=== PATIENT | male | born 1935 | race Caucasian/White ===

== ENCOUNTER 2020-08-26 11:39 | Emergency (ER) | payer OTHER ==
[2020-08-26 11:48] VITALS: RESP 18
--- NOTE | 2020-08-26 12:19 | ED ---
SOB HPI - General Chief Complaint: Shortness of Breath Stated Complaint: Covid+, SOB, weakness Time Seen by Provider: 08/26/20 11:50 Source: patient, family, RN notes reviewed Mode of arrival: ambulatory Limitations: no limitations - History of Present Illness Initial Comments: Is an 85-year-old male who is sent in by family because of hypoxemia and marcela rtness breath he states he was diagnosed with Covid 19 several days ago. He denies any fevers chills nausea vomiting sweats minimal cough. MD Complaint: shortness of breath - Related Data Home Medications Medication Instructions Recorded Confirmed Acetaminophen Tab [Tylenol Tab] 1,000 mg PO DAILY 08/26/20 08/26/20 Acetaminophen/Diphenhydramine 2 tab PO HS 08/26/20 08/26/20 [Tylenol PM 500-25mg] Allopurinol [Zyloprim] 200 mg PO DAILY 08/26/20 08/26/20 Aspirin EC [Ecotrin Low Dose] 40.5 mg PO DAILY 08/26/20 08/26/20 Atorvastatin [Lipitor] 40 mg PO HS 08/26/20 08/26/20 Docusate [Colace] 100 - 200 mg PO DAILY PRN 08/26/20 08/26/20 Furosemide [Lasix] 40 mg PO DAILY 08/26/20 08/26/20 Lani's Leg Cramps 1 - 2 tab SL Q4H PRN 08/26/20 08/26/20 Levothyroxine Sodium [Synthroid] 100 mcg PO DAILY 08/26/20 08/26/20 Quinapril HCl [Accupril] 20 mg PO DAILY 08/26/20 08/26/20 Ubidecarenone [Co Q-10] 200 mg PO DAILY 08/26/20 08/26/20 Allergies Allergy/AdvReac Type Severity Reaction Status Date / Time tamsulosin [From Flomax] Allergy Unknown Verified 08/26/20 12:22 zolpidem [From Ambien] Allergy Unknown Verified 08/26/20 12:22 Review of Systems ROS Statement: Those systems with pertinent positive or pertinent negative responses have been documented in the HPI. ROS Other: All systems not noted in ROS Statement are negative. 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 History of Any Multi-Drug Resistant Organisms: None Reported Past Surgical History: Heart Catheterization With Stent, Hernia Repair Past Psychological History: No Psychological Hx Reported Smoking Status: Never smoker Past Alcohol Use History: None Reported Past Drug Use History: None Reported General Exam - General Exam Comments Initial Comments: This is a well-developed asthenic appearing male who is awake alert oriented 3 Limitations: no limitations General appearance: alert, in no apparent distress Head exam: Present: atraumatic, normocephalic, normal inspection Eye exam: Present: normal appearance, PERRL, EOMI. Absent: scleral icterus, conjunctival injection, periorbital swelling ENT exam: Present: normal exam, mucous membranes moist Neck exam: Present: normal inspection, full ROM, other (No stridor JVD or bruits). Absent: tenderness, meningismus, lymphadenopathy Respiratory exam: Present: decreased breath sounds. Absent: respiratory distress, wheezes, rales, rhonchi, stridor Cardiovascular Exam: Present: regular rate, normal rhythm, normal heart sounds. Absent: systolic murmur, diastolic murmur, rubs, gallop, clicks GI/Abdominal exam: Present: soft, normal bowel sounds. Absent: distended, tenderness, guarding, rebound, rigid Extremities exam: Present: normal inspection, full ROM, normal capillary refill. Absent: tenderness, pedal edema, joint swelling, calf tenderness Back exam: Present: normal inspection Neurological exam: Present: alert, oriented X3, CN II-XII intact Psychiatric exam: Present: normal affect, normal mood Skin exam: Present: warm, dry, intact, normal color. Absent: rash Course Vital Signs 08/26/20 11:41 Temperature 97.4 F L Pulse Rate 76 Respiratory 18 Rate Blood Pressure 114/61 O2 Sat by Pulse 96 Oximetry - Reevaluation(s) Reevaluation #1: 08/26/20 14:17 Reevaluation patient reveals no change is known from his who discuss the patient's care with the patient's nurse that he has abnormally cognitive d ysfunction which she is demonstrating today he is baseline per family. Reevaluation #2: 08/26/20 14:20 The patient has have an elevated d-dimer this is consistent however with his age and renal insufficiency. Low probability of embolus. Medical Decision Making - Medical Decision Making The patient is awake and alert demonstrating his normal cognitive function. Vital signs are stable. Patient is a candidate for the Covid antibody. Patient will be discharged and sent to the infusion clinic for antibody. He will then be discharged home. - Lab Data Result diagrams: 08/26/20 12:28 08/26/20 12:28 Lab Results 08/26/20 08/26/20 08/26/20 Range/Units 12:28 12:28 12:28 WBC 3.9 (3.8-10.6) k/uL RBC 3.90 L (4.30-5.90) m/uL Hgb 13.0 (13.0-17.5) gm/dL Hct 37.4 L (39.0-53.0) % MCV 95.9 (80.0-100.0) fL MCH 33.3 (25.0-35.0) pg MCHC 34.7 (31.0-37.0) g/dL RDW 13.2 (11.5-15.5) % Plt Count 141 L (150-450) k/uL MPV 9.2 Neutrophils % 74 % Lymphocytes % 18 % Monocytes % 6 % Eosinophils % 0 % Basophils % 1 % Neutrophils # 2.9 (1.3-7.7) k/uL Lymphocytes # 0.7 L (1.0-4.8) k/uL Monocytes # 0.2 (0-1.0) k/uL Eosinophils # 0.0 (0-0.7) k/uL Basophils # 0.0 (0-0.2) k/uL PT 10.1 (9.0-12.0) sec INR 0.9 (<1.2) APTT 26.2 (22.0-30.0) sec D-Dimer 0.80 H (<0.60) mg/L FEU Sodium 138 (137-145) mmol/L Potassium 4.5 (3.5-5.1) mmol/L Chloride 108 H (98-107) mmol/L Carbon Dioxide 23 (22-30) mmol/L Anion Gap 7 mmol/L BUN 45 H (9-20) mg/dL Creatinine 1.91 H (0.66-1.25) mg/dL Est GFR (CKD-EPI)AfAm 36 (>60 ml/min/1.73 sqM) Est GFR (CKD-EPI)NonAf 32 (>60 ml/min/1.73 sqM) Glucose 129 H (74-99) mg/dL Plasma Lactic Acid Bakari (0.7-2.0) mmol/L Calcium 8.3 L (8.4-10.2) mg/dL Magnesium 2.2 (1.6-2.3) mg/dL Total Bilirubin 0.3 (0.2-1.3) mg/dL AST 31 (17-59) U/L ALT 25 (4-49) U/L Alkaline Phosphatase 52 (38-126) U/L Creatine Kinase 105 (55-170) U/L Troponin I (0.000-0.034) ng/mL NT-Pro-B Natriuret Pep pg/mL Total Protein 5.5 L (6.3-8.2) g/dL Albumin 3.3 L (3.5-5.0) g/dL 08/26/20 08/26/20 08/26/20 Range/Units 12:28 12:28 12:28 WBC (3.8-10.6) k/uL RBC (4.30-5.90) m/uL Hgb (13.0-17.5) gm/dL Hct (39.0-53.0) % MCV (80.0-100.0) fL MCH (25.0-35.0) pg MCHC (31.0-37.0) g/dL RDW (11.5-15.5) % Plt Count (150-450) k/uL MPV Neutrophils % % Lymphocytes % % Monocytes % % Eosinophils % % Basophils % % Neutrophils # (1.3-7.7) k/uL Lymphocytes # (1.0-4.8) k/uL Monocytes # (0-1.0) k/uL Eosinophils # (0-0.7) k/uL Basophils # (0-0.2) k/uL PT (9.0-12.0) sec INR (<1.2) APTT (22.0-30.0) sec D-Dimer (<0.60) mg/L FEU Sodium (137-145) mmol/L Potassium (3.5-5.1) mmol/L Chloride (98-107) mmol/L Carbon Dioxide (22-30) mmol/L Anion Gap mmol/L BUN (9-20) mg/dL Creatinine (0.66-1.25) mg/dL Est GFR (CKD-EPI)AfAm (>60 ml/min/1.73 sqM) Est GFR (CKD-EPI)NonAf (>60 ml/min/1.73 sqM) Glucose (74-99) mg/dL Plasma Lactic Acid Bakari 1.2 (0.7-2.0) mmol/L Calcium (8.4-10.2) mg/dL Magnesium (1.6-2.3) mg/dL Total Bilirubin (0.2-1.3) mg/dL AST (17-59) U/L ALT (4-49) U/L Alkaline Phosphatase (38-126) U/L Creatine Kinase (55-170) U/L Troponin I <0.012 (0.000-0.034) ng/mL NT-Pro-B Natriuret Pep 140 pg/mL Total Protein (6.3-8.2) g/dL Albumin (3.5-5.0) g/dL - EKG Data -: EKG Interpreted by Me EKG shows normal: sinus rhythm EKG Comments: Sinus rhythm with PACs rate 76. Interval 160 QRS duration 92 daily since QTC 376/[address]-T wave changes - Radiology Data Radiology results: report reviewed (Imaging is evidence of early infiltrate), image reviewed Disposition Clinical Impression: Pneumonia due to COVID-19 virus, Viral pneumonia, Feared condition not demonstrated Disposition: HOME SELF-CARE Condition: Good Additional Instructions: Covid antibody infusion Is patient prescribed a controlled substance at d/c from ED?: No Referrals: Andrei Vasquez MD [Primary Care Provider] - 1-2 days
[2020-08-26 12:56] LABS: Basophils % (A) 1 %; Eosinophils % (A) 0 %; HCT 37.4 % (39.0-53.0); Lymphocytes # (A) 0.7 k/uL (1.0-4.8); Lymphocytes % (A) 18 %; MCH 33.3 pg (25.0-35.0); MCHC 34.7 g/dL (31.0-37.0); MCV 95.9 fL (80.0-100.0); Mean Platelet Volume 9.2; Monocytes # (A) 0.2 k/uL (0-1.0); Monocytes % (A) 6 %; Neutrophils # (A) 2.9 k/uL (1.3-7.7); Neutrophils % (A) 74 %; Platelet Count 141 k/uL (150-450); RDW 13.2 % (11.5-15.5); WBC 3.9 k/uL (3.8-10.6)
--- NOTE | 2020-08-26 13:08 | XR ---
EXAMINATION TYPE: XR chest 2V DATE OF EXAM: 08/26/2020 COMPARISON: Chest x-ray 06/19/2019 HISTORY: Difficulty breathing TECHNIQUE: Frontal and lateral views of the chest are obtained. FINDINGS: Some minimal patchy density is present bilaterally within the lungs. There is no pleural ef fusion or pneumothorax seen. The cardiac silhouette size is within normal limits. Aorta is dense. Th ere is multilevel thoracic spondylosis. There are overlying leads. The osseous structures are intact . IMPRESSION: Correlate for possible pneumonia, follow-up as indicated.
[2020-08-26 13:12] LABS: Albumin 3.3 g/dL (3.5-5.0); Calcium 8.3 mg/dL (8.4-10.2); Magnesium 2.2 mg/dL (1.6-2.3); Potassium 4.5 mmol/L (3.5-5.1); Total Bilirubin 0.3 mg/dL (0.2-1.3); Total Protein 5.5 g/dL (6.3-8.2)
[2020-08-26 13:16] LABS: INR 0.9 (<1.2); Partial Thromboplastin Time 26.2 sec (22.0-30.0); Prothrombin Time 10.1 sec (9.0-12.0)
[2020-08-26 13:25] LABS: D-Dimer 0.8 mg/L FEU (<0.60)
[2020-08-26] MEDS ORDERED: BAMLANIVIMAB (EUA) 700 MG, ETESEVIMAB (EUA) 1,400 MG in SODIUM CHLORIDE 0.9% 50 ML IVPB ONE (14:45)
[2020-08-26] MEDS ORDERED: SODIUM CHLORIDE 0.9% 50 ML IVPB ONE (14:45)
[2020-08-26 16:43] VITALS: BP 112/82; PULSE 88; TEMP 98.2
== END 2020-08-26 16:43 | disposition home or self-care (01) ==
LOC: EC 11:39
DX: U07.1 COVID-19 (principal); J12.82 Pneumonia due to coronavirus disease 2019; Z71.1 Person with feared health complaint in whom no diagnosis is made; E78.5 Hyperlipidemia, unspecified; Z79.82 Long term (current) use of aspirin; Z79.899 Other long term (current) drug therapy; Z85.51 Personal history of malignant neoplasm of bladder
CPT/HCPCS: 36415; 93005; 85379; 83880; 80053; 82550; 83605; 83735; 84484; 85025; 85610; 85730; 87635; 71046; 99285; 96360; Q0245

== ENCOUNTER 2020-08-27 09:08 | Inpatient (IN) | payer OTHER, MEDICARE ==
[2020-08-27 09:37] LABS: Basophils % (A) 0 %; Eosinophils % (A) 0 %; HCT 38.9 % (39.0-53.0); Lymphocytes # (A) 0.7 k/uL (1.0-4.8); Lymphocytes % (A) 11 %; MCH 32.3 pg (25.0-35.0); MCHC 33.4 g/dL (31.0-37.0); MCV 96.8 fL (80.0-100.0); Mean Platelet Volume 8.8; Monocytes # (A) 0.3 k/uL (0-1.0); Monocytes % (A) 5 %; Neutrophils # (A) 5.4 k/uL (1.3-7.7); Neutrophils % (A) 84 %; Platelet Count 126 k/uL (150-450); RBC 4.02 m/uL (4.30-5.90); RDW 13.1 % (11.5-15.5); WBC 6.5 k/uL (3.8-10.6)
--- NOTE | 2020-08-27 09:44 | XR ---
EXAMINATION TYPE: XR chest 1V portable DATE OF EXAM: 08/27/2020 COMPARISON: Chest x-ray from yesterday HISTORY: SOB and positive covid. TECHNIQUE: Single AP portable frontal upright view of the chest is obtained. FINDINGS: Background low lung volumes redemonstrated. There is increasing multifocal reticular opacit ies in the mid to lower lungs greatest in the periphery. The cardiac silhouette size is stable and w ithin normal limits. The osseous structures are intact. IMPRESSION: Low lung volumes with worsening multifocal bilateral mid to lower lung reticular opaciti es consistent with covid-19 infection progression.
[2020-08-27 09:49] LABS: Albumin 3.7 g/dL (3.5-5.0); C Reactive Protein 7.1 mg/dL (<1.0); Calcium 8.5 mg/dL (8.4-10.2); Magnesium 2.1 mg/dL (1.6-2.3); Potassium 4.2 mmol/L (3.5-5.1); Total Bilirubin 0.5 mg/dL (0.2-1.3)
[2020-08-27 09:53] LABS: INR 0.9 (<1.2)
[2020-08-27 09:54] LABS: Partial Thromboplastin Time 25.2 sec (22.0-30.0); Prothrombin Time 9.9 sec (9.0-12.0)
--- NOTE | 2020-08-27 09:56 | ED ---
SOB HPI - General Chief Complaint: Shortness of Breath Stated Complaint: Covid+/sob/low o2 Time Seen by Provider: 08/27/20 09:10 Source: EMS Mode of arrival: EMS Limitations: no limitations - History of Present Illness Initial Comments: 85-year-old male presents to the emergency department with complaints of shortness of breath. Patient was seen yesterday in the emergency department for similar complaint. It was reported the patient rested positive for Covid several days ago. Patient cannot tell me how many days ago this was however states that he went through a drive-through testing center. Had a poor appetite was poor oral intake. Reports increased generalized weakness and myalgias. Patient also found to be extremely short of breath. EMS arrived to the house and found the patient is saturating 80% on room air. Yesterday in the emergency department the patient received BAM infusion and was discharged home. remainder of the HPI is limited due to the patient's current clinical condition - Related Data Home Medications Medication Instructions Recorded Confirmed Acetaminophen Tab [Tylenol] 1,000 mg PO DAILY 08/26/20 09/02/20 Acetaminophen/Diphenhydramine 2 tab PO HS 08/26/20 09/02/20 [Tylenol PM 500-25mg] Allopurinol [Zyloprim] 200 mg PO DAILY 08/26/20 09/02/20 Aspirin EC [Ecotrin Low Dose] 40.5 mg PO DAILY 08/26/20 09/02/20 Atorvastatin [Lipitor] 40 mg PO HS 08/26/20 09/02/20 Docusate [Colace] 100 - 200 mg PO DAILY PRN 08/26/20 09/02/20 Furosemide [Lasix] 40 mg PO DAILY 08/26/20 09/02/20 Lani's Leg Cramps 1 - 2 tab SUBLINGUAL Q4H PRN 08/26/20 09/02/20 Levothyroxine Sodium [Synthroid] 100 mcg PO DAILY 08/26/20 09/02/20 Ubidecarenone [Co Q-10] 200 mg PO DAILY 08/26/20 09/02/20 Previous Rx's Medication Instructions Recorded Acetaminophen Tab [Tylenol] 650 mg PO Q6HR PRN tab 09/01/20 Albuterol Inhaler [Ventolin Hfa 2 puff INHALATION RT-QID #1 puff 09/01/20 Inhaler] Ascorbic Acid [Vitamin C] 500 mg PO BID tab 09/01/20 Cholecalciferol [Vitamin D3 (25 125 mcg PO DAILY tablet 09/01/20 Mcg = 1000 Iu)] Dexamethasone [Decadron] 4 mg PO AC-BRKFST #7 tablet 09/01/20 Pantoprazole [Protonix] 40 mg PO AC-BRKFST #30 tablet. 09/01/20 guaiFENesin [Mucinex] 600 mg PO Q12HR tablet.er 09/01/20 hydrALAZINE HCL [Apresoline] 25 mg PO BID #60 tab 09/01/20 Allergies Allergy/AdvReac Type Severity Reaction Status Date / Time tamsulosin [From Flomax] Allergy Unknown Verified 09/02/20 08:30 zolpidem [From Ambien] Allergy Unknown Verified 09/02/20 08:30 Review of Systems ROS Statement: Those systems with pertinent positive or pertinent negative responses have been documented in the HPI. ROS Other: All systems not noted in ROS Statement are negative. 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 Absent: scleral icterus, c onjunctival injection, periorbital swelling ENT exam: Present: normal exam, mucous membranes moist Neck exam: Present: normal inspection. Absent: tenderness, meningismus, lymphadenopathy Respiratory exam: Present: normal lung sounds bilaterally. Absent: respiratory distress, wheezes, rales, rhonchi, stridor Cardiovascular Exam: Present: regular rate, normal rhythm, normal heart sounds. Absent: systolic murmur, diastolic murmur, rubs, gallop, clicks GI/Abdominal exam: Present: soft, normal bowel sounds. Absent: distended, tenderness, guarding, rebound, rigid Extremities exam: Present: normal inspection, full ROM, normal capillary refill. Absent: tenderness, pedal edema, joint swelling, calf tenderness Back exam: Present: normal inspection Neurological exam: Present: alert, oriented X3, CN II-XII intact Psychiatric exam: Present: normal affect, normal mood Skin exam: Present: warm, dry, intact, normal color. Absent: rash Course Vital Signs 08/27/20 08/27/20 08/27/20 09:09 10:04 10:32 Temperature 98.2 F Pulse Rate 78 73 68 Respiratory 16 16 18 Rate Blood Pressure 135/81 140/75 146/76 O2 Sat by Pulse 100 95 96 Oximetry 08/27/20 08/27/20 08/27/20 11:26 11:54 13:00 Temperature Pulse Rate 64 66 62 Respiratory 16 16 16 Rate Blood Pressure 138/58 128/67 133/69 O2 Sat by Pulse 94 L 98 97 Oximetry Medical Decision Making - Medical Decision Making Upon arrival patient was placed into room 2. He was saturating 80% for EMS. He is placed on a nonrebreather and oxygen was titrated down. Patient is able to be weaned down to 3 L and is saturating 96%. Laboratory studies are conducted. The patient's creatinine is 2.3. Lactic acid 3.2. Chest x-ray demonstrates low lung volumes with worsening multifocal bilateral mid to lower lung reticular opacities. Because the patient's hypoxia and acute kidney injury did recommend hospital admission for which patient agree to. Spoke with Dr. Myers who agreed to admit the patient. Patient remained in stable condition. He is placed on fluid hydration and steroids. Patient is currently awaiting a bed on the floor - Lab Data Result diagrams: 08/31/20 07:42 08/31/20 07:42 Lab Results 08/27/20 08/27/20 08/27/20 Range/Units 09:27 09:27 09:27 WBC 6.5 (3.8-10.6) k/uL RBC 4.02 L (4.30-5.90) m/uL Hgb 13.0 (13.0-17.5) gm/dL Hct 38.9 L (39.0-53.0) % MCV 96.8 (80.0-100.0) fL MCH 32.3 (25.0-35.0) pg MCHC 33.4 (31.0-37.0) g/dL RDW 13.1 (11.5-15.5) % Plt Count 126 L (150-450) k/uL MPV 8.8 Neutrophils % 84 % Lymphocytes % 11 % Monocytes % 5 % Eosinophils % 0 % Basophils % 0 % Neutrophils # 5.4 (1.3-7.7) k/uL Lymphocytes # 0.7 L (1.0-4.8) k/uL Monocytes # 0.3 (0-1.0) k/uL Eosinophils # 0.0 (0-0.7) k/uL Basophils # 0.0 (0-0.2) k/uL PT 9.9 (9.0-12.0) sec INR 0.9 (<1.2) APTT 25.2 (22.0-30.0) sec D-Dimer 1.06 H (<0.60) mg/L FEU Sodium 141 (137-145) mmol/L Potassium 4.2 (3.5-5.1) mmol/L Chloride 107 (98-107) mmol/L Carbon Dioxide 22 (22-30) mmol/L Anion Gap 12 mmol/L BUN 52 H (9-20) mg/dL Creatinine 2.30 H (0.66-1.25) mg/dL Est GFR (CKD-EPI)AfAm 29 (>60 ml/min/1.73 sqM) Est GFR (CKD-EPI)NonAf 25 (>60 ml/min/1.73 sqM) Glucose 114 H (74-99) mg/dL Lactic Ac Sepsis Rflx Plasma Lactic Acid Bakari (0.7-2.0) mmol/L Calcium 8.5 (8.4-10.2) mg/dL Magnesium 2.1 (1.6-2.3) mg/dL Total Bilirubin 0.5 (0.2-1.3) mg/dL AST 36 (17-59) U/L ALT 28 (4-49) U/L Alkaline Phosphatase 56 (38-126) U/L Lactate Dehydrogenase 572 (313-618) U/L C-Reactive Protein 7.1 H (<1.0) mg/dL Total Protein 6.0 L (6.3-8.2) g/dL Albumin 3.7 (3.5-5.0) g/dL Procalcitonin (0.02-0.09) ng/mL 08/27/20 08/27/20 08/27/20 Range/Units 09:27 09:27 09:56 WBC (3.8-10.6) k/uL RBC (4.30-5.90) m/uL Hgb (13.0-17.5) gm/dL Hct (39.0-53.0) % MCV (80.0-100.0) fL MCH (25.0-35.0) pg MCHC (31.0-37.0) g/dL RDW (11.5-15.5) % Plt Count (150-450) k/uL MPV Neutrophils % % Lymphocytes % % Monocytes % % Eosinophils % % Basophils % % Neutrophils # (1.3-7.7) k/uL Lymphocytes # (1.0-4.8) k/uL Monocytes # (0-1.0) k/uL Eosinophils # (0-0.7) k/uL Basophils # (0-0.2) k/uL PT (9.0-12.0) sec INR (<1.2) APTT (22.0-30.0) sec D-Dimer (<0.60) mg/L FEU Sodium (137-145) mmol/L Potassium (3.5-5.1) mmol/L Chloride (98-107) mmol/L Carbon Dioxide (22-30) mmol/L Anion Gap mmol/L BUN (9-20) mg/dL Creatinine (0.66-1.25) mg/dL Est GFR (CKD-EPI)AfAm (>60 ml/min/1.73 sqM) Est GFR (CKD-EPI)NonAf (>60 ml/min/1.73 sqM) Glucose (74-99) mg/dL Lactic Ac Sepsis Rflx Y Plasma Lactic Acid Bakari 3.2 H* (0.7-2.0) mmol/L Calcium (8.4-10.2) mg/dL Magnesium (1.6-2.3) mg/dL Total Bilirubin (0.2-1.3) mg/dL AST (17-59) U/L ALT (4-49) U/L Alkaline Phosphatase (38-126) U/L Lactate Dehydrogenase (313-618) U/L C-Reactive Protein (<1.0) mg/dL Total Protein (6.3-8.2) g/dL Albumin (3.5-5.0) g/dL Procalcitonin 1.79 H (0.02-0.09) ng/mL - EKG Data EKG Comments: EKG demonstrates a normal sinus rhythm with fusion complexes. Rate of 81. W[place] i nterval 162. QRS 88. QTC of 427. No acute ST segment elevations or depressions Disposition Clinical Impression: Pneumonia due to COVID-19 virus, MARLON (acute kidney injury), Hypoxia Disposition: ADMITTED IP TO THIS HOSP Condition: Stable Is patient prescribed a controlled substance at d/c from ED?: No Decision to Admit Reason: Admit from EC Decision Date: 08/27/20 Decision Time: 11:13
[2020-08-27 10:10] LABS: D-Dimer 1.06 mg/L FEU (<0.60)
[2020-08-27] MEDS ORDERED: SODIUM CHLORIDE 0.9% 1,000 ML IV ONE (10:34)
[2020-08-27] MEDS: SODIUM CHLORIDE 0.9% 1,000 ML IV SCH (10:45)
[2020-08-27] MEDS ORDERED: ACETAMINOPHEN TAB 325 MG TAB PO PRN (11:16)
[2020-08-27] MEDS ORDERED: NALOXONE 0.4 MG/ML 1 ML VIAL IV PRN (11:16)
[2020-08-27] MEDS ORDERED: DEXAMETHASONE SOD PHOSPHATE 10 MG/ML 1 ML VIAL IV SCH (11:30)
--- NOTE | 2020-08-27 14:34 | P.CNPUL ---
History of Present Illness Consult date: 08/27/20 Requesting physician: Deepak Vasquez Reason for consult: dyspnea, cough, hypoxemia, pneumonia, abnormal CXR/CT Chief complaint: Shortness of breath, COVID pneumonia. History of present illness: Pulmonary consult dated 08/27/2020. 85-year-old male, who is quite confused as to exactly why he's here in the emergency department. According to the nurse, the patient was here yesterday and received BAM. He was discharged home. He apparently presented back to the emergency department on August 27, for complaints of increasing shortness of breath. He apparently tested positive for coronavirus a couple days ago. Anyway, his symptoms included shortness breath, cough, weakness, fatigue, and poor appetite with poor oral intake of both fluids and food. The patient was apparently quite short of breath, and he was only saturating 80% on room air. For that reason he came into the hospital. His primary care physician is Dr. Jeffrey Vasquez. He has a history of hyperlipidemia, hypertension, hypothyroidism, bladder cancer, and heart catheterization with stent. He is 85 years of age. Currently, he's on 4 L nasal O2. Lab data includes a white count 6.5, hemoglobin 13, hematocrit 38.9, and platelet count 126,000. PT, INR, PTT, and d-dimer were all reviewed. D-dimer is 1.06. Sodium potassium chloride CO2 all normal. Anion gap 12, BUN was 52, and creatinine was 2.30. Lactic acid 3.2, with repeat being 0.9. C-reactive protein 7.1. LDH 572. Chest x-ray show some low lung volumes, and bilateral infiltrates. The patient did test positive again for coronavirus on August 26. It is not clear to me how long he's been having symptoms. Again, he is not a very good historian. Review of Systems REVIEW OF SYSTEMS: CONSTITUTIONAL: Fatigue and weakness. NEUROLOGIC: [ Negative.] HEENT: [ Negative.] CARDIAC: [Negative.] PULMONARY: Shortness of breath, chest congestion, cough, low saturations. GI: Decreased oral intake with dehydration. : [Negative.] RHEUMATOLOGIC: [ Negative.] IMMUNOLOGIC: [ Negative.] ENDOCRINE: [Negative. 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 History of Any Multi-Drug Resistant Organisms: None Reported Past Surgical History: Heart Catheterization With Stent, Hernia Repair Past Psychological History: No Psychological Hx Reported Smoking Status: Never smoker Past Alcohol Use History: None Reported Past Drug Use History: None Reported Medications and Allergies Home Medications Medication Instructions Recorded Confirmed Type Acetaminophen Tab [Tylenol Tab] 1,000 mg PO DAILY 08/26/20 08/27/20 History Acetaminophen/Diphenhydramine 2 tab PO HS 08/26/20 08/27/20 History [Tylenol PM 500-25mg] Allopurinol [Zyloprim] 200 mg PO DAILY 08/26/20 08/27/20 History Aspirin EC [Ecotrin Low Dose] 40.5 mg PO DAILY 08/26/20 08/27/20 History Atorvastatin [Lipitor] 40 mg PO HS 08/26/20 08/27/20 History Docusate [Colace] 100 - 200 mg PO DAILY PRN 08/26/20 08/27/20 History Furosemide [Lasix] 40 mg PO DAILY 08/26/20 08/27/20 History Lani's Leg Cramps 1 - 2 tab SUBLINGUAL Q4H PRN 08/26/20 08/27/20 History Levothyroxine Sodium [Synthroid] 100 mcg PO DAILY 08/26/20 08/27/20 History Quinapril HCl [Accupril] 20 mg PO DAILY 08/26/20 08/27/20 History Ubidecarenone [Co Q-10] 200 mg PO DAILY 08/26/20 08/27/20 History Allergies Allergy/AdvReac Type Severity Reaction Status Date / Time tamsulosin [From Flomax] Allergy Unknown Verified 08/27/20 10:04 zolpidem [From Ambien] Allergy Unknown Verified 08/27/20 10:04 Physical Exam Osteopathic Statement: *. No significant issues noted on an osteopathic structural exam other than those noted in the History and Physical/Consult. Vitals: Vital Signs Temp Pulse Resp BP Pulse Ox 08/27/20 13:00 62 16 133/69 97 08/27/20 11:54 66 16 128/67 98 08/27/20 11:26 64 16 138/58 94 L 08/27/20 10:32 68 18 146/76 96 08/27/20 10:04 73 16 140/75 95 08/27/20 09:09 98.2 F 78 16 135/81 100 Intake and Output 08/26/20 08/27/20 08/27/20 22:59 06:59 14:59 Other: Weight 90.718 kg No acute distress, poor historian, a bit confused, on 4 L nasal O2. Saturations 95%. HEENT examination is grossly unremarkable. Mucous membranes are dry. Neck supple. Full range of motion. No adenopathy thyromegaly or neck vein distention. Cardiovascular examination reveals regular rhythm rate. S1-S2 normal. No S3 or S4. No discernible murmur noted. Heart rate 62 bpm. Lungs reveal bilateral scattered rhonchi. No wheezes or crackles. Breath sounds equal. Abdomen soft bowel sounds are heard. No masses or tenderness. Extremities are intact. No cyanosis clubbing or edema. Skin is without rash or lesion. Neurologic examination is brief but nonfocal. Results - Laboratory Findings CBC and BMP: 08/27/20 09:27 08/27/20 09:27 PT/INR, D-dimer PT 9.9 sec (9.0-12.0) 08/27/20 09:27 INR 0.9 (<1.2) 08/27/20 09:27 D-Dimer 1.06 mg/L FEU (<0.60) H 08/27/20 09:27 Abnormal lab findings: Abnormal Labs 08/27/20 08/27/20 08/27/20 09:27 09:27 09:27 RBC 4.02 L Hct 38.9 L Plt Count 126 L Lymphocytes # 0.7 L D-Dimer 1.06 H BUN 52 H Creatinine 2.30 H Glucose 114 H Plasma Lactic Acid Bakari C-Reactive Protein 7.1 H Total Protein 6.0 L 08/27/20 09:27 RBC Hct Plt Count Lymphocytes # D-Dimer BUN Creatinine Glucose Plasma Lactic Acid Bakari 3.2 H* C-Reactive Protein Total Protein - Diagnostic Findings Chest x-ray: image reviewed Assessment and Plan Assessment: Acute hypoxemic respiratory failure secondary to COVID 19 pneumonia/pneumonitis. Status post BAM/ETE therapy on August 26. History of gout. History of hyperlipidemia. History of hypothyroidism. History of hypertension. History of bladder cancer. Previous history of heart catheterization with stent placement. Lifelong nonsmoker. Plan: Plan dated 08/27/2020. The patient should receive vitamin C, vitamin D3, and zinc. In addition, the patient should get Lovenox, and Decadron. He may be a candidate for REM, although it is not clear to me how long he's been having symptoms. He is not a particularly good historian. He did received BAM/ETE on August 26. The patient is not sick enough to receive TOCI. We will continue to follow make recommendations were appropriate. The primary service should institute the vitamins, Decadron, and Lovenox if not already ordered. Time with Patient: Greater than 30
[2020-08-27] MEDS ORDERED: ONDANSETRON 4 MG/2 ML VIAL IVP PRN (15:19)
--- NOTE | 2020-08-27 15:44 | P.HPIM ---
History of Present Illness H&P Date: 08/27/20 85 years old male patient of Dr. Vasquez with past medical history of coronary disease status post stenting, hypertension, hyperlipidemia, hypothyroidism, history of bladder cancer status post surgery, so comes in with worsening shortness of breath associated with weakness, fatigue poor appetite and poor intake of fluids and food. Apparently patient was in here yesterday and was diagnosed with COVID. Patient received Bamlanivimab and was discharged home. EMS was called and patient was noted to be shortof breath his oxygen saturation was 80% on room air. Oxygenation improved with nonrebreather and finally was titrated down to 3 L. On evaluation today patient appears very confused and unable to give any history. He does document dry mouth but is unable to tell his symptoms or the reason he is in the ER. He is unable to give any hitory and is drifting back to sleep. On assessment of patient's vitals, patient has a temp of 98.9 pulse 58 respiratory rate 18 blood pressure 125/6687% on 3 L of oxygen. On assessment was that patient has a WBC of 6.5 hemoglobin 13 d-dimer 1.06 sodium 141 potassium 4.2 chloride 107 BUN 52 creatinine 2.3 baseline creatinine not known patient's creatinine yesterday is was 1.9 initially lactic acid 3.2 improved to 0.9 with fluids. CRP 7.1 LDH 572, proBNP 144 with detected on 08/26. Pulmonary consulted. Continue patient on vitamin C, vitamin D dexamethasone 4 mg IV twice a day continue IV fluids at 75 mL per hour. Ultrasound bladder and kidneys ordered. 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 History of Any Multi-Drug Resistant Organisms: None Reported Past Surgical History: Heart Catheterization With Stent, Hernia Repair Smoking Status: Never smoker Medications and Allergies Home Medications Medication Instructions Recorded Confirmed Type Acetaminophen Tab [Tylenol Tab] 1,000 mg PO DAILY 08/26/20 08/27/20 History Acetaminophen/Diphenhydramine 2 tab PO HS 08/26/20 08/27/20 History [Tylenol PM 500-25mg] Allopurinol [Zyloprim] 200 mg PO DAILY 08/26/20 08/27/20 History Aspirin EC [Ecotrin Low Dose] 40.5 mg PO DAILY 08/26/20 08/27/20 History Atorvastatin [Lipitor] 40 mg PO HS 08/26/20 08/27/20 History Docusate [Colace] 100 - 200 mg PO DAILY PRN 08/26/20 08/27/20 History Furosemide [Lasix] 40 mg PO DAILY 08/26/20 08/27/20 History Lani's Leg Cramps 1 - 2 tab SUBLINGUAL Q4H PRN 08/26/20 08/27/20 History Levothyroxine Sodium [Synthroid] 100 mcg PO DAILY 08/26/20 08/27/20 History Quinapril HCl [Accupril] 20 mg PO DAILY 08/26/20 08/27/20 History Ubidecarenone [Co Q-10] 200 mg PO DAILY 08/26/20 08/27/20 History Allergies Allergy/AdvReac Type Severity Reaction Status Date / Time tamsulosin [From Flomax] Allergy Unknown Verified 08/27/20 10:04 zolpidem [From Ambien] Allergy Unknown Verified 08/27/20 10:04 Physical Exam Vitals: Vital Signs Temp Pulse Pulse Resp BP BP Pulse Ox 08/27/20 14:51 98.9 F 58 L 18 125/66 08/27/20 13:00 62 16 133/69 97 08/27/20 11:54 66 16 128/67 98 08/27/20 11:26 64 16 138/58 94 L 08/27/20 10:32 68 18 146/76 96 08/27/20 10:04 73 16 140/75 95 08/27/20 09:09 98.2 F 78 16 135/81 100 Intake and Output 08/27/20 08/27/20 08/27/20 06:59 14:59 22:59 Other: Weight 90.718 kg 90.718 kg - Constitutional General appearance: uncooperative drowsy unable to answer any questions - EENT Eyes: anicteric sclerae, PERRLA, normal appearance ENT: hearing grossly normal - Neck Neck: no lymphadenopathy, normal ROM, - Respiratory Respiratory: bilateral: Decreased air entry with rhonchi - Cardiovascular Rhythm: regular Heart sounds: normal: S1, S2 Abnormal Heart Sounds: no systolic murmur, no diastolic murmur, no rub - Gastrointestinal General gastrointestinal: normal bowel sounds, soft nontender - Integumentary Integumentary: no rash - Neurologic Neurologic: Sensorimotor deficit, gait not assessed - Musculoskeletal Musculoskeletal:, strength equal bilaterally - Psychiatric Psychiatric: Drowsy orientation 1 Results CBC & Chem 7: 08/27/20 09:27 08/27/20 09:27 Labs: Abnormal Lab Results - Last 24 Hours (Table) 08/27/20 08/27/20 08/27/20 Range/Units 09:27 09:27 09:27 RBC 4.02 L (4.30-5.90) m/uL Hct 38.9 L (39.0-53.0) % Plt Count 126 L (150-450) k/uL Lymphocytes # 0.7 L (1.0-4.8) k/uL D-Dimer 1.06 H (<0.60) mg/L FEU BUN 52 H (9-20) mg/dL Creatinine 2.30 H (0.66-1.25) mg/dL Glucose 114 H (74-99) mg/dL Plasma Lactic Acid Bakari (0.7-2.0) mmol/L C-Reactive Protein 7.1 H (<1.0) mg/dL Total Protein 6.0 L (6.3-8.2) g/dL 08/27/20 Range/Units 09:27 RBC (4.30-5.90) m/uL Hct (39.0-53.0) % Plt Count (150-450) k/uL Lymphocytes # (1.0-4.8) k/uL D-Dimer (<0.60) mg/L FEU BUN (9-20) mg/dL Creatinine (0.66-1.25) mg/dL Glucose (74-99) mg/dL Plasma Lactic Acid Bakari 3.2 H* (0.7-2.0) mmol/L C-Reactive Protein (<1.0) mg/dL Total Protein (6.3-8.2) g/dL Thrombosis Risk Factor Assmnt - DVT/VTE Prophylaxis DVT/VTE Prophylaxis: Pharmacologic Prophylaxis ordered Assessment and Plan Plan: #1 acute hypoxic respiratory failure secondary to call with pneumonia. Status post monoclonal antibodies Bamlanivimab as outpatient. Initiated dexamethasone, vitamin C, vitamin D, zinc. Patient may benefit from remdesivir pulmonary to make recommendations. CT could not be performed due to worsening kidney functions VQ scan ordered. #2 lactic acidosis likely secondary to dehydration due to poor oral intake continue IV fluids at 75 mL/h #3 acute kidney injury. No prior baseline creatinine available. Likely ATN. Continue IV fluids at 75 mL per hour. Ultrasound renal and bladder ordered to rule out BPH and retention. #4 history of bladder cancer status post reconstruction, stable renal ultrasound and bladder ultrasound ordered #5 coronary artery disease status post stenting. Continue aspirin #5 hyperlipidemia continue atorvastatin 40 mg daily #6 hypothyroidism continue levothyroxine 100 g daily #7 hypertension hold quinapril and Lasix due to worsening kidney dysfunction #8 gout continue allopurinol 100 mg daily #9 CODE STATUS full code #10 DVT prophylaxis with Lovenox 40 subcu daily #11 GI prophylaxis with Protonix 40 mg daily
[2020-08-27] MEDS: ENOXAPARIN 40 MG/0.4 ML SYRINGE SQ SCH (16:53)
--- NOTE | 2020-08-27 17:38 | NM ---
EXAMINATION TYPE: NM pul perfusion DATE OF EXAM: 08/27/2020 COMPARISON: Same day chest radiograph HISTORY: Concern for PE. Following administration of 5.1 mCi Tc 99m MAA. Images obtained post injection. FINDINGS: Same-day chest radiograph demonstrated multifocal mid to lower reticular opacities characteristic of Covid 19. Perfusion images of the bilateral lungs demonstrate homogenous activity with no segmental perfusion d efect. IMPRESSION: Very low probability for PE.
[2020-08-27] MEDS: guaiFENesin 600 MG TABLET.ER PO SCH (19:47)
[2020-08-27] MEDS: ASCORBIC ACID 500 MG TAB PO SCH (19:47)
[2020-08-27] MEDS: DEXAMETHASONE SOD PHOSPHATE 10 MG/ML 1 ML VIAL IV SCH (19:47)
[2020-08-27] MEDS: ATORVASTATIN 40 MG TAB PO SCH (19:48)
--- NOTE | 2020-08-27 21:20 | US ---
EXAMINATION TYPE: US renals and bladder DATE OF EXAM: 08/27/2020 COMPARISON: NONE CLINICAL HISTORY: rex, h/o bladder cancer and reconstruction . rex, pt is poor historian and does not remember bladder ca EXAM MEASUREMENTS: Right Kidney: 16.4 x 8.6 cm Left Kidney: 9.2 x 4.7 x 5.5 cm Right Kidney: extensive hydronephrosis obscures most of normal renal tissue. Left Kidney: small in size with decreased corticomedullary differentiation Bladder: not seen No nephrolithiasis is seen. No masses are identified. The urinary bladder is anechoic. Bilateral ureteral jets are seen. IMPRESSION: Severe hydronephrosis right kidney. Diminution in size left kidney with medical renal disease.
[2020-08-28] MEDS: SODIUM CHLORIDE 0.9% 1,000 ML IV SCH ×2 (00:58→11:04)
[2020-08-28] MEDS: LEVOTHYROXINE 100 MCG TAB PO SCH (05:59)
[2020-08-28] MEDS: ACETAMINOPHEN TAB 500 MG TAB PO SCH (08:46)
[2020-08-28] MEDS: allopurinoL 100 MG TAB PO SCH (08:46)
[2020-08-28] MEDS: ENOXAPARIN 40 MG/0.4 ML SYRINGE SQ SCH (08:46)
[2020-08-28] MEDS: ASPIRIN 81 MG PO SCH (08:46)
[2020-08-28] MEDS: CHOLECALCIFEROL 25 MCG (1000 IU) TABLET PO SCH (08:46)
[2020-08-28] MEDS: ASCORBIC ACID 500 MG TAB PO SCH ×2 (08:46→22:11)
[2020-08-28] MEDS: PANTOPRAZOLE 40 MG TABLET PO SCH (08:46)
[2020-08-28] MEDS: DEXAMETHASONE SOD PHOSPHATE 10 MG/ML 1 ML VIAL IV SCH ×2 (08:46→22:11)
[2020-08-28] MEDS: guaiFENesin 600 MG TABLET.ER PO SCH ×2 (08:46→22:11)
[2020-08-28 09:34] LABS: Basophils % (A) 0 %; Eosinophils % (A) 0 %; HCT 35.5 % (39.0-53.0); HGB 12.2 gm/dL (13.0-17.5); Lymphocytes # (A) 0.4 k/uL (1.0-4.8); Lymphocytes % (A) 9 %; MCH 33.5 pg (25.0-35.0); MCHC 34.3 g/dL (31.0-37.0); MCV 97.9 fL (80.0-100.0); Mean Platelet Volume 9.1; Monocytes # (A) 0.2 k/uL (0-1.0); Monocytes % (A) 4 %; Neutrophils # (A) 4.1 k/uL (1.3-7.7); Neutrophils % (A) 86 %; Platelet Count 120 k/uL (150-450); RBC 3.63 m/uL (4.30-5.90); RDW 13.2 % (11.5-15.5); WBC 4.7 k/uL (3.8-10.6)
[2020-08-28 09:51] LABS: Albumin 3.1 g/dL (3.5-5.0); C Reactive Protein 6.8 mg/dL (<1.0); Calcium 8.1 mg/dL (8.4-10.2); Potassium 5.4 mmol/L (3.5-5.1); Total Bilirubin 0.5 mg/dL (0.2-1.3); Total Protein 5.4 g/dL (6.3-8.2)
--- NOTE | 2020-08-28 11:39 | P.PN ---
Subjective Progress Note Date: 08/28/20 Principal diagnosis: Shortness of breath. 85-year-old male, who is quite confused as to exactly why he's here in the emergency department. According to the nurse, the patient was here yesterday and received BAM. He was discharged home. He apparently presented back to the emergency department on August 27, for complaints of increasing shortness of breath. He apparently tested positive for coronavirus a couple days ago. Anyway, his symptoms included shortness breath, cough, weakness, fatigue, and poor appetite with poor oral intake of both fluids and food. The patient was apparently quite short of breath, and he was only saturating 80% on room air. For that reason he came into the hospital. His primary care physician is Dr. Jeffrey Vasquez. He has a history of hyperlipidemia, hypertension, hypothyroidism, bladder cancer, and heart catheterization with stent. He is 85 years of age. Currently, he's on 4 L nasal O2. Lab data includes a white count 6.5, hemoglobi n 13, hematocrit 38.9, and platelet count 126,000. PT, INR, PTT, and d-dimer were all reviewed. D-dimer is 1.06. Sodium potassium chloride CO2 all normal. Anion gap 12, BUN was 52, and creatinine was 2.30. Lactic acid 3.2, with repeat being 0.9. C-reactive protein 7.1. LDH 572. Chest x-ray show some low lung volumes, and bilateral infiltrates. The patient did test positive again for coronavirus on August 26. It is not clear to me how long he's been having symptoms. Again, he is not a very good historian. Progress note dated 08/28/2020 85-year-old male, that I saw yesterday in the emergency department. Currently, he's on 4 L nasal cannula and saline at 75 mL an hour. The patient was in the emergency room a couple days ago and received BAM. He was discharged home but came back in because of increasing weakness, shortness of breath, cough, and fatigue. Currently, he feels a bit better. White count 4.7, hemoglobin 12.2, hematocrit 35.5, and platelet count 120,000. Sodium 135, potassium 5.4, chlorides 108, CO2 21, anion gap 6, BUN 52, and creatinine 1.72. His BUN and cr eatinine from yesterday were 52 and 2.30. Lactic acid repeat was 0.9. Objective - Vital Signs Vital signs: Vital Signs Temp 97.9 F 08/28/20 08:00 Pulse 57 L 08/28/20 08:00 Resp 16 08/28/20 08:00 BP 153/72 08/28/20 08:00 Pulse Ox 96 08/28/20 08:00 Intake & Output 08/27/20 08/28/20 08/28/20 18:59 06:59 18:59 Intake Total 150 150 Balance 150 150 Weight 90.718 kg Intake: Intake, IV Titration 150 Amount Sodium Chloride 0.9% 1, 150 000 ml @ 75 mls/hr IV . [id number] [facility] Rx#:[id number] Oral 150 Other: Voiding Method Diaper Diaper Incontinent Incontinent # Voids 1 1 - Exam No acute distress, poor historian, a bit confused, on 4 L nasal O2. Saturations 96%. HEENT examination is grossly unremarkable. Mucous membranes are dry. Neck supple. Full range of motion. No adenopathy thyromegaly or neck vein distention. Cardiovascular examination reveals regular rhythm rate. S1-S2 normal. No S3 or S4. No discernible murmur noted. Heart rate 57 bpm. Lungs reveal bilateral scattered rhonchi. No wheezes or crackles. Breath sounds equal. Abdomen soft bowel sounds are heard. No masses or tenderness. Extremities are intact. No cyanosis clubbing or edema. Skin is without rash or lesion. Neurologic examination is brief but nonfocal. - Labs CBC & Chem 7: 08/28/20 09:05 08/28/20 09:05 Labs: Abnormal Lab Results - Last 24 Hours (Table) 08/27/20 08/28/20 08/28/20 Range/Units 09:27 09:05 09:05 RBC 3.63 L (4.30-5.90) m/uL Hgb 12.2 L (13.0-17.5) gm/dL Hct 35.5 L (39.0-53.0) % Plt Count 120 L (150-450) k/uL Lymphocytes # 0.4 L (1.0-4.8) k/uL Sodium 135 L (137-145) mmol/L Potassium 5.4 H (3.5-5.1) mmol/L Chloride 108 H (98-107) mmol/L Carbon Dioxide 21 L (22-30) mmol/L BUN 52 H (9-20) mg/dL Creatinine 1.72 H (0.66-1.25) mg/dL Glucose 198 H (74-99) mg/dL Calcium 8.1 L (8.4-10.2) mg/dL C-Reactive Protein 6.8 H (<1.0) mg/dL Total Protein 5.4 L (6.3-8.2) g/dL Albumin 3.1 L (3.5-5.0) g/dL Procalcitonin 1.79 H (0.02-0.09) ng/mL Assessment and Plan Assessment: Acute hypoxemic respiratory failure secondary to COVID 19 pneumonia/pneumonitis. Status post BAM/ETE therapy on August 26. History of gout. History of hyperlipidemia. History of hypothyroidism. History of hypertension. History of bladder cancer. Previous history of heart catheterization with stent placement. Lifelong nonsmoker. Plan: Plan dated 08/27/2020. The patient should receive vitamin C, vitamin D3, and zinc. In addition, the patient should get Lovenox, and Decadron. He may be a candidate for sindi HAMPTON it is not clear to me how long he's been having symptoms. He is not a particularly good historian. He did received BAM/ETE on August 26. The patient is not sick enough to receive TOCI. We will continue to follow make recommendations were appropriate. The primary service should institute the vitamins, Decadron, and Lovenox if not already ordered. Plan dated 08/28/2020. Currently, the patient appears to be feeling a bit better. He is a bit more awake and alert. Still a very poor historian. Remains on 4 L nasal cannula, and saline at 75 mL an hour. He recommended Lovenox, Decadron, vitamin C, vitamin D3, and zinc. The patient was not sick enough to receive TOCI. He did receive BAM/ETE on August 26. We will continue to follow and make recommendations. Time with Patient: Less than 30
[2020-08-28] MEDS ORDERED: SODIUM POLYSTYRENE SULFONATE 15 GM/60 ML BOTTLE PO STA (14:54)
--- NOTE | 2020-08-28 15:02 | P.PN ---
Subjective Progress Note Date: 08/28/20 85 years old male patient of Dr. Vasquez with past medical history of coronary disease status post stenting, hypertension, hyperlipidemia, hypothyroidism, history of bladder cancer status post surgery, so comes in with worsening shortness of breath associated with weakness, fatigue poor appetite and poor intake of fluids and food. Apparently patient was in here yesterday and was diagnosed with COVID. Patient received Bamlanivimab and was discharged home. EMS was called and patient was noted to be shortof breath his oxygen saturation was 80% on room air. Oxygenation improved with nonrebreather and finally was titrated down to 3 L. On evaluation today patient appears very confused and unable to give any history. He does document dry mouth but is unable to tell his symptoms or the reason he is in the ER. He is unable to give any hitory and is drifting back to sleep. On assessment of patient's vitals, patient has a temp of 98.9 pulse 58 respiratory rate 18 blood pressure 125/6687% on 3 L of oxygen. On assessment was that patient has a WBC of 6.5 hemoglobin 13 d-dimer 1.06 sodium 141 potassium 4.2 chloride 107 BUN 52 creatinine 2.3 baseline creatinine not known patient's creatinine yesterday is was 1.9 initially lactic acid 3.2 improved to 0.9 with fluids. CRP 7.1 LDH 572, proBNP 144 with detected on 08/26. Pulmonary consulted. Continue patient on vitamin C, vitamin D dexamethasone 4 mg IV twice a day continue IV fluids at 75 mL per hour. Ultrasound bladder and kidneys ordered. 08/28 patient examined at bedside is alert answering questions appropriately. Patient is comfortable denies shortness of breath. Patient is on 4 L of oxygen saturating at 92%. He is afebrile pulse 59 blood pressure 138/72. That's it is referral for a hemoglobin of 12.2 WBC 4.7 platelet 120 sodium 135 chloride 108 potassium 5.4 and 9 6 carbon dioxide 21 BUN 52 creatinine 1.7 CRP has improved slightly to 6.8 TSH 0.48. Renal Ultrasound suggests severe hydronephrosis on the right with diminished left kidney with medical renal disease. VQ scan is negative for pulmonary embolism. Patient requests chopped diet as have difficulty eating regular fold. Laws catheter will be placed. Input and output monitoring. Urology consulted review of systems Constitutional: Denies chills, Denies fever, Denies lethargy, Denies malaise, Denies poor appetite, Denies weakness, Denies weight loss Eyes: denies decreased vision, denies diplopia, denies discharge, denies pain Ears: deny: decreased hearing Ears, nose, mouth and throat: Denies dental pain, Denies headache, Denies nasal discharge, Denies nose pain Cardiovascular: Denies chest pain, Denies decreased exercise tolerance, Denies edema, Denies high blood pressure, Denies irregular heart beat, Denies palpitations, Denies paroxysmal nocturnal dyspnea, Denies rapid heart beat, Denies shortness of breath Respiratory: Denies congestion, Denies cough, Denies cough with sputum, Denies dyspnea, Denies home oxygen, Denies wheezing Gastrointestinal: Denies abdominal pain, Denies change in bowel habits, Denies coffee ground emesis, Denies early satiety, Denies excessive gas, Denies heartburn, Denies hematemesis, Denies hematochezia, Denies loss of appetite, Denies nausea, Denies vomiting Genitourinary: Denies dysuria, Denies flank pain, Denies kidney stones, Denies menorrhagia, Denies urgency, Denies urinary frequency Musculoskeletal: Denies gait dysfunction, Denies limitation of motion, Denies morning stiffness, Denies muscle cramps Integumentary: Denies rash, Denies wounds, Denies brittle nails, Denies change in hair/nails, Denies darkening of skin Neurological: Denies balance difficulties, Denies change in speech, Denies double vision, Denies gait dysfunction, Denies loss of vision, Denies motor disturbance, Denies numbness, Denies paralysis, Denies paresthesias, Denies seizures Psychiatric: Denies anxiety, Denies depression Endocrine: Denies excessive sweating, Denies excessive thirst, Denies high blood sugars, Denies palpitations Hematologic/Lymphatic: Denies easy bruising, Denies lymphadenopathy Objective - Vital Signs Vital signs: Vital Signs Temp 97.9 F 08/28/20 12:31 Pulse 59 L 08/28/20 12:31 Resp 16 08/28/20 12:31 BP 138/72 08/28/20 12:31 Pulse Ox 92 L 08/28/20 12:31 Intake & Output 08/27/20 08/28/20 08/28/20 18:59 06:59 18:59 Intake Total 150 150 Balance 150 150 Weight 90.718 kg Intake: Intake, IV Titration 150 Amount Sodium Chloride 0.9% 1, 150 000 ml @ 75 mls/hr IV . [id number] [facility] Rx#:[id number] Oral 150 Other: Voiding Method Diaper Diaper Incontinent Incontinent # Voids 1 1 - Exam - Constitutional General appearance: cooperative, no acute distress, - EENT Eyes: anicteric sclerae, PERRLA, normal appearance ENT: hearing grossly normal - Neck Neck: no lymphadenopathy, normal ROM, - Respiratory Respiratory: bilateral decreased air entry - Cardiovascular Rhythm: regular Heart sounds: normal: S1, S2 Abnormal Heart Sounds: no systolic murmur, no diastolic murmur - Gastrointestinal General gastrointestinal: normal bowel sounds, soft no flank pain - Integumentary Integumentary: no rash - Neurologic Neurologic: no sensory and motor deficit patient does tend to digress from conversation - Musculoskeletal Musculoskeletal: gait normal, strength equal bilaterally - Psychiatric Psychiatric: A&O x's 2, appropriate affect - Labs CBC & Chem 7: 08/28/20 09:05 08/28/20 09:05 Labs: Abnormal Lab Results - Last 24 Hours (Table) 08/27/20 08/28/20 08/28/20 Range/Units 09:27 09:05 09:05 RBC 3.63 L (4.30-5.90) m/uL Hgb 12.2 L (13.0-17.5) gm/dL Hct 35.5 L (39.0-53.0) % Plt Count 120 L (150-450) k/uL Lymphocytes # 0.4 L (1.0-4.8) k/uL Sodium 135 L (137-145) mmol/L Potassium 5.4 H (3.5-5.1) mmol/L Chloride 108 H (98-107) mmol/L Carbon Dioxide 21 L (22-30) mmol/L BUN 52 H (9-20) mg/dL Creatinine 1.72 H (0.66-1.25) mg/dL Glucose 198 H (74-99) mg/dL Calcium 8.1 L (8.4-10.2) mg/dL C-Reactive Protein 6.8 H (<1.0) mg/dL Total Protein 5.4 L (6.3-8.2) g/dL Albumin 3.1 L (3.5-5.0) g/dL Procalcitonin 1.79 H (0.02-0.09) ng/mL Assessment and Plan Plan: #1 acute hypoxic respiratory failure secondary to call with pneumonia. Status post monoclonal antibodies Bamlanivimab as outpatient. Initiated dexamethasone, vitamin C, vitamin D, zinc. Patient may benefit from remdesivir pulmonary to make recommendations. CT could not be performed due to worsening kidney functions VQ scan negative for PE #2 lactic acidosis likely secondary to dehydration due to poor oral intake continue IV fluids at 75 mL/h #3 acute kidney injury. No prior baseline creatinine available. Likely ATN. Continue IV fluids at 75 mL per hour. Ultrasound renal and bladder suggestive of severe hydronephrosis on the right with the decrease kidney size on the left. No bladder was seen. Urology consulted to rule out obstruction #4 history of bladder cancer status post reconstruction, renal ultrasound and bladder ultrasound to severe hydronephrosis on the right with medical renal disease on the left. Normal bladder noted #5 coronary artery disease status post stenting. Continue aspirin #5 hyperlipidemia continue atorvastatin 40 mg daily #6 hypothyroidism continue levothyroxine 100 g daily #7 hypertension hold quinapril and Lasix due to worsening kidney dysfunction #8 gout continue allopurinol 100 mg daily #9 CODE STATUS full code #10 DVT prophylaxis with Lovenox 40 subcu daily #11 GI prophylaxis with Protonix 40 mg daily #12 hyperkalemia one dose of Kayexalate given. Repeat CMP to
[2020-08-28] MEDS: ATORVASTATIN 40 MG TAB PO SCH (22:11)
[2020-08-29 01:35] LABS: Ferritin 787.2 ng/mL (22.0-322.0)
[2020-08-29] MEDS: LEVOTHYROXINE 100 MCG TAB PO SCH (05:19)
--- NOTE | 2020-08-29 08:17 | P.GSCN ---
History of Present Illness Consult date: 08/29/20 History of present illness: The patient is an 85-year-old gentleman in the hospital being treated for pulmonary complications from coronavirus pneumonia. The patient had an abdominal ultrasound which identified right sided hydronephrosis and for this reason we were asked to see the patient. The patient's history is limited at best. He is not very oriented. Whether this is acute or chronic I cannot determine. The patient has a known history of muscle invasive bladder cancer and underwent a radical cystectomy with neobladder formation many years ago at [facility]. The last time I saw him was in 2013. He had some moderate right-sided hydronephrosis at that point in time. He has not followed with anyone for his bladder cancer best that he can tell however I cannot rely on this history. He denies any abdominal pain. He denies any difficulty with his bladder. He has an indwelling catheter with clear urine. Reviewed the ultrasound and there is significant chronic right-sided hydronephrosis that appears to be worse than it was back in 2013 based on comparison of the x-rays. His creatinine is 1.7 and BUNs was 52 yesterday. Review of Systems ROS unobtainable: due to mental status 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, hypothyroidism,gout History of Any Multi-Drug Resistant Organisms: None Reported Past Surgical History: Bladder Surgery, Heart Catheterization With Stent, Hernia Repair Additional Past Surgical History / Comment(s): bladder reconstruction surgery Past Anesthesia/Blood Transfusion Reactions: No Reported Reaction Date of Last Stent Placement:: patient unable to state Past Psychological History: No Psychological Hx Reported Smoking Status: Never smoker Past Alcohol Use History: None Reported Past Drug Use History: None Reported - Past Family History Father Family Medical History: Unable to Obtain Medications and Allergies Home Medications Medication Instructions Recorded Confirmed Type Acetaminophen Tab [Tylenol Tab] 1,000 mg PO DAILY 08/26/20 08/27/20 History Acetaminophen/Diphenhydramine 2 tab PO HS 08/26/20 08/27/20 History [Tylenol PM 500-25mg] Allopurinol [Zyloprim] 200 mg PO DAILY 08/26/20 08/27/20 History Aspirin EC [Ecotrin Low Dose] 40.5 mg PO DAILY 08/26/20 08/27/20 History Atorvastatin [Lipitor] 40 mg PO HS 08/26/20 08/27/20 History Docusate [Colace] 100 - 200 mg PO DAILY PRN 08/26/20 08/27/20 History Furosemide [Lasix] 40 mg PO DAILY 08/26/20 08/27/20 History Lani's Leg Cramps 1 - 2 tab SUBLINGUAL Q4H PRN 08/26/20 08/27/20 History Levothyroxine Sodium [Synthroid] 100 mcg PO DAILY 08/26/20 08/27/20 History Quinapril HCl [Accupril] 20 mg PO DAILY 08/26/20 08/27/20 History Ubidecarenone [Co Q-10] 200 mg PO DAILY 08/26/20 08/27/20 History Allergies Allergy/AdvReac Type Severity Reaction Status Date / Time tamsulosin [From Flomax] Allergy Unknown Verified 08/27/20 10:04 zolpidem [From Ambien] Allergy Unknown Verified 08/27/20 10:04 Surgical - Exam Vital Signs Temp Pulse Resp BP Pulse Ox 98.2 F 78 16 135/81 100 08/27/20 09:09 08/27/20 09:09 08/27/20 09:09 08/27/20 09:09 08/27/20 09:09 - General well developed, well nourished, no distress - Eyes PERRL - ENT no hearing loss - Neck trachea midline - Respiratory normal expansion, normal respiratory effort - Cardiovascular Rhythm: regular - Abdomen Abdomen: soft, non tender - Genitourinary Indwelling catheter with clear urine - Integumentary no rash, no growths - Neurologic normal coordination, normal sensation, confused - Musculoskeletal normal posture Results - Labs 08/28/20 09:05 08/28/20 09:05 Abnormal Lab Results - Last 24 Hours (Table) 08/28/20 08/28/20 08/28/20 Range/Units 09:05 09:05 09:05 RBC 3.63 L (4.30-5.90) m/uL Hgb 12.2 L (13.0-17.5) gm/dL Hct 35.5 L (39.0-53.0) % Plt Count 120 L (150-450) k/uL Lymphocytes # 0.4 L (1.0-4.8) k/uL Sodium 135 L (137-145) mmol/L Potassium 5.4 H (3.5-5.1) mmol/L Chloride 108 H (98-107) mmol/L Carbon Dioxide 21 L (22-30) mmol/L BUN 52 H (9-20) mg/dL Creatinine 1.72 H (0.66-1.25) mg/dL Glucose 198 H (74-99) mg/dL Calcium 8.1 L (8.4-10.2) mg/dL Ferritin 787.2 H (22.0-322.0) ng/mL C-Reactive Protein 6.8 H (<1.0) mg/dL Total Protein 5.4 L (6.3-8.2) g/dL Albumin 3.1 L (3.5-5.0) g/dL Procalcitonin 1.20 H (0.02-0.09) ng/mL Diabetes panel 08/28/20 Range/Units 09:05 Sodium 135 L (137-145) mmol/L Potassium 5.4 H (3.5-5.1) mmol/L Chloride 108 H (98-107) mmol/L Carbon Dioxide 21 L (22-30) mmol/L BUN 52 H (9-20) mg/dL Creatinine 1.72 H (0.66-1.25) mg/dL Glucose 198 H (74-99) mg/dL Calcium 8.1 L (8.4-10.2) mg/dL AST 42 (17-59) U/L ALT 29 (4-49) U/L Alkaline Phosphatase 51 (38-126) U/L Total Protein 5.4 L (6.3-8.2) g/dL Albumin 3.1 L (3.5-5.0) g/dL Thyroid panel 08/28/20 Range/Units 09:05 TSH 0.480 (0.465-4.680) mIU/L Calcium panel 08/28/20 Range/Units 09:05 Calcium 8.1 L (8.4-10.2) mg/dL Albumin 3.1 L (3.5-5.0) g/dL Pituitary panel 08/28/20 Range/Units 09:05 Sodium 135 L (137-145) mmol/L Potassium 5.4 H (3.5-5.1) mmol/L Chloride 108 H (98-107) mmol/L Carbon Dioxide 21 L (22-30) mmol/L BUN 52 H (9-20) mg/dL Creatinine 1.72 H (0.66-1.25) mg/dL Glucose 198 H (74-99) mg/dL Calcium 8.1 L (8.4-10.2) mg/dL TSH 0.480 (0.465-4.680) mIU/L Adrenal panel 08/28/20 Range/Units 09:05 Sodium 135 L (137-145) mmol/L Potassium 5.4 H (3.5-5.1) mmol/L Chloride 108 H (98-107) mmol/L Carbon Dioxide 21 L (22-30) mmol/L BUN 52 H (9-20) mg/dL Creatinine 1.72 H (0.66-1.25) mg/dL Glucose 198 H (74-99) mg/dL Calcium 8.1 L (8.4-10.2) mg/dL Total Bilirubin 0.5 (0.2-1.3) mg/dL AST 42 (17-59) U/L ALT 29 (4-49) U/L Alkaline Phosphatase 51 (38-126) U/L Total Protein 5.4 L (6.3-8.2) g/dL Albumin 3.1 L (3.5-5.0) g/dL - Imaging US - kidney/bladder: report reviewed, image reviewed Assessment and Plan Assessment: "Impression:: Coronavirus pneumonia, history of bladder cancer status post radical nephrectomy with neobladder creation. Secondary right sided hydronephrosis postsurgical. Recommendations: This hydronephrosis is chronic and at this point in time the kidney is quite atrophic. A nephrostomy tube or reconstruction will not correct the chronicity of this problem . The left kidney is not hydronephrotic. At this point in time there is nothing further urologic that I would recommend
[2020-08-29] MEDS: ACETAMINOPHEN TAB 500 MG TAB PO SCH (08:29)
[2020-08-29] MEDS: DEXAMETHASONE SOD PHOSPHATE 10 MG/ML 1 ML VIAL IV SCH (08:30)
[2020-08-29] MEDS: guaiFENesin 600 MG TABLET.ER PO SCH ×2 (08:30→19:29)
[2020-08-29] MEDS: CHOLECALCIFEROL 25 MCG (1000 IU) TABLET PO SCH (08:30)
[2020-08-29] MEDS: ASPIRIN 81 MG PO SCH (08:31)
[2020-08-29] MEDS: allopurinoL 100 MG TAB PO SCH (08:31)
[2020-08-29] MEDS: ENOXAPARIN 30 MG/0.3 ML SYRINGE SQ SCH (08:31)
[2020-08-29] MEDS: ASCORBIC ACID 500 MG TAB PO SCH ×2 (08:31→19:29)
[2020-08-29] MEDS: PANTOPRAZOLE 40 MG TABLET PO SCH (08:31)
--- NOTE | 2020-08-29 10:15 | P.PN ---
Subjective Progress Note Date: 08/29/20 85 years old male patient of Dr. Vasquez with past medical history of coronary disease status post stenting, hypertension, hyperlipidemia, hypothyroidism, history of bladder cancer status post surgery, so comes in with worsening shortness of breath associated with weakness, fatigue poor appetite and poor intake of fluids and food. Apparently patient was in here yesterday and was diagnosed with COVID. Patient received Bamlanivimab and was discharged home. EMS was called and patient was noted to be shortof breath his oxygen saturation was 80% on room air. Oxygenation improved with nonrebreather and finally was titrated down to 3 L. On evaluation today patient appears very confused and unable to give any history. He does document dry mouth but is unable to tell his symptoms or the reason he is in the ER. He is unable to give any hitory and is drifting back to sleep. On assessment of patient's vitals, patient has a temp of 98.9 pulse 58 respiratory rate 18 blood pressure 125/6687% on 3 L of oxygen. On assessment was that patient has a WBC of 6.5 hemoglobin 13 d-dimer 1.06 sodium 141 potassium 4.2 chloride 107 BUN 52 creatinine 2.3 baseline creatinine not known patient's creatinine yesterday is was 1.9 initially lactic acid 3.2 improved to 0.9 with fluids. CRP 7.1 LDH 572, proBNP 144 with detected on 08/26. Pulmonary consulted. Continue patient on vitamin C, vitamin D dexamethasone 4 mg IV twice a day continue IV fluids at 75 mL per hour. Ultrasound bladder and kidneys ordered. 08/28 patient examined at bedside is alert answering questions appropriately. Patient is comfortable denies shortness of breath. Patient is on 4 L of oxygen saturating at 92%. He is afebrile pulse 59 blood pressure 138/72. That's it is referral for a hemoglobin of 12.2 WBC 4.7 platelet 120 sodium 135 chloride 108 potassium 5.4 and 9 6 carbon dioxide 21 BUN 52 creatinine 1.7 CRP has improved slightly to 6.8 TSH 0.48. Renal Ultrasound suggests severe hydronephrosis on the right with diminished left kidney with medical renal disease. VQ scan is negative for pulmonary embolism. Patient requests chopped diet as have difficulty eating regular fold. Laws catheter will be placed. Input and output monitoring. Urology consulted 424: Patient examined at bedside he is alert answering questions appropriately. He is noted to have some confusion and a repeat questioning. Patient does know where he has however he feels his only been here for approximately 30 minutes. Patient is pulse ox 90% on 4 L of nasal cannula. Patient was evaluated by Dr. Soares for right-sided hydronephrosis which is chronic related to his previous bladder cancer and surgical intervention. Indwelling catheter in place with clear urine. Patient remained afebrile, heart rate 57, blood pressure 140/67. WC 4.7, hemoglobin 12.2, platelets 120, potassium 5.4, BUN 52, creatinine 1.72. Review of systems: Constitutional: Denies chills, Denies fever, Denies lethargy, Denies malaise, Denies poor appetite, Denies weakness, Denies weight loss Eyes: denies decreased vision, denies diplopia, denies discharge, denies pain Ears: deny: decreased hearing Ears, nose, mouth and throat: Denies dental pain, Denies headache, Denies nasal discharge, Denies nose pain Cardiovascular: Denies chest pain, Denies decreased exercise tolerance, Denies edema, Denies high blood pressure, Denies irregular heart beat, Denies palpitations, Denies paroxysmal nocturnal dyspnea, Denies rapid heart beat, Denies shortness of breath Respiratory: Denies congestion, Denies cough, Denies cough with sputum, Denies dyspnea, Denies home oxygen, Denies wheezing Gastrointestinal: Denies abdominal pain, Denies change in bowel habits, Denies coffee ground emesis, Denies early satiety, Denies excessive gas, Denies heartb urn, Denies hematemesis, Denies hematochezia, Denies loss of appetite, Denies nausea, Denies vomiting Genitourinary: Denies dysuria, Denies flank pain, Denies kidney stones, Denies menorrhagia, Denies urgency, Denies urinary frequency Musculoskeletal: Denies gait dysfunction, Denies limitation of motion, Denies morning stiffness, Denies muscle cramps Integumentary: Denies rash, Denies wounds, Denies brittle nails, Denies change in hair/nails, Denies darkening of skin Neurological: Denies balance difficulties, Denies change in speech, Denies double vision, Denies gait dysfunction, Denies loss of vision, Denies motor disturbance, Denies numbness, Denies paralysis, Denies paresthesias, Denies s eizures Psychiatric: Denies anxiety, Denies depression Endocrine: Denies excessive sweating, Denies excessive thirst, Denies high blood sugars, Denies palpitations Hematologic/Lymphatic: Denies easy bruising, Denies lymphadenopathy General Appearance: Alert, cooperative, no distress, this is an 85-year-old patient appears stated age. Neck HEENT: Supple, no lymphadenopathy, no thyroid enlargement, no carotid bruits. Lungs: Clear to auscultation without crackles or wheezes no rhonchi, no deformit y. Chest Wall: Chest wall normal expansion with deep inspiration no tenderness and no deformity was found on exam, no costochondral pain or discomfort. Heart: Regular rate and rhythm, S1, S2 normal, no murmur, rub or gallop. Back: Symmetric, no curvature, ROM normal, no CVA tenderness. Abdomen: Soft, non-tender, no rebound or rigidity, no hepatosplenomegaly. Extremities: Extremities normal, atraumatic, no cyanosis or edema. Pulses: 2+ and symmetric. Skin: Skin color, texture, tugor normal, no rashes or lesions. Neurologic: Alert oriented x2, positive confusion noted not combative cranial nerves II through XII intact, no motor deficit, no abnormal balance or gait Assessment/plan: 1. acute hypoxic respiratory failure secondary to call with pneumonia. Status post monoclonal antibodies Bamlanivimab as outpatient. Initiated dexamethasone, vitamin C, vitamin D, zinc. Patient may benefit from remdesivir pulmonary to make recommendations. Pulmonary consult appreciated. CT could not be performed due to worsening kidney functions VQ scan negative for PE. Patient still has confusion requiring oxygen support. 2. lactic acidosis likely secondary to dehydration due to poor oral intake co ntinue IV fluids at 75 mL/h 3. acute kidney injury. No prior baseline creatinine available. Likely ATN. Continue IV fluids at 75 mL per hour. Ultrasound renal and bladder suggestive of severe hydronephrosis on the right with the decrease kidney size on the left. No bladder was seen. Urology consulted appreciated. Hydronephrosis is chronic no intervention required 4. history of bladder cancer status post reconstruction, renal ultrasound and bladder ultrasound to severe hydronephrosis on the right with medical renal disease on the left. Normal bladder noted 5. coronary artery disease status post stenting. Continue aspirin 6. hyperlipidemia continue atorvastatin 40 mg daily 7. hypothyroidism continue levothyroxine 100 g daily 8. hypertension hold quinapril and Lasix due to worsening kidney dysfunction 9. gout continue allopurinol 100 mg daily 10. Hyperkalemia. 1 dose of Kayexalate given. Repeat CMP in the morning. 11. CODE STATUS full code 12. DVT prophylaxis with Lovenox 40 subcu daily 11. GI prophylaxis with Protonix 40 mg daily Discharge plan: Patient will be admitted for minimum of 2 nights day, more than likely home Impression and plan of care have been directed as dictated by the signing physician. Lorelei Francisco nurse practitioner acting as scribe for signing physician. Objective - Vital Signs Vital signs: Vital Signs Temp 98.0 F 08/29/20 07:49 Pulse 57 L 08/29/20 07:49 Resp 18 08/29/20 07:49 BP 140/67 08/29/20 07:49 Pulse Ox 90 L 08/29/20 09:00 Intake & Output 08/28/20 08/29/20 08/29/20 18:59 06:59 18:59 Intake Total 240 Output Total 1400 Balance 240 -1400 Intake: Oral 240 Output: Urine 1400 Other: Voiding Method Diaper Incontinent # Bowel Movements 1 - Labs CBC & Chem 7: 08/28/20 09:05 08/28/20 09:05 Labs: Abnormal Lab Results - Last 24 Hours (Table) 08/28/20 08/28/20 Range/Units 09:05 09:05 Ferritin 787.2 H (22.0-322.0) ng/mL Procalcitonin 1.20 H (0.02-0.09) ng/mL
[2020-08-29 10:19] LABS: Albumin 3.2 g/dL (3.5-5.0); Calcium 8.2 mg/dL (8.4-10.2); Potassium 4.2 mmol/L (3.5-5.1); Total Bilirubin 0.5 mg/dL (0.2-1.3); Total Protein 5.7 g/dL (6.3-8.2)
--- NOTE | 2020-08-29 16:30 | P.PN ---
Subjective Progress Note Date: 08/29/20 Principal diagnosis: Shortness of breath 85-year-old male, who is quite confused as to exactly why he's here in the emergency department. According to the nurse, the patient was here yesterday and received BAM. He was discharged home. He apparently presented back to the emergency department on August 27, for complaints of increasing shortness of breath. He apparently tested positive for coronavirus a couple days ago. Anyway, his symptoms included shortness breath, cough, weakness, fatigue, and poor appetite with poor oral intake of both fluids and food. The patient was apparently quite short of breath, and he was only saturating 80% on room air. For that reason he came into the hospital. His primary care physician is Dr. Jeffrey Vasquez. He has a history of hyperlipidemia, hypertension, hypothyroidism, bladder cancer, and heart catheterization with stent. He is 85 years of age. Currently, he's on 4 L nasal O2. Lab data includes a white count 6.5, hemoglobin 13, hematocrit 38.9, and platelet count 126,000. PT, INR, PTT, and d-dimer were all reviewed. D-dimer is 1.06. Sodium potassium chloride CO2 all normal. Anion gap 12, BUN was 52, and creatinine was 2.30. Lactic acid 3.2, with repeat being 0.9. C-reactive protein 7.1. LDH 572. Chest x-ray show some low lung volumes, and bilateral infiltrates. The patient did test positive again for coronavirus on August 26. It is not clear to me how long he's been having symptoms. Again, he is not a very good historian. Progress note dated 08/28/2020 85-year-old male, that I saw yesterday in the emergency department. Currently, he's on 4 L nasal cannula and saline at 75 mL an hour. The patient was in the emergency room a couple days ago and received BAM. He was discharged home but came back in because of increasing weakness, shortness of breath, cough, and fatigue. Currently, he feels a bit better. White count 4.7, hemoglobin 12.2, hematocrit 35.5, and platelet count 120,000. Sodium 135, potassium 5.4, chlorides 108, CO2 21, anion gap 6, BUN 52, and creatinine 1.72. His BUN and creatinine from yesterday were 52 and 2.30. Lactic acid repeat was 0.9. On 08/29/2020 patient seen in follow-up on medical surgical floor. Patient is awake and alert, but he is confused and agitated at this time, but breathing comfortable, he is currently on 4 L of oxygen his pulse ox is 94%, he's af ebrile. Today's labs have been reviewed, showing sodium of 138, potassium is 4.2, chloride is 108, CO2 is 19, B1 and 50, creatinine is 1.52, improving, patient was seen by urology in regards to right kidney extensive hydronephrosis, and this was felt to be chronic in nature and no surgical intervention was recommended. No cough, no chest discomfort, patient remains on twice daily Decadron 6 mg, and Lovenox 30 mg daily. Follow-up d-dimer will be obtained for tomorrow Objective - Vital Signs Vital signs: Vital Signs Temp 98.4 F 08/29/20 13:31 Pulse 75 08/29/20 13:31 Resp 22 08/29/20 13:31 BP 163/82 08/29/20 13:31 Pulse Ox 94 L 08/29/20 13:31 Intake & Output 08/28/20 08/29/20 08/29/20 18:59 06:59 18:59 Intake Total 240 Output Total 1400 Balance 240 -1400 Intake: Oral 240 Output: Urine 1400 Other: Voiding Method Diaper Incontinent # Bowel Movements 1 - Exam GENERAL EXAM: Alert, appears distended agitated, 85-year-old white male, on 4 L of oxygen, with a pulse ox of 94% comfortable in no apparent distress. HEAD: Normocephalic/atraumatic. EYES: Normal reaction of pupils, equal size. Conjunctiva pink, sclera white. NOSE: Clear with pink turbinates. THROAT: No erythema or exudates. NECK: No masses, no JVD, no thyroid enlargement, no adenopathy. CHEST: No chest wall deformity. Symmetrical expansion. LUNGS: Equal air entry with no crackles, wheeze, rhonchi or dullness. CVS: Regular rate and rhythm, normal S1 and S2, no gallops, no murmurs, no rubs ABDOMEN: Soft, nontender. No hepatosplenomegaly, normal bowel sounds, no guarding or rigidity. EXTREMITIES: No clubbing, no edema, no cyanosis, 2+ pulses and upper and lower extremities. MUSCULOSKELETAL: Muscle strength and tone normal. SPINE: No scoliosis or deformity SKIN: No rashes CENTRAL NERVOUS SYSTEM: Alert and oriented -3. No focal deficits, tone is normal in all 4 extremities. PSYCHIATRIC: Alert and oriented -3. Appropriate affect. Intact judgment and insight. - Labs CBC & Chem 7: 08/28/20 09:05 08/29/20 09:28 Labs: Abnormal Lab Results - Last 24 Hours (Table) 08/28/20 08/28/20 08/29/20 Range/Units 09:05 09:05 09:28 Chloride 108 H (98-107) mmol/L Carbon Dioxide 19 L (22-30) mmol/L BUN 50 H (9-20) mg/dL Creatinine 1.52 H (0.66-1.25) mg/dL Glucose 159 H (74-99) mg/dL Calcium 8.2 L (8.4-10.2) mg/dL Ferritin 787.2 H (22.0-322.0) ng/mL AST 74 H (17-59) U/L ALT 79 H (4-49) U/L Total Protein 5.7 L (6.3-8.2) g/dL Albumin 3.2 L (3.5-5.0) g/dL Procalcitonin 1.20 H (0.02-0.09) ng/mL Assessment and Plan Plan: Assessment: #1. Acute hypoxic respiratory failure is acute to COVID-19 pneumonia status post BAM-ETE on August 26 #2. Right-sided hydronephrosis, chronic, with no surgical intervention recommendation #3. Elevated d-dimer, likely related to acute COVID19 pneumonia and VQ scan showed very low probability for PE #4. Hyperlipidemia #5. Hypothyroidism #6. History of bladder cancer #7. Lifetime nonsmoker Plan: Remains stable from pulmonary perspective Experiencing some agitation, and we will decrease the dose of Decadron to once daily Continue with prophylactic dose of Lovenox We will obtain follow-up d-dimer and inflammatory markers for tomorrow, follow up chest x-ray Wean FiO2 to maintain O2 saturation at or above 90% I performed a history & physical examination of the patient and discussed their management with my nurse practitioner, Yovana Nazario. I reviewed the nurse practitioner's note and agree with the documented findings and plan of care. Lung sounds are positive for diffuse crackles throughout the lung hernandez. The findings and the impression was discussed with the patient. I attest to the documentation by the nurse practitioner. Time with Patient: Less than 30
[2020-08-29] MEDS: ALPRAZolam 0.25 MG TAB PO PRN (17:28)
[2020-08-29] MEDS: ATORVASTATIN 40 MG TAB PO SCH (19:29)
[2020-08-30] MEDS: ALPRAZolam 0.25 MG TAB PO PRN (05:38)
[2020-08-30] MEDS: LEVOTHYROXINE 100 MCG TAB PO SCH (05:38)
--- NOTE | 2020-08-30 07:39 | XR ---
EXAMINATION TYPE: XR chest 1V portable DATE OF EXAM: 08/30/2020 COMPARISON: Chest x-ray 08/27/2020 HISTORY: Shortness of breath, Covid TECHNIQUE: Single frontal view of the chest is obtained. FINDINGS: Patchy airspace disease is present bilaterally. No evident pneumothorax or pleural effusio n. Cardiac mediastinal silhouette is stable. Gas distended loop of: Suspected at the right hemidiaphr agm, right hemidiaphragm is elevated. IMPRESSION: Findings consistent with patient's history of pneumonia. Correlate for possible ileus, c onsider abdominal exam as indicated
[2020-08-30] MEDS: guaiFENesin 600 MG TABLET.ER PO SCH ×2 (09:19→20:35)
[2020-08-30] MEDS: PANTOPRAZOLE 40 MG TABLET PO SCH (09:19)
[2020-08-30] MEDS: CHOLECALCIFEROL 25 MCG (1000 IU) TABLET PO SCH (09:19)
[2020-08-30] MEDS: ASCORBIC ACID 500 MG TAB PO SCH ×2 (09:19→20:35)
[2020-08-30] MEDS: ASPIRIN 81 MG PO SCH (09:19)
[2020-08-30] MEDS: ACETAMINOPHEN TAB 500 MG TAB PO SCH (09:19)
[2020-08-30] MEDS: allopurinoL 100 MG TAB PO SCH (09:19)
[2020-08-30] MEDS: DEXAMETHASONE SOD PHOSPHATE 10 MG/ML 1 ML VIAL IV SCH (09:20)
[2020-08-30] MEDS: ENOXAPARIN 30 MG/0.3 ML SYRINGE SQ SCH (09:20)
--- NOTE | 2020-08-30 10:33 | P.PN ---
Subjective Progress Note Date: 08/30/20 85 years old male patient of Dr. Vasquez with past medical history of coronary disease status post stenting, hypertension, hyperlipidemia, hypothyroidism, history of bladder cancer status post surgery, so comes in with worsening shortness of breath associated with weakness, fatigue poor appetite and poor intake of fluids and food. Apparently patient was in here yesterday and was diagnosed with COVID. Patient received Bamlanivimab and was discharged home. EMS was called and patient was noted to be shortof breath his oxygen saturation was 80% on room air. Oxygenation improved with nonrebreather and finally was titrated down to 3 L. On evaluation today patient appears very confused and unable to give any history. He does document dry mouth but is unable to tell his symptoms or the reason he is in the ER. He is unable to give any hitory and is drifting back to sleep. On assessment of patient's vitals, patient has a temp of 98.9 pulse 58 respiratory rate 18 blood pressure 125/6687% on 3 L of oxygen. On assessment was that patient has a WBC of 6.5 hemoglobin 13 d-dimer 1.06 sodium 141 potassium 4.2 chloride 107 BUN 52 creatinine 2.3 baseline creatinine not known patient's creatinine yesterday is was 1.9 initially lactic acid 3.2 improved to 0.9 with fluids. CRP 7.1 LDH 572, proBNP 144 with detected on 08/26. Pulmonary consulted. Continue patient on vitamin C, vitamin D dexamethasone 4 mg IV twice a day continue IV fluids at 75 mL per hour. Ultrasound bladder and kidneys ordered. 08/28 patient examined at bedside is alert answering questions appropriately. Patient is comfortable denies shortness of breath. Patient is on 4 L of oxygen saturating at 92%. He is afebrile pulse 59 blood pressure 138/72. That's it is referral for a hemoglobin of 12.2 WBC 4.7 platelet 120 sodium 135 chloride 108 potassium 5.4 and 9 6 carbon dioxide 21 BUN 52 creatinine 1.7 CRP has improved slightly to 6.8 TSH 0.48. Renal Ultrasound suggests severe hydronephrosis on the right with diminished left kidney with medical renal disease. VQ scan is negative for pulmonary embolism. Patient requests chopped diet as have difficulty eating regular fold. Laws catheter will be placed. Input and output monitoring. Urology consulted 424: Patient examined at bedside he is alert answering questions appropriately. He is noted to have some confusion and a repeat questioning. Patient does know where he has however he feels his only been here for approximately 30 minutes. Patient is pulse ox 90% on 4 L of nasal cannula. Patient was evaluated by Dr. Soares for right-sided hydronephrosis which is chronic related to his previous bladder cancer and surgical intervention. Indwelling catheter in place with clear urine. Patient remained afebrile, heart rate 57, blood pressure 140/67. WC 4.7, hemoglobin 12.2, platelets 120, potassium 5.4, BUN 52, creatinine 1.72. 08/30: Patient was transferred to [address] [place] [address] where he exhibited increased confusion. Removed the top portion of the bed and was standing on the bed. Patient upset that he was not able to go home. Patient was given Xanax. At this time patient is found sitting up in a chair sleeping. He is easily arousable. Patient did have 1 episode of diarrhea that seemed to take all his energy. Patient is able to answer some questions continues to have some confusion noted. O2 PT consult and social work for possible subacute rehab. Patient does not want to eat any breakfast. We will add Ensure to his regime. She remains afebrile, pulse rate 86, respirations 20, blood pressure 150/92 d-dimer 1.39 Review of systems: Constitutional: Denies chills, Denies fever, Denies lethargy, Denies malaise, Denies poor appetite, Denies weakness, Denies weight loss Eyes: denies decreased vision, denies diplopia, denies discharge, denies pain Ears: deny: decreased hearing Ears, nose, mouth and throat: Denies dental pain, Denies headache, Denies nasal discharge, Denies nose pain Cardiovascular: Denies chest pain, Denies decreased exercise tolerance, Denies edema, Denies high blood pressure, Denies irregular heart beat, Denies palpitations, Denies paroxysmal nocturnal dyspnea, Denies rapid heart beat, Denies shortness of breath Respiratory: Denies congestion, Denies cough, Denies cough with sputum, Denies dyspnea, Denies home oxygen, Denies wheezing Gastrointestinal: Denies abdominal pain, Denies change in bowel habits, Denies coffee ground emesis, Denies early satiety, Denies excessive gas, Denies heartburn, Denies hematemesis, Denies hematochezia, Denies loss of appetite, Denies nausea, Denies vomiting Genitourinary: Denies dysuria, Denies flank pain, Denies kidney stones, Denies menorrhagia, Denies urgency, Denies urinary frequency Musculoskeletal: Denies gait dysfunction, Denies limitation of motion, Denies morning stiffness, Denies muscle cramps Integumentary: Denies rash, Denies wounds, Denies brittle nails, Denies change in hair/nails, Denies darkening of skin Neurological: Denies balance difficulties, Denies change in speech, Denies double vision, Denies gait dysfunction, Denies loss of vision, Denies motor disturbance, Denies numbness, Denies paralysis, Denies paresthesias, Denies seizures Psychiatric: Denies anxiety, Denies depression Endocrine: Denies excessive sweating, Denies excessive thirst, Denies high blood sugars, Denies palpitations Hematologic/Lymphatic: Denies easy bruising, Denies lymphadenopathy Physical exam General Appearance: Alert, cooperative, no distress, this is an 85-year-old patient appears stated age. Neck HEENT: Supple, no lymphadenopathy, no thyroid enlargement, no carotid bruits. Lungs: Clear to auscultation without crackles or wheezes no rhonchi, no deformity. Chest Wall: Chest wall normal expansion with deep inspiration no tenderness and no deformity was found on exam, no costochondral pain or discomfort. Heart: Regular rate and rhythm, S1, S2 normal, no murmur, rub or gallop. Back: Symmetric, no curvature, ROM normal, no CVA tenderness. Abdomen: Soft, non-tender, no rebound or rigidity, no hepatosplenomegaly. Extremities: Extremities normal, atraumatic, no cyanosis or edema. Pulses: 2+ and symmetric. Skin: Skin color, texture, tugor normal, no rashes or lesions. Neurologic: Alert oriented x2, positive confusion noted not combative cranial nerves II through XII intact, no motor deficit, no abnormal balance or gait Assessment/plan: 1. acute hypoxic respiratory failure secondary to call with pneumonia. Status post monoclonal antibodies Bamlanivimab as outpatient. Initiated dexamethasone, vitamin C, vitamin D, zinc. Patient may benefit from remdesivir pulmonary to make recommendations. Pulmonary consult appreciated. CT could not be performed due to worsening kidney functions VQ scan negative for PE. Patient still has confusion requiring oxygen support. D-dimer 1.39 today, 2. lactic acidosis likely secondary to dehydration due to poor oral intake continue IV fluids at 75 mL/h. 3. acute kidney injury. No prior baseline creatinine available. Likely ATN. Continue IV fluids at 75 mL per hour. Ultrasound renal and bladder suggestive of severe hydronephrosis on the right with the decrease kidney size on the left. No bladder was seen. Urology consulted appreciated. Hydronephrosis is chronic no intervention required 4. history of bladder cancer status post reconstruction, renal ultrasound and bladder ultrasound to severe hydronephrosis on the right with medical renal disease on the left. Normal bladder noted 5. coronary artery disease status post stenting. Continue aspirin 6. hyperlipidemia continue atorvastatin 40 mg daily 7. hypothyroidism continue levothyroxine 100 g daily 8. hypertension hold quinapril and Lasix due to worsening kidney dysfunction 9. gout continue allopurinol 100 mg daily 10. Hyperkalemia. 1 dose of Kayexalate given. Repeat potassium 4.2. 11. Debility. OT/ PT consults social work consult for subacute rehab placement. Ensure 3 times a day 12. DVT prophylaxis with Lovenox 40 subcu daily 13. GI prophylaxis with Protonix 40 mg daily CODE STATUS full code Discharge plan: Patient will be admitted for minimum of 2 nights day, more than likely subacute rehab. OT and PT consult Impression and plan of care have been directed as dictated by the signing physician. Lorelei Francisco nurse practitioner acting as scribe for signing physician. Objective - Vital Signs Vital signs: Vital Signs Temp 97.8 F 08/30/20 10:07 Pulse 86 08/30/20 10:07 Resp 20 08/30/20 10:07 BP 150/92 08/30/20 10:07 Pulse Ox 94 L 08/30/20 10:07 Intake & Output 08/29/20 08/30/20 08/30/20 18:59 06:59 18:59 Output Total 700 800 Balance -700 -800 Output: Urine 700 800 Other: Voiding Method Diaper Indwelling Catheter Incontinent # Bowel Movements 1 - Labs CBC & Chem 7: 08/28/20 09:05 08/29/20 09:28 Labs: Abnormal Lab Results - Last 24 Hours (Table) 08/30/20 Range/Units 06:58 D-Dimer 1.39 H (<0.60) mg/L FEU
[2020-08-30 11:26] LABS: African American GFR (CKD) 45.2 (60.0-200.0); Albumin 4.2 g/dL (3.80-4.90); Albumin/Globulin Ratio 2.33 (1.60-3.17); Anion Gap 11.1 mmol/L (4.00-12.00); BUN/Creat Ratio 36.88 Ratio (12.00-20.00); C Reactive Protein 1.9 mg/dL (0.0-0.8); Calcium 8.8 mg/dL (8.7-10.3); Carbon Dioxide 19.9 mmol/L (21.6-31.8); Globulin 1.8 g/dL (1.6-3.3); Potassium 3.8 mmol/L (3.5-5.5); Total Bilirubin 0.7 mg/dL (0.3-1.2)
--- NOTE | 2020-08-30 15:46 | P.PN ---
Subjective Progress Note Date: 08/30/20 Principal diagnosis: COVID-19 pneumonia 85-year-old male, who is quite confused as to exactly why he's here in the emergency department. According to the nurse, the patient was here yesterday and received BAM. He was discharged home. He apparently presented back to the emergency department on August 27, for complaints of increasing shortness of breath. He apparently tested positive for coronavirus a couple days ago. Anyway, his symptoms included shortness breath, cough, weakness, fatigue, and poor appetite with poor oral intake of both fluids and food. The patient was apparently quite short of breath, and he was only saturating 80% on room air. For that reason he came into the hospital. His primary care physician is Dr. Jeffrey Vasquez. He has a history of hyperlipidemia, hypertension, hypothyroidism, bladder cancer, and heart catheterization with stent. He is 85 years of age. Currently, he's on 4 L nasal O2. Lab data includes a white count 6.5, hemoglobin 13, hematocrit 38.9, and platelet count 126,000. PT, INR, PTT, and d-dimer were all reviewed. D-dimer is 1.06. Sodium potassium chloride CO2 all normal. Anion gap 12, BUN was 52, and creatinine was 2.30. Lactic acid 3.2, with repeat being 0.9. C-reactive protein 7.1. LDH 572. Chest x-ray show some low lung volumes, and bilateral infiltrates. The patient did test positive again for coronavirus on August 26. It is not clear to me how long he's been having symptoms. Again, he is not a very good historian. Progress note dated 08/28/2020 85-year-old male, that I saw yesterday in the emergency department. Currently, he's on 4 L nasal cannula and saline at 75 mL an hour. The patient was in the emergency room a couple days ago and received BAM. He was discharged home but came back in because of increasing weakness, shortness of breath, cough, and fatigue. Currently, he feels a bit better. White count 4.7, hemoglobin 12.2, hematocrit 35.5, and platelet count 120,000. Sodium 135, potassium 5.4, chlorides 108, CO2 21, anion gap 6, BUN 52, and creatinine 1.72. His BUN and creatinine from yesterday were 52 and 2.30. Lactic acid repeat was 0.9. On 08/29/2020 patient seen in follow-up on medical surgical floor. Patient is awake and alert, but he is confused and agitated at this time, but breathing comfortable, he is currently on 4 L of oxygen his pulse ox is 94%, he's af ebrile. Today's labs have been reviewed, showing sodium of 138, potassium is 4.2, chloride is 108, CO2 is 19, B1 and 50, creatinine is 1.52, improving, patient was seen by urology in regards to right kidney extensive hydronephrosis, and this was felt to be chronic in nature and no surgical intervention was recommended. No cough, no chest discomfort, patient remains on twice daily Decadron 6 mg, and Lovenox 30 mg daily. Follow-up d-dimer will be obtained for tomorrow The patient is seen today 08/30/2020 follow-up on the regular medical floor. He is currently sitting up in a chair at the bedside. A bit more relaxed today compared to yesterday. Less agitation. He is currently on 4 L nasal cannula to maintain O2 saturations in the 90s. He is afebrile. Chest x-ray continues to revealed patchy airspace disease. There is a gas distended loop of colon suspected below the right hemidiaphragm with elevated right hemidiaphragm. Possible ileus. D-dimer 1.39. Sodium 141. Potassium 3.8. Creatinine 1.6. Glucose 177. LDH 339. C-reactive protein 1.9. Objective - Vital Signs Vital signs: Vital Signs Temp 97.9 F 08/30/20 14:00 Pulse 85 08/30/20 14:00 Resp 20 08/30/20 14:00 BP 174/86 08/30/20 14:00 Pulse Ox 94 L 08/30/20 14:00 Intake & Output 08/29/20 08/30/20 08/30/20 18:59 06:59 18:59 Output Total 700 800 Balance -700 -800 Output: Urine 700 800 Other: Voiding Method Diaper Indwelling Catheter Incontinent # Bowel Movements 1 - Exam GENERAL EXAM: Alert, 85-year-old male, on 4 L of oxygen, with a pulse ox of 94% comfortable in no apparent distress. HEAD: Normocephalic/atraumatic. EYES: Normal reaction of pupils, equal size. Conjunctiva pink, sclera white. NOSE: Clear with pink turbinates. THROAT: No erythema or exudates. NECK: No masses, no JVD, no thyroid enlargement, no adenopathy. CHEST: No chest wall deformity. Symmetrical expansion. LUNGS: Equal air entry with crackles in the bilateral posterior bases CVS: Regular rate and rhythm, normal S1 and S2, no gallops, no murmurs, no rubs ABDOMEN: Soft, nontender. No hepatosplenomegaly, normal bowel sounds, no guarding or rigidity. EXTREMITIES: No clubbing, no edema, no cyanosis, 2+ pulses and upper and lower extremities. MUSCULOSKELETAL: Muscle strength and tone normal. SPINE: No scoliosis or deformity SKIN: No rashes CENTRAL NERVOUS SYSTEM: No focal deficits, tone is normal in all 4 extremities. PSYCHIATRIC: Alert and oriented -3. Appropriate affect. Intact judgment and insight. - Labs CBC & Chem 7: 08/28/20 09:05 08/30/20 06:58 Labs: Abnormal Lab Results - Last 24 Hours (Table) 08/30/20 08/30/20 Range/Units 06:58 06:58 D-Dimer 1.39 H (<0.60) mg/L FEU Chloride 110 H (96-109) mmol/L Carbon Dioxide 19.9 L (21.6-31.8) mmol/L BUN 59.0 H (9.0-27.0) mg/dL Creatinine 1.6 H (0.6-1.5) mg/dL Est GFR (CKD-EPI)AfAm 45.2 L (60.0-200.0) Est GFR (CKD-EPI)NonAf 39.0 L (60.0-200.0) BUN/Creatinine Ratio 36.88 H (12.00-20.00) Ratio Glucose 177 H (70-110) mg/dL AST 68 H (14-35) U/L ALT 144 H (10-49) U/L Lactate Dehydrogenase 339 H (120-246) U/L C-Reactive Protein 1.9 H (0.0-0.8) mg/dL Total Protein 6.0 L (6.2-8.2) g/dL Assessment and Plan Assessment: 1 Acute hypoxic respiratory failure is acute to COVID-19 pneumonia status post BAM-ETE on August 26 2 Right-sided hydronephrosis, chronic, with no surgical intervention recommen dation 3 Elevated d-dimer, likely related to acute COVID19 pneumonia and VQ scan showed very low probability for PE 4 Hyperlipidemia 5 Hypothyroidism 6 History of bladder cancer 7 Lifetime nonsmoker Plan: The patient was seen and evaluated by Dr. Chavira Chest x-ray and labs reviewed Titrate down the FiO2 as tolerated Decreased steroids due to agitation Continue current treatment plan We will continue to follow I, the cosigning physician, performed a history & physical examination of the patient. Lungs sounds crackles in the bilateral posterior bases. Maintaining good O2 saturations in the 90s on 4 L/m nasal cannula. I discussed the assessment and plan of care with my nurse practitioner, Alondra Haley. I attest to the above note as dictated by her.
[2020-08-30] MEDS: hydrALAZINE HCL 25 MG TAB PO SCH (17:38)
[2020-08-30] MEDS: ATORVASTATIN 40 MG TAB PO SCH (20:35)
[2020-08-31] MEDS: LEVOTHYROXINE 100 MCG TAB PO SCH (05:52)
[2020-08-31] MEDS: ASPIRIN 81 MG PO SCH (08:01)
[2020-08-31] MEDS: CHOLECALCIFEROL 25 MCG (1000 IU) TABLET PO SCH (08:01)
[2020-08-31] MEDS: ENOXAPARIN 30 MG/0.3 ML SYRINGE SQ SCH (08:01)
[2020-08-31] MEDS: PANTOPRAZOLE 40 MG TABLET PO SCH (08:02)
[2020-08-31] MEDS: ACETAMINOPHEN TAB 500 MG TAB PO SCH (08:02)
[2020-08-31] MEDS: DEXAMETHASONE SOD PHOSPHATE 10 MG/ML 1 ML VIAL IV SCH (08:02)
[2020-08-31] MEDS: guaiFENesin 600 MG TABLET.ER PO SCH ×2 (08:02→21:37)
[2020-08-31] MEDS: ASCORBIC ACID 500 MG TAB PO SCH ×2 (08:02→21:37)
[2020-08-31] MEDS: hydrALAZINE HCL 25 MG TAB PO SCH ×2 (08:02→21:37)
[2020-08-31] MEDS: allopurinoL 100 MG TAB PO SCH (08:02)
[2020-08-31 11:45] LABS: African American GFR (CKD) 48.8 (60.0-200.0); Anion Gap 9.5 mmol/L (4.00-12.00); Calcium 8.8 mg/dL (8.7-10.3); Carbon Dioxide 18.5 mmol/L (21.6-31.8); Non-African American GFR(CKD) 42.1 (60.0-200.0); Potassium 4.1 mmol/L (3.5-5.5)
[2020-08-31 12:00] LABS: Basophils # (A) 0.02 X 10*3/uL (0.00-0.10); Basophils % (A) 0.2 %; Eosinophils # (A) 0 X 10*3/uL (0.04-0.35); Eosinophils % (A) 0 %; HCT 43.4 % (39.6-50.0); HGB 13.4 g/dL (13.0-17.0); Lymphocytes # (A) 0.69 X 10*3/uL (0.90-5.00); Lymphocytes % (A) 6.2 %; MCH 32.1 pg (27.0-32.0); MCHC 30.9 g/dL (32.0-37.0); MCV 103.8 fL (80.0-97.0); Mean Platelet Volume 11.5 fL (9.5-12.2); Monocytes # (A) 0.82 X 10*3/uL (0.20-1.00); Monocytes % (A) 7.4 %; Neutrophils # (A) 9.48 X 10*3/uL (1.80-7.70); Neutrophils % (A) 85.7 %; Platelet Count 155 X 10*3/uL (140-440); RBC 4.18 X 10*6/uL (4.40-5.60); RDW 13.2 % (11.5-14.5); WBC 11.07 X 10*3/uL (4.50-10.00)
--- NOTE | 2020-08-31 13:00 | P.PN ---
Subjective Progress Note Date: 08/31/20 Subjective Progress Note Date: 08/30/20 85 years old male patient of Dr. Vasquez with past medical history of coronary disease status post stenting, hypertension, hyperlipidemia, hypothyroidism, history of bladder cancer status post surgery, so comes in with worsening shortness of breath associated with weakness, fatigue poor appetite and poor intake of fluids and food. Apparently patient was in here yesterday and was diagnosed with COVID. Patient received Bamlanivimab and was discharged home. EMS was called and patient was noted to be shortof breath his oxygen saturation was 80% on room air. Oxygenation improved with nonrebreather and finally was titrated down to 3 L. On evaluation today patient appears very confused and unable to give any history. He does document dry mouth but is unable to tell his symptoms or the reason he is in the ER. He is unable to give any hitory and is drifting back to sleep. On assessment of patient's vit als, patient has a temp of 98.9 pulse 58 respiratory rate 18 blood pressure 125/6687% on 3 L of oxygen. On assessment was that patient has a WBC of 6.5 hemoglobin 13 d-dimer 1.06 sodium 141 potassium 4.2 chloride 107 BUN 52 creatinine 2.3 baseline creatinine not known patient's creatinine yesterday is was 1.9 initially lactic acid 3.2 improved to 0.9 with fluids. CRP 7.1 LDH 572, proBNP 144 with detected on 08/26. Pulmonary consulted. Continue patient on vitamin C, vitamin D dexamethasone 4 mg IV twice a day continue IV fluids at 75 mL per hour. Ultrasound bladder and kidneys ordered. 08/28 patient examined at bedside is alert answering questions appropriately. Patient is comfortable denies shortness of breath. Patient is on 4 L of oxygen saturating at 92%. He is afebrile pulse 59 blood pressure 138/72. That's it is referral for a hemoglobin of 12.2 WBC 4.7 platelet 120 sodium 135 chloride 108 potassium 5.4 and 9 6 carbon dioxide 21 BUN 52 creatinine 1.7 CRP has improved slightly to 6.8 TSH 0.48. Renal Ultrasound suggests severe hydronephrosis on the right with diminished left kidney with medical renal disease. VQ scan is negative for pulmonary embolism. Patient requests chopped diet as have difficulty eating regular fold. Laws catheter will be placed. Input and out put monitoring. Urology consulted 424: Patient examined at bedside he is alert answering questions appropriately. He is noted to have some confusion and a repeat questioning. Patient does know where he has however he feels his only been here for approximately 30 minutes. Patient is pulse ox 90% on 4 L of nasal cannula. Patient was evaluated by Dr. Soares for right-sided hydronephrosis which is chronic related to his previous bladder cancer and surgical intervention. Indwelling catheter in place with clear urine. Patient remained afebrile, heart rate 57, blood pressure 140/67. WC 4.7, hemoglobin 12.2, platelets 120, potassium 5.4, BUN 52, creatinine 1.72. 08/30: Patient was transferred to [address] [place] [address] where he exhibited increased confusion. Removed the top portion of the bed and was standing on the bed. Patient upset that he was not able to go home. Patient was given Xanax. At this time patient is found sitting up in a chair sleeping. He is easily arousable. Patient did have 1 episode of diarrhea that seemed to take all his energy. Patient is able to answer some questions continues to have some confusion noted. O2 PT consult and social work for possible subacute rehab. Patient does not want to eat any breakfast. We will add Ensure to his regime. She remains afebrile, pulse rate 86, respirations 20, blood pressure 150/92 d-dimer 1.39 Review of systems: Constitutional: Denies chills, Denies fever, Denies lethargy, Denies malaise, Denies poor appetite, Denies weakness, Denies weight loss Eyes: denies decreased vision, denies diplopia, denies discharge, denies pain Ears: deny: decreased hearing Ears, nose, mouth and throat: Denies dental pain, Denies headache, Denies nasal discharge, Denies nose pain Cardiovascular: Denies chest pain, Denies decreased exercise tolerance, Denies edema, Denies high blood pressure, Denies irregular heart beat, Denies palpitations, Denies paroxysmal nocturnal dyspnea, Denies rapid heart beat, Denies shortness of breath Respiratory: Denies congestion, Denies cough, Denies cough with sputum, Denies dyspnea, Denies home oxygen, Denies wheezing Gastrointestinal: Denies abdominal pain, Denies change in bowel habits, Denies coffee ground emesis, Denies early satiety, Denies excessive gas, Denies heart burn, Denies hematemesis, Denies hematochezia, Denies loss of appetite, Denies nausea, Denies vomiting Genitourinary: Denies dysuria, Denies flank pain, Denies kidney stones, Denies menorrhagia, Denies urgency, Denies urinary frequency Musculoskeletal: Denies gait dysfunction, Denies limitation of motion, Denies morning stiffness, Denies muscle cramps Integumentary: Denies rash, Denies wounds, Denies brittle nails, Denies change in hair/nails, Denies darkening of skin Neurological: Denies balance difficulties, Denies change in speech, Denies double vision, Denies gait dysfunction, Denies loss of vision, Denies motor disturbance, Denies numbness, Denies paralysis, Denies paresthesias, Denies seizures Psychiatric: Denies anxiety, Denies depression Endocrine: Denies excessive sweating, Denies excessive thirst, Denies high blood sugars, Denies palpitations Hematologic/Lymphatic: Denies easy bruising, Denies lymphadenopathy Physical exam General Appearance: Alert, cooperative, no distress, this is an 85-year-old patient appears stated age. Neck HEENT: Supple, no lymphadenopathy, no thyroid enlargement, no carotid bruits. Lungs: Clear to auscultation without crackles or wheezes no rhonchi, no deformity. Chest Wall: Chest wall normal expansion with deep inspiration no tenderness and no deformity was found on exam, no costochondral pain or discomfort. Heart: Regular rate and rhythm, S1, S2 normal, no murmur, rub or gallop. Back: Symmetric, no curvature, ROM normal, no CVA tenderness. Abdomen: Soft, non-tender, no rebound or rigidity, no hepatosplenomegaly. Extremities: Extremities normal, atraumatic, no cyanosis or edema. Pulses: 2+ and symmetric. Skin: Skin color, texture, tugor normal, no rashes or lesions. Neurologic: Alert oriented x2, positive confusion noted not combative cranial nerves II through XII intact, no motor deficit, no abnormal balance or gait Assessment/plan: 1. acute hypoxic respiratory failure secondary COVID-19 pneumonitis. Status post monoclonal antibodies Bamlanivimab as outpatient. Initiated dexamethasone, vitamin C, vitamin D, zinc. Patient may benefit from remdesivir pulmonary to make recommendations. Still seen. Pulmonary patient still having constitutional symptom with fatigue tiredness forget of numbness dizziness urinary retention and other. Continue to treat underlying problem we'll consult PTOT and still consult with social service technician to see once a possibility patient be discharged home or whether he need to go to subacute rehab. 2. Hypoxia: Continue O2 between 2-3 L nasal cannula try to wean patient off oxygen possible. 3. acute kidney injury. No prior baseline creatinine available. Likely ATN. Continue IV fluids at 75 mL per hour. Ultrasound renal and bladder suggestive of severe hydronephrosis on the right with the decrease kidney size on the left. No bladder was seen. Urology consulted appreciated. Hydronephrosis is chronic no intervention required 4. history of bladder cancer status post reconstruction, renal ultrasound and bladder ultrasound to severe hydronephrosis on the right with medical renal disease on the left. Normal bladder noted 5. coronary artery disease status post stenting. Continue aspirin 6. hyperlipidemia continue atorvastatin 40 mg daily 7. hypothyroidism continue levothyroxine 100 g daily 8. hypertension hold quinapril and Lasix due to worsening kidney dysfunction 9. gout continue allopurinol 100 mg daily 10. Hyperkalemia. 1 dose of Kayexalate given. Repeat potassium 4.2. 11. Debility. OT/ PT consults social work consult for subacute rehab placement. Ensure 3 times a day 12. DVT prophylaxis with Lovenox 40 subcu daily 13. GI prophylaxis with Protonix 40 mg daily CODE STATUS full code Discharge planning: Consult social service technician and to have meeting with the family see with posterior patient is going home with help although he need to go to subacute rehab. Objective - Vital Signs Vital signs: Vital Signs Temp 97.8 F 08/31/20 05:30 Pulse 67 08/31/20 05:30 Resp 17 08/31/20 05:30 BP 160/78 08/31/20 05:30 Pulse Ox 97 08/31/20 05:30 Intake & Output 08/30/20 08/30/20 08/31/20 06:59 18:59 06:59 Output Total 800 550 700 Balance -800 -550 -700 Output: Urine 800 550 700 Other: Voiding Method Diaper Indwelling Catheter Indwelling Catheter Incontinent - Labs CBC & Chem 7: 08/31/20 07:42 08/31/20 07:42 Labs: Abnormal Lab Results - Last 24 Hours (Table) 08/30/20 08/30/20 Range/Units 06:58 06:58 D-Dimer 1.39 H (<0.60) mg/L FEU Chloride 110 H (96-109) mmol/L Carbon Dioxide 19.9 L (21.6-31.8) mmol/L BUN 59.0 H (9.0-27.0) mg/dL Creatinine 1.6 H (0.6-1.5) mg/dL Est GFR (CKD-EPI)AfAm 45.2 L (60.0-200.0) Est GFR (CKD-EPI)NonAf 39.0 L (60.0-200.0) BUN/Creatinine Ratio 36.88 H (12.00-20.00) Ratio Glucose 177 H (70-110) mg/dL AST 68 H (14-35) U/L ALT 144 H (10-49) U/L Lactate Dehydrogenase 339 H (120-246) U/L C-Reactive Protein 1.9 H (0.0-0.8) mg/dL Total Protein 6.0 L (6.2-8.2) g/dL
--- NOTE | 2020-08-31 16:38 | P.PN ---
Subjective Progress Note Date: 08/31/20 Principal diagnosis: Shortness of breath 85-year-old male, who is quite confused as to exactly why he's here in the emergency department. According to the nurse, the patient was here yesterday and received BAM. He was discharged home. He apparently presented back to the emergency department on August 27, for complaints of increasing shortness of breath. He apparently tested positive for coronavirus a couple days ago. Anyway, his symptoms included shortness breath, cough, weakness, fatigue, and poor appetite with poor oral intake of both fluids and food. The patient was apparently quite short of breath, and he was only saturating 80% on room air. For that reason he came into the hospital. His primary care physician is Dr. Jeffrey Vasquez. He has a history of hyperlipidemia, hypertension, hypothyroidism, bladder cancer, and heart catheterization with stent. He is 85 years of age. Currently, he's on 4 L nasal O2. Lab data includes a white count 6.5, hemoglobin 13, hematocrit 38.9, and platelet count 126,000. PT, INR, PTT, and d-dimer were all reviewed. D-dimer is 1.06. Sodium potassium chloride CO2 all normal. Anion gap 12, BUN was 52, and creatinine was 2.30. Lactic acid 3.2, with repeat being 0.9. C-reactive protein 7.1. LDH 572. Chest x-ray show some low lung volumes, and bilateral infiltrates. The patient did test positive again for coronavirus on August 26. It is not clear to me how long he's been having symptoms. Again, he is not a very good historian. Progress note dated 08/28/2020 85-year-old male, that I saw yesterday in the emergency department. Currently, he's on 4 L nasal cannula and saline at 75 mL an hour. The patient was in the emergency room a couple days ago and received BAM. He was discharged home but came back in because of increasing weakness, shortness of breath, cough, and fatigue. Currently, he feels a bit better. White count 4.7, hemoglobin 12.2, hematocrit 35.5, and platelet count 120,000. Sodium 135, potassium 5.4, chlorides 108, CO2 21, anion gap 6, BUN 52, and creatinine 1.72. His BUN and creatinine from yesterday were 52 and 2.30. Lactic acid repeat was 0.9. On 08/29/2020 patient seen in follow-up on medical surgical floor. Patient is awake and alert, but he is confused and agitated at this time, but breathing comfortable, he is currently on 4 L of oxygen his pulse ox is 94%, he's af ebrile. Today's labs have been reviewed, showing sodium of 138, potassium is 4.2, chloride is 108, CO2 is 19, B1 and 50, creatinine is 1.52, improving, patient was seen by urology in regards to right kidney extensive hydronephrosis, and this was felt to be chronic in nature and no surgical intervention was recommended. No cough, no chest discomfort, patient remains on twice daily Decadron 6 mg, and Lovenox 30 mg daily. Follow-up d-dimer will be obtained for tomorrow On 08/31/2020 patient seen in follow-up on medical surgical floor, he looks quite comfortable, he is on 3 L of oxygen, he is up in the chair today, pulse ox is 93-95%, he is afebrile, hemodynamically he stable, he is on and off confused, no agitation currently. No complaints of chest discomfort. No cough, no increased work of breathing, vital signs have been stable. His last chest x-ray from yesterday and distended bowel loops with possibility of ileus, today's labs have been reviewed showing white blood cell count of 11.7, hemoglobin at 13.4, his last d-dimer yesterday was 1.39, sodium was 143, potassium is 4.1, BUN was 57, and creatinine was slightly improved at 1.5. Objective - Vital Signs Vital signs: Vital Signs Temp 98.2 F 08/31/20 13:49 Pulse 72 08/31/20 13:49 Resp 22 08/31/20 13:49 BP 158/86 08/31/20 13:49 Pulse Ox 93 L 08/31/20 13:49 Intake & Output 08/30/20 08/31/20 08/31/20 18:59 06:59 18:59 Output Total 550 700 750 Balance -550 -700 -750 Output: Urine 550 700 750 Uretheral (Laws) 750 Other: Voiding Method Indwelling Catheter Indwelling Catheter Indwelling Catheter - Exam GENERAL EXAM: Alert, intermittently confused but currently not agitated, 85-year-old white male, on 3 L of oxygen, with a pulse ox of 94% comfortable in no apparent distress. HEAD: Normocephalic/atraumatic. EYES: Normal reaction of pupils, equal size. Conjunctiva pink, sclera white. NOSE: Clear with pink turbinates. THROAT: No erythema or exudates. NECK: No masses, no JVD, no thyroid enlargement, no adenopathy. CHEST: No chest wall deformity. Symmetrical expansion. LUNGS: Equal air entry with no crackles, wheeze, rhonchi or dullness. CVS: Regular rate and rhythm, normal S1 and S2, no gallops, no murmurs, no rubs ABDOMEN: Soft, nontender. No hepatosplenomegaly, normal bowel sounds, no guarding or rigidity. EXTREMITIES: No clubbing, no edema, no cyanosis, 2+ pulses and upper and lower extremities. MUSCULOSKELETAL: Muscle strength and tone normal. SPINE: No scoliosis or deformity SKIN: No rashes CENTRAL NERVOUS SYSTEM: Alert and oriented -3. No focal deficits, tone is normal in all 4 extremities. PSYCHIATRIC: Alert and oriented -3. Appropriate affect. Intact judgment and insight. - Labs CBC & Chem 7: 08/31/20 07:42 08/31/20 07:42 Labs: Abnormal Lab Results - Last 24 Hours (Table) 08/31/20 08/31/20 Range/Units 07:42 07:42 WBC 11.07 H (4.50-10.00) X 10*3/uL RBC 4.18 L (4.40-5.60) X 10*6/uL MCV 103.8 H (80.0-97.0) fL MCH 32.1 H (27.0-32.0) pg MCHC 30.9 L (32.0-37.0) g/dL Immature Gran # 0.06 H (0.00-0.04) X 10*3/uL Neutrophils # 9.48 H (1.80-7.70) X 10*3/uL Lymphocytes # 0.69 L (0.90-5.00) X 10*3/uL Eosinophils # 0 L (0.04-0.35) X 10*3/uL Chloride 115 H (96-109) mmol/L Carbon Dioxide 18.5 L (21.6-31.8) mmol/L BUN 57.0 H (9.0-27.0) mg/dL Est GFR (CKD-EPI)AfAm 48.8 L (60.0-200.0) Est GFR (CKD-EPI)NonAf 42.1 L (60.0-200.0) BUN/Creatinine Ratio 38.00 H (12.00-20.00) Ratio Glucose 137 H (70-110) mg/dL Assessment and Plan Plan: Assessment: #1. Acute hypoxic respiratory failure is acute to COVID-19 pneumonia status post BAM-ETE on August 26 #2. Right-sided hydronephrosis, chronic, with no surgical intervention recommendation #3. Elevated d-dimer, likely related to acute COVID19 pneumonia and VQ scan showed very low probability for PE #4. Hyperlipidemia #5. Hypothyroidism #6. History of bladder cancer #7. Lifetime nonsmoker Plan: Continue weaning FiO2 to maintain O2 saturations at or above 90% Breathing quite comfortably, no signs of any respiratory distress Continues to be on and off confused and agitated Continue current dose Decadron, and Lovenox, There is a possibility of ileus on his chest x-ray, patchy airspace disease on the chest x-ray stable Worsening dyspnea or hypoxia We'll continue with current medical treatment, maintain safety precautions I performed a history & physical examination of the patient and discussed their management with my nurse practitioner, Yovana Nazario. I reviewed the nurse practitioner's note and agree with the documented findings and plan of care. Lung sounds are positive for diffuse crackles throughout the lung hernandez. The findings and the impression was discussed with the patient. I attest to the documentation by the nurse practitioner. Time with Patient: Less than 30
[2020-08-31] MEDS: ATORVASTATIN 40 MG TAB PO SCH (21:37)
[2020-09-01] MEDS: LEVOTHYROXINE 100 MCG TAB PO SCH (05:59)
[2020-09-01] MEDS ORDERED: ENOXAPARIN 40 MG/0.4 ML SYRINGE SQ SCH (09:00)
[2020-09-01] MEDS: CHOLECALCIFEROL 25 MCG (1000 IU) TABLET PO SCH (09:41)
[2020-09-01] MEDS: ACETAMINOPHEN TAB 500 MG TAB PO SCH (09:41)
[2020-09-01] MEDS: ASPIRIN 81 MG PO SCH (09:41)
[2020-09-01] MEDS: allopurinoL 100 MG TAB PO SCH (09:41)
[2020-09-01] MEDS: guaiFENesin 600 MG TABLET.ER PO SCH (09:41)
[2020-09-01] MEDS: ASCORBIC ACID 500 MG TAB PO SCH (09:41)
[2020-09-01] MEDS: hydrALAZINE HCL 25 MG TAB PO SCH (09:41)
[2020-09-01] MEDS: DEXAMETHASONE SOD PHOSPHATE 10 MG/ML 1 ML VIAL IV SCH (09:42)
[2020-09-01] MEDS: PANTOPRAZOLE 40 MG TABLET PO SCH (09:42)
[2020-09-01 10:21] VITALS: BP 167/89; PULSE 74; RESP 20; TEMP 97.9
--- NOTE | 2020-09-01 13:12 | P.DS ---
Providers Date of admission: 08/27/20 11:16 Attending physician: Roselyn Myers MD Consults: 08/27/20 11:16 Consult Physician Urgent Consulting Provider: Heather Chavira Consult Reason/Comments: acute hypoxic resp failure, acute covid infection Do you want consulting provider notified?: Yes 08/28/20 14:50 Consult Physician Routine Consulting Provider: Andrei Velasquez Consult Reason/Comments: severe hydronephrosisi right Do you want consulting provider notified?: Yes Primary care physician: [facility] Course: Subjective 85 years old male patient of Dr. Vasquez with past medical history of coronary disease status post stenting, hypertension, hyperlipidemia, hypothyroidism, history of bladder cancer status post surgery, so comes in with worsening shortness of breath associated with weakness, fatigue poor appetite and poor intake of fluids and food. Apparently patient was in here yesterday and was diagnosed with COVID. Patient received Bamlanivimab and was discharged home. EMS was called and patient was noted to be shortof breath his oxygen saturation was 80% on room air. Oxygenation improved with nonrebreather and finally was titrated down to 3 L. On evaluation today patient appears very confused and unable to give any history. He does document dry mouth but is unable to tell his symptoms or the reason he is in the ER. He is unable to give any hitory and is drifting back to sleep. On assessment of patient's vitals, patient has a temp of 98.9 pulse 58 respiratory rate 18 blood pressure 125/6687% on 3 L of oxygen. On assessment was that patient has a WBC of 6.5 hemoglobin 13 d-dimer 1.06 sodium 141 potassium 4.2 chloride 107 BUN 52 creatinine 2.3 baseline creatinine not known patient's creatinine yesterday is was 1.9 initially lactic acid 3.2 improved to 0.9 with fluids. CRP 7.1 LDH 572, proBNP 144 with detected on 08/26. Pulmonary consulted. Continue patient on vitamin C, vitamin D dexamethasone 4 mg IV twice a day continue IV fluids at 75 mL per hour. Ultrasound bladder and kidneys ordered. 08/28 patient examined at bedside is alert answering questions appropriately. Patient is comfortable denies shortness of breath. Patient is on 4 L of oxygen saturating at 92%. He is afebrile pulse 59 blood pressure 138/72. That's it is referral for a hemoglobin of 12.2 WBC 4.7 platelet 120 sodium 135 chloride 108 potassium 5.4 and 9 6 carbon dioxide 21 BUN 52 creatinine 1.7 CRP has improved slightly to 6.8 TSH 0.48. Renal Ultrasound suggests severe hydronephrosis on the right with diminished left kidney with medical renal disease. VQ scan is negative for pulmonary embolism. Patient requests chopped diet as have difficulty eating regular fold. Laws catheter will be placed. Input and output monitoring. Urology consulted 424: Patient examined at bedside he is alert answering questions appropriately. He is noted to have some confusion and a repeat questioning. Patient does know where he has however he feels his only been here for approximately 30 minutes. Patient is pulse ox 90% on 4 L of nasal cannula. Patient was evaluated by Dr. Soares for right-sided hydronephrosis which is chronic related to his previous bladder cancer and surgical intervention. Indwelling catheter in place with clear urine. Patient remained afebrile, heart rate 57, blood pressure 140/67. WC 4.7, hemoglobin 12.2, platelets 120, potassium 5.4, BUN 52, creatinine 1.72. 08/30: Patient was transferred to [address] [place] [address] where he exhibited increased confusion. Removed the top portion of the bed and was standing on the bed. Patient upset that he was not able to go home. Patient was given Xanax. At this time patient is found sitting up in a chair sleeping. He is easily arousable. Patient did have 1 episode of diarrhea that seemed to take all his energy. Patient is able to answer some questions continues to have some confusion noted. O2 PT consult and social work for possible subacute rehab. Patient does not want to eat any breakfast. We will add Ensure to his regime. She remains afebrile, pulse rate 86, respirations 20, blood pressure 150/92 d-dimer 1.39 08/31: Patient is doing very well stable his oxygen sat still slightly bit low require 3 L of oxygen to go home on, patient is not symptomatically otherwise doing very well with the COVID-19, family are willing to have him come home with home care and home physical therapy. Review of systems: Constitutional: Denies chills, Denies fever, Denies lethargy, Denies malaise, Denies poor appetite, Denies weakness, Denies weight loss Eyes: denies decreased vision, denies diplopia, denies discharge, denies pain Ears: deny: decreased hearing Ears, nose, mouth and throat: Denies dental pain, Denies headache, Denies nasal discharge, Denies nose pain Cardiovascular: Denies chest pain, Denies decreased exercise tolerance, Denies edema, Denies high blood pressure, Denies irregular heart beat, Denies palpitations, Denies paroxysmal nocturnal dyspnea, Denies rapid heart beat, Denies shortness of breath Respiratory: Denies congestion, Denies cough, Denies cough with sputum, Denies dyspnea, Denies home oxygen, Denies wheezing Gastrointestinal: Denies abdominal pain, Denies change in bowel habits, Denies coffee ground emesis, Denies early satiety, Denies excessive gas, Denies heartburn, Denies hematemesis, Denies hematochezia, Denies loss of appetite, Denies nausea, Denies vomiting Genitourinary: Denies dysuria, Denies flank pain, Denies kidney stones, Denies menorrhagia, Denies urgency, Denies urinary frequency Musculoskeletal: Denies gait dysfunction, Denies limitation of motion, Denies morning stiffness, Denies muscle cramps Integumentary: Denies rash, Denies wounds, Denies brittle nails, Denies change in hair/nails, Denies darkening of skin Neurological: Denies balance difficulties, Denies change in speech, Denies double vision, Denies gait dysfunction, Denies loss of vision, Denies motor disturbance, Denies numbness, Denies paralysis, Denies paresthesias, Denies seizures Psychiatric: Denies anxiety, Denies depression Endocrine: Denies excessive sweating, Denies excessive thirst, Denies high blood sugars, Denies palpitations Hematologic/Lymphatic: Denies easy bruising, Denies lymphadenopathy Physical exam General Appearance: Alert, cooperative, no distress, this is an 85-year-old patient appears stated age. Neck HEENT: Supple, no lymphadenopathy, no thyroid enlargement, no carotid bruits. Lungs: Clear to auscultation without crackles or wheezes no rhonchi, no defor mity. Chest Wall: Chest wall normal expansion with deep inspiration no tenderness and no deformity was found on exam, no costochondral pain or discomfort. Heart: Regular rate and rhythm, S1, S2 normal, no murmur, rub or gallop. Back: Symmetric, no curvature, ROM normal, no CVA tenderness. Abdomen: Soft, non-tender, no rebound or rigidity, no hepatosplenomegaly. Extremities: Extremities normal, atraumatic, no cyanosis or edema. Pulses: 2+ and symmetric. Skin: Skin color, texture, tugor normal, no rashes or lesions. Neurologic: Alert oriented x2, positive confusion noted not combative cranial ne rves II through XII intact, no motor deficit, no abnormal balance or gait Assessment/plan: 1. acute hypoxic respiratory failure secondary COVID-19 pneumonitis. Status post monoclonal antibodies Bamlanivimab as outpatient. Initiated dexamethasone, vitamin C, vitamin D, zinc. Patient may benefit from remdesivir pulmonary to make recommendations. Still seen. Pulmonary patient still having constitutional symptom with fatigue tiredness forget of numbness dizziness urinary retention and other. Continue to treat underlying problem we'll consult PTOT and still consult with social service manager to see once a possibility patient be discharged home with home care and O2 along with home PT. 2. Hypoxia: Continue O2 between 3 L nasal cannula at home. 3. acute kidney injury. No prior baseline creatinine available. Likely ATN. Continue IV fluids at 75 mL per hour. Ultrasound renal and bladder suggestive of severe hydronephrosis on the right with the decrease kidney size on the left. No bladder was seen. Urology consulted appreciated. Hydronephrosis is chronic no intervention required 4. history of bladder cancer status post reconstruction, renal ultrasound and bladder ultrasound to severe hydronephrosis on the right with medical renal disease on the left. Normal bladder noted 5. coronary artery disease status post stenting. Continue aspirin 6. hyperlipidemia continue atorvastatin 40 mg daily 7. hypothyroidism continue levothyroxine 100 g daily 8. hypertension hold quinapril and Lasix due to worsening kidney dysfunction 9. gout continue allopurinol 100 mg daily 10. Hyperkalemia. 1 dose of Kayexalate given. Repeat potassium 4.2. 11. Debility. OT/ PT consults social work consult for subacute rehab placement. Ensure 3 times a day 12. DVT prophylaxis with Lovenox 40 subcu daily 13. GI prophylaxis with Protonix 40 mg daily Discharge planning: Patient will be going home with home care and family support at this point no need for subacute rehab. Patient Condition at Discharge: Stable Plan - Discharge Summary Discharge Rx Participant: No New Discharge Prescriptions: New hydrALAZINE HCL [Aproline] 25 mg PO BID #60 tab Acetaminophen Tab [Tylenol] 650 mg PO Q6HR PRN tab PRN Reason: Mild Pain Or Fever > 100.5 Ascorbic Acid [Vitamin C] 500 mg PO BID tab Cholecalciferol [Vitamin D3 (25 Mcg = 1000 Iu)] 125 mcg PO DAILY tablet Dexamethasone [Decadron] 4 mg PO AC-BRKFST #7 tablet guaiFENesin [Mucinex] 600 mg PO Q12HR tablet.er Pantoprazole [Protonix] 40 mg PO AC-BRKFST #30 tablet. Albuterol Inhaler [Ventolin Hfa Inhaler] 2 puff INHALATION RT-QID #1 puff Continue Acetaminophen/Diphenhydramine [Tylenol PM 500-25mg] 2 tab PO HS Allopurinol [Zyloprim] 200 mg PO DAILY Acetaminophen Tab [Tylenol] 1,000 mg PO DAILY Furosemide [Lasix] 40 mg PO DAILY Lani's Leg Cramps 1 - 2 tab SUBLINGUAL Q4H PRN PRN Reason: CRAMPS Docusate [Colace] 100 - 200 mg PO DAILY PRN PRN Reason: Constipation Levothyroxine Sodium [Synthroid] 100 mcg PO DAILY Atorvastatin [Lipitor] 40 mg PO HS Aspirin EC [Ecotrin Low Dose] 40.5 mg PO DAILY Ubidecarenone [Co Q-10] 200 mg PO DAILY Discontinued Quinapril HCl [Accupril] 20 mg PO DAILY Discharge Medication List Acetaminophen Tab [Tylenol] 1,000 mg PO DAILY 08/26/20 [History] Acetaminophen/Diphenhydramine [Tylenol PM 500-25mg] 2 tab PO HS 08/26/20 [Histo ry] Allopurinol [Zyloprim] 200 mg PO DAILY 08/26/20 [History] Aspirin EC [Ecotrin Low Dose] 40.5 mg PO DAILY 08/26/20 [History] Atorvastatin [Lipitor] 40 mg PO HS 08/26/20 [History] Docusate [Colace] 100 - 200 mg PO DAILY PRN 08/26/20 [History] Furosemide [Lasix] 40 mg PO DAILY 08/26/20 [History] Lani's Leg Cramps 1 - 2 tab SUBLINGUAL Q4H PRN 08/26/20 [History] Levothyroxine Sodium [Synthroid] 100 mcg PO DAILY 08/26/20 [History] Ubidecarenone [Co Q-10] 200 mg PO DAILY 08/26/20 [History] Acetaminophen Tab [Tylenol] 650 mg PO Q6HR PRN tab 09/01/20 [Rx] Albuterol Inhaler [Ventolin Hfa Inhaler] 2 puff INHALATION RT-QID #1 puff 09/01/20 [Rx] Ascorbic Acid [Vitamin C] 500 mg PO BID tab 09/01/20 [Rx] Cholecalciferol [Vitamin D3 (25 Mcg = 1000 Iu)] 125 mcg PO DAILY tablet 09/01/20 [Rx] Dexamethasone [Decadron] 4 mg PO AC-BRKFST #7 tablet 09/01/20 [Rx] Pantoprazole [Protonix] 40 mg PO AC-BRKFST #30 tablet.dr 09/01/20 [Rx] guaiFENesin [Mucinex] 600 mg PO Q12HR tablet.er 09/01/20 [Rx] hydrALAZINE HCL [Apresoline] 25 mg PO BID #60 tab 09/01/20 [Rx] Follow up Appointment(s)/Referral(s): [facility], [NON-STAFF] - Andrei Vasquez MD [Primary Care Provider] - 09/04/20 11:00 am (This will be a televisit. Do not go to office. Office will call you at this date and time for your appointment. Thank you.) Discharge Disposition: HOME WITH HOME HEALTH SERVICES
--- NOTE | 2020-09-01 13:12 | P.PN ---
Subjective Progress Note Date: 09/01/20 Principal diagnosis: Shortness of breath 85-year-old male, who is quite confused as to exactly why he's here in the emergency department. According to the nurse, the patient was here yesterday and received BAM. He was discharged home. He apparently presented back to the emergency department on August 27, for complaints of increasing shortness of breath. He apparently tested positive for coronavirus a couple days ago. Anyway, his symptoms included shortness breath, cough, weakness, fatigue, and poor appetite with poor oral intake of both fluids and food. The patient was apparently quite short of breath, and he was only saturating 80% on room air. For that reason he came into the hospital. His primary care physician is Dr. Jeffrey Vasquez. He has a history of hyperlipidemia, hypertension, hypothyroidism, bladder cancer, and heart catheterization with stent. He is 85 years of age. Currently, he's on 4 L nasal O2. Lab data includes a white count 6.5, hemoglobin 13, hematocrit 38.9, and platelet count 126,000. PT, INR, PTT, and d-dimer were all reviewed. D-dimer is 1.06. Sodium potassium chloride CO2 all normal. Anion gap 12, BUN was 52, and creatinine was 2.30. Lactic acid 3.2, with repeat being 0.9. C-reactive protein 7.1. LDH 572. Chest x-ray show some low lung volumes, and bilateral infiltrates. The patient did test positive again for coronavirus on August 26. It is not clear to me how long he's been having symptoms. Again, he is not a very good historian. Progress note dated 08/28/2020 85-year-old male, that I saw yesterday in the emergency department. Currently, he's on 4 L nasal cannula and saline at 75 mL an hour. The patient was in the emergency room a couple days ago and received BAM. He was discharged home but came back in because of increasing weakness, shortness of breath, cough, and fatigue. Currently, he feels a bit better. White count 4.7, hemoglobin 12.2, hematocrit 35.5, and platelet count 120,000. Sodium 135, potassium 5.4, chlorides 108, CO2 21, anion gap 6, BUN 52, and creatinine 1.72. His BUN and creatinine from yesterday were 52 and 2.30. Lactic acid repeat was 0.9. On 08/29/2020 patient seen in follow-up on medical surgical floor. Patient is awake and alert, but he is confused and agitated at this time, but breathing comfortable, he is currently on 4 L of oxygen his pulse ox is 94%, he's af ebrile. Today's labs have been reviewed, showing sodium of 138, potassium is 4.2, chloride is 108, CO2 is 19, B1 and 50, creatinine is 1.52, improving, patient was seen by urology in regards to right kidney extensive hydronephrosis, and this was felt to be chronic in nature and no surgical intervention was recommended. No cough, no chest discomfort, patient remains on twice daily Decadron 6 mg, and Lovenox 30 mg daily. Follow-up d-dimer will be obtained for tomorrow On 08/31/2020 patient seen in follow-up on medical surgical floor, he looks quite comfortable, he is on 3 L of oxygen, he is up in the chair today, pulse ox is 93-95%, he is afebrile, hemodynamically he stable, he is on and off confused, no agitation currently. No complaints of chest discomfort. No cough, no increased work of breathing, vital signs have been stable. His last chest x-ray from yesterday and distended bowel loops with possibility of ileus, today's labs have been reviewed showing white blood cell count of 11.7, hemoglobin at 13.4, his last d-dimer yesterday was 1.39, sodium was 143, potassium is 4.1, BUN was 57, and creatinine was slightly improved at 1.5. On 09/01/2020 patient seen in follow-up in medical surgical floor, he is currently on 3 L of oxygen, breathing comfortably, no cough, no chest discomfort. Pulse ox is 93% on 3 L, vital signs have been quite stable, he's had no acute events overnight. His last chest x-ray showed patchy airspace disease consistent with COVID-19 pneumonia clinically has remained stable. The possibility of ileus suggested on the chest x-ray, patient is passing bowel movements, abdomen is soft, nontender. He remains on Decadron 6 mg daily, and prophylactic dose of Lovenox. She had no acute events overnight, and discharge home is pending for today Objective - Vital Signs Vital signs: Vital Signs Temp 97.9 F 09/01/20 10:00 Pulse 74 09/01/20 10:00 Resp 20 09/01/20 10:00 BP 167/89 09/01/20 10:00 Pulse Ox 93 L 09/01/20 10:00 Intake & Output 08/31/20 09/01/20 09/01/20 18:59 06:59 18:59 Output Total 750 Balance -750 Output: Urine 750 Uretheral (Laws) 750 Other: Voiding Method Indwelling Catheter Diaper Incontinent # Voids 1 2 # Bowel Movements 1 2 - Exam GENERAL EXAM: Alert, intermittently confused but currently not agitated, 85-year-old white male, on 3 L of oxygen, with a pulse ox of 93% comfortable in no apparent distress. HEAD: Normocephalic/atraumatic. EYES: Normal reaction of pupils, equal size. Conjunctiva pink, sclera white. NOSE: Clear with pink turbinates. THROAT: No erythema or exudates. NECK: No masses, no JVD, no thyroid enlargement, no adenopathy. CHEST: No chest wall deformity. Symmetrical expansion. LUNGS: Equal air entry with no crackles, wheeze, rhonchi or dullness. CVS: Regular rate and rhythm, normal S1 and S2, no gallops, no murmurs, no rubs ABDOMEN: Soft, nontender. No hepatosplenomegaly, normal bowel sounds, no guarding or rigidity. EXTREMITIES: No clubbing, no edema, no cyanosis, 2+ pulses and upper and lower extremities. MUSCULOSKELETAL: Muscle strength and tone normal. SPINE: No scoliosis or deformity SKIN: No rashes CENTRAL NERVOUS SYSTEM: Alert and oriented -3. No focal deficits, tone is normal in all 4 extremities. PSYCHIATRIC: Alert and oriented -3. Appropriate affect. Intact judgment and insight. - Labs CBC & Chem 7: 08/31/20 07:42 08/31/20 07:42 Assessment and Plan Plan: Assessment: #1. Acute hypoxic respiratory failure is acute to COVID-19 pneumonia status post BAM-ETE on August 26 #2. Right-sided hydronephrosis, chronic, with no surgical intervention recommendation #3. Elevated d-dimer, likely related to acute COVID19 pneumonia and VQ scan showed very low probability for PE #4. Hyperlipidemia #5. Hypothyroidism #6. History of bladder cancer #7. Lifetime nonsmoker Plan: Patient remains quite stable from pulmonary perspective Currently on 3 L of oxygen and maintaining O2 saturations at or above 90% Breathing quite comfortably, no signs of any respiratory distress No worsening dyspnea or hypoxemia Obtain home oxygen assessment From pulmonary perspective patient is stable for discharge home he can finish outpatient course of Decadron for a total of 10 days I performed a history & physical examination of the patient and discussed their management with my nurse practitioner, Yovana Nazario. I reviewed the nurse practitioner's note and agree with the documented findings and plan of care. Lung sounds are positive for diffuse crackles throughout the lung hernandez. The findings and the impression was discussed with the patient. I attest to the documentation by the nurse practitioner. Time with Patient: Less than 30
== END 2020-09-01 14:46 | disposition home health service (06) | DRG 177 ==
LOC: EC 09:08 → 4SSUR 11:16 → 1SOBS 14:15 → 4SSUR 08-29 11:32
PROVIDERS: ADMIT Internal Medicine; ATTEND Internal Medicine
DX: U07.1 COVID-19 (principal); J12.82 Pneumonia due to coronavirus disease 2019; J96.01 Acute respiratory failure with hypoxia; N17.0 Acute kidney failure with tubular necrosis; N13.30 Unspecified hydronephrosis; E87.2 Acidosis; I25.10 Atherosclerotic heart disease of native coronary artery without angina pectoris; M10.9 Gout, unspecified; E03.9 Hypothyroidism, unspecified; E78.5 Hyperlipidemia, unspecified; E86.0 Dehydration; E87.5 Hyperkalemia; I10 Essential (primary) hypertension; R63.3 Feeding difficulties; Z79.890 Hormone replacement therapy; Z79.899 Other long term (current) drug therapy; Z85.51 Personal history of malignant neoplasm of bladder; Z90.5 Acquired absence of kidney; Z95.5 Presence of coronary angioplasty implant and graft; R53.81 Other malaise; Z79.82 Long term (current) use of aspirin; Z79.84 Long term (current) use of oral hypoglycemic drugs; Z88.8 Allergy status to other drugs, medicaments and biological substances
CPT/HCPCS: 36415; 71045; 76770; 78580; 80048; 80053; 82728; 83605; 83615; 83735; 84145; 84443; 85025; 85379; 85610; 85730; 86140; 93005; 94760; 99285

== ENCOUNTER 2020-09-02 07:01 | Inpatient (IN) | payer OTHER, MEDICARE ==
[2020-09-02] MEDS ORDERED: SODIUM CHLORIDE 0.9% 1,000 ML IV ONE (07:19)
--- NOTE | 2020-09-02 07:25 | ED ---
SOB HPI - General Chief Complaint: Shortness of Breath Stated Complaint: weakness Time Seen by Provider: 09/02/20 07:05 Source: patient, EMS Mode of arrival: EMS Limitations: no limitations - History of Present Illness Initial Comments: Patient is an 85-year-old male with past medical history of coronary artery disease, hyperlipidemia, bladder cancer status post cystectomy who presents to the ED with report of generalized weakness. Patient did test positive for Covid on the however had symptoms of generalized weakness, non-productive cough and shortness of breath for several days prior. He was seen in the emergency department and given BAM infusion. Patient then returned the following day and was admitted for hypoxia, weakness and acute renal failure. Patient remained hospitalized for several days and was discharged yesterday. reports that the patient was maintaining his saturations prior to hospital discharge and therefore did not go home on oxygen. She reports that the patient did not have anything to eat or drink since he has been home. The patient began having rapid breathing in the middle the night. She was able to get a pulse ox reading of 88% on him. Due to his increased work of breathing and generalized weakness with inability to care for him she called EMS. They did confirm that the patient was saturating 88% on room air. Patient denies any chest pain. Admits to continued cough. Also admits to generalized weakness with poor oral intake. Patient cannot provide much history and therefore I do call the . She states he was unable to ambulate last night with the walker. He had multiple episodes of diarrhea for which he was too weak to make it to the toilet. No fever. No reported chest pain or vomiting. No other alleviating, precipitating or modifying factors - Related Data Home Medications Medication Instructions Recorded Confirmed Acetaminophen Tab [Tylenol] 1,000 mg PO DAILY 08/26/20 09/02/20 Acetaminophen/Diphenhydramine 2 tab PO HS 08/26/20 09/02/20 [Tylenol PM 500-25mg] Allopurinol [Zyloprim] 200 mg PO DAILY 08/26/20 09/02/20 Aspirin EC [Ecotrin Low Dose] 40.5 mg PO DAILY 08/26/20 09/02/20 Atorvastatin [Lipitor] 40 mg PO HS 08/26/20 09/02/20 Docusate [Colace] 100 - 200 mg PO DAILY PRN 08/26/20 09/02/20 Furosemide [Lasix] 40 mg PO DAILY 08/26/20 09/02/20 Lani's Leg Cramps 1 - 2 tab SUBLINGUAL Q4H PRN 08/26/20 09/02/20 Levothyroxine Sodium [Synthroid] 100 mcg PO DAILY 08/26/20 09/02/20 Ubidecarenone [Co Q-10] 200 mg PO DAILY 08/26/20 09/02/20 Previous Rx's Medication Instructions Recorded Acetaminophen Tab [Tylenol] 650 mg PO Q6HR PRN tab 09/01/20 Albuterol Inhaler [Ventolin Hfa 2 puff INHALATION RT-QID #1 puff 09/01/20 Inhaler] Ascorbic Acid [Vitamin C] 500 mg PO BID tab 09/01/20 Cholecalciferol [Vitamin D3 (25 125 mcg PO DAILY tablet 09/01/20 Mcg = 1000 Iu)] Dexamethasone [Decadron] 4 mg PO AC-BRKFST #7 tablet 09/01/20 Pantoprazole [Protonix] 40 mg PO AC-BRKFST #30 tablet.dr 09/01/20 guaiFENesin [Mucinex] 600 mg PO Q12HR tablet.er 09/01/20 hydrALAZINE HCL [Apresoline] 25 mg PO BID #60 tab 09/01/20 Allergies Allergy/AdvReac Type Severity Reaction Status Date / Time tamsulosin [From Flomax] Allergy Unknown Verified 09/02/20 08:30 zolpidem [From Ambien] Allergy Unknown Verified 09/02/20 08:30 Review of Systems ROS Statement: Those systems with pertinent positive or pertinent negative responses have been documented in the HPI. ROS Other: All systems not noted in ROS Statement are negative. 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, hypothyroidism,gout History of Any Multi-Drug Resistant Organisms: None Reported Past Surgical History: Bladder Surgery, Heart Catheterization With Stent, Hernia Repair Additional Past Surgical History / Comment(s): bladder reconstruction surgery Past Anesthesia/Blood Transfusion Reactions: No Reported Reaction Date of Last Stent Placement:: patient unable to state Past Psychological History: No Psychological Hx Reported Smoking Status: Never smoker Past Alcohol Use History: None Reported Past Drug Use History: None Reported - Past Family History Father Family Medical History: Unable to Obtain General Exam Limitations: altered mental status General appearance: lethargic Eye exam: Present: normal appearance, PERRL, EOMI. Absent: scleral icterus, conjunctival injection, periorbital swelling ENT exam: Present: mucous membranes dry Neck exam: Present: normal inspection. Absent: tenderness, meningismus, lymphadenopathy Respiratory exam: Present: normal lung sounds bilaterally, accessory muscle use, other (tachypnia). Absent: respiratory distress, wheezes, rales, rhonchi, stridor Cardiovascular Exam: Present: regular rate, normal rhythm, normal heart sounds. Absent: systolic murmur, diastolic murmur, rubs, gallop, clicks GI/Abdominal exam: Present: soft, normal bowel sounds. Absent: distended, tenderness, guarding, rebound, rigid Neurological exam: Present: oriented X3 Psychiatric exam: Present: flat affect Skin exam: Present: dry, pallor Course Vital Signs 09/02/20 09/02/20 09/02/20 07:02 07:29 07:31 Temperature 97.6 F Pulse Rate 98 96 Pulse Rate [ Pulse Oximetery ] Respiratory 16 16 18 Rate Blood Pressure 114/65 122/68 Blood Pressure [Right Arm] O2 Sat by Pulse 90 L 97 Oximetry 09/02/20 09/02/20 09/02/20 08:55 11:52 13:17 Temperature Pulse Rate 94 89 79 Pulse Rate [ Pulse Oximetery ] Respiratory 16 18 16 Rate Blood Pressure 124/73 146/78 171/99 Blood Pressure [Right Arm] O2 Sat by Pulse 95 97 95 Oximetry 09/02/20 09/02/20 14:00 14:53 Temperature 100.3 F H Pulse Rate 89 Pulse Rate [ 109 H Pulse Oximetery ] Respiratory 20 16 Rate Blood Pressure 136/79 Blood Pressure 149/74 [Right Arm] O2 Sat by Pulse 95 97 Oximetry Medical Decision Making - Medical Decision Making Upon arrival the patient is placed into room 5. A thorough history and physical exam was performed. Patient is saturating 88% on room air. He is placed on 2 L of oxygen. Laboratory studies were conducted which demonstrated a white count of 20.5. Patient is on steroids. Potassium 2.9. Creatinine is up to 2.5 from 1.5 on last lab draw. Patient given a liter bolus of normal saline. Potassium is replaced. Recommended admission for possible rehab. Spoke with Dr. Regalado who agreed to admit the patient. Patient awaiting a bed on the floor. - Lab Data Result diagrams: 09/05/20 03:47 09/05/20 03:47 Lab Results 09/02/20 09/02/20 09/02/20 Range/Units 07:28 07:28 07:28 WBC 20.5 H (3.8-10.6) k/uL RBC 3.64 L (4.30-5.90) m/uL Hgb 12.1 L (13.0-17.5) gm/dL Hct 34.2 L (39.0-53.0) % MCV 94.0 (80.0-100.0) fL MCH 33.1 (25.0-35.0) pg MCHC 35.3 (31.0-37.0) g/dL RDW 13.0 (11.5-15.5) % Plt Count 148 L (150-450) k/uL MPV 8.6 Neutrophils % 93 % Lymphocytes % 1 % Monocytes % 5 % Eosinophils % 1 % Basophils % 0 % Neutrophils # 19.1 H (1.3-7.7) k/uL Lymphocytes # 0.2 L (1.0-4.8) k/uL Monocytes # 0.9 (0-1.0) k/uL Eosinophils # 0.1 (0-0.7) k/uL Basophils # 0.0 (0-0.2) k/uL PT 10.6 (9.0-12.0) sec INR 1.0 (<1.2) APTT 28.3 (22.0-30.0) sec D-Dimer 1.39 H (<0.60) mg/L FEU Sodium 138 (137-145) mmol/L Potassium 2.9 L (3.5-5.1) mmol/L Chloride 113 H (98-107) mmol/L Carbon Dioxide 15 L (22-30) mmol/L Anion Gap 10 mmol/L BUN 59 H (9-20) mg/dL Creatinine 2.52 H (0.66-1.25) mg/dL Est GFR (CKD-EPI)AfAm 26 (>60 ml/min/1.73 sqM) Est GFR (CKD-EPI)NonAf 23 (>60 ml/min/1.73 sqM) Glucose 147 H (74-99) mg/dL Plasma Lactic Acid Bakari (0.7-2.0) mmol/L Calcium 7.8 L (8.4-10.2) mg/dL Magnesium (1.6-2.3) mg/dL Total Bilirubin 0.9 (0.2-1.3) mg/dL AST 30 (17-59) U/L ALT 77 H (4-49) U/L Alkaline Phosphatase 54 (38-126) U/L Lactate Dehydrogenase 639 H (313-618) U/L Creatine Kinase (55-170) U/L Total Protein 4.9 L (6.3-8.2) g/dL Albumin 2.7 L (3.5-5.0) g/dL 09/02/20 09/02/20 Range/Units 07:28 07:28 WBC (3.8-10.6) k/uL RBC (4.30-5.90) m/uL Hgb (13.0-17.5) gm/dL Hct (39.0-53.0) % MCV (80.0-100.0) fL MCH (25.0-35.0) pg MCHC (31.0-37.0) g/dL RDW (11.5-15.5) % Plt Count (150-450) k/uL MPV Neutrophils % % Lymphocytes % % Monocytes % % Eosinophils % % Basophils % % Neutrophils # (1.3-7.7) k/uL Lymphocytes # (1.0-4.8) k/uL Monocytes # (0-1.0) k/uL Eosinophils # (0-0.7) k/uL Basophils # (0-0.2) k/uL PT (9.0-12.0) sec INR (<1.2) APTT (22.0-30.0) sec D-Dimer (<0.60) mg/L FEU Sodium (137-145) mmol/L Potassium (3.5-5.1) mmol/L Chloride (98-107) mmol/L Carbon Dioxide (22-30) mmol/L Anion Gap mmol/L BUN (9-20) mg/dL Creatinine (0.66-1.25) mg/dL Est GFR (CKD-EPI)AfAm (>60 ml/min/1.73 sqM) Est GFR (CKD-EPI)NonAf (>60 ml/min/1.73 sqM) Glucose (74-99) mg/dL Plasma Lactic Acid Bakari 2.0 (0.7-2.0) mmol/L Calcium (8.4-10.2) mg/dL Magnesium 2.1 (1.6-2.3) mg/dL Total Bilirubin (0.2-1.3) mg/dL AST (17-59) U/L ALT (4-49) U/L Alkaline Phosphatase (38-126) U/L Lactate Dehydrogenase (313-618) U/L Creatine Kinase 74 (55-170) U/L Total Protein (6.3-8.2) g/dL Albumin (3.5-5.0) g/dL - EKG Data EKG Comments: EKG demonstrates sinus rhythm with ventricular rate of 96. OH interval 162. QRS 104. QTC of 444. No acute ST segment elevations or depressions Disposition Clinical Impression: MARLON (acute kidney injury), Hypoxia, Pneumonia due to COVID-19 virus, Weakness, Hypokalemia Disposition: ADMITTED IP TO THIS HOSP Condition: Stable Is patient prescribed a controlled substance at d/c from ED?: No Decision to Admit Reason: Admit from EC Decision Date: 09/02/20 Decision Time: 08:11
[2020-09-02 07:42] LABS: Basophils % (A) 0 %; Eosinophils # (A) 0.1 k/uL (0-0.7); Eosinophils % (A) 1 %; HCT 34.2 % (39.0-53.0); HGB 12.1 gm/dL (13.0-17.5); Lymphocytes # (A) 0.2 k/uL (1.0-4.8); Lymphocytes % (A) 1 %; MCH 33.1 pg (25.0-35.0); MCHC 35.3 g/dL (31.0-37.0); Mean Platelet Volume 8.6; Monocytes # (A) 0.9 k/uL (0-1.0); Monocytes % (A) 5 %; Neutrophils # (A) 19.1 k/uL (1.3-7.7); Neutrophils % (A) 93 %; Platelet Count 148 k/uL (150-450); RBC 3.64 m/uL (4.30-5.90); WBC 20.5 k/uL (3.8-10.6)
[2020-09-02 07:59] LABS: Partial Thromboplastin Time 28.3 sec (22.0-30.0); Prothrombin Time 10.6 sec (9.0-12.0)
[2020-09-02 08:03] LABS: Albumin 2.7 g/dL (3.5-5.0); Calcium 7.8 mg/dL (8.4-10.2); Potassium 2.9 mmol/L (3.5-5.1); Total Bilirubin 0.9 mg/dL (0.2-1.3); Total Protein 4.9 g/dL (6.3-8.2)
[2020-09-02] MEDS ORDERED: POTASSIUM CHLORIDE 20 MEQ in WATER FOR INJECTION 1 100ML.BAG IVPB STA (08:06)
[2020-09-02] MEDS ORDERED: POTASSIUM CHLORIDE ER 20 MEQ TAB.ER PO STA (08:06)
--- NOTE | 2020-09-02 08:08 | XR ---
EXAMINATION TYPE: XR chest 1V portable DATE OF EXAM: 09/02/2020 HISTORY: Shortness of breath. COMPARISON: 08/30/2020 TECHNIQUE: Single view of the chest is submitted. FINDINGS: Demonstrated are scattered senescent parenchymal change. Patchy infiltrate right upper lobe and right medial lung base persist essentially unchanged. Elevatio n right hemidiaphragm. The heart is stable. Hilar and mediastinal structures are within normal limits. Degenerative changes are seen of the dorsal spine. IMPRESSION: 1. Patchy infiltrate right upper lobe and right medial lung base persist essentially unchanged.
[2020-09-02 08:34] LABS: D-Dimer 1.39 mg/L FEU (<0.60)
[2020-09-02] MEDS ORDERED: NALOXONE 0.4 MG/ML 1 ML VIAL IV PRN (08:56)
[2020-09-02] MEDS ORDERED: ACETAMINOPHEN TAB 325 MG TAB PO PRN ×2 (08:56→11:02)
[2020-09-02] MEDS ORDERED: SODIUM CHLORIDE 0.9% 1,000 ML IV SCH (09:00)
[2020-09-02 09:16] LABS: Magnesium 2.1 mg/dL (1.6-2.3)
[2020-09-02] MEDS ORDERED: DOCUSATE 100 MG CAP PO PRN (11:02)
[2020-09-02] MEDS: dexAMETHasone 4 MG TAB PO SCH (11:54)
[2020-09-02] MEDS: ALBUTEROL HFA INHALER INHALATION SCH ×3 (14:22→21:12)
--- NOTE | 2020-09-02 14:54 | P.HPIM ---
History of Present Illness H&P Date: 09/02/20 Chief Complaint: BREANNA HISTORY OF PRESENT ILLNESS This is an 85-year-old male patient of Dr. Andrei Vasquez with past medical history of hyperlipidemia, hypothyroidism, bladder cancer, coronary artery disease status post stent, diagnosed with Covid 19 pneumonia status post Bamlanivimab and subsequently admitted from August 27 through September 01 which time he was treated for acute hypoxic respiratory failure secondary to Covid 19 pneumonia, acute kidney injury, discharged home with home care. Apparently patient was at home but became very dyspneic and pulse ox dropped to 88%, patient not had anything to eat or drink since he left the hospital. EMS was contacted and patient was brought into the emergency center for evaluation. She complains of feeling tired. He was found to be afebrile, heart rate 98, blood pressure 114/65, pulse ox 90% on 2 L nasal cannula. WBC 20.5, hemoglobin 12.1, platelet count 148. Sodium 138, potassium 2.9, chloride 113, CO2 15, BUN 59 creatinine 2.52. Blood sugar 147. ALT 77. LDH 639. Albumin 2.7. Lactic acid 2.0. Magnesium 2.1. CK 74. EKG was a sinus rhythm with no acute ST changes. Patient was given 1 L of IV fluid and potassium was replaced. REVIEW OF SYSTEMS Constitutional: No fever, no chills, no night sweats. No weight change. Reports weakness, Reports fatigue Reports lethargy. No daytime sleepiness. EENT: No headache. No blurred vision or double vision, no loss of vision. No loss of Hearing, no ringing in the ears, no dizziness. No nasal drainage or congestion. No epistaxis. No sore throat. Lungs: Reports shortness of breath, Reports cough, no sputum production. No wheezing. Cardiovascular: No chest pain, no lower extremity edema. No palpitations. No paroxysmal nocturnal dyspnea. No orthopnea. No lightheadedness or dizziness. No syncopal episodes. Abdominal: No abdominal pain. No nausea, vomiting. Reports diarrhea. No constipation. No bloody or tarry stools.. No loss of appetite. Genitourinary: No dysuria, increased frequency, urgency. No urinary retention. Musculoskeletal: No myalgias. Reports muscle weakness, Reports gait dys function, no frequent falls. No back pain. No neck pain. Integumentary: No wounds, no lesions. No rash or pruritus. No unusual bruising. No change in hair or nails. Neurologic: No aphasia. No facial droop. No change in mentation. No head injury. No headache. No paralysis. No paresthesia. Psychiatric: No depression. No anxiety. No mood swings. Endocrine: No abnormal blood sugars. No weight change. SOCIAL HISTORY Denies history of smoking, he drinks alcohol occasionally. He is and lives at home with his . FAMILY HISTORY Mother is patient does not know age or underlying medical problems. Father at age 96 from old age. Patient has 2 brothers and one from a myocardial infarction. One brother is living with no major medical problems. Patient is 5 children and one has from leukemia.. PHYSICAL EXAMINATION Gen: This is an 85-year-old male patient, patient is on the ER stretcher and appears to be comfortable at rest. No acute respiratory distress noted. HEENT: Head is atraumatic, normocephalic. Pupils equal, round. Sclerae is anicteric. NECK: Supple. No JVD. No lymphadenopathy. No thyromegaly. LUNGS: Clear to auscultation. No wheezes or rhonchi. No intercostal retractions. HEART: Regular rate and rhythm. No murmur. ABDOMEN: Soft. Bowel sounds are present. No masses. No tenderness. EXTREMITIES: No pedal edema. No calf tenderness. NEUROLOGICAL: Patient is awake, alert and oriented x3. Cranial nerves 2 through 12 are grossly intact. ASSESSMENT AND PLAN 1. Acute hypoxic respiratory failure secondary to Covid 19 pneumonitis. Continue oxygen therapy. Continue vitamin supplements, albuterol inhaler 2 puffs 4 times daily, dexamethasone 4 mg daily, Lovenox 40 mg subcu daily, Questran 4 g twice daily. 2. Acute kidney injury secondary to dehydration and lack of oral intake and diarrhea. Hold Lasix. Continue IV fluids 0.9 normal saline at 75 mL per hour. Recheck electrolytes and renal function in the morning. Patient started on Questran. 3. Generalized debilitation. PT and OT consults, social work consult for subacute rehab. 4. Hyperlipidemia. Continue Lipitor 40 mg at bedtime. 5. Hypertension. Continue hydralazine 25 mg twice daily, Lasix 40 mg daily on hold. 6. Gastroesophageal reflux disease. Continue Protonix 40 mg daily. 7. Hypothyroidism. Continue levothyroxine 100 g daily. 8. Chronic gout. Continue allopurinol 100 mg daily. 9. DVT prophylaxis. Lovenox subcu daily. 10. COVID-19 testing negative. Patient has been hospitalized during a pandemic. Patient will be admitted to the hospital for a minimum of 2 night stay. DISCHARGE PLAN Subacute rehab. Impression and plan of care have been directed as dictated by the signing physician. Joseline Corado nurse practitioner acting as scribe for signing physician. 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, hypothyroidism,gout History of Any Multi-Drug Resistant Organisms: None Reported Past Surgical History: Bladder Surgery, Heart Catheterization With Stent, Hernia Repair Additional Past Surgical History / Comment(s): bladder reconstruction surgery Past Anesthesia/Blood Transfusion Reactions: No Reported Reaction Date of Last Stent Placement:: patient unable to state Past Psychological History: No Psychological Hx Reported Smoking Status: Never smoker Past Alcohol Use History: None Reported Past Drug Use History: None Reported - Past Family History Father Family Medical History: Unable to Obtain Medications and Allergies Home Medications Medication Instructions Recorded Confirmed Type Acetaminophen Tab [Tylenol] 1,000 mg PO DAILY 08/26/20 09/02/20 History Acetaminophen/Diphenhydramine 2 tab PO HS 08/26/20 09/02/20 History [Tylenol PM 500-25mg] Allopurinol [Zyloprim] 200 mg PO DAILY 08/26/20 09/02/20 History Aspirin EC [Ecotrin Low Dose] 40.5 mg PO DAILY 08/26/20 09/02/20 History Atorvastatin [Lipitor] 40 mg PO HS 08/26/20 09/02/20 History Docusate [Colace] 100 - 200 mg PO DAILY PRN 08/26/20 09/02/20 History Furosemide [Lasix] 40 mg PO DAILY 08/26/20 09/02/20 History Lani's Leg Cramps 1 - 2 tab SUBLINGUAL Q4H PRN 08/26/20 09/02/20 History Levothyroxine Sodium [Synthroid] 100 mcg PO DAILY 08/26/20 09/02/20 History Ubidecarenone [Co Q-10] 200 mg PO DAILY 08/26/20 09/02/20 History Acetaminophen Tab [Tylenol] 650 mg PO Q6HR PRN tab 09/01/20 09/02/20 Rx Albuterol Inhaler [Ventolin Hfa 2 puff INHALATION RT-QID #1 puff 09/01/20 09/02/20 Rx Inhaler] Ascorbic Acid [Vitamin C] 500 mg PO BID tab 09/01/20 09/02/20 Rx Cholecalciferol [Vitamin D3 (25 125 mcg PO DAILY tablet 09/01/20 09/02/20 Rx Mcg = 1000 Iu)] Dexamethasone [Decadron] 4 mg PO AC-BRKFST #7 tablet 09/01/20 09/02/20 Rx Pantoprazole [Protonix] 40 mg PO AC-BRKFST #30 tablet.dr 09/01/20 09/02/20 Rx guaiFENesin [Mucinex] 600 mg PO Q12HR tablet.er 09/01/20 09/02/20 Rx hydrALAZINE HCL [Apresoline] 25 mg PO BID #60 tab 09/01/20 09/02/20 Rx Allergies Allergy/AdvReac Type Severity Reaction Status Date / Time tamsulosin [From Flomax] Allergy Unknown Verified 09/02/20 08:30 zolpidem [From Ambien] Allergy Unknown Verified 09/02/20 08:30 Physical Exam Vitals: Vital Signs Temp Pulse Resp BP Pulse Ox 09/02/20 08:55 94 16 124/73 95 09/02/20 07:31 18 09/02/20 07:29 96 16 122/68 97 09/02/20 07:02 97.6 F 98 16 114/65 90 L Intake and Output 09/01/20 09/02/20 09/02/20 22:59 06:59 14:59 Other: Weight 90.718 kg Results CBC & Chem 7: 09/02/20 07:28 09/02/20 07:28 Labs: Abnormal Lab Results - Last 24 Hours (Table) 09/02/20 09/02/20 09/02/20 Range/Units 07:28 07:28 07:28 WBC 20.5 H (3.8-10.6) k/uL RBC 3.64 L (4.30-5.90) m/uL Hgb 12.1 L (13.0-17.5) gm/dL Hct 34.2 L (39.0-53.0) % Plt Count 148 L (150-450) k/uL Neutrophils # 19.1 H (1.3-7.7) k/uL Lymphocytes # 0.2 L (1.0-4.8) k/uL D-Dimer 1.39 H (<0.60) mg/L FEU Potassium 2.9 L (3.5-5.1) mmol/L Chloride 113 H (98-107) mmol/L Carbon Dioxide 15 L (22-30) mmol/L BUN 59 H (9-20) mg/dL Creatinine 2.52 H (0.66-1.25) mg/dL Glucose 147 H (74-99) mg/dL Calcium 7.8 L (8.4-10.2) mg/dL ALT 77 H (4-49) U/L Lactate Dehydrogenase 639 H (313-618) U/L Total Protein 4.9 L (6.3-8.2) g/dL Albumin 2.7 L (3.5-5.0) g/dL
[2020-09-02] MEDS: CHOLESTYRAMINE (WITH SUGAR) 4 GM PACKET PO SCH (18:01)
[2020-09-02] MEDS: SODIUM CHLORIDE 0.9% 1,000 ML IV SCH (22:08)
[2020-09-02] MEDS: guaiFENesin 600 MG TABLET.ER PO SCH (22:08)
[2020-09-02] MEDS: ASCORBIC ACID 500 MG TAB PO SCH (22:08)
[2020-09-02] MEDS: ATORVASTATIN 40 MG TAB PO SCH (22:08)
[2020-09-02] MEDS: hydrALAZINE HCL 25 MG TAB PO SCH (22:08)
[2020-09-03] MEDS: SODIUM CHLORIDE 0.9% 1,000 ML IV SCH ×2 (06:10→21:40)
[2020-09-03] MEDS: LEVOTHYROXINE 100 MCG TAB PO SCH (06:10)
[2020-09-03] MEDS ORDERED: PANTOPRAZOLE 40 MG TABLET PO SCH (07:30)
[2020-09-03] MEDS: ALBUTEROL HFA INHALER INHALATION SCH ×4 (07:37→20:31)
[2020-09-03] MEDS: CHOLESTYRAMINE (WITH SUGAR) 4 GM PACKET PO SCH ×2 (08:32→17:13)
[2020-09-03] MEDS: ASPIRIN 81 MG PO SCH (08:36)
[2020-09-03] MEDS: CHOLECALCIFEROL 25 MCG (1000 IU) TABLET PO SCH (08:36)
[2020-09-03] MEDS: hydrALAZINE HCL 25 MG TAB PO SCH ×2 (08:36→21:40)
[2020-09-03] MEDS: dexAMETHasone 4 MG TAB PO SCH (08:36)
[2020-09-03] MEDS: ACETAMINOPHEN TAB 500 MG TAB PO SCH (08:37)
[2020-09-03] MEDS: guaiFENesin 600 MG TABLET.ER PO SCH ×2 (08:37→21:40)
[2020-09-03] MEDS: ASCORBIC ACID 500 MG TAB PO SCH ×2 (08:37→21:40)
[2020-09-03] MEDS ORDERED: FUROSEMIDE 40 MG TAB PO SCH (09:00)
[2020-09-03] MEDS ORDERED: allopurinoL 100 MG TAB PO SCH (09:00)
[2020-09-03 10:34] LABS: HCT 38.5 % (39.6-50.0); HGB 12.6 g/dL (13.0-17.0); MCH 31.9 pg (27.0-32.0); MCHC 32.7 g/dL (32.0-37.0); MCV 97.5 fL (80.0-97.0); Mean Platelet Volume 12.2 fL (9.5-12.2); Platelet Count 143 X 10*3/uL (140-440); RBC 3.95 X 10*6/uL (4.40-5.60); RDW 13.6 % (11.5-14.5); WBC 30.36 X 10*3/uL (4.50-10.00)
[2020-09-03 12:14] LABS: Basophils # (A) 0.05 X 10*3/uL (0.00-0.10); Basophils % (A) 0.2 %; Eosinophils # (A) 0.15 X 10*3/uL (0.04-0.35); Eosinophils % (A) 0.5 %; Lymphocytes # (A) 0.61 X 10*3/uL (0.90-5.00); Monocytes # (A) 0.75 X 10*3/uL (0.20-1.00); Monocytes % (A) 2.5 %; Neutrophils # (A) 28.15 X 10*3/uL (1.80-7.70); Neutrophils % (A) 92.7 %
[2020-09-03 12:15] LABS: Acanthocytes 2+
--- NOTE | 2020-09-03 14:11 | P.PN ---
Subjective Progress Note Date: 09/03/20 HISTORY OF PRESENT ILLNESS This is an 85-year-old male patient of Dr. Andrei Vasquez with past medical history of hyperlipidemia, hypothyroidism, bladder cancer, coronary artery di sease status post stent, diagnosed with Covid 19 pneumonia status post Bamlanivimab and subsequently admitted from August 27 through September 01 which time he was treated for acute hypoxic respiratory failure secondary to Covid 19 pneumonia, acute kidney injury, discharged home with home care. Apparently patient was at home but became very dyspneic and pulse ox dropped to 88%, patient not had anything to eat or drink since he left the hospital. EMS was contacted and patient was brought into the emergency center for evaluation. She complains of feeling tired. He was found to be afebrile, heart rate 98, blood pressure 114/65, pulse ox 90% on 2 L nasal cannula. WBC 20.5, hemoglobin 12.1, platelet count 148. Sodium 138, potassium 2.9, chloride 113, CO2 15, BUN 59 creatinine 2.52. Blood sugar 147. ALT 77. LDH 639. Albumin 2.7. Lactic acid 2.0. Magnesium 2.1. CK 74. EKG was a sinus rhythm with no acute ST changes. Patient was given 1 L of IV fluid and potassium was replaced. 09/03: Patient has not eating any meals since admission. He is oriented 3 but noted to have significant short-term memory deficit and having difficulty following instructions. Social work is following for discharge planning. Family is planning for patient to come home with [facility] and does not want to consider rehab. PT and OT clearly recommend subacute rehab. Patient has been afebrile, heart rate 94, blood pressure 120/73, pulse ox 94% on high flow nasal cannula at 4 L. Repeat blood work reveals WBC 30.3, hemoglobin 12.6, platelet count 143. Lactic acid 1.8. Chemistry results are not up at the time of this dictation at 2 10 in the afternoon. Repeat blood work will be ordered f or the morning. Anticipate possible discharge tomorrow REVIEW OF SYSTEMS Constitutional: No fever, no chills, no night sweats. No weight change. Reports weakness, Reports fatigue Reports lethargy. No daytime sleepiness. EENT: No headache. No blurred vision or double vision, no loss of vision. No loss of Hearing, no ringing in the ears, no dizziness. No nasal drainage or congestion. No epistaxis. No sore throat. Lungs: Reports shortness of breath, Reports cough, no sputum production. No wheezing. Cardiovascular: No chest pain, no lower extremity edema. No palpitations. No paroxysmal nocturnal dyspnea. No orthopnea. No lightheadedness or dizziness. No syncopal episodes. Abdominal: No abdominal pain. No nausea, vomiting. Reports diarrhea. No constipation. No bloody or tarry stools.. No loss of appetite. Genitourinary: No dysuria, increased frequency, urgency. No urinary retention. Musculoskeletal: No myalgias. Reports muscle weakness, Reports gait dysfunction, no frequent falls. No back pain. No neck pain. Integumentary: No wounds, no lesions. No rash or pruritus. No unusual bruising. No change in hair or nails. Neurologic: No aphasia. No facial droop. No change in mentation. No head injury. No headache. No paralysis. No paresthesia. Psychiatric: No depression. No anxiety. No mood swings. Endocrine: No abnormal blood sugars. No weight change. PHYSICAL EXAMINATION Gen: This is an 85-year-old male patient, patient is resting on recliner and appears to be comfortable at rest. No acute respiratory distress noted. HEENT: Head is atraumatic, normocephalic. Pupils equal, round. Sclerae is anicteric. NECK: Supple. No JVD. No lymphadenopathy. No thyromegaly. LUNGS: Clear to auscultation. No wheezes or rhonchi. No intercostal retractions. HEART: Regular rate and rhythm. No murmur. ABDOMEN: Soft. Bowel sounds are present. No masses. No tenderness. EXTREMITIES: No pedal edema. No calf tenderness. NEUROLOGICAL: Patient is awake, alert and oriented x3. Cranial nerves 2 through 12 are grossly intact. Patient is slow to respond. ASSESSMENT AND PLAN 1. Acute hypoxic respiratory failure secondary to Covid 19 pneumonitis. Continue oxygen therapy. Continue vitamin supplements, albuterol inhaler 2 puffs 4 times daily, dexamethasone 4 mg daily, Lovenox 40 mg subcu daily, Questran 4 g twice daily. 2. Acute kidney injury secondary to dehydration and lack of oral intake and diarrhea. Hold Lasix. Continue IV fluids 0.9 normal saline at 75 mL per hour. Recheck electrolytes and renal function in the morning. Patient started on Questran. 3. Generalized debilitation. PT and OT consults, social work consult for subacute rehab. 4. Hyperlipidemia. Continue Lipitor 40 mg at bedtime. 5. Hypertension. Continue hydralazine 25 mg twice daily, Lasix 40 mg daily on hold. 6. Gastroesophageal reflux disease. Continue Protonix 40 mg daily. 7. Hypothyroidism. Continue levothyroxine 100 g daily. 8. Chronic gout. Continue allopurinol 100 mg daily. 9. DVT prophylaxis. Lovenox subcu daily. 10. COVID-19 testing negative. Patient has been hospitalized during a pandemic. Patient will be admitted to the hospital for a minimum of 2 night stay. DISCHARGE PLAN Home with [facility] on Monday. Impression and plan of care have been directed as dictated by the signing physician. Joseline Corado nurse practitioner acting as scribe for signing physician. Objective - Vital Signs Vital signs: Vital Signs Temp 97.8 F 09/03/20 10:07 Pulse 94 09/03/20 10:07 Resp 21 09/03/20 10:07 BP 120/73 09/03/20 10:07 Pulse Ox 94 L 09/03/20 10:07 Intake & Output 09/02/20 09/03/20 09/03/20 18:59 06:59 18:59 Intake Total 620 Balance 620 Weight 90.718 kg Intake: Intake, IV Titration 400 Amount Sodium Chloride 0.9% 1, 400 000 ml @ 75 mls/hr IV . [id number] MIKE Rx#:[id number] Oral 220 Other: Voiding Method External Catheter Diaper External Catheter # Voids 2 # Bowel Movements 2 - Labs CBC & Chem 7: 09/03/20 07:35 09/02/20 07:28
[2020-09-03 20:38] LABS: BUN/Creat Ratio 26.54 Ratio (12.00-20.00); Carbon Dioxide <10.0 mmol/L (21.6-31.8); Chloride 116 mmol/L (96-109); Glucose 142 mg/dL (70-110); Potassium 3.2 mmol/L (3.5-5.5); Sodium 143 mmol/L (135-145)
[2020-09-03 20:44] LABS: African American GFR (CKD) 25.1 (60.0-200.0); Non-African American GFR(CKD) 21.7 (60.0-200.0)
[2020-09-03] MEDS: ATORVASTATIN 40 MG TAB PO SCH (21:40)
[2020-09-03] MEDS: LEVOFLOXACIN 250MG-D5W PMX 250 MG in DEXTROSE/WATER 1 50ML.BAG IVPB SCH (22:22)
[2020-09-04 00:12] LABS: Glucose,Whole Blood 154 mg/dL (75-99)
[2020-09-04] MEDS: PIPERACILLIN-TAZOBACTAM 3.375 GM in SODIUM CHLORIDE 0.9% 100 ML IVPB SCH ×4 (00:57→22:48)
[2020-09-04] MEDS ORDERED: ALBUTEROL NEBULIZED 2.5 MG/3 ML INHALATION STA (02:29)
[2020-09-04] MEDS ORDERED: LORazepam 2 MG/ML INJ IV STA (02:29)
[2020-09-04] MEDS: ALBUTEROL HFA INHALER INHALATION SCH ×5 (02:38→19:22)
[2020-09-04 02:58] LABS: Glucose,Whole Blood 131 mg/dL (75-99)
[2020-09-04] MEDS ORDERED: ETOMIDATE 2 MG/ML 10 ML VIAL ONE (03:00)
[2020-09-04] MEDS ORDERED: SUCCINYLCHOLINE CHLORIDE VIAL 200 MG/10 ML VIAL IV ONE (03:00)
[2020-09-04] MEDS ORDERED: propofoL 100 ML IV ONE (03:05)
--- NOTE | 2020-09-04 03:59 | XR ---
EXAM: XR Chest, 1 View CLINICAL HISTORY: ITS.REASON XR Reason: Tube placement TECHNIQUE: Frontal view of the chest. COMPARISON: 09/02/20. FINDINGS: Endotracheal tube with the tip approximately 4 cm above the rochelle. Feeding tube extends below the field of view, the side-port at the gastroesophageal junction. Persistent lung opacities with small left pleural effusion. Likely stable cardiomediastinal silhouette. Additional findings similar to prior. IMPRESSION: 1. Endotracheal tube with the tip approximately 4 cm above the rochelle. 2. Feeding tube extends below the field of view, the side-port at the gastroesophageal junction. Consider slight advancement.
--- NOTE | 2020-09-04 04:14 | P.EN ---
A team note A team called on this patient due to increase work of breathing, and hypoxemia. currently on non rebreather patient evaluated, he looks very anxious , tachypnic , cant talk full sentences, diaphoretic. lungs decrease breath sounds with wheezing heart tachycardia no leg edema bilaterally HR 130s, RR 40s, oxygen sat low 80s on non rebreather. patient switched to bipap, and given inhalers , however, he could not tolerate, he became more anxious , trying to pull on the tube , and unable to synch with the machine. patient given 1 mg ativan to help tolerate the bipap with no much improvement patient got worse, with worsening hypoxemia in the low 70s. patient moved to the ICU for intubation , he was intubated successfully and placed on vent check ABG CXR CMP CBC acute hypoxic respiratory failure secondary to COIVD sepsis secondary to GNB bactremia MARLON metablolic acidosis ICU attending notified family will be notified by RN Primary team commission clerk physician not available on Perfect serve. 45 minutes were spent in critical care time in the care of this patient
[2020-09-04 04:22] LABS: ALT 91 U/L (4-49); AST 60 U/L (17-59); Albumin 2.6 g/dL (3.5-5.0); Alkaline Phosphatase 121 U/L (38-126); Total Bilirubin 0.8 mg/dL (0.2-1.3)
[2020-09-04 04:26] LABS: ABG Base Excess -16.8 mmol/L; ABG HCO3 12 mmol/L (21-25); ABG Oxygen Saturation 95.8 % (94-97); ABG PCO2 37 mmHg (35-45); ABG PO2 102 mmHg (83-108); ABG TCO2 14 mmol/L (19-24)
[2020-09-04] MEDS ORDERED: SODIUM CHLORIDE 0.9% 1,000 ML IV ONE ×3 (04:41→08:55)
[2020-09-04 04:48] LABS: Magnesium 2.4 mg/dL (1.6-2.3)
[2020-09-04 04:54] LABS: D-Dimer 7.19 mg/L FEU (<0.60)
[2020-09-04] MEDS: DEXTROSE 5% IN WATER 1,000 ML with SODIUM BICARB (1 MEQ/ML) 100 ML IV SCH ×2 (05:08→20:08)
[2020-09-04 05:09] LABS: HCT 38.1 % (39.0-53.0); HGB 11.9 gm/dL (13.0-17.5); MCH 30.8 pg (25.0-35.0); MCHC 31.2 g/dL (31.0-37.0); MCV 98.8 fL (80.0-100.0); Mean Platelet Volume 10.6; Platelet Count 112 k/uL (150-450); RBC 3.85 m/uL (4.30-5.90); RDW 14.4 % (11.5-15.5); WBC 21.6 k/uL (3.8-10.6)
[2020-09-04] MEDS ORDERED: NOREPINEPHRINE 4 MG in SODIUM CHLORIDE 0.9% 250 ML IV SCH (05:15)
[2020-09-04 05:38] LABS: ABG PH 7.13 (7.35-7.45); Allen Test Performed? no
[2020-09-04 06:18] LABS: C Reactive Protein 36.4 mg/dL (<1.0)
[2020-09-04 06:23] LABS: Appearance,Urine Cloudy (Clear); Bacteria,Urine Many /hpf; Bilirubin,Urine Negative (Negative); Blood,Urine Moderate (Negative); Color,Urine Yellow; Glucose,Urine (UA) Negative (Negative); Ketones,Urine Negative (Negative); Leukocyte Esterase,Urine Large (Negative); Mucus,Urine Rare /hpf; Nitrite,Urine Negative (Negative); Protein,Urine 1+ (Negative); RBC,Urine 34 /hpf (0-5); Specific Gravity,Urine 1.013 (1.001-1.035); Urobilinogen,Urine <2.0 mg/dL (<2.0); WBC,Urine >182 /hpf (0-5)
[2020-09-04] MEDS: dexAMETHasone 4 MG TAB PO SCH (06:28)
[2020-09-04] MEDS: LEVOTHYROXINE 100 MCG TAB PO SCH (06:28)
[2020-09-04] MEDS: SODIUM CHLORIDE 0.9% 1,000 ML IV SCH ×2 (06:30→20:09)
[2020-09-04 08:04] LABS: African American GFR (CKD) 16 (>60 ml/min/1.73 sqM); Anion Gap 12 mmol/L; Blood Urea Nitrogen 78 mg/dL (9-20); Calcium 7.9 mg/dL (8.4-10.2); Carbon Dioxide 11 mmol/L (22-30); Chloride 117 mmol/L (98-107); Glucose 151 mg/dL (74-99); Non-African American GFR(CKD) 14 (>60 ml/min/1.73 sqM); Potassium 3.3 mmol/L (3.5-5.1); Sodium 140 mmol/L (137-145)
[2020-09-04] MEDS ORDERED: ENOXAPARIN 30 MG/0.3 ML SYRINGE SQ SCH (09:00)
[2020-09-04] MEDS: ASPIRIN 81 MG PO SCH (09:07)
[2020-09-04] MEDS: ACETAMINOPHEN TAB 500 MG TAB PO SCH (09:07)
[2020-09-04] MEDS: CHLORHEXIDINE GLUCONATE 15 ML CUP MUCOUS MEM SCH ×2 (09:08→20:18)
[2020-09-04] MEDS: CHOLECALCIFEROL 25 MCG (1000 IU) TABLET PO SCH (09:08)
[2020-09-04] MEDS: PANTOPRAZOLE 40 MG/10 ML VIAL IVP SCH (09:08)
[2020-09-04] MEDS: DEXAMETHASONE SOD PHOSPHATE 10 MG/ML 1 ML VIAL IV SCH (09:08)
[2020-09-04] MEDS ORDERED: CISATRACURIUM 2 MG/ML 5 ML VIAL IV ONE (09:19)
[2020-09-04] MEDS ORDERED: DILTIAZEM DRIP BOLUS FROM BAG 1 MG SOLN IV ONE (09:59)
[2020-09-04] MEDS ORDERED: DILTIAZEM 125 MG in SODIUM CHLORIDE 0.9% 100 ML IV SCH (10:00)
--- NOTE | 2020-09-04 10:24 | P.CNPUL ---
History of Present Illness Consult date: 09/04/20 Requesting physician: Kiara Bustos Reason for consult: dyspnea, other Chief complaint: Mechanical ventilator/critical care management History of present illness: This is an 85-year-old gentleman who follows with Dr. Preston as his primary care provider. He has a history of liver cancer, coronary artery disease with previous stent placement, hypothyroidism, hyperlipidemia. Lifelong nonsmoker. He was recently admitted to the hospital from [address] [place] [address] for symptoms related to COVID-19 pneumonia. He had been given BAM on 08/25/2020 in the ER and discharged home. Subsequently discharged again in 09/01/2020. He re-presented to the emergency room 09/02/2020 with generalized weakness, rapid breathing and poor appetite and oral intake. O2 saturations 88% on room air. He was admitted again to the regular medical floor. At 4:00 this morning the patient had increased work of breathing with hypoxemia and an A team was called. He is subsequently transferred to the intensive care unit requiring intubation and mechanical ventilatory support. He is seen today in consultation in the ICU. Alok romero is currently intubated on mechanical ventilator. Assist-control mode with a rate of 24, tidal volume 400, FiO2 100% and a PEEP of 5. Morning blood gases revealed a PaO2 102, pCO2 37, PT H7.13. Those were drawn on a rate of 20. Blood cultures are positive for E. coli. He is currently on Zosyn and Levaquin. He is sedated on propofol 50 mcg/kg/m. Norepinephrine at 9 mcg/m. 0.9 normal saline at 75 ML's per hour. D5W with 2 A of bicarb at 75 mL per hour. White count 21.6. Hemoglobin 11.9. D-dimer 7.19. Sodium 140. Potassium 3.3. Creatinine 3.76. Glucose 151. LDH 766. C-reactive protein 36.4. AST 60. ALT 91. Urinalysis with large leukocyte esterase and greater than 182 WBCs with many bacteria. Culture pending. He is currently on Lovenox 30 mg subcu daily, dexamethasone, bronchodilators. Sensory continues to show persistent bilateral lung opacities with small left pleural effusion. 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, hypothyroidism,gout History of Any Multi-Drug Resistant Organisms: None Reported Past Surgical History: Bladder Surgery, Heart Catheterization With Stent, Hernia Repair Additional Past Surgical History / Comment(s): bladder reconstruction surgery Past Anesthesia/Blood Transfusion Reactions: No Reported Reaction Date of Last Stent Placement:: patient unable to state Past Psychological History: No Psychological Hx Reported Smoking Status: Never smoker Past Alcohol Use History: None Reported Past Drug Use History: None Reported - Past Family History Father Family Medical History: Unable to Obtain Medications and Allergies Home Medications Medication Instructions Recorded Confirmed Type Acetaminophen Tab [Tylenol] 1,000 mg PO DAILY 08/26/20 09/02/20 History Acetaminophen/Diphenhydramine 2 tab PO HS 08/26/20 09/02/20 History [Tylenol PM 500-25mg] Allopurinol [Zyloprim] 200 mg PO DAILY 08/26/20 09/02/20 History Aspirin EC [Ecotrin Low Dose] 40.5 mg PO DAILY 08/26/20 09/02/20 History Atorvastatin [Lipitor] 40 mg PO HS 08/26/20 09/02/20 History Docusate [Colace] 100 - 200 mg PO DAILY PRN 08/26/20 09/02/20 History Furosemide [Lasix] 40 mg PO DAILY 08/26/20 09/02/20 History Lani's Leg Cramps 1 - 2 tab SUBLINGUAL Q4H PRN 08/26/20 09/02/20 History Levothyroxine Sodium [Synthroid] 100 mcg PO DAILY 08/26/20 09/02/20 History Ubidecarenone [Co Q-10] 200 mg PO DAILY 08/26/20 09/02/20 History Acetaminophen Tab [Tylenol] 650 mg PO Q6HR PRN tab 09/01/20 09/02/20 Rx Albuterol Inhaler [Ventolin Hfa 2 puff INHALATION RT-QID #1 puff 09/01/20 09/02/20 Rx Inhaler] Ascorbic Acid [Vitamin C] 500 mg PO BID tab 09/01/20 09/02/20 Rx Cholecalciferol [Vitamin D3 (25 125 mcg PO DAILY tablet 09/01/20 09/02/20 Rx Mcg = 1000 Iu)] Dexamethasone [Decadron] 4 mg PO AC-BRKFST #7 tablet 09/01/20 09/02/20 Rx Pantoprazole [Protonix] 40 mg PO AC-BRKFST #30 tablet. 09/01/20 09/02/20 Rx guaiFENesin [Mucinex] 600 mg PO Q12HR tablet.er 09/01/20 09/02/20 Rx hydrALAZINE HCL [Apresoline] 25 mg PO BID #60 tab 09/01/20 09/02/20 Rx Allergies Allergy/AdvReac Type Severity Reaction Status Date / Time tamsulosin [From Flomax] Allergy Unknown Verified 09/02/20 08:30 zolpidem [From Ambien] Allergy Unknown Verified 09/02/20 08:30 Physical Exam Vitals: Vital Signs Temp Pulse Pulse Resp BP BP Pulse Ox 09/04/20 10:00 104 H 28 H 99/48 97 09/04/20 09:30 110 H 20 99/48 97 09/04/20 09:00 81 21 100/53 96 09/04/20 08:30 82 18 100/53 97 09/04/20 08:00 84 25 H 85/47 97 09/04/20 07:30 89 24 85/47 97 09/04/20 07:00 85 24 84/46 97 09/04/20 06:30 90 24 84/46 96 09/04/20 06:00 94 25 H 84/51 97 09/04/20 05:30 106 H 28 H 84/51 97 09/04/20 05:00 103 H 28 H 79/46 93 L 09/04/20 04:30 112 H 29 H 92/46 94 L 09/04/20 04:00 98.8 F 116 H 30 H 104/56 94 L 09/04/20 03:30 128 H 28 H 128/82 94 L 09/04/20 03:00 141 H 35 H 146/83 74 L 09/04/20 01:34 105 H 24 133/83 91 L 09/04/20 00:30 98 09/03/20 23:58 113 H 36 H 139/81 99 09/03/20 21:21 97.7 F 57 L 20 155/88 94 L 09/03/20 17:51 98.7 F 91 28 H 145/82 95 09/03/20 14:00 97.6 F 76 23 129/73 94 L 09/03/20 10:07 97.8 F 94 21 120/73 94 L Intake and Output 09/03/20 09/04/20 09/04/20 22:59 06:59 14:59 Intake Total 875 2450.533 222.699 Output Total 565 30 Balance 875 1885.533 192.699 Intake: IV 2375 150 Dextrose 5% in Water 1, 150 75 000 ml @ 75 mls/hr IV . [id number] MIKE with Sodium Bicarb (1 Meq/ml) 100 ml Rx#:[id number] Sodium Chloride 0.9% 1, 225 75 000 ml @ 75 mls/hr IV . [id number] MIKE Rx#:[id number] Sodium Chloride 0.9% 1, 2000 000 ml @ 999 mls/hr IV . Q1H1M ONE Rx#:[id number] Intake, IV Titration 600 75.533 72.699 Amount Norepinephrine 4 mg In 3.456 72.699 Sodium Chloride 0.9% 250 ml @ 0.05 MCG/KG/MIN 17. 282 mls/hr IV .[id number] MIKE Rx#:[id number] Sodium Chloride 0.9% 1, 600 000 ml @ 75 mls/hr IV . [id number] MIKE Rx#:[id number] propofoL 1,000 mg In 72.077 Empty Bag 1 bag @ Titrate IV .Q0M MIKE Rx#: [id number] Oral 275 Output: Urine 565 30 Other: Voiding Method Diaper Indwelling Catheter External Catheter # Voids 3 # Bowel Movements 1 ABP, PAP, CO, CI - Last 8 Hours Arterial Blood Pressure 93/43 Arterial Blood Pressure 80/45 Arterial Blood Pressure 82/39 Arterial Blood Pressure 75/35 Arterial Blood Pressure 97/40 Arterial Blood Pressure 120/48 Arterial Blood Pressure 95/36 Arterial Blood Pressure 75/31 Arterial Blood Pressure 89/32 Arterial Blood Pressure 97/38 Arterial Blood Pressure 73/30 Arterial Blood Pressure 88/32 Arterial Blood Pressure 86/39 GENERAL EXAM: Intubated, sedated 85-year-old gentleman, in no apparent distress. HEAD: Normocephalic. EYES: Sluggish reaction of pupils, equal size. NOSE: Clear with pink turbinates. THROAT: Oral endotracheal, gastric tube secured in place. No erythema or exu dates. NECK: No masses, no JVD. CHEST: No chest wall deformity. LUNGS: Equal air entry with bilateral scattered rhonchi, crackles in the bases. CVS: S1 and S2 normal with no audible murmur, regular rhythm. ABDOMEN: No hepatosplenomegaly, normal bowel sounds, no guarding or rigidity. SPINE: No scoliosis or deformity SKIN: No rashes CENTRAL NERVOUS SYSTEM: Sedated. Tone is normal in all 4 extremities. EXTREMITIES: There is no peripheral edema. No clubbing, no cyanosis. Peripheral pulses are intact. Results - Laboratory Findings CBC and BMP: 09/04/20 03:58 09/04/20 03:58 ABG ABG pH 7.13 (7.35-7.45) L* 09/04/20 04:20 ABG pCO2 37 mmHg (35-45) 09/04/20 04:20 ABG pO2 102 mmHg (83-108) 09/04/20 04:20 ABG O2 Saturation 95.8 % (94-97) 09/04/20 04:20 PT/INR, D-dimer PT 10.6 sec (9.0-12.0) 09/02/20 07:28 INR 1.0 (<1.2) 09/02/20 07:28 D-Dimer 7.19 mg/L FEU (<0.60) H 09/04/20 03:58 Abnormal lab findings: Abnormal Labs 09/02/20 09/02/20 09/02/20 07:28 07:28 07:28 WBC 20.5 H RBC 3.64 L Hgb 12.1 L Hct 34.2 L MCV Plt Count 148 L Immature Gran # Neutrophils # 19.1 H Lymphocytes # 0.2 L Fibrinogen D-Dimer 1.39 H ABG pH ABG HCO3 ABG Total CO2 Potassium 2.9 L Chloride 113 H Carbon Dioxide 15 L BUN 59 H Creatinine 2.52 H Est GFR (CKD-EPI)AfAm Est GFR (CKD-EPI)NonAf BUN/Creatinine Ratio Glucose 147 H POC Glucose (mg/dL) Calcium 7.8 L Magnesium AST ALT 77 H Lactate Dehydrogenase 639 H Creatine Kinase C-Reactive Protein Total Protein 4.9 L Albumin 2.7 L Urine Protein Urine Blood Ur Leukocyte Esterase Urine RBC Urine WBC Urine WBC Clumps Urine Bacteria Urine Mucus 09/03/20 09/03/20 09/03/20 07:35 07:35 23:52 WBC 30.36 H RBC 3.95 L Hgb 12.6 L Hct 38.5 L MCV 97.5 H Plt Count Immature Gran # 0.65 H Neutrophils # 28.15 H Lymphocytes # 0.61 L Fibrinogen D-Dimer ABG pH ABG HCO3 ABG Total CO2 Potassium 3.2 L Chloride 116 H Carbon Dioxide <10.0 L* BUN 69.0 H Creatinine 2.6 H Est GFR (CKD-EPI)AfAm 25.1 L Est GFR (CKD-EPI)NonAf 21.7 L BUN/Creatinine Ratio 26.54 H Glucose 142 H POC Glucose (mg/dL) 154 H Calcium 8.0 L Magnesium AST ALT Lactate Dehydrogenase Creatine Kinase C-Reactive Protein Total Protein Albumin Urine Protein Urine Blood Ur Leukocyte Esterase Urine RBC Urine WBC Urine WBC Clumps Urine Bacteria Urine Mucus 09/04/20 09/04/20 09/04/20 02:56 03:15 03:58 WBC 21.6 H RBC 3.85 L Hgb 11.9 L Hct 38.1 L MCV Plt Count 112 L Immature Gran # Neutrophils # Lymphocytes # Fibrinogen D-Dimer ABG pH ABG HCO3 ABG Total CO2 Potassium Chloride Carbon Dioxide BUN Creatinine Est GFR (CKD-EPI)AfAm Est GFR (CKD-EPI)NonAf BUN/Creatinine Ratio Glucose POC Glucose (mg/dL) 131 H Calcium Magnesium AST ALT Lactate Dehydrogenase Creatine Kinase C-Reactive Protein Total Protein Albumin Urine Protein 1+ H Urine Blood Moderate H Ur Leukocyte Esterase Large H Urine RBC 34 H Urine WBC >182 H Urine WBC Clumps Rare H Urine Bacteria Many H Urine Mucus Rare H 09/04/20 09/04/20 09/04/20 03:58 03:58 03:58 WBC RBC Hgb Hct MCV Plt Count Immature Gran # Neutrophils # Lymphocytes # Fibrinogen 1041 H D-Dimer 7.19 H ABG pH ABG HCO3 ABG Total CO2 Potassium 3.3 L Chloride 117 H Carbon Dioxide 11 L BUN 78 H Creatinine 3.76 H Est GFR (CKD-EPI)AfAm Est GFR (CKD-EPI)NonAf BUN/Creatinine Ratio Glucose 151 H POC Glucose (mg/dL) Calcium 7.9 L Magnesium 2.4 H AST 60 H ALT 91 H Lactate Dehydrogenase 1066 H Creatine Kinase 429 H C-Reactive Protein 36.4 H Total Protein 5.0 L Albumin 2.6 L Urine Protein Urine Blood Ur Leukocyte Esterase Urine RBC Urine WBC Urine WBC Clumps Urine Bacteria Urine Mucus 09/04/20 04:20 WBC RBC Hgb Hct MCV Plt Count Immature Gran # Neutrophils # Lymphocytes # Fibrinogen D-Dimer ABG pH 7.13 L* ABG HCO3 12 L ABG Total CO2 14 L Potassium Chloride Carbon Dioxide BUN Creatinine Est GFR (CKD-EPI)AfAm Est GFR (CKD-EPI)NonAf BUN/Creatinine Ratio Glucose POC Glucose (mg/dL) Calcium Magnesium AST ALT Lactate Dehydrogenase Creatine Kinase C-Reactive Protein Total Protein Albumin Urine Protein Urine Blood Ur Leukocyte Esterase Urine RBC Urine WBC Urine WBC Clumps Urine Bacteria Urine Mucus - Diagnostic Findings Chest x-ray: image reviewed Assessment and Plan Assessment: 1 Acute hypoxemic respiratory failure requiring intubation mechanical ventilation on 09/04/2020 secondary to COVID-19 pneumonia 2 Acute sepsis with shock secondary to E. coli bacteremia, requiring pressor support 3 Urinary tract infection suspect secondary to E. coli 4 Leukocytosis secondary to above 5 Elevated d-dimer secondary to COVID-19 infection 6 Acute renal failure 7 Mild transaminitis secondary to above 8 Elevated inflammatory markers secondary to above 9 Recent admission for COVID-19 pneumonia from 08/26-09/01/20 10 history of coronary artery disease with previous stent placement 11 History of bladder cancer 12 Hypothyroidism 13 Hyperlipidemia 14 Hypertension 15 New-onset atrial fibrillation Plan: The patient was seen and evaluated by Dr. Carver Chest x-ray, ABGs and labs reviewed Continue Zosyn and Levaquin Continue bronchodilators Initiate Cardizem drip, consult cardiology Increase Lovenox to 45 mg subcu every 12 hours Continue bicarb drip Right subclavian triple-lumen catheter inserted Repeat chest x-ray, ABGs and labs in a.m. We will continue to follow and make further recommendations based on his clinical status I, the cosigning physician, performed a history & physical examination of the patient. Lungs sounds scattered rhonchi, crackles in the posterior bases. Maintaining good O2 saturations in the 90s on 100% FiO2 and 5 of PEEP via the mechanical ventilator I discussed the assessment and plan of care with my nurse practitioner, Alondra Haley. I attest to the above consultation as dictated by her. Time with Patient: Greater than 30
[2020-09-04] MEDS ORDERED: Potassium Replacement Protocol 1 EACH MISC MISCELLANE PRN ×2 (10:25→18:25)
--- NOTE | 2020-09-04 10:30 | XR ---
EXAMINATION TYPE: XR chest 1V portable DATE OF EXAM: 09/04/2020 COMPARISON: Chest x-ray 09/04/2020 HISTORY: Central line placement TECHNIQUE: Single frontal view of the chest is obtained. FINDINGS: There is been interval placement of a left subclavian central venous catheter, distal tip is overlying superior vena cava. NG tube is likely been advanced in the interval, distal tip not incl uded on the exam. Endotracheal tube overlying the tracheal air column. There is persistent elevation right hemidiaphragm. Bilateral airspace disease noted. No evident pneumothorax or other significant i nterval change. IMPRESSION: No evident complication status post central venous catheter placement.
[2020-09-04] MEDS: POTASSIUM BICARBONATE/CIT AC 20 MEQ TABLET.EFF NG-TUBE SCH ×4 (10:33→21:19)
[2020-09-04] MEDS: NOREPINEPHRINE 8 MG in SODIUM CHLORIDE 0.9% 250 ML IV SCH ×2 (10:43→18:07)
--- NOTE | 2020-09-04 11:04 | PCN ---
PROCEDURE NOTE PROCEDURES: Left subclavian triple-lumen catheter. PREOPERATIVE DIAGNOSIS: Administration of fluids and pressors. POSTOPERATIVE DIAGNOSIS: Administration of fluids and pressors. OPERATORS: Dr. Carver, Dr. Haley, Dr. Nazario. TRIPLE LUMEN CATHETER PLACEMENT: Indication: Hemodynamic monitoring/Intravenous access. A time-out was completed verifying correct patient, procedure, site, positioning, and implant(s) or special equipment if applicable. The patient was placed in a dependent position appropriate for triple lumen catheter placement based on the vein to be cannulated. The patient's left shoulder was prepped and draped in sterile fashion. 1% Lidocaine was used to anesthetize the surrounding skin area. A triple lumen 9F Cordis catheter was introduced into the left subclavian vein using Seldinger technique. The catheter was threaded smoothly over the guide wire and appropriate blood return was obtained. Each lumen of the catheter was evacuated of air and flushed with sterile saline. The catheter was then sutured in place to the skin and a sterile dressing applied. Perfusion to the extremity distal to the point of catheter insertion was checked and found to be adequate. We used the left subclavian site. There was informed consent and universal timeout. The patient tolerated the procedure well. There was no immediate complication. There was good blood return from all 3 ports. The catheter was sutured in place. A sterile dressing was applied by the nurse. A chest x-ray was ordered. There was no complication. The patient tolerated procedure well. The catheter was sutured in place. A sterile dressing was applied by the nurse. MMODL / IJN: [id number] /
[2020-09-04 12:04] LABS: Glucose,Whole Blood 194 mg/dL (75-99)
--- NOTE | 2020-09-04 13:36 | P.PN ---
Subjective Progress Note Date: 09/04/20 HISTORY OF PRESENT ILLNESS This is an 85-year-old male patient of Dr. Andrei Vasquez with past medical history of hyperlipidemia, hypothyroidism, bladder cancer, coronary artery di sease status post stent, diagnosed with Covid 19 pneumonia status post Bamlanivimab and subsequently admitted from August 27 through September 01 which time he was treated for acute hypoxic respiratory failure secondary to Covid 19 pneumonia, acute kidney injury, discharged home with home care. Apparently patient was at home but became very dyspneic and pulse ox dropped to 88%, patient not had anything to eat or drink since he left the hospital. EMS was contacted and patient was brought into the emergency center for evaluation. She complains of feeling tired. He was found to be afebrile, heart rate 98, blood pressure 114/65, pulse ox 90% on 2 L nasal cannula. WBC 20.5, hemoglobin 12.1, platelet count 148. Sodium 138, potassium 2.9, chloride 113, CO2 15, BUN 59 creatinine 2.52. Blood sugar 147. ALT 77. LDH 639. Albumin 2.7. Lactic acid 2.0. Magnesium 2.1. CK 74. EKG was a sinus rhythm with no acute ST changes. Patient was given 1 L of IV fluid and potassium was replaced. 09/03: Patient has not eating any meals since admission. He is oriented 3 but noted to have significant short-term memory deficit and having difficulty following instructions. Social work is following for discharge planning. Family is planning for patient to come home with [facility] and does not want to consider rehab. PT and OT clearly recommend subacute rehab. Patient has been afebrile, heart rate 94, blood pressure 120/73, pulse ox 94% on high flow nasal cannula at 4 L. Repeat blood work reveals WBC 30.3, hemoglobin 12.6, platelet count 143. Lactic acid 1.8. Chemistry results are not up at the time of this dictation at 2 10 in the afternoon. Repeat blood work will be ordered f or the morning. Anticipate possible discharge tomorrow 09/04: A-Team was called this morning due to difficulty breathing and hypoxia. Patient was tachycardic and diaphoretic. Heart rate was in the 130s. Patient was placed on BiPAP but he could not tolerate and became very anxious. Patient was given Ativan with no improvement. Pulse ox was low 70s and he was transferred to the intensive care unit and intubated and placed on mechanical ventilation. Patient was found to be in A. fib with RVR and cardiology consult was added as well as pulmonary medicine was added during the night. Patient was started on Cardizem bolus and drip. Lovenox increased to 45 mg twice daily, Decadron 6 mg IV daily. Patient has been started on norepinephrine REVIEW OF SYSTEMS Unable to obtain due to intubation. PHYSICAL EXAMINATION Gen: This is an 85-year-old male patient, patient in ICU bed and appears to be comfortable at rest. HEENT: Head is atraumatic, normocephalic. Pupils equal, round. Sclerae is anicteric. NECK: Supple. No JVD. No lymphadenopathy. No thyromegaly. LUNGS: Clear to auscultation. No wheezes or rhonchi. No intercostal retractio ns. HEART: Regular rate and rhythm. No murmur. ABDOMEN: Soft. Bowel sounds are present. No masses. No tenderness. Laws catheter in place. EXTREMITIES: No pedal edema. No calf tenderness. NEUROLOGICAL: Patient is awake, alert and oriented x3. Cranial nerves 2 through 12 are grossly intact. Patient is slow to respond. ASSESSMENT AND PLAN 1. Acute hypoxic respiratory failure secondary to Covid 19 pneumonitis. Continue oxygen therapy. Continue vitamin supplements, albuterol inhaler 2 puffs 4 times daily, dexamethasone 4 mg daily, Lovenox 40 mg subcu daily, Questr an 4 g twice daily. 2. Acute kidney injury secondary to dehydration and lack of oral intake and di arrhea. Hold Lasix. Continue IV fluids 0.9 normal saline at 75 mL per hour. Recheck electrolytes and renal function in the morning. Patient started on Questran. 3. Sepsis, septic shock and gram-negative bacteremia, POA. Continue Zosyn and Levaquin. 4. Urinary tract infection with E. coli bacteremia. 5. Acute kidney injury secondary to hypoperfusion. 6. Transaminitis secondary to COVID-19, hypotension Generalized debilitation. PT and OT consults, social work consult for subacute rehab. 7. New-onset A. fib with RVR. Patient started on Cardizem bolus followed by drip. Cardiology consult. Continue Lovenox 45 mg subcu twice daily. 8. Hyperlipidemia. Continue Lipitor 40 mg at bedtime. 9. Hypertension. Patient is currently hypotensive. 10. Gastroesophageal reflux disease and GI prophylaxis. Continue Protonix 40 mg IVP daily. 11. Hypothyroidism. Continue levothyroxine 100 g daily. 12. Chronic gout. 13. DVT prophylaxis. Lovenox subcu. Prognosis is guarded. DISCHARGE PLAN To be determined. Family has been adamant that they want the patient to return home.. Impression and plan of care have been directed as dictated by the signing physician. Joseline Corado nurse practitioner acting as scribe for signing physician. Objective - Vital Signs Vital signs: Vital Signs Temp 98.8 F 09/04/20 04:00 Pulse 104 H 09/04/20 10:00 Resp 28 H 09/04/20 10:00 BP 99/48 09/04/20 10:00 Pulse Ox 97 09/04/20 10:00 Intake & Output 09/03/20 09/04/20 09/04/20 18:59 06:59 18:59 Intake Total 875 2450.533 1847.699 Output Total 565 120 Balance 875 0631.311 6801.699 Intake: IV 2375 1675 Dextrose 5% in Water 1, 150 300 000 ml @ 75 mls/hr IV . [id number] [facility] with Sodium Bicarb (1 Meq/ml) 100 ml Rx#:[id number] Piperacillin-Tazobactam 3 100 .375 gm In Sodium Chloride 0.9% 100 ml @ 25 mls/hr IVPB Q8HR [facility] Rx# :[id number] Sodium Chloride 0.9% 1, 225 275 000 ml @ 20 mls/hr IV . Q24H [facility] Rx#:[id number] Sodium Chloride 0.9% 1, 2000 1000 000 ml @ 999 mls/hr IV . Q1H1M ONE Rx#:[id number] Intake, IV Titration 600 75.533 172.699 Amount Norepinephrine 4 mg In 3.456 72.699 Sodium Chloride 0.9% 250 ml @ 0.05 MCG/KG/MIN 17. 282 mls/hr IV .[id number] [facility] Rx#:[id number] Sodium Chloride 0.9% 1, 600 000 ml @ 20 mls/hr IV . Q24H [facility] Rx#:[id number] propofoL 1,000 mg In 72.077 100 Empty Bag 1 bag @ Titrate IV .Q0M [facility] Rx#: [id number] Oral 275 Output: Urine 565 120 Other: Voiding Method Diaper Indwelling Catheter External Catheter # Voids 3 # Bowel Movements 2 1 ABP, PAP, CO, CI - Last Documented Arterial Blood Pressure 93/43 - Labs CBC & Chem 7: 09/04/20 03:58 09/04/20 03:58 Labs: Abnormal Lab Results - Last 24 Hours (Table) 09/03/20 09/03/20 09/03/20 Range/Units 07:35 07:35 23:52 WBC (3.8-10.6) k/uL RBC (4.30-5.90) m/uL Hgb (13.0-17.5) gm/dL Hct (39.0-53.0) % Plt Count (150-450) k/uL Immature Gran # 0.65 H (0.00-0.04) X 10*3/uL Neutrophils # 28.15 H (1.80-7.70) X 10*3/uL Lymphocytes # 0.61 L (0.90-5.00) X 10*3/uL Fibrinogen (200-500) mg/dL D-Dimer (<0.60) mg/L FEU ABG pH (7.35-7.45) ABG HCO3 (21-25) mmol/L ABG Total CO2 (19-24) mmol/L Potassium 3.2 L (3.5-5.5) mmol/L Chloride 116 H (96-109) mmol/L Carbon Dioxide <10.0 L* (21.6-31.8) mmol/L BUN 69.0 H (9.0-27.0) mg/dL Creatinine 2.6 H (0.6-1.5) mg/dL Est GFR (CKD-EPI)AfAm 25.1 L (60.0-200.0) Est GFR (CKD-EPI)NonAf 21.7 L (60.0-200.0) BUN/Creatinine Ratio 26.54 H (12.00-20.00) Ratio Glucose 142 H (70-110) mg/dL POC Glucose (mg/dL) 154 H (75-99) mg/dL Calcium 8.0 L (8.7-10.3) mg/dL Magnesium (1.6-2.3) mg/dL AST (17-59) U/L ALT (4-49) U/L Lactate Dehydrogenase (313-618) U/L Creatine Kinase (55-170) U/L C-Reactive Protein (<1.0) mg/dL Total Protein (6.3-8.2) g/dL Albumin (3.5-5.0) g/dL Urine Protein (Negative) Urine Blood (Negative) Ur Leukocyte Esterase (Negative) Urine RBC (0-5) /hpf Urine WBC (0-5) /hpf Urine WBC Clumps (None) /hpf Urine Bacteria (None) /hpf Urine Mucus (None) /hpf 09/04/20 09/04/20 09/04/20 Range/Units 02:56 03:15 03:58 WBC 21.6 H (3.8-10.6) k/uL RBC 3.85 L (4.30-5.90) m/uL Hgb 11.9 L (13.0-17.5) gm/dL Hct 38.1 L (39.0-53.0) % Plt Count 112 L (150-450) k/uL Immature Gran # (0.00-0.04) X 10*3/uL Neutrophils # (1.80-7.70) X 10*3/uL Lymphocytes # (0.90-5.00) X 10*3/uL Fibrinogen (200-500) mg/dL D-Dimer (<0.60) mg/L FEU ABG pH (7.35-7.45) ABG HCO3 (21-25) mmol/L ABG Total CO2 (19-24) mmol/L Potassium (3.5-5.5) mmol/L Chloride (96-109) mmol/L Carbon Dioxide (21.6-31.8) mmol/L BUN (9.0-27.0) mg/dL Creatinine (0.6-1.5) mg/dL Est GFR (CKD-EPI)AfAm (60.0-200.0) Est GFR (CKD-EPI)NonAf (60.0-200.0) BUN/Creatinine Ratio (12.00-20.00) Ratio Glucose (70-110) mg/dL POC Glucose (mg/dL) 131 H (75-99) mg/dL Calcium (8.7-10.3) mg/dL Magnesium (1.6-2.3) mg/dL AST (17-59) U/L ALT (4-49) U/L Lactate Dehydrogenase (313-618) U/L Creatine Kinase (55-170) U/L C-Reactive Protein (<1.0) mg/dL Total Protein (6.3-8.2) g/dL Albumin (3.5-5.0) g/dL Urine Protein 1+ H (Negative) Urine Blood Moderate H (Negative) Ur Leukocyte Esterase Large H (Negative) Urine RBC 34 H (0-5) /hpf Urine WBC >182 H (0-5) /hpf Urine WBC Clumps Rare H (None) /hpf Urine Bacteria Many H (None) /hpf Urine Mucus Rare H (None) /hpf 09/04/20 09/04/20 09/04/20 Range/Units 03:58 03:58 03:58 WBC (3.8-10.6) k/uL RBC (4.30-5.90) m/uL Hgb (13.0-17.5) gm/dL Hct (39.0-53.0) % Plt Count (150-450) k/uL Immature Gran # (0.00-0.04) X 10*3/uL Neutrophils # (1.80-7.70) X 10*3/uL Lymphocytes # (0.90-5.00) X 10*3/uL Fibrinogen 1041 H (200-500) mg/dL D-Dimer 7.19 H (<0.60) mg/L FEU ABG pH (7.35-7.45) ABG HCO3 (21-25) mmol/L ABG Total CO2 (19-24) mmol/L Potassium 3.3 L (3.5-5.5) mmol/L Chloride 117 H (96-109) mmol/L Carbon Dioxide 11 L (21.6-31.8) mmol/L BUN 78 H (9.0-27.0) mg/dL Creatinine 3.76 H (0.6-1.5) mg/dL Est GFR (CKD-EPI)AfAm (60.0-200.0) Est GFR (CKD-EPI)NonAf (60.0-200.0) BUN/Creatinine Ratio (12.00-20.00) Ratio Glucose 151 H (70-110) mg/dL POC Glucose (mg/dL) (75-99) mg/dL Calcium 7.9 L (8.7-10.3) mg/dL Magnesium 2.4 H (1.6-2.3) mg/dL AST 60 H (17-59) U/L ALT 91 H (4-49) U/L Lactate Dehydrogenase 1066 H (313-618) U/L Creatine Kinase 429 H (55-170) U/L C-Reactive Protein 36.4 H (<1.0) mg/dL Total Protein 5.0 L (6.3-8.2) g/dL Albumin 2.6 L (3.5-5.0) g/dL Urine Protein (Negative) Urine Blood (Negative) Ur Leukocyte Esterase (Negative) Urine RBC (0-5) /hpf Urine WBC (0-5) /hpf Urine WBC Clumps (None) /hpf Urine Bacteria (None) /hpf Urine Mucus (None) /hpf 09/04/20 Range/Units 04:20 WBC (3.8-10.6) k/uL RBC (4.30-5.90) m/uL Hgb (13.0-17.5) gm/dL Hct (39.0-53.0) % Plt Count (150-450) k/uL Immature Gran # (0.00-0.04) X 10*3/uL Neutrophils # (1.80-7.70) X 10*3/uL Lymphocytes # (0.90-5.00) X 10*3/uL Fibrinogen (200-500) mg/dL D-Dimer (<0.60) mg/L FEU ABG pH 7.13 L* (7.35-7.45) ABG HCO3 12 L (21-25) mmol/L ABG Total CO2 14 L (19-24) mmol/L Potassium (3.5-5.5) mmol/L Chloride (96-109) mmol/L Carbon Dioxide (21.6-31.8) mmol/L BUN (9.0-27.0) mg/dL Creatinine (0.6-1.5) mg/dL Est GFR (CKD-EPI)AfAm (60.0-200.0) Est GFR (CKD-EPI)NonAf (60.0-200.0) BUN/Creatinine Ratio (12.00-20.00) Ratio Glucose (70-110) mg/dL POC Glucose (mg/dL) (75-99) mg/dL Calcium (8.7-10.3) mg/dL Magnesium (1.6-2.3) mg/dL AST (17-59) U/L ALT (4-49) U/L Lactate Dehydrogenase (313-618) U/L Creatine Kinase (55-170) U/L C-Reactive Protein (<1.0) mg/dL Total Protein (6.3-8.2) g/dL Albumin (3.5-5.0) g/dL Urine Protein (Negative) Urine Blood (Negative) Ur Leukocyte Esterase (Negative) Urine RBC (0-5) /hpf Urine WBC (0-5) /hpf Urine WBC Clumps (None) /hpf Urine Bacteria (None) /hpf Urine Mucus (None) /hpf Microbiology - Last 24 Hours (Table) 09/03/20 07:35 Blood Culture Gram Stain - Preliminary Blood Blood Culture - Preliminary Escherichia coli 09/03/20 07:35 Blood Culture - Final Blood
[2020-09-04 16:03] LABS: Glucose,Whole Blood 214 mg/dL (75-99)
--- NOTE | 2020-09-04 16:35 | P.CRDCN ---
History of Present Illness Consult date: 09/04/20 History of present illness: This is a 85-year-old gentleman with history of hyperlipidemia, hypothyroidism, bladder cancer, coronary artery disease with previous stent placement who was admitted to the hospital with COVID pneumonia. Apparently he was treated from August 27 for hypoxic respiratory failure secondary to pneumonia and also acute kidney injury. Patient is now readmitted to the hospital with increasing shortness of breath, low oxygen saturation. His creatinine was 2.5V and was 59 on admission. Last night patient developed hypoxia and respiratory difficulties requiring intubation and transferred to intensive care unit. His creatinine has gone up to 3.76. His white count is 21,000. Patient went to atrial fibrillation with rapid ventricular response. Patient was started on IV Cardizem bolus and drip. Patient is already on and decortication therapy. Patient apparently also is diagnosed to have gram-negative infection. Patient prognosis is poor. We'll continue with current medical therapy. We'll may get an echocardiogram to assess LV function. If necessary we will use IV Amiodarone. 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, hypothyroidism,gout History of Any Multi-Drug Resistant Organisms: None Reported Past Surgical History: Bladder Surgery, Heart Catheterization With Stent, Hernia Repair Additional Past Surgical History / Comment(s): bladder reconstruction surgery Past Anesthesia/Blood Transfusion Reactions: No Reported Reaction Date of Last Stent Placement:: patient unable to state Past Psychological History: No Psychological Hx Reported Smoking Status: Never smoker Past Alcohol Use History: None Reported Past Drug Use History: None Reported - Past Family History Father Family Medical History: Unable to Obtain Medications and Allergies Home Medications Medication Instructions Recorded Confirmed Type Acetaminophen Tab [Tylenol] 1,000 mg PO DAILY 08/26/20 09/02/20 History Acetaminophen/Diphenhydramine 2 tab PO HS 08/26/20 09/02/20 History [Tylenol PM 500-25mg] Allopurinol [Zyloprim] 200 mg PO DAILY 08/26/20 09/02/20 History Aspirin EC [Ecotrin Low Dose] 40.5 mg PO DAILY 08/26/20 09/02/20 History Atorvastatin [Lipitor] 40 mg PO HS 08/26/20 09/02/20 History Docusate [Colace] 100 - 200 mg PO DAILY PRN 08/26/20 09/02/20 History Furosemide [Lasix] 40 mg PO DAILY 08/26/20 09/02/20 History Lani's Leg Cramps 1 - 2 tab SUBLINGUAL Q4H PRN 08/26/20 09/02/20 History Levothyroxine Sodium [Synthroid] 100 mcg PO DAILY 08/26/20 09/02/20 History Ubidecarenone [Co Q-10] 200 mg PO DAILY 08/26/20 09/02/20 History Acetaminophen Tab [Tylenol] 650 mg PO Q6HR PRN tab 09/01/20 09/02/20 Rx Albuterol Inhaler [Ventolin Hfa 2 puff INHALATION RT-QID #1 puff 09/01/20 09/02/20 Rx Inhaler] Ascorbic Acid [Vitamin C] 500 mg PO BID tab 09/01/20 09/02/20 Rx Cholecalciferol [Vitamin D3 (25 125 mcg PO DAILY tablet 09/01/20 09/02/20 Rx Mcg = 1000 Iu)] Dexamethasone [Decadron] 4 mg PO AC-BRKFST #7 tablet 09/01/20 09/02/20 Rx Pantoprazole [Protonix] 40 mg PO AC-BRKFST #30 tablet.dr 09/01/20 09/02/20 Rx guaiFENesin [Mucinex] 600 mg PO Q12HR tablet.er 09/01/20 09/02/20 Rx hydrALAZINE HCL [Apresoline] 25 mg PO BID #60 tab 09/01/20 09/02/20 Rx Allergies Allergy/AdvReac Type Severity Reaction Status Date / Time tamsulosin [From Flomax] Allergy Unknown Verified 09/02/20 08:30 zolpidem [From Ambien] Allergy Unknown Verified 09/02/20 08:30 Physical Exam Vitals: Vital Signs Temp Pulse Pulse Resp BP BP Pulse Ox 09/04/20 13:00 112 H 24 95 09/04/20 12:30 110 H 24 94 L 09/04/20 12:00 97.9 F 104 H 24 95 09/04/20 11:30 98 24 95 09/04/20 11:00 123 H 24 96 09/04/20 10:30 120 H 16 97 04/30/21 10:00 104 H 28 H 97 09/04/20 09:30 110 H 20 97 09/04/20 09:00 81 21 96 09/04/20 08:30 82 18 97 09/04/20 08:00 97.8 F 84 25 H 97 09/04/20 07:30 89 24 85/47 97 09/04/20 07:00 85 24 84/46 97 09/04/20 06:30 90 24 84/46 96 09/04/20 06:00 94 25 H 84/51 97 09/04/20 05:30 106 H 28 H 84/51 97 09/04/20 05:00 103 H 28 H 79/46 93 L 09/04/20 04:30 112 H 29 H 92/46 94 L 09/04/20 04:00 98.8 F 116 H 30 H 104/56 94 L 09/04/20 03:30 128 H 28 H 128/82 94 L 09/04/20 03:00 141 H 35 H 146/83 74 L 09/04/20 01:34 105 H 24 133/83 91 L 09/04/20 00:30 98 09/03/20 23:58 113 H 36 H 139/81 99 09/03/20 21:21 97.7 F 57 L 20 155/88 94 L 09/03/20 17:51 98.7 F 91 28 H 145/82 95 Intake and Output 09/04/20 09/04/20 09/04/20 06:59 14:59 22:59 Intake Total 2450.533 2330.116 Output Total 565 220 Balance 5000.497 1575.116 Intake: IV 2375 1960 Dextrose 5% in Water 1, 150 525 000 ml @ 75 mls/hr IV . [id number] [facility] with Sodium Bicarb (1 Meq/ml) 100 ml Rx#:[id number] Piperacillin-Tazobactam 3 100 .375 gm In Sodium Chloride 0.9% 100 ml @ 25 mls/hr IVPB Q8HR [facility] Rx# :[id number] Sodium Chloride 0.9% 1, 225 335 000 ml @ 20 mls/hr IV . Q24H [facility] Rx#:[id number] Sodium Chloride 0.9% 1, 2000 1000 000 ml @ 999 mls/hr IV . Q1H1M ONE Rx#:[id number] Intake, IV Titration 75.533 370.116 Amount Norepinephrine 4 mg In 3.456 173.049 Sodium Chloride 0.9% 250 ml @ 0.05 MCG/KG/MIN 17. 282 mls/hr IV .[id number] [facility] Rx#:[id number] propofoL 1,000 mg In 72.077 197.067 Empty Bag 1 bag @ Titrate IV .Q0M [facility] Rx#: [id number] Output: Urine 565 220 Other: Voiding Method Indwelling Catheter Indwelling Catheter Weight 90.718 kg ABP, PAP, CO, CI - Last 8 Hours Arterial Blood Pressure 95/45 Arterial Blood Pressure 96/46 Arterial Blood Pressure 104/46 Arterial Blood Pressure 93/45 Arterial Blood Pressure 93/43 Arterial Blood Pressure 104/47 Arterial Blood Pressure 93/43 Arterial Blood Pressure 80/45 Arterial Blood Pressure 82/39 Arterial Blood Pressure 75/35 This patient has not personally examined to the wide exposure. Information is gathered from consultants notes and nurses reports Results 09/04/20 03:58 09/04/20 03:58 Cardiac Enzymes 09/04/20 09/04/20 Range/Units 03:58 03:58 AST 60 H (17-59) U/L Lactate Dehydrogenase 1066 H (313-618) U/L CBC 09/04/20 Range/Units 03:58 WBC 21.6 H (3.8-10.6) k/uL RBC 3.85 L (4.30-5.90) m/uL Hgb 11.9 L (13.0-17.5) gm/dL Hct 38.1 L (39.0-53.0) % Plt Count 112 L (150-450) k/uL Comprehensive Metabolic Panel 09/03/20 09/04/20 Range/Units 07:35 03:58 Sodium 143 140 (135-145) mmol/L Potassium 3.2 L 3.3 L (3.5-5.5) mmol/L Chloride 116 H 117 H (96-109) mmol/L Carbon Dioxide <10.0 L* 11 L (21.6-31.8) mmol/L BUN 69.0 H 78 H (9.0-27.0) mg/dL Creatinine 2.6 H 3.76 H (0.6-1.5) mg/dL Glucose 142 H 151 H (70-110) mg/dL Calcium 8.0 L 7.9 L (8.7-10.3) mg/dL AST 60 H (17-59) U/L ALT 91 H (4-49) U/L Alkaline Phosphatase 121 (38-126) U/L Total Protein 5.0 L (6.3-8.2) g/dL Albumin 2.6 L (3.5-5.0) g/dL Current Medications Generic Name Dose Route Start Last Admin Trade Name Freq PRN Reason Stop Dose Admin Acetaminophen 650 mg 09/02/20 11:02 Acetaminophen Tab 325 Mg Tab PO Q6HR PRN Mild Pain or Fever > 100.5 Acetaminophen 1,000 mg 09/03/20 09:00 09/04/20 09:07 Acetaminophen Tab 500 Mg Tab PO 1,000 mg DAILY MIKE Administration Albuterol Sulfate 2 puff 09/02/20 12:00 09/04/20 14:52 Albuterol Hfa Inhaler INHALATION 2 puff RT-QID [facility] Administration Aspirin 40.5 mg 09/03/20 09:00 09/04/20 09:07 Aspirin 81 Mg PO 40.5 mg DAILY [facility] Administration Atorvastatin Calcium 40 mg 09/02/20 21:00 09/03/20 21:40 Atorvastatin 40 Mg Tab PO 40 mg HS MIKE Administration Chlorhexidine Gluconate 15 ml 09/04/20 09:00 09/04/20 09:08 Chlorhexidine Gluconate 15 Ml Cup MUCOUS MEM 15 ml BID [facility] Administration Cholecalciferol 125 mcg 09/03/20 09:00 09/04/20 09:08 Cholecalciferol 25 Mcg (1000 Iu) Tablet PO 125 mcg DAILY [facility] Administration Dexamethasone Sodium Phosphate 6 mg 09/04/20 09:00 09/04/20 09:08 Dexamethasone Sod Phosphate 10 Mg/Ml 1 Ml Vial IV 6 mg DAILY [facility] Administration Enoxaparin Sodium 45 mg 09/04/20 21:00 Enoxaparin 60 Mg/0.6 Ml Syringe SQ Q12HR [facility]KE Sodium Chloride 1,000 mls @ 20 mls/hr 09/02/20 15:00 09/04/20 06:30 Saline 0.9% IV 75 mls/hr .Q24H [facility] Administration Piperacillin Sod/Tazobactam 100 mls @ 25 mls/hr 09/04/20 00:00 09/04/20 09:06 Sod 3.375 gm/ Sodium Chloride IVPB 25 mls/hr Q8HR [facility] Administration Levofloxacin/Dextrose 250 mg/ 50 mls @ 50 mls/hr 09/03/20 22:00 09/03/20 22:22 IV Solution IVPB 50 mls/hr Q24H [facility] Administration Propofol 1,000 mg/ IV Solution 100 mls @ 0 mls/hr 09/04/20 03:15 09/04/20 14:06 IV 50 mcg/kg/min .Q0M [facility] 27.215 mls/hr Administration Protocol Titrate Sodium Bicarbonate 100 ml/ 1,100 mls @ 75 mls/hr 09/04/20 05:15 09/04/20 05:08 Dextrose/Water IV 75 mls/hr .[id number] [facility] Administration Norepinephrine Bitartrate 4 mg 254 mls @ 17.282 mls/hr 09/04/20 05:15 09/04/20 11:15 / Sodium Chloride IV 0.22 mcg/kg/min .[id number] MIKE 76.04 mls/hr Titration Protocol 0.05 MCG/KG/MIN Diltiazem HCl 125 mg/ Sodium 125 mls @ 0 mls/hr 09/04/20 10:00 09/04/20 10:58 Chloride IV 5 ml/hr .Q0M [facility] 5 mls/hr Administration Protocol Per Protocol Norepinephrine Bitartrate 8 mg 258 mls @ 8.777 mls/hr 09/04/20 10:45 09/04/20 10:43 / Sodium Chloride IV 0.1 mcg/kg/min .Q24H [facility] 17.554 mls/hr Administration Protocol 0.05 MCG/KG/MIN Insulin Aspart 0 unit 09/04/20 16:00 Insulin Aspart (Novolog) 100 Unit/Ml Vial SQ Q4H [facility] Protocol Levothyroxine Sodium 100 mcg 09/03/20 06:30 09/04/20 06:28 Levothyroxine 100 Mcg Tab PO 100 mcg DAILY@0630 [facility] Administration Miscellaneous Information 1 each 09/04/20 10:25 Potassium Replacement Protocol 1 Each Misc MISCELLANE DAILY PRN Per Protocol Protocol Naloxone HCl 0.2 mg 09/02/20 08:56 Naloxone 0.4 Mg/Ml 1 Ml Vial IV Q2M PRN Opioid Reversal Pantoprazole Sodium 40 mg 09/04/20 09:00 09/04/20 09:08 Pantoprazole 40 Mg/10 Ml Vial IVP 40 mg Q24HR [facility]KE Administration Intake and Output 09/04/20 09/04/20 09/04/20 06:59 14:59 22:59 Intake Total 2450.533 2330.116 Output Total 565 220 Balance 5269.694 1327.116 Intake: IV 2375 1960 Dextrose 5% in Water 1, 150 525 000 ml @ 75 mls/hr IV . [id number] [facility] with Sodium Bicarb (1 Meq/ml) 100 ml Rx#:[id number] Piperacillin-Tazobactam 3 100 .375 gm In Sodium Chloride 0.9% 100 ml @ 25 mls/hr IVPB Q8HR [facility] Rx# :[id number] Sodium Chloride 0.9% 1, 225 335 000 ml @ 20 mls/hr IV . Q24H [facility] Rx#:[id number] Sodium Chloride 0.9% 1, 2000 1000 000 ml @ 999 mls/hr IV . Q1H1M [facility] Rx#:[id number] Intake, IV Titration 75.533 370.116 Amount Norepinephrine 4 mg In 3.456 173.049 Sodium Chloride 0.9% 250 ml @ 0.05 MCG/KG/MIN 17. 282 mls/hr IV .[id number] [facility] Rx#:[id number] propofoL 1,000 mg In 72.077 197.067 Empty Bag 1 bag @ Titrate IV .Q0M [facility] Rx#: [id number] Output: Urine 565 220 Other: Voiding Method Indwelling Catheter Indwelling Catheter Weight 90.718 kg Patient Weight 09/05/20 06:59 Weight 90.718 kg 09/04/20 03:58 09/04/20 03:58 EKG Interpretations (text) Atrial fibrillation with RVR Assessment and Plan (1) Atrial fibrillation with RVR Current Visit: Yes Status: Acute Code(s): I48.91 - UNSPECIFIED ATRIAL FIBRILLATION SNOMED Code(s): 526943698182728 (2) MARLON (acute kidney injury) Current Visit: Yes Status: Acute Code(s): N17.9 - ACUTE KIDNEY FAILURE, UNSPECIFIED SNOMED Code(s): 97157976 (3) Pneumonia due to COVID-19 virus Current Visit: Yes Status: Acute Code(s): U07.1 - COVID-19; J12.82 - Pneumonia due to coronavirus disease 2019 SNOMED Code(s): 220231379724475930 (4) CAD (coronary artery disease) Current Visit: Yes Status: Acute Code(s): I25.10 - ATHSCL HEART DISEASE OF [place] CORONARY ARTERY W/O ANG PCTRS SNOMED Code(s): 20896539 Plan: Continue with current medical therapy. Get an echocardiogram. Further recommendations depend upon the clinical course. Prognosis is poor
[2020-09-04] MEDS: INSULIN ASPART (NovoLOG) 100 UNIT/ML VIAL SQ SCH ×2 (16:50→20:18)
--- NOTE | 2020-09-04 17:00 | ECHOF ---
Referral Reason:bacteremia, covid MEASUREMENTS -------- HEIGHT: 182.9 cm WEIGHT: 90.7 kg BP: RVIDd: 3.7 cm (< 3.3) IVSd: 1.0 cm (0.6 - 1.1) LVIDd: 4.1 cm (3.9 - 5.3) LVPWd: 1.0 cm (0.6 - 1.1) IVSs: 1.4 cm LVIDs: 2.4 cm LVPWs: 1.4 cm Ao Diam: 3.0 cm (2.0 - 3.7) MV EXCURSION: 15.692 mm (> 18.000) MV EF SLOPE: 59 mm/s (70 - 150) EPSS: 2.5 cm RAP: 5.00 mmHg RVSP: 37.85 mmHg FINDINGS -------- Sinus rhythm. Pt is Covid positive. The left ventricular size is normal. There is mild concentric left ventricular hypertrophy. Overa ll left ventricular systolic function is low-normal with, an EF between 50 - 55 %. The right ventricle is moderately enlarged. The left atrial size is normal. The right atrial size is normal. The aortic valve was not well visualized. Mild mitral regurgitation is present. Mild tricuspid regurgitation present. There is mild pulmonary hypertension. The pulmonic valve was not well visualized. The aortic root size is normal. There is no pericardial effusion. CONCLUSIONS -------- 1. Pt is Covid positive. 2. The left ventricular size is normal. 3. There is mild concentric left ventricular hypertrophy. 4. Overall left ventricular systolic function is low-normal with, an EF between 50 - 55 %. 5. The right ventricle is moderately enlarged. 6. The left atrial size is normal. 7. The right atrial size is normal. 8. The aortic valve was not well visualized. 9. Mild mitral regurgitation is present. 10. Mild tricuspid regurgitation present. 11. There is mild pulmonary hypertension. 12. The pulmonic valve was not well visualized. 13. The aortic root size is normal. 14. There is no pericardial effusion. INCIDENT RESPONSE MANAGER: Sabrina Rodriguez RDCS
[2020-09-04] MEDS: ENOXAPARIN 60 MG/0.6 ML SYRINGE SQ SCH (20:10)
[2020-09-04 20:14] LABS: Glucose,Whole Blood 233 mg/dL (75-99)
[2020-09-04] MEDS: ATORVASTATIN 40 MG TAB PO SCH (20:18)
[2020-09-04] MEDS: LEVOFLOXACIN 250MG-D5W PMX 250 MG in DEXTROSE/WATER 1 50ML.BAG IVPB SCH (22:46)
[2020-09-05 01:11] LABS: Glucose,Whole Blood 185 mg/dL (75-99)
[2020-09-05] MEDS: INSULIN ASPART (NovoLOG) 100 UNIT/ML VIAL SQ SCH ×6 (01:13→20:18)
[2020-09-05] MEDS: NOREPINEPHRINE 8 MG in SODIUM CHLORIDE 0.9% 250 ML IV SCH ×2 (01:52→10:08)
[2020-09-05 03:52] LABS: Glucose,Whole Blood 203 mg/dL (75-99)
[2020-09-05 04:23] LABS: Basophils % (A) 0 %; Eosinophils % (A) 0 %; HCT 32.7 % (39.0-53.0); HGB 10.8 gm/dL (13.0-17.5); Lymphocytes # (A) 0.2 k/uL (1.0-4.8); Lymphocytes % (A) 1 %; MCH 32.4 pg (25.0-35.0); MCHC 32.9 g/dL (31.0-37.0); MCV 98.3 fL (80.0-100.0); Mean Platelet Volume 10.3; Monocytes # (A) 0.7 k/uL (0-1.0); Monocytes % (A) 2 %; Neutrophils # (A) 27.2 k/uL (1.3-7.7); Neutrophils % (A) 96 %; Platelet Count 123 k/uL (150-450); RBC 3.32 m/uL (4.30-5.90); RDW 14.8 % (11.5-15.5); WBC 28.3 k/uL (3.8-10.6)
[2020-09-05 04:56] LABS: Calcium 7.2 mg/dL (8.4-10.2); Potassium 3.2 mmol/L (3.5-5.1)
[2020-09-05 05:53] LABS: ABG HCO3 13 mmol/L (21-25); ABG Oxygen Saturation 98.7 % (94-97); ABG PCO2 30 mmHg (35-45); ABG PH 7.23 (7.35-7.45); ABG PO2 124 mmHg (83-108); ABG TCO2 14 mmol/L (19-24); Allen Test Performed? Yes
[2020-09-05 06:25] LABS: Glucose,Whole Blood 209 mg/dL (75-99)
[2020-09-05] MEDS: LEVOTHYROXINE 100 MCG TAB PO SCH (06:41)
--- NOTE | 2020-09-05 07:08 | XR ---
EXAMINATION TYPE: XR chest 1V portable DATE OF EXAM: 09/05/2020 COMPARISON: 09/04/2020 HISTORY: Tube placement TECHNIQUE: Single frontal view of the chest is obtained. FINDINGS: There is an NG tube in the stomach. There is an ET tube approximately 5.4 cm above the car gagan. There is a central venous catheter the tip of which is in the SVC/RA junction, unchanged in posi tion. There is moderate elevation the right hemidiaphragm. There is mild interstitial prominence in the rig ht upper lobe likely reflecting mild interstitial scarring or fibrosis, unchanged compared to the yoanna or study. Left lung is essentially clear however there is a small left pleural effusion which is stab le. IMPRESSION: ET tube 5.4 cm above the rochelle. No change in the left central venous catheter or NG tub e. No change in the small left pleural effusion or outer elevation of the right hemidiaphragm.
[2020-09-05] MEDS: ALBUTEROL HFA INHALER INHALATION SCH ×4 (07:48→21:42)
[2020-09-05] MEDS: ACETAMINOPHEN TAB 500 MG TAB PO SCH (08:08)
[2020-09-05] MEDS: PIPERACILLIN-TAZOBACTAM 3.375 GM in SODIUM CHLORIDE 0.9% 100 ML IVPB SCH ×3 (08:08→23:43)
[2020-09-05] MEDS: ASPIRIN 81 MG PO SCH (08:09)
[2020-09-05] MEDS: PANTOPRAZOLE 40 MG/10 ML VIAL IVP SCH (08:09)
[2020-09-05] MEDS: CHOLECALCIFEROL 25 MCG (1000 IU) TABLET PO SCH (08:09)
[2020-09-05] MEDS: ENOXAPARIN 60 MG/0.6 ML SYRINGE SQ SCH (08:09)
[2020-09-05] MEDS: CHLORHEXIDINE GLUCONATE 15 ML CUP MUCOUS MEM SCH ×2 (08:09→20:21)
[2020-09-05] MEDS: DEXAMETHASONE SOD PHOSPHATE 10 MG/ML 1 ML VIAL IV SCH (08:09)
[2020-09-05 08:33] LABS: Glucose,Whole Blood 212 mg/dL (75-99)
[2020-09-05] MEDS ORDERED: Potassium Replacement Protocol 1 EACH MISC MISCELLANE PRN (08:58)
[2020-09-05] MEDS ORDERED: SODIUM BICARB 8.4% 50 ML SYR (1 MEQ/ML) IV STA (09:45)
[2020-09-05] MEDS: POTASSIUM BICARBONATE/CIT AC 20 MEQ TABLET.EFF NG-TUBE SCH ×2 (09:57→10:23)
--- NOTE | 2020-09-05 10:12 | P.PN ---
Subjective Progress Note Date: 09/05/20 HISTORY OF PRESENT ILLNESS This is an 85-year-old male patient of Dr. Andrei Vasquez with past medical history of hyperlipidemia, hypothyroidism, bladder cancer, coronary artery dis ease status post stent, diagnosed with Covid 19 pneumonia status post Bamlanivimab and subsequently admitted from August 27 through September 01 which time he was treated for acute hypoxic respiratory failure secondary to Covid 19 pneumonia, acute kidney injury, discharged home with home care. Apparently patient was at home but became very dyspneic and pulse ox dropped to 88%, patient not had anything to eat or drink since he left the hospital. EMS was contacted and patient was brought into the emergency center for evaluation. She complains of feeling tired. He was found to be afebrile, heart rate 98, blood pressure 114/65, pulse ox 90% on 2 L nasal cannula. WBC 20.5, hemoglobin 12.1, platelet count 148. Sodium 138, potassium 2.9, chloride 113, CO2 15, BUN 59 creatinine 2.52. Blood sugar 147. ALT 77. LDH 639. Albumin 2.7. Lactic acid 2.0. Magnesium 2.1. CK 74. EKG was a sinus rhythm with no acute ST changes. Patient was given 1 L of IV fluid and potassium was replaced. 09/03: Patient has not eating any meals since admission. He is oriented 3 but noted to have significant short-term memory deficit and having difficulty following instructions. Social work is following for discharge planning. Family is planning for patient to come home with [facility] and does not want to consider rehab. PT and OT clearly recommend subacute rehab. Patient has been afebrile, heart rate 94, blood pressure 120/73, pulse ox 94% on high flow nasal cannula at 4 L. Repeat blood work reveals WBC 30.3, hemoglobin 12.6, platelet count 143. Lactic acid 1.8. Chemistry results are not up at the time of this dictation at 2 10 in the afternoon. Repeat blood work will be ordered for the morning. Anticipate possible discharge tomorrow 09/04: A-Team was called this morning due to difficulty breathing and hypoxia. Patient was tachycardic and diaphoretic. Heart rate was in the 130s. Patient was placed on BiPAP but he could not tolerate and became very anxious. Patient was given Ativan with no improvement. Pulse ox was low 70s and he was transferred to the intensive care unit and intubated and placed on mechanical ventilation. Patient was found to be in A. fib with RVR and cardiology consult was added as well as pulmonary medicine was added during the night. Patient was started on Cardizem bolus and drip. Lovenox increased to 45 mg twice daily, Decadron 6 mg IV daily. Patient has been started on norepinephrine 09/05: Patient seen in ICU use on mechanical intubation FiO2 55, PEEP 10, tidal volume 100, respiratory rate 24. Patient remains afebrile, heart rate 65 and irregular H or fibrillation noted to the monitor, respiration rate 28, blood pressure 105/68 97% on mechanical ventilation. Patient remains in atrial fibrillation. C 23.8, hemoglobin 10.8, potassium 3.2, BUN 81, creatinine 4.57. REVIEW OF SYSTEMS Unable to obtain due to intubation. PHYSICAL EXAMINATION Gen: This is an 85-year-old male patient, patient in ICU bed and appears to be comfortable at rest. HEENT: Head is atraumatic, normocephalic. Pupils equal, round. Sclerae is anicteric. NECK: Supple. No JVD. No lymphadenopathy. No thyromegaly. LUNGS: Clear to auscultation. No wheezes or rhonchi. No intercostal retractions. HEART: Regular rate and rhythm. No murmur. ABDOMEN: Soft. Bowel sounds are present. No masses. No tenderness. Laws catheter in place. EXTREMITIES: No pedal edema. No calf tenderness. NEUROLOGICAL: Patient is awake, alert and oriented x3. Cranial nerves 2 through 12 are grossly intact. Patient is slow to respond. ASSESSMENT AND PLAN 1. Acute hypoxic respiratory failure secondary to Covid 19 pneumonitis. Continue oxygen therapy. Continue vitamin supplements, albuterol inhaler 2 puffs 4 times daily, dexamethasone 4 mg daily, Lovenox 40 mg subcu daily, Questran 4 g twice daily. 2. Acute kidney injury secondary to dehydration and lack of oral intake and diarrhea. Hold Lasix. Continue IV fluids 0.9 normal saline at 75 mL per hour. Recheck electrolytes and renal function in the morning. Patient started on Questran. Consult nephrology appreciated. 3. Sepsis, septic shock and gram-negative bacteremia, POA. Continue Zosyn and Levaquin. 4. Urinary tract infection with E. coli bacteremia. 5. Transaminitis secondary to COVID-19, hypotension Generalized debilitation. PT and OT consults, social work consult for subacute rehab. 6. New-onset A. fib with RVR. Patient started on Cardizem bolus followed by drip. Cardiology consult. Continue Lovenox 45 mg subcu twice daily. 7. Hyperlipidemia. Continue Lipitor 40 mg at bedtime. 8. Hypertension. Patient is currently hypotensive. 9. Gastroesophageal reflux disease and GI prophylaxis. Continue Protonix 40 mg IVP daily. 10. Hypothyroidism. Continue levothyroxine 100 g daily. 11. Chronic gout. 12. DVT prophylaxis. Lovenox subcu. Prognosis is guarded. DISCHARGE PLAN To be determined. Family has been adamant that they want the patient to return home.. Impression and plan of care have been directed as dictated by the signing physician. Lorelei Francisco nurse practitioner acting as scribe for signing physician. Objective - Vital Signs Vital signs: Vital Signs Temp 98.6 F 09/05/20 04:00 Pulse 77 09/05/20 06:00 Resp 26 H 09/05/20 06:00 BP 114/65 09/05/20 06:00 Pulse Ox 98 09/05/20 06:00 Intake & Output 09/04/20 09/05/20 09/05/20 18:59 06:59 18:59 Intake Total 3334.906 2339.569 220.356 Output Total 354 351 30 Balance 2980.906 1988.569 190.356 Weight 90.718 kg 103.5 kg Intake: IV 2589 1362 101 Dextrose 5% in Water 1, 900 900 75 000 ml @ 75 mls/hr IV . [id number] [facility] with Sodium Bicarb (1 Meq/ml) 100 ml Rx#:[id number] Levofloxacin 250Mg-D5w 50 Pmx 250 mg In Dextrose/ Water 1 50ml.bag @ 50 mls /hr IVPB Q24H [facility] Rx#: [id number] Piperacillin-Tazobactam 3 200 100 .375 gm In Sodium Chloride 0.9% 100 ml @ 25 mls/hr IVPB Q8HR [facility] Rx# :[id number] Pressure Bags 54 72 6 Sodium Chloride 0.9% 1, 435 240 20 000 ml @ 20 mls/hr IV . Q24H [facility] Rx#:[id number] Sodium Chloride 0.9% 1, 1000 000 ml @ 999 mls/hr IV . Q1H1M [facility] Rx#:[id number] Intake, IV Titration 580.906 497.569 89.356 Amount Norepinephrine 4 mg In 250.544 Sodium Chloride 0.9% 250 ml @ 0.05 MCG/KG/MIN 17. 282 mls/hr IV .[id number] [facility] Rx#:[id number] Norepinephrine 8 mg In 33.295 235.398 Sodium Chloride 0.9% 250 ml @ 0.05 MCG/KG/MIN 8. 777 mls/hr IV .Q24H [facility] Rx#:[id number] propofoL 1,000 mg In 297.067 262.171 89.356 Empty Bag 1 bag @ Titrate IV .Q0M [facility] Rx#: [id number] Tube Feeding 105 330 30 Other 60 150 Output: Urine 354 351 30 Other: Voiding Method Indwelling Catheter Indwelling Catheter ABP, PAP, CO, CI - Last Documented Arterial Blood Pressure 117/48 - Labs CBC & Chem 7: 09/05/20 03:47 09/05/20 03:47 Labs: Abnormal Lab Results - Last 24 Hours (Table) 09/04/20 09/04/20 09/04/20 Range/Units 03:58 11:52 15:52 WBC (3.8-10.6) k/uL RBC (4.30-5.90) m/uL Hgb (13.0-17.5) gm/dL Hct (39.0-53.0) % Plt Count (150-450) k/uL Neutrophils # (1.3-7.7) k/uL Lymphocytes # (1.0-4.8) k/uL D-Dimer (<0.60) mg/L FEU ABG pH (7.35-7.45) ABG pCO2 (35-45) mmHg ABG pO2 (83-108) mmHg ABG HCO3 (21-25) mmol/L ABG Total CO2 (19-24) mmol/L ABG O2 Saturation (94-97) % Sodium (137-145) mmol/L Potassium (3.5-5.1) mmol/L Chloride (98-107) mmol/L Carbon Dioxide (22-30) mmol/L BUN (9-20) mg/dL Creatinine (0.66-1.25) mg/dL Glucose (74-99) mg/dL POC Glucose (mg/dL) 194 H 214 H (75-99) mg/dL Calcium (8.4-10.2) mg/dL Ferritin 1466.0 H (22.0-322.0) ng/mL 09/04/20 09/05/20 09/05/20 Range/Units 20:12 01:10 03:47 WBC 28.3 H (3.8-10.6) k/uL RBC 3.32 L (4.30-5.90) m/uL Hgb 10.8 L (13.0-17.5) gm/dL Hct 32.7 L (39.0-53.0) % Plt Count 123 L (150-450) k/uL Neutrophils # 27.2 H (1.3-7.7) k/uL Lymphocytes # 0.2 L (1.0-4.8) k/uL D-Dimer (<0.60) mg/L FEU ABG pH (7.35-7.45) ABG pCO2 (35-45) mmHg ABG pO2 (83-108) mmHg ABG HCO3 (21-25) mmol/L ABG Total CO2 (19-24) mmol/L ABG O2 Saturation (94-97) % Sodium (137-145) mmol/L Potassium (3.5-5.1) mmol/L Chloride (98-107) mmol/L Carbon Dioxide (22-30) mmol/L BUN (9-20) mg/dL Creatinine (0.66-1.25) mg/dL Glucose (74-99) mg/dL POC Glucose (mg/dL) 233 H 185 H (75-99) mg/dL Calcium (8.4-10.2) mg/dL Ferritin (22.0-322.0) ng/mL 09/05/20 09/05/20 09/05/20 Range/Units 03:47 03:47 03:51 WBC (3.8-10.6) k/uL RBC (4.30-5.90) m/uL Hgb (13.0-17.5) gm/dL Hct (39.0-53.0) % Plt Count (150-450) k/uL Neutrophils # (1.3-7.7) k/uL Lymphocytes # (1.0-4.8) k/uL D-Dimer 3.35 H (<0.60) mg/L FEU ABG pH (7.35-7.45) ABG pCO2 (35-45) mmHg ABG pO2 (83-108) mmHg ABG HCO3 (21-25) mmol/L ABG Total CO2 (19-24) mmol/L ABG O2 Saturation (94-97) % Sodium 135 L (137-145) mmol/L Potassium 3.2 L (3.5-5.1) mmol/L Chloride 112 H (98-107) mmol/L Carbon Dioxide 12 L (22-30) mmol/L BUN 81 H (9-20) mg/dL Creatinine 4.57 H (0.66-1.25) mg/dL Glucose 208 H (74-99) mg/dL POC Glucose (mg/dL) 203 H (75-99) mg/dL Calcium 7.2 L (8.4-10.2) mg/dL Ferritin (22.0-322.0) ng/mL 09/05/20 09/05/20 09/05/20 Range/Units 05:50 06:14 08:32 WBC (3.8-10.6) k/uL RBC (4.30-5.90) m/uL Hgb (13.0-17.5) gm/dL Hct (39.0-53.0) % Plt Count (150-450) k/uL Neutrophils # (1.3-7.7) k/uL Lymphocytes # (1.0-4.8) k/uL D-Dimer (<0.60) mg/L FEU ABG pH 7.23 L (7.35-7.45) ABG pCO2 30 L (35-45) mmHg ABG pO2 124 H (83-108) mmHg ABG HCO3 13 L (21-25) mmol/L ABG Total CO2 14 L (19-24) mmol/L ABG O2 Saturation 98.7 H (94-97) % Sodium (137-145) mmol/L Potassium (3.5-5.1) mmol/L Chloride (98-107) mmol/L Carbon Dioxide (22-30) mmol/L BUN (9-20) mg/dL Creatinine (0.66-1.25) mg/dL Glucose (74-99) mg/dL POC Glucose (mg/dL) 209 H 212 H (75-99) mg/dL Calcium (8.4-10.2) mg/dL Ferritin (22.0-322.0) ng/mL Microbiology - Last 24 Hours (Table) 09/04/20 09:45 Blood Culture Gram Stain - Preliminary Blood 09/04/20 09:51 Blood Culture Gram Stain - Preliminary Blood 09/04/20 09:45 Blood Culture - Final Blood 09/04/20 09:51 Blood Culture - Final Blood 09/04/20 03:15 Urine Culture - Preliminary Urine,Voided 09/03/20 07:35 Blood Culture Gram Stain - Preliminary Blood Blood Culture - Preliminary Escherichia coli
[2020-09-05] MEDS: APIXABAN 2.5 MG TABLET PO SCH ×2 (10:23→20:21)
--- NOTE | 2020-09-05 10:23 | P.NPCON ---
History of Present Illness - Reason for Consult Consult date: 09/05/20 acute renal failure - Chief Complaint Shortness of breath - History of Present Illness Admitted to the hospital with worsening shortness of breath. Recently diagnosed with Covid 19 pneumonia on August 27 status post BAM, requiring minimal oxygen on the floor. He was discharged on September 01 readmitted with hypoxic respiratory failure, currently in ICU with minimal vent settings. He is also in shock on levo fed. Urine output of 20-30 mL an hour. Baseline creatinine is 1.5-1.6 with history of chronic kidney disease stage III. Previously admitted with a peak creatinine of 2.6 improved to 1.5 at discharge. We did with a creatinine of 2.5, slowly creeping to 4.5 MG per DL today. Documented hypotensive episodes. No nausea vomiting diarrhea. No recent contrast studies or NSAID use. 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, hypothyroidism,gout History of Any Multi-Drug Resistant Organisms: None Reported Past Surgical History: Bladder Surgery, Heart Catheterization With Stent, Hernia Repair Additional Past Surgical History / Comment(s): bladder reconstruction surgery Past Anesthesia/Blood Transfusion Reactions: No Reported Reaction Date of Last Stent Placement:: patient unable to state Past Psychological History: No Psychological Hx Reported Smoking Status: Never smoker Past Alcohol Use History: None Reported Past Drug Use History: None Reported - Past Family History Father Family Medical History: Unable to Obtain Medications and Allergies Home Medications Medication Instructions Recorded Confirmed Type Acetaminophen Tab [Tylenol] 1,000 mg PO DAILY 08/26/20 09/02/20 History Acetaminophen/Diphenhydramine 2 tab PO HS 08/26/20 09/02/20 History [Tylenol PM 500-25mg] Allopurinol [Zyloprim] 200 mg PO DAILY 08/26/20 09/02/20 History Aspirin EC [Ecotrin Low Dose] 40.5 mg PO DAILY 08/26/20 09/02/20 History Atorvastatin [Lipitor] 40 mg PO HS 08/26/20 09/02/20 History Docusate [Colace] 100 - 200 mg PO DAILY PRN 08/26/20 09/02/20 History Furosemide [Lasix] 40 mg PO DAILY 08/26/20 09/02/20 History Lani's Leg Cramps 1 - 2 tab SUBLINGUAL Q4H PRN 08/26/20 09/02/20 History Levothyroxine Sodium [Synthroid] 100 mcg PO DAILY 08/26/20 09/02/20 History Ubidecarenone [Co Q-10] 200 mg PO DAILY 08/26/20 09/02/20 History Acetaminophen Tab [Tylenol] 650 mg PO Q6HR PRN tab 09/01/20 09/02/20 Rx Albuterol Inhaler [Ventolin Hfa 2 puff INHALATION RT-QID #1 puff 09/01/20 09/02/20 Rx Inhaler] Ascorbic Acid [Vitamin C] 500 mg PO BID tab 09/01/20 09/02/20 Rx Cholecalciferol [Vitamin D3 (25 125 mcg PO DAILY tablet 09/01/20 09/02/20 Rx Mcg = 1000 Iu)] Dexamethasone [Decadron] 4 mg PO AC-BRKFST #7 tablet 09/01/20 09/02/20 Rx Pantoprazole [Protonix] 40 mg PO AC-BRKFST #30 tablet.dr 09/01/20 09/02/20 Rx guaiFENesin [Mucinex] 600 mg PO Q12HR tablet.er 09/01/20 09/02/20 Rx hydrALAZINE HCL [Apresoline] 25 mg PO BID #60 tab 09/01/20 09/02/20 Rx Allergies Allergy/AdvReac Type Severity Reaction Status Date / Time tamsulosin [From Flomax] Allergy Unknown Verified 09/02/20 08:30 zolpidem [From Ambien] Allergy Unknown Verified 09/02/20 08:30 Physical Exam Vitals: Vital Signs Temp Pulse Resp BP Pulse Ox 09/05/20 06:00 77 26 H 114/65 98 09/05/20 05:30 73 25 H 106/59 98 09/05/20 05:00 68 24 99/63 96 09/05/20 04:30 66 26 H 104/66 96 09/05/20 04:00 98.6 F 65 28 H 105/68 97 09/05/20 03:30 72 25 H 106/67 97 09/05/20 03:00 73 26 H 97 09/05/20 02:30 78 25 H 104/71 97 09/05/20 02:00 73 25 H 91/61 98 09/05/20 01:30 67 24 98/63 97 09/05/20 01:00 75 25 H 110/68 96 09/05/20 00:30 81 26 H 97/61 98 09/05/20 00:00 97.8 F 68 25 H 100/59 96 09/04/20 23:30 80 26 H 97 09/04/20 23:00 79 25 H 95/65 96 09/04/20 22:30 81 25 H 97 09/04/20 22:00 69 27 H 87/55 97 09/04/20 21:30 73 25 H 97 09/04/20 21:00 75 26 H 100/64 97 09/04/20 20:30 83 27 H 98 09/04/20 20:00 98.0 F 91 28 H 95/56 96 09/04/20 19:30 89 23 97 09/04/20 19:00 88 17 97 09/04/20 18:30 84 18 96 09/04/20 18:00 89 18 97 09/04/20 17:30 101 H 15 96 09/04/20 17:00 89 20 97 09/04/20 16:30 100 26 H 109/71 100 09/04/20 16:00 96.8 F L 89 19 98 09/04/20 15:30 90 29 H 98 09/04/20 15:00 99 32 H 97 09/04/20 14:30 97 48 H 98 09/04/20 14:00 103 H 19 97 09/04/20 13:30 110 H 19 96 09/04/20 13:00 112 H 24 95 09/04/20 12:30 110 H 24 94 L 09/04/20 12:00 97.9 F 104 H 24 95 09/04/20 11:30 98 24 95 09/04/20 11:00 123 H 24 96 09/04/20 10:30 120 H 16 97 Intake and Output 09/04/20 09/05/20 09/05/20 22:59 06:59 14:59 Intake Total 0184.676 2245.935 478.356 Output Total 233 232 30 Balance 9689.887 9417.935 448.356 Intake: IV 958 908 101 Dextrose 5% in Water 1, 600 600 75 000 ml @ 75 mls/hr IV . [id number] [facility] with Sodium Bicarb (1 Meq/ml) 100 ml Rx#:[id number] Levofloxacin 250Mg-D5w 50 Pmx 250 mg In Dextrose/ Water 1 50ml.bag @ 50 mls /hr IVPB Q24H [facility] Rx#: [id number] Piperacillin-Tazobactam 3 100 100 .375 gm In Sodium Chloride 0.9% 100 ml @ 25 mls/hr IVPB Q8HR [facility] Rx# :[id number] Pressure Bags 48 48 6 Sodium Chloride 0.9% 1, 160 160 20 000 ml @ 20 mls/hr IV . Q24H [facility] Rx#:[id number] Intake, IV Titration 197.401 410.935 347.356 Amount Norepinephrine 8 mg In 10.767 235.398 258 Sodium Chloride 0.9% 250 ml @ 0.05 MCG/KG/MIN 8. 777 mls/hr IV .Q24H [facility] Rx#:[id number] propofoL 1,000 mg In 186.634 175.537 89.356 Empty Bag 1 bag @ Titrate IV .Q0M [facility] Rx#: [id number] Tube Feeding 150 240 30 Other 120 60 Output: Urine 233 232 30 Other: Voiding Method Indwelling Catheter Indwelling Catheter Weight 90.718 kg 103.5 kg ABP, PAP, CO, CI - Last 8 Hours Arterial Blood Pressure 117/48 Arterial Blood Pressure 113/48 Arterial Blood Pressure 105/52 Arterial Blood Pressure 100/49 Arterial Blood Pressure 100/47 Arterial Blood Pressure 105/51 Arterial Blood Pressure 98/50 Arterial Blood Pressure 100/51 COVID-19 isolation Refer to primary team exam Results - Lab Results Most recent lab results ABG pH 7.23 (7.35-7.45) L 09/05/20 05:50 ABG pCO2 30 mmHg (35-45) L 09/05/20 05:50 ABG pO2 124 mmHg (83-108) H 09/05/20 05:50 ABG HCO3 13 mmol/L (21-25) L 09/05/20 05:50 ABG O2 Saturation 98.7 % (94-97) H 09/05/20 05:50 Calcium 7.2 mg/dL (8.4-10.2) L 09/05/20 03:47 Magnesium 2.4 mg/dL (1.6-2.3) H 09/04/20 03:58 09/05/20 03:47 09/05/20 03:47 Assessment and Plan Assessment: #1 nonoliguric acute kidney injury suspect COVID-19/hemodynamic ATN. #2 septic shock on pressors #3 anion gap metabolic acidosis secondary to acute kidney injury #4 Covid 19 pneumonia on ventilator #5 chronic kidney disease stage III with a baseline creatinine of 1.5-1.6 MG per DL. Plan: #1 agree with bicarbonate drip. Monitor renal function closely. #2 no acute indication for renal replacement therapy at this time. #3 avoid nephrotoxic agents and hypotensive episodes. #4 ICU care
[2020-09-05] MEDS: DEXTROSE 5% IN WATER 1,000 ML with SODIUM BICARB (1 MEQ/ML) 150 ML IV SCH ×2 (10:31→20:38)
[2020-09-05 11:32] LABS: Glucose,Whole Blood 234 mg/dL (75-99)
--- NOTE | 2020-09-05 11:44 | P.PN ---
Subjective Progress Note Date: 09/05/20 Principal diagnosis: COVID-19 pneumonia, acute kidney injury, urinary tract infection, bacteremia This is an 85-year-old gentleman who follows with Dr. Preston as his primary care provider. He has a history of liver cancer, coronary artery disease with previous stent placement, hypothyroidism, hyperlipidemia. Lifelong nonsmoker. He was recently admitted to the hospital from [address] [place] [address] for symptoms related to COVID-19 pneumonia. He had been given BAM on 08/25/2020 in the ER and discharged home. Subsequently discharged again in 09/01/2020. He re-presented to the emergency room 09/02/2020 with generalized weakness, rapid breathing and poor appetite and oral intake. O2 saturations 88% on room air. He was admitted again to the regular medical floor. At 4:00 this morning the patient had increased work of breathing with hypoxemia and an A team was called. He is subsequently transferred to the intensive care unit requiring intubation and mechanical ventilatory support. He is seen today in consultation in the ICU. He is currently intubated on mechanical ventilator. Assist-control mode with a rate of 24, tidal volume 400, FiO2 100% and a PEEP of 5. Morning blood gases revealed a PaO2 102, pCO2 37, PT H7.13. Those were drawn on a rate of 20. Blood cultures are positive for E. coli. He is currently on Zosyn and Levaquin. He is sedated on propofol 50 mcg/kg/m. Norepinephrine at 9 mcg/m. 0.9 normal saline at 75 ML's per hour. D5W with 2 A of bicarb at 75 mL per hour. White count 21.6. Hemoglobin 11.9. D-dimer 7.19. Sodium 140. Potassium 3.3. C reatinine 3.76. Glucose 151. LDH 766. C-reactive protein 36.4. AST 60. ALT 91. Urinalysis with large leukocyte esterase and greater than 182 WBCs with many bacteria. Culture pending. He is currently on Lovenox 30 mg subcu daily, dexamethasone, bronchodilators. Sensory continues to show persistent bilateral lung opacities with small left pleural effusion. On 09/05/2020 patient seen in follow-up in the intensive care unit. He remains intubated and sedated on assist control mode of ventilation, with a rate of 24, tidal was 400, FiO2 of 55% and PEEP of 10. This morning's blood gas shows pO2 of 124, pCO2 of 30, and pH of 7.23. Patient was adequately fluid resuscitated yesterday, he received 3-1/2 L" boluses, he was started on Zosyn and Levaquin for evidence of E. coli bacteremia likely related to urinary tract infection, he is currently sedated on Diprivan at 50 mics per kilo per minute, he is on 0.9 normal saline at a rate of 20 ML per hour, Cardizem drip at 5 mg per hour, D5W with 2 A of sodium bicarb at a rate of 75 ML per hour, and he is on Levophed currently at 18 mics per minute. Yesterday he went into atrial fibrillation, he was tachycardic, and he was started on Cardizem drip, he remains in atrial fibrillation today, but the rate is controlled. Cardiology has been consulted. Today's labs have been reviewed, showing white blood cell count of 20.3, hemoglobin is 10.8, platelet count is 123, d-dimer is improved but still elevated at 3.35, patient is on Lovenox 40 mg twice daily, sodium is 135, potassium 3.2, chloride is 112, CO2 is 12, BUN of 81, creatinine is 4.57, and patient's renal function has significantly worsened since yesterday. He seems to be generally swollen, his abdomen is distended, and there is a positive fluid wave with the possibility of abdominal ascites on today's exam. His urine output has been in the order of 30 ML per hour, will consult nephrology. He is tolerating tube feedings and he is on vital high-protein at a rate of 38 with a goal of 45 ML, and standard water flushes. His chest x-ray today showed no change in the small left pleural effusion or elevation of the right hemidiaphragm. He remains on antibiotics with Zosyn and Levaquin, his follow-up blood cultures continue to be positive with gram-negative bacilli. Echocardiogram has been reviewed and showed EF between 50-55% Objective - Vital Signs Vital signs: Vital Signs Temp 98.2 F 09/05/20 08:00 Pulse 69 09/05/20 10:00 Resp 18 09/05/20 10:00 BP 94/61 09/05/20 10:00 Pulse Ox 94 L 09/05/20 10:00 Intake & Output 09/04/20 09/05/20 09/05/20 18:59 06:59 18:59 Intake Total 3334.906 2339.569 1278.526 Output Total 354 351 240 Balance 2980.906 2075.111 5285.526 Weight 90.718 kg 103.5 kg Intake: IV 2589 1362 504 Dextrose 5% in Water 1, 900 900 300 000 ml @ 75 mls/hr IV . [id number] [facility] with Sodium Bicarb (1 Meq/ml) 100 ml Rx#:[id number] Levofloxacin 250Mg-D5w 50 Pmx 250 mg In Dextrose/ Water 1 50ml.bag @ 50 mls /hr IVPB Q24H [facility] Rx#: [id number] Piperacillin-Tazobactam 3 200 100 100 .375 gm In Sodium Chloride 0.9% 100 ml @ 25 mls/hr IVPB Q8HR [facility] Rx# :[id number] Pressure Bags 54 72 24 Sodium Chloride 0.9% 1, 435 240 80 000 ml @ 20 mls/hr IV . Q24H [facility] Rx#:[id number] Sodium Chloride 0.9% 1, 1000 000 ml @ 999 mls/hr IV . Q1H1M [facility] Rx#:[id number] Intake, IV Titration 580.906 497.569 438.526 Amount Norepinephrine 4 mg In 250.544 Sodium Chloride 0.9% 250 ml @ 0.05 MCG/KG/MIN 17. 282 mls/hr IV .[id number] [facility] Rx#:[id number] Norepinephrine 8 mg In 33.295 235.398 258 Sodium Chloride 0.9% 250 ml @ 0.05 MCG/KG/MIN 8. 777 mls/hr IV .Q24H [facility] Rx#:[id number] propofoL 1,000 mg In 297.067 262.171 180.526 Empty Bag 1 bag @ Titrate IV .Q0M [facility] Rx#: [id number] Oral 200 Tube Feeding 105 330 136 Other 60 150 Output: Urine 354 351 240 Other: Voiding Method Indwelling Catheter Indwelling Catheter ABP, PAP, CO, CI - Last Documented Arterial Blood Pressure 78/37 - Exam GENERAL EXAM: 85-year-old white male, sedated, intubated on assist control mode of ventilation, with FiO2 of 55% and PEEP of 10 comfortable in no apparent distress. HEAD: Normocephalic/atraumatic. EYES: Normal reaction of pupils, equal size. Conjunctiva pink, sclera white. NOSE: Clear with pink turbinates. THROAT: No erythema or exudates. NECK: No masses, no JVD, no thyroid enlargement, no adenopathy. CHEST: No chest wall deformity. Symmetrical expansion. LUNGS: Equal air entry with no crackles, wheeze, rhonchi or dullness. CVS: Irregular rate and rhythm, normal S1 and S2, no gallops, no murmurs, no rubs ABDOMEN: Soft, nontender, abdominal distention, possibility of abdominal ascites is considered, abdominal ultrasound is pending. No hepatosplenomegaly, normal bowel sounds, no guarding or rigidity. EXTREMITIES: No clubbing, mild generalized edema, 1+ lower extremity edema, no cyanosis, 2+ pulses and upper and lower extremities. MUSCULOSKELETAL: Muscle strength and tone normal. SPINE: No scoliosis or deformity SKIN: No rashes CENTRAL NERVOUS SYSTEM: Sedated, intubated No focal deficits, tone is normal in all 4 extremities. - Labs CBC & Chem 7: 09/05/20 03:47 09/05/20 03:47 Labs: Abnormal Lab Results - Last 24 Hours (Table) 09/04/20 09/04/20 09/04/20 Range/Units 03:58 11:52 15:52 WBC (3.8-10.6) k/uL RBC (4.30-5.90) m/uL Hgb (13.0-17.5) gm/dL Hct (39.0-53.0) % Plt Count (150-450) k/uL Neutrophils # (1.3-7.7) k/uL Lymphocytes # (1.0-4.8) k/uL D-Dimer (<0.60) mg/L FEU ABG pH (7.35-7.45) ABG pCO2 (35-45) mmHg ABG pO2 (83-108) mmHg ABG HCO3 (21-25) mmol/L ABG Total CO2 (19-24) mmol/L ABG O2 Saturation (94-97) % Sodium (137-145) mmol/L Potassium (3.5-5.1) mmol/L Chloride (98-107) mmol/L Carbon Dioxide (22-30) mmol/L BUN (9-20) mg/dL Creatinine (0.66-1.25) mg/dL Glucose (74-99) mg/dL POC Glucose (mg/dL) 194 H 214 H (75-99) mg/dL Calcium (8.4-10.2) mg/dL Ferritin 1466.0 H (22.0-322.0) ng/mL 09/04/20 09/05/20 09/05/20 Range/Units 20:12 01:10 03:47 WBC 28.3 H (3.8-10.6) k/uL RBC 3.32 L (4.30-5.90) m/uL Hgb 10.8 L (13.0-17.5) gm/dL Hct 32.7 L (39.0-53.0) % Plt Count 123 L (150-450) k/uL Neutrophils # 27.2 H (1.3-7.7) k/uL Lymphocytes # 0.2 L (1.0-4.8) k/uL D-Dimer (<0.60) mg/L FEU ABG pH (7.35-7.45) ABG pCO2 (35-45) mmHg ABG pO2 (83-108) mmHg ABG HCO3 (21-25) mmol/L ABG Total CO2 (19-24) mmol/L ABG O2 Saturation (94-97) % Sodium (137-145) mmol/L Potassium (3.5-5.1) mmol/L Chloride (98-107) mmol/L Carbon Dioxide (22-30) mmol/L BUN (9-20) mg/dL Creatinine (0.66-1.25) mg/dL Glucose (74-99) mg/dL POC Glucose (mg/dL) 233 H 185 H (75-99) mg/dL Calcium (8.4-10.2) mg/dL Ferritin (22.0-322.0) ng/mL 09/05/20 09/05/20 09/05/20 Range/Units 03:47 03:47 03:51 WBC (3.8-10.6) k/uL RBC (4.30-5.90) m/uL Hgb (13.0-17.5) gm/dL Hct (39.0-53.0) % Plt Count (150-450) k/uL Neutrophils # (1.3-7.7) k/uL Lymphocytes # (1.0-4.8) k/uL D-Dimer 3.35 H (<0.60) mg/L FEU ABG pH (7.35-7.45) ABG pCO2 (35-45) mmHg ABG pO2 (83-108) mmHg ABG HCO3 (21-25) mmol/L ABG Total CO2 (19-24) mmol/L ABG O2 Saturation (94-97) % Sodium 135 L (137-145) mmol/L Potassium 3.2 L (3.5-5.1) mmol/L Chloride 112 H (98-107) mmol/L Carbon Dioxide 12 L (22-30) mmol/L BUN 81 H (9-20) mg/dL Creatinine 4.57 H (0.66-1.25) mg/dL Glucose 208 H (74-99) mg/dL POC Glucose (mg/dL) 203 H (75-99) mg/dL Calcium 7.2 L (8.4-10.2) mg/dL Ferritin (22.0-322.0) ng/mL 09/05/20 09/05/20 09/05/20 Range/Units 05:50 06:14 08:32 WBC (3.8-10.6) k/uL RBC (4.30-5.90) m/uL Hgb (13.0-17.5) gm/dL Hct (39.0-53.0) % Plt Count (150-450) k/uL Neutrophils # (1.3-7.7) k/uL Lymphocytes # (1.0-4.8) k/uL D-Dimer (<0.60) mg/L FEU ABG pH 7.23 L (7.35-7.45) ABG pCO2 30 L (35-45) mmHg ABG pO2 124 H (83-108) mmHg ABG HCO3 13 L (21-25) mmol/L ABG Total CO2 14 L (19-24) mmol/L ABG O2 Saturation 98.7 H (94-97) % Sodium (137-145) mmol/L Potassium (3.5-5.1) mmol/L Chloride (98-107) mmol/L Carbon Dioxide (22-30) mmol/L BUN (9-20) mg/dL Creatinine (0.66-1.25) mg/dL Glucose (74-99) mg/dL POC Glucose (mg/dL) 209 H 212 H (75-99) mg/dL Calcium (8.4-10.2) mg/dL Ferritin (22.0-322.0) ng/mL Microbiology - Last 24 Hours (Table) 09/03/20 07:35 Blood Culture Gram Stain - Final Blood Blood Culture - Final Escherichia coli 09/04/20 09:45 Blood Culture Gram Stain - Preliminary Blood 09/04/20 09:51 Blood Culture Gram Stain - Preliminary Blood 09/04/20 09:45 Blood Culture - Final Blood 09/04/20 09:51 Blood Culture - Final Blood 09/04/20 03:15 Urine Culture - Preliminary Urine,Voided Assessment and Plan Plan: Assessment: #1. Acute hypoxic respiratory failure multifactorial, related to acute sepsis and septic shock related to E. coli bacteremia, recent history of COVID-19 pneumonia #2. Acute gram-negative bacteremia secondary to E. coli, related to urinary tract infection #3. Recent hospitalization for COVID-19 pneumonia, status post BAM #4. New onset A. fib with RVR, patient was started on Cardizem, we'll start Eliquis today on 09/05/2020 #5. Elevated d-dimer, multifactorial, improving #6. Acute on chronic kidney disease #7. Non-anion gap metabolic acidosis related to acute kidney injury #8. Chronic kidney disease stage III #9. History of coronary artery disease with history of stenting #10. Hypertension #11. Hyperlipidemia #12. History of bladder cancer with surgical resection Plan: Blood gases and chest x-ray have been reviewed Drop FiO2 down to 45%, and we will gradually start weaning PEEP We will give 1 amp of sodium bicarbonate We'll increase the D5W with 3 A of bicarbonate at 125 ML per hour Consult nephrology Discontinue Lovenox and start the patient on Eliquis at 2-1/2 mg twice daily Patient continues to have positive blood cultures, consult infectious disease for antibiotic recommendations Obtain abdominal ultrasound to rule out possibility of ascites Continue tube feedings for nutritional support Wean norepinephrine Continue close monitoring in the intensive care unit I performed a history & physical examination of the patient and discussed their management with my nurse practitioner, Yovana Nazario. I reviewed the nurse practitioner's note and agree with the documented findings and plan of care. Lung sounds are positive for diminished breath sounds. The findings and the impression was discussed with the patient. I attest to the documentation by the nurse practitioner. Time with Patient: Greater than 30
--- NOTE | 2020-09-05 12:06 | US ---
EXAMINATION TYPE: US abdomen limited DATE OF EXAM: 09/05/2020 COMPARISON: NONE CLINICAL HISTORY: ascites. Ascites. No ascites visualized on today's exam. IMPRESSION: No free intraperitoneal fluid
[2020-09-05 15:39] LABS: Glucose,Whole Blood 254 mg/dL (75-99)
--- NOTE | 2020-09-05 15:52 | P.PN ---
Subjective Progress Note Date: 09/05/20 This is a 85-year-old gentleman who was readmitted with respiratory failure and evidence of pneumonia and also E. coli bacteremia. Patient patient had an episode of atrial fibrillation. Patient was started on IV Cardizem and also beta kinjal . Patient heart rate is controlled. Echo Cardigan showed normal LV function. His kidney functions are deteriorating. Nephrology consult is requested From Cardec standpoint we will can continue to beta kinjal and may discontinue Cardizem. Patient is on antibiotics and other measures. We'll follow Objective - Vital Signs Vital signs: Vital Signs Temp 97.8 F 09/05/20 12:00 Pulse 64 09/05/20 14:00 Resp 22 09/05/20 14:00 BP 112/65 09/05/20 14:00 Pulse Ox 95 09/05/20 14:00 Intake & Output 09/04/20 09/05/20 09/05/20 18:59 06:59 18:59 Intake Total 3334.906 2339.569 2300.089 Output Total 354 351 390 Balance 2980.906 6473.195 4479.089 Weight 90.718 kg 103.5 kg 103.5 kg Intake: IV 2589 1362 1108 Dextrose 5% in Water 1, 500 000 ml @ 125 mls/hr IV . Q9H12M [facility] with Sodium Bicarb (1 Meq/ml) 150 ml Rx#:[id number] Dextrose 5% in Water 1, 900 900 300 000 ml @ 75 mls/hr IV . [id number] [facility] with Sodium Bicarb (1 Meq/ml) 100 ml Rx#:[id number] Levofloxacin 250Mg-D5w 50 Pmx 250 mg In Dextrose/ Water 1 50ml.bag @ 50 mls /hr IVPB Q24H [facility] Rx#: [id number] Piperacillin-Tazobactam 3 200 100 100 .375 gm In Sodium Chloride 0.9% 100 ml @ 25 mls/hr IVPB Q8HR [facility] Rx# :[id number] Pressure Bags 54 72 48 Sodium Chloride 0.9% 1, 435 240 160 000 ml @ 20 mls/hr IV . Q24H [facility] Rx#:[id number] Sodium Chloride 0.9% 1, 1000 000 ml @ 999 mls/hr IV . Q1H1M [facility] Rx#:[id number] Intake, IV Titration 580.906 497.569 780.089 Amount Diltiazem 125 mg In 125 Sodium Chloride 0.9% 100 ml @ Per Protocol IV .Q0M [facility] Rx#:[id number] Norepinephrine 4 mg In 250.544 Sodium Chloride 0.9% 250 ml @ 0.05 MCG/KG/MIN 17. 282 mls/hr IV .[id number] [facility] Rx#:[id number] Norepinephrine 8 mg In 33.295 235.398 387.021 Sodium Chloride 0.9% 250 ml @ 0.05 MCG/KG/MIN 8. 777 mls/hr IV .Q24H [facility] Rx#:[id number] propofoL 1,000 mg In 297.067 262.171 268.068 Empty Bag 1 bag @ Titrate IV .Q0M [facility] Rx#: [id number] Oral 200 Tube Feeding 105 330 212 Other 60 150 Output: Urine 354 351 390 Other: Voiding Method Indwelling Catheter Indwelling Catheter Indwelling Catheter ABP, PAP, CO, CI - Last Documented Arterial Blood Pressure 110/43 - Exam This patient is on personally examined. Consultants notes were reviewed and information is gathered from the nurses - Labs CBC & Chem 7: 09/05/20 03:47 09/05/20 03:47 Labs: Abnormal Lab Results - Last 24 Hours (Table) 09/04/20 09/04/20 09/05/20 Range/Units 15:52 20:12 01:10 WBC (3.8-10.6) k/uL RBC (4.30-5.90) m/uL Hgb (13.0-17.5) gm/dL Hct (39.0-53.0) % Plt Count (150-450) k/uL Neutrophils # (1.3-7.7) k/uL Lymphocytes # (1.0-4.8) k/uL D-Dimer (<0.60) mg/L FEU ABG pH (7.35-7.45) ABG pCO2 (35-45) mmHg ABG pO2 (83-108) mmHg ABG HCO3 (21-25) mmol/L ABG Total CO2 (19-24) mmol/L ABG O2 Saturation (94-97) % Sodium (137-145) mmol/L Potassium (3.5-5.1) mmol/L Chloride (98-107) mmol/L Carbon Dioxide (22-30) mmol/L BUN (9-20) mg/dL Creatinine (0.66-1.25) mg/dL Glucose (74-99) mg/dL POC Glucose (mg/dL) 214 H 233 H 185 H (75-99) mg/dL Calcium (8.4-10.2) mg/dL 09/05/20 09/05/20 09/05/20 Range/Units 03:47 03:47 03:47 WBC 28.3 H (3.8-10.6) k/uL RBC 3.32 L (4.30-5.90) m/uL Hgb 10.8 L (13.0-17.5) gm/dL Hct 32.7 L (39.0-53.0) % Plt Count 123 L (150-450) k/uL Neutrophils # 27.2 H (1.3-7.7) k/uL Lymphocytes # 0.2 L (1.0-4.8) k/uL D-Dimer 3.35 H (<0.60) mg/L FEU ABG pH (7.35-7.45) ABG pCO2 (35-45) mmHg ABG pO2 (83-108) mmHg ABG HCO3 (21-25) mmol/L ABG Total CO2 (19-24) mmol/L ABG O2 Saturation (94-97) % Sodium 135 L (137-145) mmol/L Potassium 3.2 L (3.5-5.1) mmol/L Chloride 112 H (98-107) mmol/L Carbon Dioxide 12 L (22-30) mmol/L BUN 81 H (9-20) mg/dL Creatinine 4.57 H (0.66-1.25) mg/dL Glucose 208 H (74-99) mg/dL POC Glucose (mg/dL) (75-99) mg/dL Calcium 7.2 L (8.4-10.2) mg/dL 09/05/20 09/05/20 09/05/20 Range/Units 03:51 05:50 06:14 WBC (3.8-10.6) k/uL RBC (4.30-5.90) m/uL Hgb (13.0-17.5) gm/dL Hct (39.0-53.0) % Plt Count (150-450) k/uL Neutrophils # (1.3-7.7) k/uL Lymphocytes # (1.0-4.8) k/uL D-Dimer (<0.60) mg/L FEU ABG pH 7.23 L (7.35-7.45) ABG pCO2 30 L (35-45) mmHg ABG pO2 124 H (83-108) mmHg ABG HCO3 13 L (21-25) mmol/L ABG Total CO2 14 L (19-24) mmol/L ABG O2 Saturation 98.7 H (94-97) % Sodium (137-145) mmol/L Potassium (3.5-5.1) mmol/L Chloride (98-107) mmol/L Carbon Dioxide (22-30) mmol/L BUN (9-20) mg/dL Creatinine (0.66-1.25) mg/dL Glucose (74-99) mg/dL POC Glucose (mg/dL) 203 H 209 H (75-99) mg/dL Calcium (8.4-10.2) mg/dL 09/05/20 09/05/20 09/05/20 Range/Units 08:32 11:31 15:32 WBC (3.8-10.6) k/uL RBC (4.30-5.90) m/uL Hgb (13.0-17.5) gm/dL Hct (39.0-53.0) % Plt Count (150-450) k/uL Neutrophils # (1.3-7.7) k/uL Lymphocytes # (1.0-4.8) k/uL D-Dimer (<0.60) mg/L FEU ABG pH (7.35-7.45) ABG pCO2 (35-45) mmHg ABG pO2 (83-108) mmHg ABG HCO3 (21-25) mmol/L ABG Total CO2 (19-24) mmol/L ABG O2 Saturation (94-97) % Sodium (137-145) mmol/L Potassium (3.5-5.1) mmol/L Chloride (98-107) mmol/L Carbon Dioxide (22-30) mmol/L BUN (9-20) mg/dL Creatinine (0.66-1.25) mg/dL Glucose (74-99) mg/dL POC Glucose (mg/dL) 212 H 234 H 254 H (75-99) mg/dL Calcium (8.4-10.2) mg/dL Microbiology - Last 24 Hours (Table) 09/05/20 08:00 Sputum Culture - Preliminary Sputum 09/03/20 07:35 Blood Culture Gram Stain - Final Blood Blood Culture - Final Escherichia coli 09/04/20 09:45 Blood Culture Gram Stain - Preliminary Blood 09/04/20 09:51 Blood Culture Gram Stain - Preliminary Blood 09/04/20 09:45 Blood Culture - Final Blood 09/04/20 09:51 Blood Culture - Final Blood 09/04/20 03:15 Urine Culture - Preliminary Urine,Voided Assessment and Plan (1) Atrial fibrillation with RVR Current Visit: Yes Status: Acute Code(s): I48.91 - UNSPECIFIED ATRIAL FIBRILLATION SNOMED Code(s): 140908279462853 (2) MARLON (acute kidney injury) Current Visit: Yes Status: Acute Code(s): N17.9 - ACUTE KIDNEY FAILURE, UNSPECIFIED SNOMED Code(s): 71928930 (3) Pneumonia due to COVID-19 virus Current Visit: Yes Status: Acute Code(s): U07.1 - COVID-19; J12.82 - Pneumonia due to coronavirus disease 2019 SNOMED Code(s): 123585543491897058 (4) CAD (coronary artery disease) Current Visit: Yes Status: Acute Code(s): I25.10 - ATHSCL HEART DISEASE OF [place] CORONARY ARTERY W/O ANG PCTRS SNOMED Code(s): 06026475 Plan: Atrial fibrillation with controlled and corresponds. DC Cardizem and continue with beta kinjal. We'll follow
[2020-09-05 20:08] LABS: Glucose,Whole Blood 253 mg/dL (75-99)
[2020-09-05] MEDS: SODIUM CHLORIDE 0.9% 1,000 ML IV SCH (20:18)
[2020-09-05] MEDS: LEVOFLOXACIN 250MG-D5W PMX 250 MG in DEXTROSE/WATER 1 50ML.BAG IVPB SCH (20:18)
[2020-09-05] MEDS: ATORVASTATIN 40 MG TAB PO SCH (20:21)
[2020-09-06 00:11] LABS: Glucose,Whole Blood 238 mg/dL (75-99)
[2020-09-06] MEDS: INSULIN ASPART (NovoLOG) 100 UNIT/ML VIAL SQ SCH ×6 (00:18→20:21)
--- NOTE | 2020-09-06 00:33 | CONS ---
CONSULTATION DATE OF SERVICE: 09/05/2020 REASON FOR CONSULTATION: Bacteremia. HISTORY OF PRESENT ILLNESS: The patient is an 85-year-old male with a past medical history significant for coronary artery disease, hypertension, hyperlipidemia, history of bladder cancer, status post cectomy. The patient initially presented to hospital on August 26 with generalized weakness, nonproductive cough, shortness of breath. The patient was diagnosed with COVID and is receiving hormonal monoclonal antibodies infusion and was discharged home subsequently returning to hospital the next day with persistent weakness, hypoxemia, and acute renal failure. The patient was hospitalized for about a week and was discharged on September 01. Patient presenting back the next day with concern for the patient did not have anything to eat or drink. Has been complaining of rapid breathing and was noted to be hypoxic with O2 sats of 88% on room air. With these symptoms, the patient was brought back to the hospital on the . On arrival to the ER, the patient did have a low-grade fever of 100.3 degrees Fahrenheit. No fever has been recorded since then. The patient did have a sense of 19% on initial arrival to the hospital. The patient was admitted to the floor. Initially yesterday morning, A team was called with the patient having increased work of breathing, hypoxemia and was on non-rebreather. The patient was switched to BiPAP, given inhaler and has been transferred to the ICU. The patient subsequently ended up getting intubated. The patient did have an elevated white count 20,000 on admission and jumped up to 28,000 today. Did have elevated creatinine of 2.52, which is up to 4.57 now. The patient did have a positive UA with large leukocyte esterase, more than 1 to 2 WBC. The patient urine culture currently positive with E coli. Blood cultures showing a Gram-negative bacilli. The patient is currently being treated with Zosyn. Infectious Disease consulted for further management of his bacteremia. The patient last chest x-ray completed on the right hematoma from bilateral airspace disease noted. REVIEW OF SYSTEMS: Positive points have been mentioned in HPI. Complete review could not be obtained because the patient is intubated on the vent. PAST MEDICAL HISTORY: Bladder cancer, hyperlipidemia, hypertension, hypothyroidism, coronary artery disease, gout, . PAST SURGICAL HISTORY: Bladder surgery, PTCA with stent, hernia repair. SOCIAL HISTORY: No history of smoking, drinking or drug use. FAMILY HISTORY: No pertinent findings noticed. ALLERGIES: TO FLOMAX AND AMBIEN. MEDICATIONS: The patient is on Tylenol, Ventolin, Eliquis, aspirin, Lipitor, Decadron, Levofloxacin, Narcan, norepinephrine, Zosyn, propofol. EXAMINATION: His blood pressure is 115/72 with a pulse of 75, temperature 98.5. He is 95% on 45% FiO2. General description is an elderly male lying in bed in no distress. No tachypnea or respiration use. HEENT: Examination shows slight pallor. No scleral icterus. The patient is orally intubated. NECK: Trachea central. No thyromegaly. LUNGS: Unlabored breathing, decreased breath sounds in the base, with no wheeze or crackles. HEART S1, S2. Regular rate and rhythm. ABDOMEN: Soft, no distention or rigidity. No guarding. EXTREMITIES: No edema of the feet. SKIN: No rash or mass palpable. NEUROLOGIC: The patient has been sedated on the vent. LABS: Hemoglobin is 10.1, white count 28.3, BUN of 81, creatinine 4.57, potassium 3.2. Liver enzymes mildly elevated. Urine was positive blood. Urine showing a Gram-negative bacilli. DIAGNOSTIC IMPRESSION AND PLAN: Patient with acute respiratory failure which is multifactorial in this patient with recent diagnosis of COVID-19 pneumonia with readmission to the hospital with worsening of respiratory status and sepsis with initial the source of bacteremia is more likely urinary as the patient is growing the same pathogen in the urine in this patient who did have a history of bladder cancer status post cystectomy with worsening of the white cells we will face kidney function. Underlying obstructive uropathy needs to be ruled out, plus-minus aspiration pneumonitis. PLAN: 1. Obtain sputum for Gram stain and culture. 2. Obtain ultrasound of the kidneys bilaterally no evidence of any structural abnormality. 3. Zosyn 3.7 g q.12h to continue. 4. We will follow on his clinical condition and culture to further adjust medication if needed. Thank you for this consultation. Will follow this patient along with you. MMODL / IJN: [id number] /
[2020-09-06 04:02] LABS: Glucose,Whole Blood 260 mg/dL (75-99)
[2020-09-06 04:37] LABS: Basophils % (A) 0 %; Eosinophils % (A) 0 %; HCT 27.8 % (39.0-53.0); HGB 9.5 gm/dL (13.0-17.5); Lymphocytes # (A) 0.2 k/uL (1.0-4.8); Lymphocytes % (A) 1 %; MCH 32.6 pg (25.0-35.0); MCHC 34.1 g/dL (31.0-37.0); MCV 95.5 fL (80.0-100.0); Mean Platelet Volume 10.5; Monocytes # (A) 0.5 k/uL (0-1.0); Monocytes % (A) 4 %; Neutrophils # (A) 12.2 k/uL (1.3-7.7); RBC 2.91 m/uL (4.30-5.90); RDW 14.6 % (11.5-15.5)
[2020-09-06 04:38] LABS: Calcium 6.5 mg/dL (8.4-10.2); Potassium 2.9 mmol/L (3.5-5.1)
[2020-09-06 05:28] LABS: ABG Base Excess -7.5 mmol/L; ABG HCO3 19 mmol/L (21-25); ABG Oxygen Saturation 97.2 % (94-97); ABG PCO2 35 mmHg (35-45); ABG PH 7.33 (7.35-7.45); ABG PO2 92 mmHg (83-108); ABG TCO2 20 mmol/L (19-24); Allen Test Performed? Yes
[2020-09-06] MEDS: POTASSIUM BICARBONATE/CIT AC 20 MEQ TABLET.EFF NG-TUBE SCH ×5 (05:28→19:57)
[2020-09-06] MEDS: DEXTROSE 5% IN WATER 1,000 ML with SODIUM BICARB (1 MEQ/ML) 150 ML IV SCH ×2 (06:18→15:37)
[2020-09-06] MEDS: LEVOTHYROXINE 100 MCG TAB PO SCH (06:21)
[2020-09-06 06:28] LABS: Neutrophils % (A) 94 %
[2020-09-06 06:30] LABS: Large Platelets Present; Tear Drop Cells Present
[2020-09-06 06:31] LABS: Platelet Count 85 k/uL (150-450)
--- NOTE | 2020-09-06 07:14 | XR ---
EXAMINATION TYPE: XR chest 1V portable DATE OF EXAM: 09/06/2020 COMPARISON: 09/06/2019 HISTORY: Tube placement TECHNIQUE: Single frontal view of the chest is obtained. FINDINGS: ET and NG tube noted. Left-sided central line seen. There is bilateral interstitial and ba silar infiltrates with small effusion stable. Limited inspiration. Heart size normal. Atherosclerotic change aorta. IMPRESSION: Bilateral infiltrate and pleural effusion stable.
[2020-09-06] MEDS: DEXAMETHASONE SOD PHOSPHATE 10 MG/ML 1 ML VIAL IV SCH (08:09)
[2020-09-06] MEDS: CHOLECALCIFEROL 25 MCG (1000 IU) TABLET PO SCH (08:09)
[2020-09-06] MEDS: PANTOPRAZOLE 40 MG/10 ML VIAL IVP SCH (08:09)
[2020-09-06] MEDS: CHLORHEXIDINE GLUCONATE 15 ML CUP MUCOUS MEM SCH ×2 (08:09→19:57)
[2020-09-06] MEDS: ACETAMINOPHEN TAB 500 MG TAB PO SCH (08:10)
[2020-09-06] MEDS: PIPERACILLIN-TAZOBACTAM 3.375 GM in SODIUM CHLORIDE 0.9% 100 ML IVPB SCH ×3 (08:10→23:21)
[2020-09-06] MEDS: APIXABAN 2.5 MG TABLET PO SCH ×2 (08:10→19:57)
[2020-09-06] MEDS: ASPIRIN 81 MG PO SCH (08:10)
[2020-09-06 08:15] LABS: Glucose,Whole Blood 245 mg/dL (75-99)
[2020-09-06] MEDS: ALBUTEROL HFA INHALER INHALATION SCH ×4 (08:59→19:45)
--- NOTE | 2020-09-06 10:06 | P.PN ---
Subjective Progress Note Date: 09/06/20 HISTORY OF PRESENT ILLNESS This is an 85-year-old male patient of Dr. Andrei Vasquez with past medical history of hyperlipidemia, hypothyroidism, bladder cancer, coronary artery dis ease status post stent, diagnosed with Covid 19 pneumonia status post Bamlanivimab and subsequently admitted from August 27 through September 01 which time he was treated for acute hypoxic respiratory failure secondary to Covid 19 pneumonia, acute kidney injury, discharged home with home care. Apparently patient was at home but became very dyspneic and pulse ox dropped to 88%, patient not had anything to eat or drink since he left the hospital. EMS was contacted and patient was brought into the emergency center for evaluation. She complains of feeling tired. He was found to be afebrile, heart rate 98, blood pressure 114/65, pulse ox 90% on 2 L nasal cannula. WBC 20.5, hemoglobin 12.1, platelet count 148. Sodium 138, potassium 2.9, chloride 113, CO2 15, BUN 59 creatinine 2.52. Blood sugar 147. ALT 77. LDH 639. Albumin 2.7. Lactic acid 2.0. Magnesium 2.1. CK 74. EKG was a sinus rhythm with no acute ST changes. Patient was given 1 L of IV fluid and potassium was replaced. 09/03: Patient has not eating any meals since admission. He is oriented 3 but noted to have significant short-term memory deficit and having difficulty following instructions. Social work is following for discharge planning. Family is planning for patient to come home with [facility] and does not want to consider rehab. PT and OT clearly recommend subacute rehab. Patient has been afebrile, heart rate 94, blood pressure 120/73, pulse ox 94% on high flow nasal cannula at 4 L. Repeat blood work reveals WBC 30.3, hemoglobin 12.6, platelet count 143. Lactic acid 1.8. Chemistry results are not up at the time of this dictation at 2 10 in the afternoon. Repeat blood work will be ordered for the morning. Anticipate possible discharge tomorrow 09/04: A-Team was called this morning due to difficulty breathing and hypoxia. Patient was tachycardic and diaphoretic. Heart rate was in the 130s. Patient was placed on BiPAP but he could not tolerate and became very anxious. Patient was given Ativan with no improvement. Pulse ox was low 70s and he was transferred to the intensive care unit and intubated and placed on mechanical ventilation. Patient was found to be in A. fib with RVR and cardiology consult was added as well as pulmonary medicine was added during the night. Patient was started on Cardizem bolus and drip. Lovenox increased to 45 mg twice daily, Decadron 6 mg IV daily. Patient has been started on norepinephrine 09/05: Patient seen in ICU use on mechanical intubation FiO2 55, PEEP 10, tidal volume 100, respiratory rate 24. Patient remains afebrile, heart rate 65 and irregular H or fibrillation noted to the monitor, respiration rate 28, blood pressure 105/68 97% on mechanical ventilation. Patient remains in atrial fibrillation. C 23.8, hemoglobin 10.8, potassium 3.2, BUN 81, creatinine 4.57. 09/06: Patient seen in ICU still on mechanical intubation FiO2 of 45 with a PEEP of 8, levo fed has been decreased to 2 mics. Patient remains afebrile, respirations 20, blood pressure 104/68, 95% on mechanical intubation. Blood cultures and urine cultures show gram-negative bacilli and E. coli. He is currently on Zosyn and Levaquin for coverage. REVIEW OF SYSTEMS Unable to obtain due to intubation. PHYSICAL EXAMINATION Gen: This is an 85-year-old male patient, patient in ICU bed and appears to be comfortable at rest. HEENT: Head is atraumatic, normocephalic. Pupils equal, round. Sclerae is anicteric. NECK: Supple. No JVD. No lymphadenopathy. No thyromegaly. LUNGS: Clear to auscultation. No wheezes or rhonchi. No intercostal retractions. HEART: Regular rate and rhythm. No murmur. ABDOMEN: Soft. Bowel sounds are present. No masses. No tenderness. Laws catheter in place. EXTREMITIES: No pedal edema. No calf tenderness. NEUROLOGICAL: Patient is awake, alert and oriented x3. Cranial nerves 2 through 12 are grossly intact. Patient is slow to respond. ASSESSMENT AND PLAN 1. Acute hypoxic respiratory failure secondary to Covid 19 pneumonitis. Continue oxygen therapy. Continue vitamin supplements, albuterol inhaler 2 puffs 4 times daily, dexamethasone 4 mg daily, Lovenox 40 mg subcu daily, Questran 4 g twice daily. 2. Acute kidney injury secondary to dehydration and lack of oral intake and diarrhea. Hold Lasix. Continue IV fluids 0.9 normal saline at 75 mL per hour. Recheck electrolytes and renal function in the morning. Patient started on Questran. Consult nephrology appreciated. 3. Sepsis, septic shock and gram-negative bacteremia, POA. Continue Zosyn and Levaquin. 4. Urinary tract infection with E. coli bacteremia. 5. Transaminitis secondary to COVID-19, hypotension Generalized debilitation. PT and OT consults, social work consult for subacute rehab. 6. New-onset A. fib with RVR. Patient started on Cardizem bolus followed by drip. Cardiology consult. Continue Lovenox 45 mg subcu twice daily. 7. Hyperlipidemia. Continue Lipitor 40 mg at bedtime. 8. Hypertension. Patient is currently hypotensive. 9. Gastroesophageal reflux disease and GI prophylaxis. Continue Protonix 40 mg IVP daily. 10. Hypothyroidism. Continue levothyroxine 100 g daily. 11. Chronic gout. 12. DVT prophylaxis. Lovenox subcu. Prognosis is guarded. DISCHARGE PLAN To be determined. Family has been adamant that they want the patient to return home.. Impression and plan of care have been directed as dictated by the signing physician. Lorelei Francisco nurse practitioner acting as scribe for signing physician. Objective - Vital Signs Vital signs: Vital Signs Temp 97.2 F L 09/06/20 08:00 Pulse 67 09/06/20 09:00 Resp 20 09/06/20 09:00 BP 104/68 09/06/20 09:00 Pulse Ox 95 09/06/20 09:00 Intake & Output 09/05/20 09/06/20 09/06/20 18:59 06:59 18:59 Intake Total 3375.399 3021.313 763.612 Output Total 520 375 190 Balance 2855.399 2646.313 573.612 Weight 103.5 kg 105.1 kg Intake: IV 1812 1792 453 Dextrose 5% in Water 1, 1000 1500 375 000 ml @ 125 mls/hr IV . Q9H12M [facility] with Sodium Bicarb (1 Meq/ml) 150 ml Rx#:[id number] Dextrose 5% in Water 1, 300 000 ml @ 75 mls/hr IV . [id number] [facility] with Sodium Bicarb (1 Meq/ml) 100 ml Rx#:[id number] Piperacillin-Tazobactam 3 200 .375 gm In Sodium Chloride 0.9% 100 ml @ 25 mls/hr IVPB Q8HR [facility] Rx# :[id number] Pressure Bags 72 72 18 Sodium Chloride 0.9% 1, 240 220 60 000 ml @ 20 mls/hr IV . Q24H [facility] Rx#:[id number] Intake, IV Titration 971.399 428.313 6.612 Amount Diltiazem 125 mg In 125 Sodium Chloride 0.9% 100 ml @ Per Protocol IV .Q0M [facility] Rx#:[id number] Norepinephrine 8 mg In 478.331 29.988 6.612 Sodium Chloride 0.9% 250 ml @ 0.05 MCG/KG/MIN 8. 777 mls/hr IV .Q24H [facility] Rx#:[id number] propofoL 1,000 mg In 368.068 398.325 Empty Bag 1 bag @ Titrate IV .Q0M [facility] Rx#: [id number] Oral 200 100 Tube Feeding 392 631 174 Other 170 30 Output: Urine 520 375 190 Other: Voiding Method Indwelling Catheter Indwelling Catheter Indwelling Catheter ABP, PAP, CO, CI - Last Documented Arterial Blood Pressure 120/51 - Labs CBC & Chem 7: 09/06/20 04:05 09/06/20 04:05 Labs: Abnormal Lab Results - Last 24 Hours (Table) 09/05/20 09/05/20 09/05/20 Range/Units 11:31 15:32 20:06 WBC (3.8-10.6) k/uL RBC (4.30-5.90) m/uL Hgb (13.0-17.5) gm/dL Hct (39.0-53.0) % Plt Count (150-450) k/uL Neutrophils # (1.3-7.7) k/uL Lymphocytes # (1.0-4.8) k/uL D-Dimer (<0.60) mg/L FEU ABG pH (7.35-7.45) ABG HCO3 (21-25) mmol/L ABG O2 Saturation (94-97) % Sodium (137-145) mmol/L Potassium (3.5-5.1) mmol/L Chloride (98-107) mmol/L Carbon Dioxide (22-30) mmol/L BUN (9-20) mg/dL Creatinine (0.66-1.25) mg/dL Glucose (74-99) mg/dL POC Glucose (mg/dL) 234 H 254 H 253 H (75-99) mg/dL Calcium (8.4-10.2) mg/dL 09/06/20 09/06/20 09/06/20 Range/Units 00:09 04:00 04:05 WBC 13.0 H (3.8-10.6) k/uL RBC 2.91 L (4.30-5.90) m/uL Hgb 9.5 L (13.0-17.5) gm/dL Hct 27.8 L (39.0-53.0) % Plt Count 85 L (150-450) k/uL Neutrophils # 12.2 H (1.3-7.7) k/uL Lymphocytes # 0.2 L (1.0-4.8) k/uL D-Dimer (<0.60) mg/L FEU ABG pH (7.35-7.45) ABG HCO3 (21-25) mmol/L ABG O2 Saturation (94-97) % Sodium (137-145) mmol/L Potassium (3.5-5.1) mmol/L Chloride (98-107) mmol/L Carbon Dioxide (22-30) mmol/L BUN (9-20) mg/dL Creatinine (0.66-1.25) mg/dL Glucose (74-99) mg/dL POC Glucose (mg/dL) 238 H 260 H (75-99) mg/dL Calcium (8.4-10.2) mg/dL 09/06/20 09/06/20 09/06/20 Range/Units 04:05 04:05 05:25 WBC (3.8-10.6) k/uL RBC (4.30-5.90) m/uL Hgb (13.0-17.5) gm/dL Hct (39.0-53.0) % Plt Count (150-450) k/uL Neutrophils # (1.3-7.7) k/uL Lymphocytes # (1.0-4.8) k/uL D-Dimer 1.48 H (<0.60) mg/L FEU ABG pH 7.33 L (7.35-7.45) ABG HCO3 19 L (21-25) mmol/L ABG O2 Saturation 97.2 H (94-97) % Sodium 134 L (137-145) mmol/L Potassium 2.9 L (3.5-5.1) mmol/L Chloride 108 H (98-107) mmol/L Carbon Dioxide 17 L (22-30) mmol/L BUN 91 H (9-20) mg/dL Creatinine 4.65 H (0.66-1.25) mg/dL Glucose 241 H (74-99) mg/dL POC Glucose (mg/dL) (75-99) mg/dL Calcium 6.5 L (8.4-10.2) mg/dL 09/06/20 Range/Units 08:03 WBC (3.8-10.6) k/uL RBC (4.30-5.90) m/uL Hgb (13.0-17.5) gm/dL Hct (39.0-53.0) % Plt Count (150-450) k/uL Neutrophils # (1.3-7.7) k/uL Lymphocytes # (1.0-4.8) k/uL D-Dimer (<0.60) mg/L FEU ABG pH (7.35-7.45) ABG HCO3 (21-25) mmol/L ABG O2 Saturation (94-97) % Sodium (137-145) mmol/L Potassium (3.5-5.1) mmol/L Chloride (98-107) mmol/L Carbon Dioxide (22-30) mmol/L BUN (9-20) mg/dL Creatinine (0.66-1.25) mg/dL Glucose (74-99) mg/dL POC Glucose (mg/dL) 245 H (75-99) mg/dL Calcium (8.4-10.2) mg/dL Microbiology - Last 24 Hours (Table) 09/05/20 08:00 Gram Stain - Preliminary Sputum Sputum Culture - Preliminary 09/04/20 09:51 Blood Culture Gram Stain - Preliminary Blood Blood Culture - Preliminary Gram Neg Bacilli 09/04/20 09:45 Blood Culture Gram Stain - Preliminary Blood Blood Culture - Preliminary Gram Neg Bacilli 09/04/20 03:15 Urine Culture - Preliminary Urine,Voided Gram Neg Bacilli 09/03/20 07:35 Blood Culture Gram Stain - Final Blood Blood Culture - Final Escherichia coli
--- NOTE | 2020-09-06 10:42 | P.PN ---
Subjective Progress Note Date: 09/06/20 Principal diagnosis: COVID-19 pneumonia, acute kidney injury, urinary tract infection, bacteremia This is an 85-year-old gentleman who follows with Dr. Preston as his primary care provider. He has a history of liver cancer, coronary artery disease with previous stent placement, hypothyroidism, hyperlipidemia. Lifelong nonsmoker. He was recently admitted to the hospital from [address] [place] [address] for symptoms related to COVID-19 pneumonia. He had been given BAM on 08/25/2020 in the ER and discharged home. Subsequently discharged again in 09/01/2020. He re-presented to the emergency room 09/02/2020 with generalized weakness, rapid breathing and poor appetite and oral intake. O2 saturations 88% on room air. He was admitted again to the regular medical floor. At 4:00 this morning the patient had increased work of breathing with hypoxemia and an A team was called. He is subsequently transferred to the intensive care unit requiring intubation and mechanical ventilatory support. He is seen today in consultation in the ICU. He is currently intubated on mechanical ventilator. Assist-control mode with a rate of 24, tidal volume 400, FiO2 100% and a PEEP of 5. Morning blood gases revealed a PaO2 102, pCO2 37, PT H7.13. Those were drawn on a rate of 20. Blood cultures are positive for E. coli. He is currently on Zosyn and Levaquin. He is sedated on propofol 50 mcg/kg/m. Norepinephrine at 9 mcg/m. 0.9 normal saline at 75 ML's per hour. D5W with 2 A of bicarb at 75 mL per hour. White count 21.6. Hemoglobin 11.9. D-dimer 7.19. Sodium 140. Potassium 3.3. C reatinine 3.76. Glucose 151. LDH 766. C-reactive protein 36.4. AST 60. ALT 91. Urinalysis with large leukocyte esterase and greater than 182 WBCs with many bacteria. Culture pending. He is currently on Lovenox 30 mg subcu daily, dexamethasone, bronchodilators. Sensory continues to show persistent bilateral lung opacities with small left pleural effusion. On 09/05/2020 patient seen in follow-up in the intensive care unit. He remains intubated and sedated on assist control mode of ventilation, with a rate of 24, tidal was 400, FiO2 of 55% and PEEP of 10. This morning's blood gas shows pO2 of 124, pCO2 of 30, and pH of 7.23. Patient was adequately fluid resuscitated yesterday, he received 3-1/2 L" boluses, he was started on Zosyn and Levaquin for evidence of E. coli bacteremia likely related to urinary tract infection, he is currently sedated on Diprivan at 50 mics per kilo per minute, he is on 0.9 normal saline at a rate of 20 ML per hour, Cardizem drip at 5 mg per hour, D5W with 2 A of sodium bicarb at a rate of 75 ML per hour, and he is on Levophed currently at 18 mics per minute. Yesterday he went into atrial fibrillation, he was tachycardic, and he was started on Cardizem drip, he remains in atrial fibrillation today, but the rate is controlled. Cardiology has been consulted. Today's labs have been reviewed, showing white blood cell count of 20.3, hemoglobin is 10.8, platelet count is 123, d-dimer is improved but still elevated at 3.35, patient is on Lovenox 40 mg twice daily, sodium is 135, potassium 3.2, chloride is 112, CO2 is 12, BUN of 81, creatinine is 4.57, and patient's renal function has significantly worsened since yesterday. He seems to be generally swollen, his abdomen is distended, and there is a positive fluid wave with the possibility of abdominal ascites on today's exam. His urine output has been in the order of 30 ML per hour, will consult nephrology. He is tolerating tube feedings and he is on vital high-protein at a rate of 38 with a goal of 45 ML, and standard water flushes. His chest x-ray today showed no change in the small left pleural effusion or elevation of the right hemidiaphragm. He remains on antibiotics with Zosyn and Levaquin, his follow-up blood cultures continue to be positive with gram-negative bacilli. Echocardiogram has been reviewed and showed EF between 50-55%. On 09/06/2020 patient seen in follow-up in the intensive care unit, he remains sedated and intubated on mechanical ventilator, currently on assist control mode of ventilation with a rate of 24, Tylox 400, FiO2 45%, and PEEP of 10, this morning's blood gas shows pO2 of 92, pCO2 35, and pH is 7.33. Today's chest x- ray has been reviewed showing bilateral infiltrates and pleural effusions that are stable in appearance. Patient is currently on 0.9 normal same at KVO, levo fed is at 2 mics per minute, and D5W with 3 bicarbonate at 125 ml per hour. Patient is on antibiotics in the form of Levaquin and Zosyn, ID service is following, most recent blood cultures from 09/04/2020 continue to show gram negative bacilli, initial blood culture from 09/03/2020 was positive for E. coli, vitamin culture has been sent and pending, and culture was positive for gram-negative bacilli as well. he was afebrile overnight. No significant phle gm production, FiO2 was dropped down to 45%, his PEEP is at 10 which can be dropped to 5 today. Abdomen is soft, patient is tolerating tube feedings, he is on vital high-protein at 58 ML per hour, abdominal ultrasound showed no evidence of ascites, he has got mild generalized edema, his norepinephrine requirements are common down. Remains in atrial fibrillation with a controlled rate, he was started on Eliquis yesterday, Cardizem drip has been discontinued, cardiology is following. Urine output is in the order of 30-80 ML per hour. Objective - Vital Signs Vital signs: Vital Signs Temp 97.2 F L 09/06/20 08:00 Pulse 71 09/06/20 10:00 Resp 21 09/06/20 10:00 BP 104/67 09/06/20 10:00 Pulse Ox 91 L 09/06/20 10:00 Intake & Output 09/05/20 09/06/20 09/06/20 18:59 06:59 18:59 Intake Total 3375.399 3021.313 862.932 Output Total 520 375 190 Balance 2855.399 2646.313 672.932 Weight 103.5 kg 105.1 kg Intake: IV 1812 1792 453 Dextrose 5% in Water 1, 1000 1500 375 000 ml @ 125 mls/hr IV . Q9H12M [facility] with Sodium Bicarb (1 Meq/ml) 150 ml Rx#:[id number] Dextrose 5% in Water 1, 300 000 ml @ 75 mls/hr IV . [id number] [facility] with Sodium Bicarb (1 Meq/ml) 100 ml Rx#:[id number] Piperacillin-Tazobactam 3 200 .375 gm In Sodium Chloride 0.9% 100 ml @ 25 mls/hr IVPB Q8HR [facility] Rx# :[id number] Pressure Bags 72 72 18 Sodium Chloride 0.9% 1, 240 220 60 000 ml @ 20 mls/hr IV . Q24H [facility] Rx#:[id number] Intake, IV Titration 971.399 428.313 105.932 Amount Diltiazem 125 mg In 125 Sodium Chloride 0.9% 100 ml @ Per Protocol IV .Q0M [facility] Rx#:[id number] Norepinephrine 8 mg In 478.331 29.988 6.612 Sodium Chloride 0.9% 250 ml @ 0.05 MCG/KG/MIN 8. 777 mls/hr IV .Q24H [facility] Rx#:[id number] propofoL 1,000 mg In 368.068 398.325 99.32 Empty Bag 1 bag @ Titrate IV .Q0M [facility] Rx#: [id number] Oral 200 100 Tube Feeding 392 631 174 Other 170 30 Output: Urine 520 375 190 Other: Voiding Method Indwelling Catheter Indwelling Catheter Indwelling Catheter ABP, PAP, CO, CI - Last Documented Arterial Blood Pressure 122/51 - Exam GENERAL EXAM: 85-year-old white male, sedated, intubated on assist control mode of ventilation, with FiO2 of 45% and PEEP of 10 comfortable in no apparent distress. HEAD: Normocephalic/atraumatic. EYES: Normal reaction of pupils, equal size. Conjunctiva pink, sclera white. NOSE: Clear with pink turbinates. THROAT: No erythema or exudates. NECK: No masses, no JVD, no thyroid enlargement, no adenopathy. CHEST: No chest wall deformity. Symmetrical expansion. LUNGS: Equal air entry with no crackles, wheeze, rhonchi or dullness. CVS: Irregular rate and rhythm, normal S1 and S2, no gallops, no murmurs, no rubs ABDOMEN: Soft, nontender, abdominal distention, possibility of abdominal ascites is considered, abdominal ultrasound is pending. No hepatosplenomegaly, normal bowel sounds, no guarding or rigidity. EXTREMITIES: No clubbing, mild generalized edema, 1+ lower extremity edema, no cyanosis, 2+ pulses and upper and lower extremities. MUSCULOSKELETAL: Muscle strength and tone normal. SPINE: No scoliosis or deformity SKIN: No rashes CENTRAL NERVOUS SYSTEM: Sedated, intubated No focal deficits, tone is normal in all 4 extremities. - Labs CBC & Chem 7: 09/06/20 04:05 09/06/20 04:05 Labs: Abnormal Lab Results - Last 24 Hours (Table) 09/05/20 09/05/20 09/05/20 Range/Units 11:31 15:32 20:06 WBC (3.8-10.6) k/uL RBC (4.30-5.90) m/uL Hgb (13.0-17.5) gm/dL Hct (39.0-53.0) % Plt Count (150-450) k/uL Neutrophils # (1.3-7.7) k/uL Lymphocytes # (1.0-4.8) k/uL D-Dimer (<0.60) mg/L FEU ABG pH (7.35-7.45) ABG HCO3 (21-25) mmol/L ABG O2 Saturation (94-97) % Sodium (137-145) mmol/L Potassium (3.5-5.1) mmol/L Chloride (98-107) mmol/L Carbon Dioxide (22-30) mmol/L BUN (9-20) mg/dL Creatinine (0.66-1.25) mg/dL Glucose (74-99) mg/dL POC Glucose (mg/dL) 234 H 254 H 253 H (75-99) mg/dL Calcium (8.4-10.2) mg/dL 09/06/20 09/06/20 09/06/20 Range/Units 00:09 04:00 04:05 WBC 13.0 H (3.8-10.6) k/uL RBC 2.91 L (4.30-5.90) m/uL Hgb 9.5 L (13.0-17.5) gm/dL Hct 27.8 L (39.0-53.0) % Plt Count 85 L (150-450) k/uL Neutrophils # 12.2 H (1.3-7.7) k/uL Lymphocytes # 0.2 L (1.0-4.8) k/uL D-Dimer (<0.60) mg/L FEU ABG pH (7.35-7.45) ABG HCO3 (21-25) mmol/L ABG O2 Saturation (94-97) % Sodium (137-145) mmol/L Potassium (3.5-5.1) mmol/L Chloride (98-107) mmol/L Carbon Dioxide (22-30) mmol/L BUN (9-20) mg/dL Creatinine (0.66-1.25) mg/dL Glucose (74-99) mg/dL POC Glucose (mg/dL) 238 H 260 H (75-99) mg/dL Calcium (8.4-10.2) mg/dL 09/06/20 09/06/20 09/06/20 Range/Units 04:05 04:05 05:25 WBC (3.8-10.6) k/uL RBC (4.30-5.90) m/uL Hgb (13.0-17.5) gm/dL Hct (39.0-53.0) % Plt Count (150-450) k/uL Neutrophils # (1.3-7.7) k/uL Lymphocytes # (1.0-4.8) k/uL D-Dimer 1.48 H (<0.60) mg/L FEU ABG pH 7.33 L (7.35-7.45) ABG HCO3 19 L (21-25) mmol/L ABG O2 Saturation 97.2 H (94-97) % Sodium 134 L (137-145) mmol/L Potassium 2.9 L (3.5-5.1) mmol/L Chloride 108 H (98-107) mmol/L Carbon Dioxide 17 L (22-30) mmol/L BUN 91 H (9-20) mg/dL Creatinine 4.65 H (0.66-1.25) mg/dL Glucose 241 H (74-99) mg/dL POC Glucose (mg/dL) (75-99) mg/dL Calcium 6.5 L (8.4-10.2) mg/dL 09/06/20 Range/Units 08:03 WBC (3.8-10.6) k/uL RBC (4.30-5.90) m/uL Hgb (13.0-17.5) gm/dL Hct (39.0-53.0) % Plt Count (150-450) k/uL Neutrophils # (1.3-7.7) k/uL Lymphocytes # (1.0-4.8) k/uL D-Dimer (<0.60) mg/L FEU ABG pH (7.35-7.45) ABG HCO3 (21-25) mmol/L ABG O2 Saturation (94-97) % Sodium (137-145) mmol/L Potassium (3.5-5.1) mmol/L Chloride (98-107) mmol/L Carbon Dioxide (22-30) mmol/L BUN (9-20) mg/dL Creatinine (0.66-1.25) mg/dL Glucose (74-99) mg/dL POC Glucose (mg/dL) 245 H (75-99) mg/dL Calcium (8.4-10.2) mg/dL Microbiology - Last 24 Hours (Table) 09/05/20 08:00 Gram Stain - Preliminary Sputum Sputum Culture - Preliminary 09/04/20 09:51 Blood Culture Gram Stain - Preliminary Blood Blood Culture - Preliminary Gram Neg Bacilli 09/04/20 09:45 Blood Culture Gram Stain - Preliminary Blood Blood Culture - Preliminary Gram Neg Bacilli 09/04/20 03:15 Urine Culture - Preliminary Urine,Voided Gram Neg Bacilli 09/03/20 07:35 Blood Culture Gram Stain - Final Blood Blood Culture - Final Escherichia coli Assessment and Plan Plan: Assessment: #1. Acute hypoxic respiratory failure multifactorial, related to acute sepsis and septic shock related to E. coli bacteremia, recent history of COVID-19 pneumonia #2. Acute gram-negative bacteremia secondary to E. coli, related to urinary tract infection #3. Recent hospitalization for COVID-19 pneumonia, status post BAM #4. New onset A. fib with RVR, patient was started on Cardizem, we'll start Eliquis today on 09/05/2020 #5. Elevated d-dimer, multifactorial, improving #6. Acute on chronic kidney disease #7. Non-anion gap metabolic acidosis related to acute kidney injury #8. Chronic kidney disease stage III #9. History of coronary artery disease with history of stenting #10. Hypertension #11. Hyperlipidemia #12. History of bladder cancer with surgical resection Plan: Blood gases and chest x-ray have been reviewed FiO2 down to 45%, PEEP down to 5 Continue current antibiotics, patient continues to have positive blood cultures, ID service is following Continue bicarbonate infusion, nephrology is following, renal function slightly worsened again today Continue tube feedings for nutritional support May consider diuretics once the patient is off the norepinephrine infusion Continue oral anticoagulation for persistent A. fib Continue close monitoring in the intensive care unit I performed a history & physical examination of the patient and discussed their management with my nurse practitioner, Yovana Nazario. I reviewed the nurse practitioner's note and agree with the documented findings and plan of care. Lung sounds are positive for diminished breath sounds. The findings and the impression was discussed with the patient. I attest to the documentation by the nurse practitioner. Time with Patient: Greater than 30
--- NOTE | 2020-09-06 11:04 | US ---
EXAMINATION TYPE: US kidneys/renal and bladder DATE OF EXAM: 09/06/2020 COMPARISON: NONE CLINICAL HISTORY: uti and bacteremia. UTI Exam limited patient on vent unable to roll or hol breath EXAM MEASUREMENTS: Right Kidney: 9.9 x 6.2 x 4.5 cm Left Kidney: Not visualized Right Kidney: Severe hydronephrosis visualized. Left Kidney: Not visualized due to body habitus Bladder: Bladder not demonstrated. Bilateral Jets seen: no IMPRESSION: Severe right hydronephrosis. Left kidney not visualized.
[2020-09-06 11:40] LABS: Glucose,Whole Blood 306 mg/dL (75-99)
--- NOTE | 2020-09-06 12:42 | P.PN ---
Subjective Progress Note Date: 09/06/20 Follow-up for acute kidney injury. Overnight urine output improved, currently around 70-80 ML's an hour. Still on ventilator with minimal settings. Low-dose levo fed. Objective - Vital Signs Vital signs: Vital Signs Temp 97.2 F L 09/06/20 08:00 Pulse 71 09/06/20 10:00 Resp 21 09/06/20 10:00 BP 104/67 09/06/20 10:00 Pulse Ox 91 L 09/06/20 10:00 Intake & Output 09/05/20 09/06/20 09/06/20 18:59 06:59 18:59 Intake Total 3375.399 3021.313 864.001 Output Total 520 375 190 Balance 2855.399 2646.313 674.001 Weight 103.5 kg 105.1 kg Intake: IV 1812 1792 453 Dextrose 5% in Water 1, 1000 1500 375 000 ml @ 125 mls/hr IV . Q9H12M [facility] with Sodium Bicarb (1 Meq/ml) 150 ml Rx#:[id number] Dextrose 5% in Water 1, 300 000 ml @ 75 mls/hr IV . T31V03H [facility] with Sodium Bicarb (1 Meq/ml) 100 ml Rx#:[id number] Piperacillin-Tazobactam 3 200 .375 gm In Sodium Chloride 0.9% 100 ml @ 25 mls/hr IVPB Q8HR [facility] Rx# :[id number] Pressure Bags 72 72 18 Sodium Chloride 0.9% 1, 240 220 60 000 ml @ 20 mls/hr IV . Q24H [facility] Rx#:[id number] Intake, IV Titration 971.399 428.313 107.001 Amount Diltiazem 125 mg In 125 Sodium Chloride 0.9% 100 ml @ Per Protocol IV .Q0M [facility] Rx#:[id number] Norepinephrine 8 mg In 478.331 29.988 7.681 Sodium Chloride 0.9% 250 ml @ 0.05 MCG/KG/MIN 8. 777 mls/hr IV .Q24H [facility] Rx#:[id number] propofoL 1,000 mg In 368.068 398.325 99.32 Empty Bag 1 bag @ Titrate IV .Q0M [facility] Rx#: [id number] Oral 200 100 Tube Feeding 392 631 174 Other 170 30 Output: Urine 520 375 190 Other: Voiding Method Indwelling Catheter Indwelling Catheter Indwelling Catheter ABP, PAP, CO, CI - Last Documented Arterial Blood Pressure 122/51 - Exam Refer to primary team exam COVID-19 isolation - Labs CBC & Chem 7: 09/06/20 04:05 09/06/20 10:47 Labs: Abnormal Lab Results - Last 24 Hours (Table) 09/05/20 09/05/20 09/06/20 Range/Units 15:32 20:06 00:09 WBC (3.8-10.6) k/uL RBC (4.30-5.90) m/uL Hgb (13.0-17.5) gm/dL Hct (39.0-53.0) % Plt Count (150-450) k/uL Neutrophils # (1.3-7.7) k/uL Lymphocytes # (1.0-4.8) k/uL D-Dimer (<0.60) mg/L FEU ABG pH (7.35-7.45) ABG HCO3 (21-25) mmol/L ABG O2 Saturation (94-97) % Sodium (137-145) mmol/L Potassium (3.5-5.1) mmol/L Chloride (98-107) mmol/L Carbon Dioxide (22-30) mmol/L BUN (9-20) mg/dL Creatinine (0.66-1.25) mg/dL Glucose (74-99) mg/dL POC Glucose (mg/dL) 254 H 253 H 238 H (75-99) mg/dL Calcium (8.4-10.2) mg/dL 09/06/20 09/06/20 09/06/20 Range/Units 04:00 04:05 04:05 WBC 13.0 H (3.8-10.6) k/uL RBC 2.91 L (4.30-5.90) m/uL Hgb 9.5 L (13.0-17.5) gm/dL Hct 27.8 L (39.0-53.0) % Plt Count 85 L (150-450) k/uL Neutrophils # 12.2 H (1.3-7.7) k/uL Lymphocytes # 0.2 L (1.0-4.8) k/uL D-Dimer (<0.60) mg/L FEU ABG pH (7.35-7.45) ABG HCO3 (21-25) mmol/L ABG O2 Saturation (94-97) % Sodium 134 L (137-145) mmol/L Potassium 2.9 L (3.5-5.1) mmol/L Chloride 108 H (98-107) mmol/L Carbon Dioxide 17 L (22-30) mmol/L BUN 91 H (9-20) mg/dL Creatinine 4.65 H (0.66-1.25) mg/dL Glucose 241 H (74-99) mg/dL POC Glucose (mg/dL) 260 H (75-99) mg/dL Calcium 6.5 L (8.4-10.2) mg/dL 09/06/20 09/06/20 09/06/20 Range/Units 04:05 05:25 08:03 WBC (3.8-10.6) k/uL RBC (4.30-5.90) m/uL Hgb (13.0-17.5) gm/dL Hct (39.0-53.0) % Plt Count (150-450) k/uL Neutrophils # (1.3-7.7) k/uL Lymphocytes # (1.0-4.8) k/uL D-Dimer 1.48 H (<0.60) mg/L FEU ABG pH 7.33 L (7.35-7.45) ABG HCO3 19 L (21-25) mmol/L ABG O2 Saturation 97.2 H (94-97) % Sodium (137-145) mmol/L Potassium (3.5-5.1) mmol/L Chloride (98-107) mmol/L Carbon Dioxide (22-30) mmol/L BUN (9-20) mg/dL Creatinine (0.66-1.25) mg/dL Glucose (74-99) mg/dL POC Glucose (mg/dL) 245 H (75-99) mg/dL Calcium (8.4-10.2) mg/dL 09/06/20 Range/Units 11:39 WBC (3.8-10.6) k/uL RBC (4.30-5.90) m/uL Hgb (13.0-17.5) gm/dL Hct (39.0-53.0) % Plt Count (150-450) k/uL Neutrophils # (1.3-7.7) k/uL Lymphocytes # (1.0-4.8) k/uL D-Dimer (<0.60) mg/L FEU ABG pH (7.35-7.45) ABG HCO3 (21-25) mmol/L ABG O2 Saturation (94-97) % Sodium (137-145) mmol/L Potassium (3.5-5.1) mmol/L Chloride (98-107) mmol/L Carbon Dioxide (22-30) mmol/L BUN (9-20) mg/dL Creatinine (0.66-1.25) mg/dL Glucose (74-99) mg/dL POC Glucose (mg/dL) 306 H (75-99) mg/dL Calcium (8.4-10.2) mg/dL Microbiology - Last 24 Hours (Table) 09/05/20 08:00 Gram Stain - Preliminary Sputum Sputum Culture - Preliminary 09/04/20 09:51 Blood Culture Gram Stain - Preliminary Blood Blood Culture - Preliminary Gram Neg Bacilli 09/04/20 09:45 Blood Culture Gram Stain - Preliminary Blood Blood Culture - Preliminary Gram Neg Bacilli 09/04/20 03:15 Urine Culture - Preliminary Urine,Voided Gram Neg Bacilli 09/03/20 07:35 Blood Culture Gram Stain - Final Blood Blood Culture - Final Escherichia coli Assessment and Plan Assessment: #1 nonoliguric acute kidney injury suspect COVID-19/hemodynamic ATN. #2 septic shock on pressors #3 anion gap metabolic acidosis secondary to acute kidney injury #4 Covid 19 pneumonia on ventilator #5 chronic kidney disease stage III with a baseline creatinine of 1.5-1.6 MG per DL. Plan: #1 renal function stable. Continue with bicarb drip. Acidosis improving. #2 no acute indication for renal replacement therapy at this time. #3 avoid nephrotoxic agents and hypotensive episodes. #4 ICU care
[2020-09-06 16:14] LABS: Glucose,Whole Blood 251 mg/dL (75-99)
--- NOTE | 2020-09-06 17:39 | P.PN ---
Subjective Progress Note Date: 09/06/20 This is a 85-year-old gentleman who was readmitted with respiratory failure and evidence of pneumonia and also E. coli bacteremia. Patient patient had an episode of atrial fibrillation. Patient was started on IV Cardizem and also beta kinjal . Patient heart rate is controlled. Echo Cardigan showed normal LV function. His kidney functions are deteriorating. Nephrology consult is requested From Cardec standpoint we will can continue to beta kinjal and may discontinue Cardizem. Patient is on antibiotics and other measures. We'll follow. 09/06/2020: This patient remains intubated and sedated. He is off Cardizem drip. His heart rate is controlled. He is on anticoagulation therapy. He is b eing treated for the E. coli septicemia and also pneumonia. Patient's norepinephrine drip is being tapered off. Chest x-ray continues to infiltrates and pleural effusions. Pulmonary and ID consults are following the patient. Continue current medical therapy. We'll follow as needed Objective - Vital Signs Vital signs: Vital Signs Temp 97.2 F L 09/06/20 08:00 Pulse 77 09/06/20 14:00 Resp 30 H 09/06/20 14:00 BP 118/73 09/06/20 14:00 Pulse Ox 90 L 09/06/20 14:00 Intake & Output 09/05/20 09/06/20 09/06/20 18:59 06:59 18:59 Intake Total 3375.399 3021.313 1800.001 Output Total 520 375 415 Balance 2855.399 2646.313 1385.001 Weight 103.5 kg 105.1 kg Intake: IV 1812 1792 1057 Dextrose 5% in Water 1, 1000 1500 875 000 ml @ 125 mls/hr IV . Q9H12M [facility] with Sodium Bicarb (1 Meq/ml) 150 ml Rx#:[id number] Dextrose 5% in Water 1, 300 000 ml @ 75 mls/hr IV . [id number] [facility] with Sodium Bicarb (1 Meq/ml) 100 ml Rx#:[id number] Piperacillin-Tazobactam 3 200 .375 gm In Sodium Chloride 0.9% 100 ml @ 25 mls/hr IVPB Q8HR [facility] Rx# :[id number] Pressure Bags 72 72 42 Sodium Chloride 0.9% 1, 240 220 140 000 ml @ 20 mls/hr IV . Q24H [facility] Rx#:[id number] Intake, IV Titration 971.399 428.313 207.001 Amount Diltiazem 125 mg In 125 Sodium Chloride 0.9% 100 ml @ Per Protocol IV .Q0M [facility] Rx#:[id number] Norepinephrine 8 mg In 478.331 29.988 7.681 Sodium Chloride 0.9% 250 ml @ 0.05 MCG/KG/MIN 8. 777 mls/hr IV .Q24H [facility] Rx#:[id number] propofoL 1,000 mg In 368.068 398.325 199.32 Empty Bag 1 bag @ Titrate IV .Q0M [facility] Rx#: [id number] Oral 200 100 Tube Feeding 392 631 406 Other 170 30 Output: Urine 520 375 415 Other: Voiding Method Indwelling Catheter Indwelling Catheter Indwelling Catheter ABP, PAP, CO, CI - Last Documented Arterial Blood Pressure 159/62 - Exam This patient is on personally examined. Consultants notes were reviewed and information is gathered from the nurses. Patient is currently intubated and sedated - Labs CBC & Chem 7: 09/06/20 04:05 09/06/20 10:47 Labs: Abnormal Lab Results - Last 24 Hours (Table) 09/05/20 09/06/20 09/06/20 Range/Units 20:06 00:09 04:00 WBC (3.8-10.6) k/uL RBC (4.30-5.90) m/uL Hgb (13.0-17.5) gm/dL Hct (39.0-53.0) % Plt Count (150-450) k/uL Neutrophils # (1.3-7.7) k/uL Lymphocytes # (1.0-4.8) k/uL D-Dimer (<0.60) mg/L FEU ABG pH (7.35-7.45) ABG HCO3 (21-25) mmol/L ABG O2 Saturation (94-97) % Sodium (137-145) mmol/L Potassium (3.5-5.1) mmol/L Chloride (98-107) mmol/L Carbon Dioxide (22-30) mmol/L BUN (9-20) mg/dL Creatinine (0.66-1.25) mg/dL Glucose (74-99) mg/dL POC Glucose (mg/dL) 253 H 238 H 260 H (75-99) mg/dL Calcium (8.4-10.2) mg/dL 09/06/20 09/06/20 09/06/20 Range/Units 04:05 04:05 04:05 WBC 13.0 H (3.8-10.6) k/uL RBC 2.91 L (4.30-5.90) m/uL Hgb 9.5 L (13.0-17.5) gm/dL Hct 27.8 L (39.0-53.0) % Plt Count 85 L (150-450) k/uL Neutrophils # 12.2 H (1.3-7.7) k/uL Lymphocytes # 0.2 L (1.0-4.8) k/uL D-Dimer 1.48 H (<0.60) mg/L FEU ABG pH (7.35-7.45) ABG HCO3 (21-25) mmol/L ABG O2 Saturation (94-97) % Sodium 134 L (137-145) mmol/L Potassium 2.9 L (3.5-5.1) mmol/L Chloride 108 H (98-107) mmol/L Carbon Dioxide 17 L (22-30) mmol/L BUN 91 H (9-20) mg/dL Creatinine 4.65 H (0.66-1.25) mg/dL Glucose 241 H (74-99) mg/dL POC Glucose (mg/dL) (75-99) mg/dL Calcium 6.5 L (8.4-10.2) mg/dL 09/06/20 09/06/20 09/06/20 Range/Units 05:25 08:03 11:39 WBC (3.8-10.6) k/uL RBC (4.30-5.90) m/uL Hgb (13.0-17.5) gm/dL Hct (39.0-53.0) % Plt Count (150-450) k/uL Neutrophils # (1.3-7.7) k/uL Lymphocytes # (1.0-4.8) k/uL D-Dimer (<0.60) mg/L FEU ABG pH 7.33 L (7.35-7.45) ABG HCO3 19 L (21-25) mmol/L ABG O2 Saturation 97.2 H (94-97) % Sodium (137-145) mmol/L Potassium (3.5-5.1) mmol/L Chloride (98-107) mmol/L Carbon Dioxide (22-30) mmol/L BUN (9-20) mg/dL Creatinine (0.66-1.25) mg/dL Glucose (74-99) mg/dL POC Glucose (mg/dL) 245 H 306 H (75-99) mg/dL Calcium (8.4-10.2) mg/dL 09/06/20 Range/Units 16:02 WBC (3.8-10.6) k/uL RBC (4.30-5.90) m/uL Hgb (13.0-17.5) gm/dL Hct (39.0-53.0) % Plt Count (150-450) k/uL Neutrophils # (1.3-7.7) k/uL Lymphocytes # (1.0-4.8) k/uL D-Dimer (<0.60) mg/L FEU ABG pH (7.35-7.45) ABG HCO3 (21-25) mmol/L ABG O2 Saturation (94-97) % Sodium (137-145) mmol/L Potassium (3.5-5.1) mmol/L Chloride (98-107) mmol/L Carbon Dioxide (22-30) mmol/L BUN (9-20) mg/dL Creatinine (0.66-1.25) mg/dL Glucose (74-99) mg/dL POC Glucose (mg/dL) 251 H (75-99) mg/dL Calcium (8.4-10.2) mg/dL Microbiology - Last 24 Hours (Table) 09/04/20 03:15 Urine Culture - Final Urine,Voided Escherichia coli 09/05/20 08:00 Gram Stain - Preliminary Sputum Sputum Culture - Preliminary 09/04/20 09:51 Blood Culture Gram Stain - Preliminary Blood Blood Culture - Preliminary Gram Neg Bacilli 09/04/20 09:45 Blood Culture Gram Stain - Preliminary Blood Blood Culture - Preliminary Gram Neg Bacilli Assessment and Plan (1) Atrial fibrillation with RVR Current Visit: Yes Status: Acute Code(s): I48.91 - UNSPECIFIED ATRIAL FIBRILLATION SNOMED Code(s): 747640311311892 (2) MARLON (acute kidney injury) Current Visit: Yes Status: Acute Code(s): N17.9 - ACUTE KIDNEY FAILURE, UNSPECIFIED SNOMED Code(s): 24605346 (3) Pneumonia due to COVID-19 virus Current Visit: Yes Status: Acute Code(s): U07.1 - COVID-19; J12.82 - Pneumonia due to coronavirus disease 2019 SNOMED Code(s): 043980341864649838 (4) CAD (coronary artery disease) Current Visit: Yes Status: Acute Code(s): I25.10 - ATHSCL HEART DISEASE OF [place] CORONARY ARTERY W/O ANG PCTRS SNOMED Code(s): 21962577 Plan: Patient remains in atrial fibrillation with controlled and corresponds. Continue current medical therapy. Prognosis is guarded. We'll follow when necessary
[2020-09-06] MEDS: ATORVASTATIN 40 MG TAB PO SCH (19:57)
[2020-09-06] MEDS: SODIUM CHLORIDE 0.9% 1,000 ML IV SCH (19:57)
[2020-09-06 20:20] LABS: Glucose,Whole Blood 297 mg/dL (75-99)
[2020-09-06] MEDS: LEVOFLOXACIN 250MG-D5W PMX 250 MG in DEXTROSE/WATER 1 50ML.BAG IVPB SCH (20:22)
[2020-09-06 23:50] LABS: Glucose,Whole Blood 313 mg/dL (75-99)
[2020-09-07] MEDS: DEXTROSE 5% IN WATER 1,000 ML with SODIUM BICARB (1 MEQ/ML) 150 ML IV SCH ×2 (01:09→08:12)
[2020-09-07 04:21] LABS: Glucose,Whole Blood 298 mg/dL (75-99)
--- NOTE | 2020-09-07 04:41 | PN ---
PROGRESS NOTE DATE OF SERVICE: 09/06/2020 REASON FOR FOLLOWUP: E coli bacteremia secondary to pyelonephritis. INTERVAL HISTORY: Patient is currently afebrile. The patient is hemodynamically stable, not on pressor support. FiO2 is currently at 45%. No significant purulent secretions in the ET or diarrhea reported by the nursing staff. PHYSICAL EXAMINATION: Blood pressure is 124/77 with a pulse of 85, temperature 97.2. He is 94% on 45% FiO2. General description is an elderly male intubated on the vent. Respiratory system: Unlabored breathing, decreased breath sounds in the bases. No wheeze. Heart: S1, S2. Regular rate and rhythm. ABDOMEN: Soft, no tenderness. EXTREMITIES: No edema of the feet. LABS: Hemoglobin 9.5, white count 13,000. BUN of 91, creatinine 4.65. Blood culture repeat so far negative. Ultrasound shows severe right sided hydronephrosis. DIAGNOSTIC IMPRESSION AND PLAN: Patient with E coli bacteremia and complicated urinary tract infection with severe right-sided hydronephrosis. Patient is covered with Zosyn. Patient will benefit from Urology evaluation for severe hydronephrosis and monitor clinical course closely. MMODL / IJN: [id number] /
[2020-09-07] MEDS: INSULIN ASPART (NovoLOG) 100 UNIT/ML VIAL SQ SCH ×6 (04:45→20:53)
[2020-09-07 05:23] LABS: ABG HCO3 24 mmol/L (21-25); ABG Oxygen Saturation 87.4 % (94-97); ABG PCO2 45 mmHg (35-45); ABG PH 7.34 (7.35-7.45); ABG TCO2 25 mmol/L (19-24); Allen Test Performed? Yes
[2020-09-07 05:25] LABS: ABG PO2 56 mmHg (83-108)
[2020-09-07 05:48] LABS: Basophils % (A) 0 %; Eosinophils % (A) 0 %; HCT 29.5 % (39.0-53.0); HGB 9.7 gm/dL (13.0-17.5); Lymphocytes # (A) 0.1 k/uL (1.0-4.8); Lymphocytes % (A) 1 %; MCH 31.5 pg (25.0-35.0); MCV 95.5 fL (80.0-100.0); Mean Platelet Volume 11.2; Monocytes # (A) 0.5 k/uL (0-1.0); Monocytes % (A) 4 %; Neutrophils # (A) 11.7 k/uL (1.3-7.7); Neutrophils % (A) 94 %; RBC 3.08 m/uL (4.30-5.90); RDW 14.5 % (11.5-15.5); WBC 12.4 k/uL (3.8-10.6)
[2020-09-07 05:53] LABS: Platelet Count 94 k/uL (150-450)
[2020-09-07 05:55] LABS: Albumin 2.1 g/dL (3.5-5.0); Total Bilirubin 0.6 mg/dL (0.2-1.3)
[2020-09-07 06:23] LABS: Calcium 6.3 mg/dL (8.4-10.2)
[2020-09-07] MEDS: PIPERACILLIN-TAZOBACTAM 3.375 GM in SODIUM CHLORIDE 0.9% 100 ML IVPB SCH ×2 (07:04→16:30)
[2020-09-07] MEDS: LEVOTHYROXINE 100 MCG TAB PO SCH (07:04)
[2020-09-07] MEDS: POTASSIUM BICARBONATE/CIT AC 20 MEQ TABLET.EFF NG-TUBE SCH ×2 (07:16→08:25)
--- NOTE | 2020-09-07 08:09 | P.PN ---
Subjective Progress Note Date: 09/07/20 This is an 85-year-old gentleman who follows with Dr. Preston as his primary care provider. He has a history of liver cancer, coronary artery disease with previous stent placement, hypothyroidism, hyperlipidemia. Lifelong nonsmoker. He was recently admitted to the hospital from [address] [place] [address] for symptoms related to COVID-19 pneumonia. He had been given BAM on 08/25/2020 in the ER and discharged home. Subsequently discharged again in 09/01/2020. He re-presented to the emergency room 09/02/2020 with generalized weakness, rapid breathing and poor appetite and oral intake. O2 saturations 88% on room air. He was admitted again to the regular medical floor. At 4:00 this morning the patient had incr eased work of breathing with hypoxemia and an A team was called. He is subsequently transferred to the intensive care unit requiring intubation and mechanical ventilatory support. He is seen today in consultation in the ICU. He is currently intubated on mechanical ventilator. Assist-control mode with a rate of 24, tidal volume 400, FiO2 100% and a PEEP of 5. Morning blood gases revealed a PaO2 102, pCO2 37, PT H7.13. Those were drawn on a rate of 20. Blood cultures are positive for E. coli. He is currently on Zosyn and Levaquin. He is sedated on propofol 50 mcg/kg/m. Norepinephrine at 9 mcg/m. 0.9 normal saline at 75 ML's per hour. D5W with 2 A of bicarb at 75 mL per hour. White count 21.6. Hemoglobin 11.9. D-dimer 7.19. Sodium 140. Potassium 3.3. Creatinine 3.76. Glucose 151. LDH 766. C-reactive protein 36.4. AST 60. ALT 91. Urinalysis with large leukocyte esterase and greater than 182 WBCs with many bacteria. Culture pending. He is currently on Lovenox 30 mg subcu daily, dexamethasone, bronchodilators. Sensory continues to show persistent bilateral lung opacities with small left pleural effusion. On 09/05/2020 patient seen in follow-up in the intensive care unit. He remains intubated and sedated on assist control mode of ventilation, with a rate of 24, tidal was 400, FiO2 of 55% and PEEP of 10. This morning's blood gas shows pO2 of 124, pCO2 of 30, and pH of 7.23. Patient was adequately fluid resuscitated yesterday, he received 3-1/2 L" boluses, he was started on Zosyn and Levaquin for evidence of E. coli bacteremia likely related to urinary tract infection, he is currently sedated on Diprivan at 50 mics per kilo per minute, he is on 0.9 n ormal saline at a rate of 20 ML per hour, Cardizem drip at 5 mg per hour, D5W with 2 A of sodium bicarb at a rate of 75 ML per hour, and he is on Levophed currently at 18 mics per minute. Yesterday he went into atrial fibrillation, he was tachycardic, and he was started on Cardizem drip, he remains in atrial fibrillation today, but the rate is controlled. Cardiology has been consulted. Today's labs have been reviewed, showing white blood cell count of 20.3, hemoglobin is 10.8, platelet count is 123, d-dimer is improved but still elevated at 3.35, patient is on Lovenox 40 mg twice daily, sodium is 135, potassium 3.2, chloride is 112, CO2 is 12, BUN of 81, creatinine is 4.57, and patient's renal function has significantly worsened since yesterday. He seems to be generally swollen, his abdomen is distended, and there is a positive fluid wave with the possibility of abdominal ascites on today's exam. His urine output has been in the order of 30 ML per hour, will consult nephrology. He is tolerating tube feedings and he is on vital high-protein at a rate of 38 with a goal of 45 ML, and standard water flushes. His chest x-ray today showed no change in the small left pleural effusion or elevation of the right hemidiaphragm. He remains on antibiotics with Zosyn and Levaquin, his follow-up blood cultures continue to be positive with gram-negative bacilli. Echocardiogram has been reviewed and showed EF between 50-55%. On 09/06/2020 patient seen in follow-up in the intensive care unit, he remains sedated and intubated on mechanical ventilator, currently on assist control mode of ventilation with a rate of 24, Tylox 400, FiO2 45%, and PEEP of 10, this morning's blood gas shows pO2 of 92, pCO2 35, and pH is 7.33. Today's chest x- ray has been reviewed showing bilateral infiltrates and pleural effusions that are stable in appearance. Patient is currently on 0.9 normal same at KVO, levo fed is at 2 mics per minute, and D5W with 3 bicarbonate at 125 ml per hour. Patient is on antibiotics in the form of Levaquin and Zosyn, ID service is following, most recent blood cultures from 09/04/2020 continue to show gram negative bacilli, initial blood culture from 09/03/2020 was positive for E. coli, vitamin culture has been sent and pending, and culture was positive for gr am-negative bacilli as well. he was afebrile overnight. No significant phlegm production, FiO2 was dropped down to 45%, his PEEP is at 10 which can be dropped to 5 today. Abdomen is soft, patient is tolerating tube feedings, he is on vital high-protein at 58 ML per hour, abdominal ultrasound showed no evidence of ascites, he has got mild generalized edema, his norepinephrine requirements are common down. Remains in atrial fibrillation with a controlled rate, he was started on Eliquis yesterday, Cardizem drip has been discontinued, cardiology is following. Urine output is in the order of 30-80 ML per hour. On 09/07/2020, the patient remains intubated on mechanical ventilator. This patient is on assist control mode of ventilation with a rate of 24 tidal volume of 400 45% with PEEP of 10. The blood gases from today showing a pH of 7.33 with a pCO2 of 44 and pO2 of 56. His chest x-ray is showing bilateral pulmonary infiltrates with development of effusions in the lung bases bilaterally. ET tube is in a good location. There is some underlying residual pulmonary infiltration due to COVID-19 related pneumonia. Nevertheless, there is obvious worsening in the lung bases with possibly development of bilateral effusions. Findings are consistent with CHF on top of COVID-19 related pneumonia. The patient is on D5 water and sodium bicarb infusion at the rate of 125 mL an hour and his serum bicarbonate currently is at 23 has normalized. The patient has been off pressors since yesterday. Antibiotic coverage includes a combination of Zosyn and Levaquin. Blood culture from 09/04/2020 was positive for gram- negative bacillus and the blood cultures from 09/03/2020 was positive for E. coli. Patient is afebrile. Remains in atrial fibrillation with a controlled rate. Started on anticoagulation with Eliquis. Cardizem drip has been discontinued and the patient states under good control. Urine output is adequate. She is receiving enteral feeding for nutritional support. The white cell count continues to drop this down to 12.4 from yesterday and the patient's hemoglobin is at 5.5. Platelets of the Route fusion consumptive thrombocytopenia probably related to his underlying sepsis. The patient also has a component of an acute on top of chronic kidney disease. The creatinine is stable compared to yesterday at 4.46. The patient has a component of an acute on top of chronic kidney failure. He has been more than 10 L positive since his admission to the ICU and the patient has a total of 17 kg in weight gain. Objective - Vital Signs Vital signs: Vital Signs Temp 98.2 F 09/07/20 04:00 Pulse 95 09/07/20 07:00 Resp 25 H 09/07/20 07:00 BP 132/72 09/07/20 07:00 Pulse Ox 89 L 09/07/20 07:00 Intake & Output 09/06/20 09/07/20 09/07/20 18:59 06:59 18:59 Intake Total 2853.549 2909.452 209 Output Total 740 1190 125 Balance 2113.549 1719.452 84 Weight 107.2 kg Intake: IV 1800 1809 151 Dextrose 5% in Water 1, 1500 1500 125 000 ml @ 125 mls/hr IV . Q9H12M MIKE with Sodium Bicarb (1 Meq/ml) 150 ml Rx#:[id number] Pressure Bags 60 69 6 Sodium Chloride 0.9% 1, 240 240 20 000 ml @ 20 mls/hr IV . Q24H MIKE Rx#:[id number] Intake, IV Titration 227.549 279.452 Amount Norepinephrine 8 mg In 7.681 Sodium Chloride 0.9% 250 ml @ 0.05 MCG/KG/MIN 8. 777 mls/hr IV .Q24H MIKE Rx#:[id number] propofoL 1,000 mg In 219.868 279.452 Empty Bag 1 bag @ Titrate IV .Q0M MIKE Rx#: [id number] Oral 100 Tube Feeding 696 696 58 Other 30 125 Output: Urine 740 1190 125 Other: Voiding Method Indwelling Catheter Indwelling Catheter ABP, PAP, CO, CI - Last Documented Arterial Blood Pressure 152/49 - Exam GENERAL EXAM: 85-year-old white male, sedated, intubated on assist control mode of ventilation, with FiO2 of 45% and PEEP of 10 comfortable in no apparent distress. HEAD: Normocephalic/atraumatic. EYES: Normal reaction of pupils, equal size. Conjunctiva pink, sclera white. NOSE: Clear with pink turbinates. THROAT: No erythema or exudates. NECK: No masses, no JVD, no thyroid enlargement, no adenopathy. CHEST: No chest wall deformity. Symmetrical expansion. LUNGS: Equal air entry with no crackles, wheeze, rhonchi or dullness. CVS: Irregular rate and rhythm, normal S1 and S2, no gallops, no murmurs, no rubs ABDOMEN: Soft, nontender, abdominal distention, possibility of abdominal ascites is considered, abdominal ultrasound is pending. No hepatosplenomegaly, normal bowel sounds, no guarding or rigidity. EXTREMITIES: No clubbing, mild generalized edema, 1+ lower extremity edema, no cyanosis, 2+ pulses and upper and lower extremities. MUSCULOSKELETAL: Muscle strength and tone normal. SPINE: No scoliosis or deformity SKIN: No rashes CENTRAL NERVOUS SYSTEM: Sedated, intubated No focal deficits, tone is normal in all 4 extremities. - Labs CBC & Chem 7: 09/07/20 04:20 09/07/20 04:20 Labs: Abnormal Lab Results - Last 24 Hours (Table) 09/06/20 09/06/20 09/06/20 Range/Units 08:03 11:39 16:02 WBC (3.8-10.6) k/uL RBC (4.30-5.90) m/uL Hgb (13.0-17.5) gm/dL Hct (39.0-53.0) % Plt Count (150-450) k/uL Neutrophils # (1.3-7.7) k/uL Lymphocytes # (1.0-4.8) k/uL D-Dimer (<0.60) mg/L FEU ABG pH (7.35-7.45) ABG pO2 (83-108) mmHg ABG Total CO2 (19-24) mmol/L ABG O2 Saturation (94-97) % Sodium (137-145) mmol/L Potassium (3.5-5.1) mmol/L BUN (9-20) mg/dL Creatinine (0.66-1.25) mg/dL Glucose (74-99) mg/dL POC Glucose (mg/dL) 245 H 306 H 251 H (75-99) mg/dL Calcium (8.4-10.2) mg/dL ALT (4-49) U/L Total Protein (6.3-8.2) g/dL Albumin (3.5-5.0) g/dL 09/06/20 09/06/20 09/07/20 Range/Units 20:18 23:48 04:19 WBC (3.8-10.6) k/uL RBC (4.30-5.90) m/uL Hgb (13.0-17.5) gm/dL Hct (39.0-53.0) % Plt Count (150-450) k/uL Neutrophils # (1.3-7.7) k/uL Lymphocytes # (1.0-4.8) k/uL D-Dimer (<0.60) mg/L FEU ABG pH (7.35-7.45) ABG pO2 (83-108) mmHg ABG Total CO2 (19-24) mmol/L ABG O2 Saturation (94-97) % Sodium (137-145) mmol/L Potassium (3.5-5.1) mmol/L BUN (9-20) mg/dL Creatinine (0.66-1.25) mg/dL Glucose (74-99) mg/dL POC Glucose (mg/dL) 297 H 313 H 298 H (75-99) mg/dL Calcium (8.4-10.2) mg/dL ALT (4-49) U/L Total Protein (6.3-8.2) g/dL Albumin (3.5-5.0) g/dL 09/07/20 09/07/20 09/07/20 Range/Units 04:20 04:20 04:20 WBC 12.4 H (3.8-10.6) k/uL RBC 3.08 L (4.30-5.90) m/uL Hgb 9.7 L (13.0-17.5) gm/dL Hct 29.5 L (39.0-53.0) % Plt Count 94 L (150-450) k/uL Neutrophils # 11.7 H (1.3-7.7) k/uL Lymphocytes # 0.1 L (1.0-4.8) k/uL D-Dimer 2.53 H (<0.60) mg/L FEU ABG pH (7.35-7.45) ABG pO2 (83-108) mmHg ABG Total CO2 (19-24) mmol/L ABG O2 Saturation (94-97) % Sodium 134 L (137-145) mmol/L Potassium 3.0 L (3.5-5.1) mmol/L BUN 104 H* (9-20) mg/dL Creatinine 4.46 H (0.66-1.25) mg/dL Glucose 279 H (74-99) mg/dL POC Glucose (mg/dL) (75-99) mg/dL Calcium 6.3 L* (8.4-10.2) mg/dL ALT 82 H (4-49) U/L Total Protein 4.0 L (6.3-8.2) g/dL Albumin 2.1 L (3.5-5.0) g/dL 09/07/20 Range/Units 05:18 WBC (3.8-10.6) k/uL RBC (4.30-5.90) m/uL Hgb (13.0-17.5) gm/dL Hct (39.0-53.0) % Plt Count (150-450) k/uL Neutrophils # (1.3-7.7) k/uL Lymphocytes # (1.0-4.8) k/uL D-Dimer (<0.60) mg/L FEU ABG pH 7.34 L (7.35-7.45) ABG pO2 56 L* (83-108) mmHg ABG Total CO2 25 H (19-24) mmol/L ABG O2 Saturation 87.4 L (94-97) % Sodium (137-145) mmol/L Potassium (3.5-5.1) mmol/L BUN (9-20) mg/dL Creatinine (0.66-1.25) mg/dL Glucose (74-99) mg/dL POC Glucose (mg/dL) (75-99) mg/dL Calcium (8.4-10.2) mg/dL ALT (4-49) U/L Total Protein (6.3-8.2) g/dL Albumin (3.5-5.0) g/dL Microbiology - Last 24 Hours (Table) 09/04/20 09:45 Blood Culture Gram Stain - Final Blood Blood Culture - Final Escherichia coli 09/04/20 09:51 Blood Culture Gram Stain - Final Blood Blood Culture - Final Escherichia coli 09/04/20 03:15 Urine Culture - Final Urine,Voided Escherichia coli Assessment and Plan Plan: #1. Acute hypoxic respiratory failure multifactorial, related to acute sepsis and septic shock related to E. coli bacteremia, recent history of COVID-19 pneumonia. The patient has developed significant amount of volume overload as the patient was being treated for septic shock and hypotension. He is at least 17 kg weight gain and he has developed significant edema in all 4 extremities. Also, he has developed bilateral pleural effusions on today's chest x-ray and x- ray findings are obviously worsened consistent with fluid overload on top of an underlying COVID-19 related pneumonia. #2. Sepsis secondary to E. coli, secondary to an underlying UTI. #3. Recent hospitalization for COVID-19 pneumonia, status post BAM and the patient is on Decadron #4. New onset A. fib with RVR, patient off Cardizem, started on Eliquis today on 09/05/2020 #5. Elevated d-dimer, multifactorial, improving #6. Acute on chronic kidney disease and the creatinine is on the rise and patient has a component of non-anion gap acidosis him a and the metabolic acidosis improved with a bicarb infusion #7. Non-anion gap metabolic acidosis related to acute kidney injury, improved #8. Chronic kidney disease stage III #9. History of coronary artery disease with history of stenting #10. Hypertension #11. Hyperlipidemia #12. History of bladder cancer with surgical resection Plan: Stop the sodium bicarb infusion Start the patient on Lasix 40 mg every 8 hours keep the same antibiotic coverage for now Discontinue the Cardizem drip Echocardiogram was noted The patient is currently off pressors since yesterday Continue Zosyn and drop the Levaquin for now Continue oral anticoagulation with Eliquis Monitor Cvp pressures Continue vital high protein at the rate of 58. An hour for enteral feeding and nutritional support We'll continue to follow make further recommendations based on his progress. There is a critically care evaluation, more than 30 minutes. B Time with Patient: Greater than 30
[2020-09-07] MEDS: ALBUTEROL HFA INHALER INHALATION SCH ×4 (08:14→20:36)
[2020-09-07] MEDS: CHLORHEXIDINE GLUCONATE 15 ML CUP MUCOUS MEM SCH ×2 (08:17→20:53)
[2020-09-07] MEDS: CHOLECALCIFEROL 25 MCG (1000 IU) TABLET PO SCH (08:17)
[2020-09-07] MEDS: ASPIRIN 81 MG PO SCH (08:18)
[2020-09-07] MEDS: APIXABAN 2.5 MG TABLET PO SCH ×2 (08:18→20:53)
[2020-09-07] MEDS: ACETAMINOPHEN TAB 500 MG TAB PO SCH (08:18)
[2020-09-07] MEDS: DEXAMETHASONE SOD PHOSPHATE 10 MG/ML 1 ML VIAL IV SCH (08:18)
[2020-09-07] MEDS: PANTOPRAZOLE 40 MG/10 ML VIAL IVP SCH (08:18)
[2020-09-07 08:21] LABS: Glucose,Whole Blood 254 mg/dL (75-99)
[2020-09-07] MEDS: METOPROLOL TARTRATE 12.5 MG TAB PO SCH ×2 (09:44→20:53)
--- NOTE | 2020-09-07 09:58 | XR ---
EXAMINATION TYPE: XR chest 1V portable DATE OF EXAM: 09/07/2020 CLINICAL HISTORY: Tube placement. TECHNIQUE: Portable semiupright view of the chest. COMPARISON: 09/06/2020 FINDINGS: Endotracheal tube, left subclavian central venous catheter, and enteric tube redemonstrate d. Cardiac silhouette is obscured. There are increased bilateral airspace opacities, with a more foca l opacity over the right upper lung with somewhat cavitary appearance. There is moderate right pleura l effusion which is increased. Unchanged small left pleural effusion. No pneumothorax. IMPRESSION: 1. Increased bilateral airspace opacities, with a more focal and somewhat cavitary appearing opacity over the right upper lung. 2. Increased moderate right pleural effusion. Unchanged small left pleural effusion.
--- NOTE | 2020-09-07 10:28 | PN ---
PROGRESS NOTE Mr. Marc remains in atrial fib. Rate is fairly well controlled about 80-90. Vitals are stable. He has COVID pneumonia recovering nicely. He is also anticoagulated. Vitals are stable today. I am recommending that we will add a small dose of beta kinjal in the form of metoprolol tartrate 12.5 mg b.i.d. and also increase aspirin to 81 mg daily. We will continue to see the patient as needed. MMODL / IJN: [id number] /
--- NOTE | 2020-09-07 10:58 | P.PN ---
Subjective Progress Note Date: 09/07/20 HISTORY OF PRESENT ILLNESS This is an 85-year-old male patient of Dr. Andrei Vasquez with past medical history of hyperlipidemia, hypothyroidism, bladder cancer, coronary artery di sease status post stent, diagnosed with Covid 19 pneumonia status post Bamlanivimab and subsequently admitted from August 27 through September 01 which time he was treated for acute hypoxic respiratory failure secondary to Covid 19 pneumonia, acute kidney injury, discharged home with home care. Apparently patient was at home but became very dyspneic and pulse ox dropped to 88%, patient not had anything to eat or drink since he left the hospital. EMS was contacted and patient was brought into the emergency center for evaluation. She complains of feeling tired. He was found to be afebrile, heart rate 98, blood pressure 114/65, pulse ox 90% on 2 L nasal cannula. WBC 20.5, hemoglobin 12.1, platelet count 148. Sodium 138, potassium 2.9, chloride 113, CO2 15, BUN 59 creatinine 2.52. Blood sugar 147. ALT 77. LDH 639. Albumin 2.7. Lactic acid 2.0. Magnesium 2.1. CK 74. EKG was a sinus rhythm with no acute ST changes. Patient was given 1 L of IV fluid and potassium was replaced. 09/03: Patient has not eating any meals since admission. He is oriented 3 but noted to have significant short-term memory deficit and having difficulty following instructions. Social work is following for discharge planning. Family is planning for patient to come home with [facility] and does not want to consider rehab. PT and OT clearly recommend subacute rehab. Patient has been afebrile, heart rate 94, blood pressure 120/73, pulse ox 94% on high flow nasal cannula at 4 L. Repeat blood work reveals WBC 30.3, hemoglobin 12.6, platelet count 143. Lactic acid 1.8. Chemistry results are not up at the time of this dictation at 2 10 in the afternoon. Repeat blood work will be ordered f or the morning. Anticipate possible discharge tomorrow 09/04: A-Team was called this morning due to difficulty breathing and hypoxia. Patient was tachycardic and diaphoretic. Heart rate was in the 130s. Patient was placed on BiPAP but he could not tolerate and became very anxious. Patient was given Ativan with no improvement. Pulse ox was low 70s and he was transferred to the intensive care unit and intubated and placed on mechanical ventilation. Patient was found to be in A. fib with RVR and cardiology consult was added as well as pulmonary medicine was added during the night. Patient was started on Cardizem bolus and drip. Lovenox increased to 45 mg twice daily, Decadron 6 mg IV daily. Patient has been started on norepinephrine 09/05: Patient seen in ICU use on mechanical intubation FiO2 55, PEEP 10, tidal volume 100, respiratory rate 24. Patient remains afebrile, heart rate 65 and irregular H or fibrillation noted to the monitor, respiration rate 28, blood pressure 105/68 97% on mechanical ventilation. Patient remains in atrial fibrillation. C 23.8, hemoglobin 10.8, potassium 3.2, BUN 81, creatinine 4.57. 09/06: Patient seen in ICU still on mechanical intubation FiO2 of 45 with a PEEP of 8, levo fed has been decreased to 2 mics. Patient remains afebrile, respirations 20, blood pressure 104/68, 95% on mechanical intubation. Blood cultures and urine cultures show gram-negative bacilli and E. coli. He is currently on Zosyn and Levaquin for coverage. 09/07: Patient remains intubated and on mechanical ventilation with tidal volume 400, FiO2 of 45 and PEEP of 10. Repeat chest x-ray reveals increased bilateral airspace opacities with more focal and somewhat cavitary-appearing opacities over the right upper lung. Increased moderate right pleural effusion. Un changed small left pleural effusion. Patient had minimal urine output running at 30 miles per hour but this morning increased to 100. He is scheduled for Lasix 40 mg IV every 8 hours to start this afternoon. Bicarb drip was discontinued. Patient is currently off pressors since yesterday afternoon. He is on tube feedings. quality assurance monitor chassis is atrial fibrillation and controlled rate and patient has been started on eliquis. Cardizem drip has been discontinued and he is maintained on Lopressor 12.5 mg twice daily. He is also on Lasix 40 mg IV every 8 hours. Cardiology is following on an as-needed basis. Patient is continued on Zosyn and Levaquin was discontinued by pulmonary medicine. REVIEW OF SYSTEMS Unable to obtain due to intubation. PHYSICAL EXAMINATION Gen: This is an 85-year-old male patient, patient in ICU bed and appears to be comfortable at rest. HEENT: Head is atraumatic, normocephalic. Pupils equal, round. Sclerae is an icteric. Patient is intubated and on mechanical ventilation. NECK: Supple. No JVD. No lymphadenopathy. No thyromegaly. LUNGS: Clear to auscultation. No wheezes or rhonchi. No intercostal retraction s. HEART: Irregular rate and rhythm. No murmur. ABDOMEN: Soft. Bowel sounds are present. No masses. No tenderness. Laws catheter in place. EXTREMITIES: No pedal edema. No calf tenderness. NEUROLOGICAL: Patient sedated and intubated ASSESSMENT AND PLAN 1. Acute hypoxic respiratory failure secondary to Covid 19 pneumonitis. Continue oxygen therapy. Continue albuterol inhaler 2 puffs 4 times daily, dexamethasone 6 mg iv daily. 2. Acute kidney injury secondary to dehydration and lack of oral intake and diarrhea. Continue IV fluids 0.9 normal saline at 20 mL per hour. Continue Lasix 40 mg IV every 8 hours. Consult nephrology appreciated. 3. Sepsis, septic shock and gram-negative bacteremia, POA. Continue Zosyn. 4. Urinary tract infection with E. coli bacteremia. Continue Zosyn. 5. Transaminitis secondary to COVID-19, hypotension. 6. New-onset A. fib with RVR. Continue eliquis and Lopressor. Cardiology consult appreciated and cardiology has signed off. 7. Hyperlipidemia. Continue Lipitor 40 mg at bedtime. 8. Hypertension. Patient is off vasopressors. 9. Gastroesophageal reflux disease and GI prophylaxis. Continue Protonix 40 mg IVP daily. 10. Hypothyroidism. Continue levothyroxine 100 g daily. 11. Chronic gout. 12. Chronic kidney disease stage III. 13. History of coronary artery disease with previous stenting. 14. DVT prophylaxis. Eliquis. Prognosis is guarded. DISCHARGE PLAN To be determined. Impression and plan of care have been directed as dictated by the signing juan saunders. Joseline Corado nurse practitioner acting as scribe for signing physician. Objective - Vital Signs Vital signs: Vital Signs Temp 98.2 F 09/07/20 04:00 Pulse 95 09/07/20 07:00 Resp 25 H 09/07/20 07:00 BP 132/72 09/07/20 07:00 Pulse Ox 89 L 05/03/21 07:00 Intake & Output 09/06/20 09/07/20 09/07/20 18:59 06:59 18:59 Intake Total 2853.549 2909.452 309 Output Total 740 1190 125 Balance 2113.549 1719.452 184 Weight 107.2 kg Intake: IV 1800 1809 151 Dextrose 5% in Water 1, 1500 1500 125 000 ml @ 125 mls/hr IV . Q9H12M MIKE with Sodium Bicarb (1 Meq/ml) 150 ml Rx#:[id number] Pressure Bags 60 69 6 Sodium Chloride 0.9% 1, 240 240 20 000 ml @ 20 mls/hr IV . Q24H MIKE Rx#:[id number] Intake, IV Titration 227.549 279.452 100 Amount Norepinephrine 8 mg In 7.681 Sodium Chloride 0.9% 250 ml @ 0.05 MCG/KG/MIN 8. 777 mls/hr IV .Q24H MIKE Rx#:[id number] propofoL 1,000 mg In 219.868 279.452 100 Empty Bag 1 bag @ Titrate IV .Q0M MIKE Rx#: [id number] Oral 100 Tube Feeding 696 696 58 Other 30 125 Output: Urine 740 1190 125 Other: Voiding Method Indwelling Catheter Indwelling Catheter ABP, PAP, CO, CI - Last Documented Arterial Blood Pressure 152/49 - Labs CBC & Chem 7: 09/07/20 04:20 09/07/20 04:20 Labs: Abnormal Lab Results - Last 24 Hours (Table) 09/06/20 09/06/20 09/06/20 Range/Units 11:39 16:02 20:18 WBC (3.8-10.6) k/uL RBC (4.30-5.90) m/uL Hgb (13.0-17.5) gm/dL Hct (39.0-53.0) % Plt Count (150-450) k/uL Neutrophils # (1.3-7.7) k/uL Lymphocytes # (1.0-4.8) k/uL D-Dimer (<0.60) mg/L FEU ABG pH (7.35-7.45) ABG pO2 (83-108) mmHg ABG Total CO2 (19-24) mmol/L ABG O2 Saturation (94-97) % Sodium (137-145) mmol/L Potassium (3.5-5.1) mmol/L BUN (9-20) mg/dL Creatinine (0.66-1.25) mg/dL Glucose (74-99) mg/dL POC Glucose (mg/dL) 306 H 251 H 297 H (75-99) mg/dL Calcium (8.4-10.2) mg/dL ALT (4-49) U/L Total Protein (6.3-8.2) g/dL Albumin (3.5-5.0) g/dL 09/06/20 09/07/20 09/07/20 Range/Units 23:48 04:19 04:20 WBC (3.8-10.6) k/uL RBC (4.30-5.90) m/uL Hgb (13.0-17.5) gm/dL Hct (39.0-53.0) % Plt Count (150-450) k/uL Neutrophils # (1.3-7.7) k/uL Lymphocytes # (1.0-4.8) k/uL D-Dimer 2.53 H (<0.60) mg/L FEU ABG pH (7.35-7.45) ABG pO2 (83-108) mmHg ABG Total CO2 (19-24) mmol/L ABG O2 Saturation (94-97) % Sodium (137-145) mmol/L Potassium (3.5-5.1) mmol/L BUN (9-20) mg/dL Creatinine (0.66-1.25) mg/dL Glucose (74-99) mg/dL POC Glucose (mg/dL) 313 H 298 H (75-99) mg/dL Calcium (8.4-10.2) mg/dL ALT (4-49) U/L Total Protein (6.3-8.2) g/dL Albumin (3.5-5.0) g/dL 09/07/20 09/07/20 09/07/20 Range/Units 04:20 04:20 05:18 WBC 12.4 H (3.8-10.6) k/uL RBC 3.08 L (4.30-5.90) m/uL Hgb 9.7 L (13.0-17.5) gm/dL Hct 29.5 L (39.0-53.0) % Plt Count 94 L (150-450) k/uL Neutrophils # 11.7 H (1.3-7.7) k/uL Lymphocytes # 0.1 L (1.0-4.8) k/uL D-Dimer (<0.60) mg/L FEU ABG pH 7.34 L (7.35-7.45) ABG pO2 56 L* (83-108) mmHg ABG Total CO2 25 H (19-24) mmol/L ABG O2 Saturation 87.4 L (94-97) % Sodium 134 L (137-145) mmol/L Potassium 3.0 L (3.5-5.1) mmol/L BUN 104 H* (9-20) mg/dL Creatinine 4.46 H (0.66-1.25) mg/dL Glucose 279 H (74-99) mg/dL POC Glucose (mg/dL) (75-99) mg/dL Calcium 6.3 L* (8.4-10.2) mg/dL ALT 82 H (4-49) U/L Total Protein 4.0 L (6.3-8.2) g/dL Albumin 2.1 L (3.5-5.0) g/dL 09/07/20 Range/Units 08:20 WBC (3.8-10.6) k/uL RBC (4.30-5.90) m/uL Hgb (13.0-17.5) gm/dL Hct (39.0-53.0) % Plt Count (150-450) k/uL Neutrophils # (1.3-7.7) k/uL Lymphocytes # (1.0-4.8) k/uL D-Dimer (<0.60) mg/L FEU ABG pH (7.35-7.45) ABG pO2 (83-108) mmHg ABG Total CO2 (19-24) mmol/L ABG O2 Saturation (94-97) % Sodium (137-145) mmol/L Potassium (3.5-5.1) mmol/L BUN (9-20) mg/dL Creatinine (0.66-1.25) mg/dL Glucose (74-99) mg/dL POC Glucose (mg/dL) 254 H (75-99) mg/dL Calcium (8.4-10.2) mg/dL ALT (4-49) U/L Total Protein (6.3-8.2) g/dL Albumin (3.5-5.0) g/dL Microbiology - Last 24 Hours (Table) 09/05/20 08:00 Gram Stain - Final Sputum Sputum Culture - Final Staphylococcus aureus 09/04/20 09:45 Blood Culture Gram Stain - Final Blood Blood Culture - Final Escherichia coli 09/04/20 09:51 Blood Culture Gram Stain - Final Blood Blood Culture - Final Escherichia coli 09/04/20 03:15 Urine Culture - Final Urine,Voided Escherichia coli
[2020-09-07 12:11] LABS: Glucose,Whole Blood 209 mg/dL (75-99)
[2020-09-07 12:43] LABS: Glucose,Whole Blood 198 mg/dL (75-99)
--- NOTE | 2020-09-07 13:28 | PN ---
PROGRESS NOTE Patient is seen for followup for acute kidney injury. He currently remains on the vent. FiO2 is at 60%, which is up from 45 previously. His O2 sats are 88% to 94%. Blood pressure this morning 128/71, heart rate 95 per minute. Case is discussed with nursing staff. The patient is a maintained on propofol. He is not on IV fluids. He was maintained on a bicarb drip which was discontinued today. He is off of pressors as well. Currently started on Lasix this morning. Urine output about 125 mL to 30 mL an hour. The 125 mL was after Lasix currently staying mostly at about 30 mL an hour. LABS: Labs are reviewed. Sodium 134, potassium 3.0, chloride 102, BUN 104, serum creatinine 4.46. Calcium 6.3. Magnesium 2.0. Hemoglobin 9.7. ASSESSMENT: 1. Acute kidney injury, acute tubular necrosis, currently nonoliguric with some decrease in creatinine today. The patient is currently being diuresed. Repeat labs in a.m. 2. Hypokalemia, status post replacement. Magnesium is 2.0. No obvious diarrhea or gastrointestinal fluid losses. 3. Metabolic acidosis, status post bicarb drip, currently improved. 4. Acute hypoxic respiratory failure. 5. COVID pneumonia. PLAN: May continue with current dose of Lasix. Repeat labs in a.m. Replace potassium. Avoid nephrotoxic medications. MMODL / IJN: [id number] /
--- NOTE | 2020-09-07 16:18 | XR ---
EXAMINATION TYPE: XR chest 1V portable DATE OF EXAM: 09/07/2020 CLINICAL HISTORY: Difficulty breathing and increasing hypoxia progress study. TECHNIQUE: Single AP portable semiupright view of the chest is obtained. COMPARISON: Chest x-ray from earlier today an older studies FINDINGS: Stable endotracheal and orogastric tubes. Stable left-sided subclavian central venous antonio ter. Background low lung volumes redemonstrated. There is persistent multifocal and confluent bilateral op acities. The cardiac silhouette size is stable and mildly enlarged. Suspect small to tiny bilateral right greater than left pleural effusions The osseous structures are intact. IMPRESSION: Low lung volumes and cardiomegaly with bilateral multifocal and confluent opacities with small to tiny bilateral pleural effusions all redemonstrated. No significant change from most recent x-ray.
[2020-09-07 16:28] LABS: ABG Base Excess -2.3 mmol/L; ABG HCO3 23 mmol/L (21-25); ABG PCO2 41 mmHg (35-45); ABG PH 7.36 (7.35-7.45); ABG PO2 79 mmHg (83-108); ABG TCO2 25 mmol/L (19-24); Allen Test Performed? Yes
[2020-09-07] MEDS: FUROSEMIDE 10 MG/ML 4 ML VIAL IV SCH (16:30)
[2020-09-07 20:53] LABS: Glucose,Whole Blood 208 mg/dL (75-99)
[2020-09-07] MEDS: ATORVASTATIN 40 MG TAB PO SCH (20:53)
[2020-09-07] MEDS: SODIUM CHLORIDE 0.9% 1,000 ML IV SCH (20:54)
[2020-09-08 00:19] LABS: Glucose,Whole Blood 199 mg/dL (75-99)
[2020-09-08] MEDS: INSULIN ASPART (NovoLOG) 100 UNIT/ML VIAL SQ SCH ×6 (00:28→20:40)
[2020-09-08] MEDS: PIPERACILLIN-TAZOBACTAM 3.375 GM in SODIUM CHLORIDE 0.9% 100 ML IVPB SCH ×2 (00:28→09:06)
[2020-09-08] MEDS: FUROSEMIDE 10 MG/ML 4 ML VIAL IV SCH (00:29)
[2020-09-08 04:51] LABS: Glucose,Whole Blood 206 mg/dL (75-99)
[2020-09-08 05:09] LABS: Basophils % (A) 0 %; Eosinophils % (A) 0 %; HCT 28.9 % (39.0-53.0); HGB 10.4 gm/dL (13.0-17.5); Lymphocytes # (A) 0.2 k/uL (1.0-4.8); Lymphocytes % (A) 2 %; MCH 34.2 pg (25.0-35.0); MCHC 36.2 g/dL (31.0-37.0); MCV 94.5 fL (80.0-100.0); Mean Platelet Volume 11.5; Monocytes # (A) 0.6 k/uL (0-1.0); Monocytes % (A) 5 %; Neutrophils # (A) 10.6 k/uL (1.3-7.7); Neutrophils % (A) 93 %; RBC 3.06 m/uL (4.30-5.90); WBC 11.4 k/uL (3.8-10.6)
[2020-09-08 05:18] LABS: Albumin 2.1 g/dL (3.5-5.0); Calcium 6.8 mg/dL (8.4-10.2); Total Bilirubin 0.5 mg/dL (0.2-1.3)
[2020-09-08 05:21] LABS: Platelet Count 85 k/uL (150-450)
[2020-09-08 05:33] LABS: ABG Base Excess -3.1 mmol/L; ABG HCO3 22 mmol/L (21-25); ABG Oxygen Saturation 95.3 % (94-97); ABG PCO2 38 mmHg (35-45); ABG PH 7.38 (7.35-7.45); ABG PO2 79 mmHg (83-108); ABG TCO2 23 mmol/L (19-24); Allen Test Performed? Yes
[2020-09-08] MEDS: LEVOTHYROXINE 100 MCG TAB PO SCH (06:41)
[2020-09-08] MEDS: POTASSIUM BICARBONATE/CIT AC 20 MEQ TABLET.EFF NG-TUBE SCH ×2 (06:42→07:23)
[2020-09-08] MEDS: ALBUTEROL HFA INHALER INHALATION SCH ×4 (07:26→19:48)
--- NOTE | 2020-09-08 08:12 | XR ---
EXAMINATION TYPE: XR chest 1V portable DATE OF EXAM: 09/08/2020 COMPARISON: 09/07/2020 INDICATION: Tube placement TECHNIQUE: Single frontal view of the chest is obtained. FINDINGS: The heart size is normal. The pulmonary vasculature is normal. There is a right lower lobe infiltrate. Moderate right pleural effusion is likely present. Left pleur al effusion is present. Mild infiltrates at the left lung base. Endotracheal tube tip is above the rochelle. Nasogastric tube transverses the thorax. Left central veno us catheter is present with the tip in superior vena cava region. IMPRESSION: 1. Bibasilar infiltrates with small pleural effusions, these are greater on the right. 2. Lines and catheters discussed above.
[2020-09-08] MEDS ORDERED: FUROSEMIDE 10 MG/ML 10 ML VIAL IV STA (08:32)
--- NOTE | 2020-09-08 08:38 | P.PN ---
Subjective Progress Note Date: 09/08/20 This is an 85-year-old gentleman who follows with Dr. Preston as his primary care provider. He has a history of liver cancer, coronary artery disease with previous stent placement, hypothyroidism, hyperlipidemia. Lifelong nonsmoker. He was recently admitted to the hospital from [address] [place] [address] for symptoms related to COVID-19 pneumonia. He had been given BAM on 08/25/2020 in the ER and discharged home. Subsequently discharged again in 09/01/2020. He re-presented to the emergency room 09/02/2020 with generalized weakness, rapid breathing and poor appetite and oral intake. O2 saturations 88% on room air. He was admitted again to the regular medical floor. At 4:00 this morning the patient had incre ased work of breathing with hypoxemia and an A team was called. He is subsequently transferred to the intensive care unit requiring intubation and mechanical ventilatory support. He is seen today in consultation in the ICU. He is currently intubated on mechanical ventilator. Assist-control mode with a rate of 24, tidal volume 400, FiO2 100% and a PEEP of 5. Morning blood gases revealed a PaO2 102, pCO2 37, PT H7.13. Those were drawn on a rate of 20. Blood cultures are positive for E. coli. He is currently on Zosyn and Levaquin. He is sedated on propofol 50 mcg/kg/m. Norepinephrine at 9 mcg/m. 0.9 normal saline at 75 ML's per hour. D5W with 2 A of bicarb at 75 mL per hour. White count 21.6. Hemoglobin 11.9. D-dimer 7.19. Sodium 140. Potassium 3.3. Creatinine 3.76. Glucose 151. LDH 766. C-reactive protein 36.4. AST 60. ALT 91. Urinalysis with large leukocyte esterase and greater than 182 WBCs with many bacteria. Culture pending. He is currently on Lovenox 30 mg subcu daily, dexamethasone, bronchodilators. Sensory continues to show persistent bilateral lung opacities with small left pleural effusion. On 09/05/2020 patient seen in follow-up in the intensive care unit. He remains intubated and sedated on assist control mode of ventilation, with a rate of 24, tidal was 400, FiO2 of 55% and PEEP of 10. This morning's blood gas shows pO2 of 124, pCO2 of 30, and pH of 7.23. Patient was adequately fluid resuscitated yesterday, he received 3-1/2 L" boluses, he was started on Zosyn and Levaquin for evidence of E. coli bacteremia likely related to urinary tract infection, he is currently sedated on Diprivan at 50 mics per kilo per minute, he is on 0.9 no rmal saline at a rate of 20 ML per hour, Cardizem drip at 5 mg per hour, D5W with 2 A of sodium bicarb at a rate of 75 ML per hour, and he is on Levophed currently at 18 mics per minute. Yesterday he went into atrial fibrillation, he was tachycardic, and he was started on Cardizem drip, he remains in atrial fibrillation today, but the rate is controlled. Cardiology has been consulted. Today's labs have been reviewed, showing white blood cell count of 20.3, hemoglobin is 10.8, platelet count is 123, d-dimer is improved but still elevated at 3.35, patient is on Lovenox 40 mg twice daily, sodium is 135, potassium 3.2, chloride is 112, CO2 is 12, BUN of 81, creatinine is 4.57, and patient's renal function has significantly worsened since yesterday. He seems to be generally swollen, his abdomen is distended, and there is a positive fluid wave with the possibility of abdominal ascites on today's exam. His urine output has been in the order of 30 ML per hour, will consult nephrology. He is tolerating tube feedings and he is on vital high-protein at a rate of 38 with a goal of 45 ML, and standard water flushes. His chest x-ray today showed no change in the small left pleural effusion or elevation of the right hemidiaphragm. He remains on antibiotics with Zosyn and Levaquin, his follow-up blood cultures continue to be positive with gram-negative bacilli. Echocardiogram has been reviewed and showed EF between 50-55%. On 09/06/2020 patient seen in follow-up in the intensive care unit, he remains sedated and intubated on mechanical ventilator, currently on assist control mode of ventilation with a rate of 24, Tylox 400, FiO2 45%, and PEEP of 10, this morning's blood gas shows pO2 of 92, pCO2 35, and pH is 7.33. Today's chest x- ray has been reviewed showing bilateral infiltrates and pleural effusions that are stable in appearance. Patient is currently on 0.9 normal same at KVO, levo fed is at 2 mics per minute, and D5W with 3 bicarbonate at 125 ml per hour. Patient is on antibiotics in the form of Levaquin and Zosyn, ID service is following, most recent blood cultures from 09/04/2020 continue to show gram negative bacilli, initial blood culture from 09/03/2020 was positive for E. coli, vitamin culture has been sent and pending, and culture was positive for gram-negative bacilli as well. he was afebrile overnight. No significant phlegm production, FiO2 was dropped down to 45%, his PEEP is at 10 which can be dropped to 5 today. Abdomen is soft, patient is tolerating tube feedings, he is on vital high-protein at 58 ML per hour, abdominal ultrasound showed no evidence of ascites, he has got mild generalized edema, his norepinephrine requirements are common down. Remains in atrial fibrillation with a controlled rate, he was started on Eliquis yesterday, Cardizem drip has been discontinued, cardiology is following. Urine output is in the order of 30-80 ML per hour. On 09/07/2020, the patient remains intubated on mechanical ventilator. This patient is on assist control mode of ventilation with a rate of 24 tidal volume of 400 45% with PEEP of 10. The blood gases from today showing a pH of 7.33 with a pCO2 of 44 and pO2 of 56. His chest x-ray is showing bilateral pulmonary infiltrates with development of effusions in the lung bases bilaterally. ET tube is in a good location. There is some underlying residual pulmonary infiltration due to COVID-19 related pneumonia. Nevertheless, there is obvious worsening in the lung bases with possibly development of bilateral effusions. Findings are consistent with CHF on top of COVID-19 related pneumonia. The patient is on D5 water and sodium bicarb infusion at the rate of 125 mL an hour and his serum bicarbonate currently is at 23 has normalized. The patient has been off pressors since yesterday. Antibiotic coverage includes a combination of Zosyn and Levaquin. Blood culture from 09/04/2020 was positive for gram- negative bacillus and the blood cultures from 09/03/2020 was positive for E. coli. Patient is afebrile. Remains in atrial fibrillation with a controlled rate. Started on anticoagulation with Eliquis. Cardizem drip has been discontinued and the patient states under good control. Urine output is adequate. She is receiving enteral feeding for nutritional support. The white cell count continues to drop this down to 12.4 from yesterday and the patient's hemoglobin is at 5.5. Platelets of the Route fusion consumptive thrombocytopenia probably related to his underlying sepsis. The patient also has a component of an acute on top of chronic kidney disease. The creatinine is stable compared to yesterday at 4.46. The patient has a component of an acute on top of chronic kidney failure. He has been more than 10 L positive since his admission to the ICU and the patient has a total of 17 kg in weight gain. On today's evaluation of 09/08/2020, the patient is being seen on a follow-up. The patient remains intubated on a mechanical ventilator due to complications of septic shock. Note that he was also treated for COVID-19 related pneumonia. This morning, the patient is sedated with propofol which is running at 50 mcg/kg per minute. He is on a mechanical ventilator. Ventilator changes were done yesterday and currently he is on assist-control at the rate of 24 with a tidal volume of 400 and FiO2 of 50% with a PEEP of 10. Chest x-ray is showing diffuse bilateral pulmonary infiltrates. Is obviously worsening in the right-sided pleural effusion compared to yesterday. Noted the patient has bilateral pleural effusion worse on the right. ET tube is in a good location. The blood gases from today showing a pH of 7.38 with a pCO2 of 38 and pO2 of 79. We have noted that the patient had become significantly fluid overloaded. Based on that, we started him on Lasix 40 mg every 8 hours. He is not fluid balance since yesterday has been +3.8 L and the patient did not respond to diuretics. Overall urine output was in the order of 1.9 L. Nevertheless the patient is taking more than 5 L of IV fluids and. He was on a bicarb infusion that was discontinued yesterday. Is currently under the 119 with a creatinine of 4.95.. Note that the patient is still on antibiotic coverage with Zosyn. Levaquin was discontinued yesterday. The patient E. coli in the blood and the last positive culture was on 09/04/2020 and the patient had MSSA in his sputum that was cultured on 09/05/2020. In terms of his hemodynamics, the patient is on no pressors. The patient is in atrial fibrillation. Maintaining his own blood pressure. Cardizem drip was discontinued and the patient is on metoprolol 12.5 mg by mouth twice a day for rate control. His blood work from today shows obvious worsening in her renal function and creatinine is up to 4.95 with a BUN of 119. Electrolytes showing a serum bicarb of 21 with a potassium level of 3.0 that needs to be replaced. Sodium is at 137. The white cell count currently is at 11.4 and has improved in the hemoglobin is at 10.4 with a platelet count of 85 which is slightly lower compared to yesterday. His d-dimer from yesterday was 2.53. His blood sugar was 206, liver function tests are normal, protein was 4 with an albumin of 2.1. The patient is receiving enteral feeding for nutritional support and currently is on vital high protein at the rate of 58 mL an hour. His body weight today is on the rise. Objective - Vital Signs Vital signs: Vital Signs Temp 98.9 F 09/08/20 04:00 Pulse 77 09/08/20 06:00 Resp 26 H 09/08/20 06:00 BP 110/70 09/08/20 06:00 Pulse Ox 98 09/08/20 06:00 Intake & Output 09/07/20 09/08/20 09/08/20 18:59 06:59 18:59 Intake Total 5287.424 4571.795 Output Total 1000 1560 Balance 661.965 9.795 Weight 117.2 kg Intake: IV 565 449 Dextrose 5% in Water 1, 250 000 ml @ 125 mls/hr IV . Q9H12M MIKE with Sodium Bicarb (1 Meq/ml) 150 ml Rx#:[id number] Piperacillin-Tazobactam 3 36 140 .375 gm In Sodium Chloride 0.9% 100 ml @ 25 mls/hr IVPB Q8HR MIKE Rx# :[id number] Pressure Bags 39 69 Sodium Chloride 0.9% 1, 240 240 000 ml @ 20 mls/hr IV . Q24H MIKE Rx#:[id number] Intake, IV Titration 300.965 284.795 Amount propofoL 1,000 mg In 300.965 284.795 Empty Bag 1 bag @ Titrate IV .Q0M [facility] Rx#: [id number] Oral 100 Tube Feeding 696 696 Other 140 Output: Urine 1000 1560 Other: Voiding Method Indwelling Catheter Indwelling Catheter # Bowel Movements 1 ABP, PAP, CO, CI - Last Documented Arterial Blood Pressure 152/49 - Exam GENERAL EXAM: 85-year-old white male, sedated, intubated on assist control mode of ventilation, with FiO2 of 50% and PEEP of 10 comfortable in no apparent distress. HEAD: Normocephalic/atraumatic. EYES: Normal reaction of pupils, equal size. Conjunctiva pink, sclera white. NOSE: Clear with pink turbinates. THROAT: No erythema or exudates. NECK: No masses, no JVD, no thyroid enlargement, no adenopathy. CHEST: No chest wall deformity. Symmetrical expansion. LUNGS: Equal air entry with no crackles, wheeze, rhonchi or dullness. CVS: Irregular rate and rhythm, normal S1 and S2, no gallops, no murmurs, no rubs ABDOMEN: Soft, nontender, abdominal distention, possibility of abdominal ascites is considered, abdominal ultrasound is pending. No hepatosplenomegaly, normal bowel sounds, no guarding or rigidity. EXTREMITIES: No clubbing, mild generalized edema, 1+ lower extremity edema, no cyanosis, 2+ pulses and upper and lower extremities. MUSCULOSKELETAL: Muscle strength and tone normal. SPINE: No scoliosis or deformity SKIN: No rashes CENTRAL NERVOUS SYSTEM: Sedated, intubated No focal deficits, tone is normal in all 4 extremities. - Labs CBC & Chem 7: 09/08/20 04:50 09/08/20 04:50 Labs: Abnormal Lab Results - Last 24 Hours (Table) 09/07/20 09/07/20 09/07/20 Range/Units 11:41 12:17 16:19 WBC (3.8-10.6) k/uL RBC (4.30-5.90) m/uL Hgb (13.0-17.5) gm/dL Hct (39.0-53.0) % Plt Count (150-450) k/uL Neutrophils # (1.3-7.7) k/uL Lymphocytes # (1.0-4.8) k/uL ABG pO2 79 L (83-108) mmHg ABG Total CO2 25 H (19-24) mmol/L Potassium (3.5-5.1) mmol/L Carbon Dioxide (22-30) mmol/L BUN (9-20) mg/dL Creatinine (0.66-1.25) mg/dL Glucose (74-99) mg/dL POC Glucose (mg/dL) 209 H 198 H (75-99) mg/dL Calcium (8.4-10.2) mg/dL ALT (4-49) U/L Total Protein (6.3-8.2) g/dL Albumin (3.5-5.0) g/dL 09/07/20 09/08/20 09/08/20 Range/Units 20:52 00:18 04:47 WBC (3.8-10.6) k/uL RBC (4.30-5.90) m/uL Hgb (13.0-17.5) gm/dL Hct (39.0-53.0) % Plt Count (150-450) k/uL Neutrophils # (1.3-7.7) k/uL Lymphocytes # (1.0-4.8) k/uL ABG pO2 (83-108) mmHg ABG Total CO2 (19-24) mmol/L Potassium (3.5-5.1) mmol/L Carbon Dioxide (22-30) mmol/L BUN (9-20) mg/dL Creatinine (0.66-1.25) mg/dL Glucose (74-99) mg/dL POC Glucose (mg/dL) 208 H 199 H 206 H (75-99) mg/dL Calcium (8.4-10.2) mg/dL ALT (4-49) U/L Total Protein (6.3-8.2) g/dL Albumin (3.5-5.0) g/dL 09/08/20 09/08/20 09/08/20 Range/Units 04:50 04:50 05:30 WBC 11.4 H (3.8-10.6) k/uL RBC 3.06 L (4.30-5.90) m/uL Hgb 10.4 L (13.0-17.5) gm/dL Hct 28.9 L (39.0-53.0) % Plt Count 85 L (150-450) k/uL Neutrophils # 10.6 H (1.3-7.7) k/uL Lymphocytes # 0.2 L (1.0-4.8) k/uL ABG pO2 79 L (83-108) mmHg ABG Total CO2 (19-24) mmol/L Potassium 3.0 L (3.5-5.1) mmol/L Carbon Dioxide 21 L (22-30) mmol/L BUN 119 H* (9-20) mg/dL Creatinine 4.95 H (0.66-1.25) mg/dL Glucose 191 H (74-99) mg/dL POC Glucose (mg/dL) (75-99) mg/dL Calcium 6.8 L (8.4-10.2) mg/dL ALT 94 H (4-49) U/L Total Protein 4.0 L (6.3-8.2) g/dL Albumin 2.1 L (3.5-5.0) g/dL Microbiology - Last 24 Hours (Table) 09/05/20 08:00 Gram Stain - Final Sputum Sputum Culture - Final Staphylococcus aureus Assessment and Plan Plan: #1. Acute hypoxic respiratory failure multifactorial, related to acute sepsis and septic shock related to E. coli bacteremia, recent history of COVID-19 pneumonia. The patient has developed significant amount of volume overload as the patient was being treated for septic shock and hypotension. He is at least 17 kg weight gain and he has developed significant edema in all 4 extremities. Also, he has developed bilateral pleural effusions on today's chest x-ray and x- ray findings are obviously worsened consistent with fluid overload on top of an underlying COVID-19 related pneumonia. Furthermore, on today's evaluation, I noted that the patient failed diuretics yesterday. He is still in a positive fluid balance. His body weight is up and he has developed bilateral pleural effusion with worsening in the right-sided pleural effusion. He remains sedated, intubated on a mechanical ventilator. Hemodynamically stable. MSSA was also cultures in his sputum. Currently on IV Zosyn. #2. Sepsis secondary to E. coli, secondary to an underlying UTI. The patient is currently on IV Zosyn. The patient is responding nicely to the antibiotics. White cell count is dropped. #3. COVID-19 pneumonia, status post BAM and the patient is on Decadron #4. New onset A. fib with RVR, patient off Cardizem, started on Eliquis today on 09/05/2020, the patient is currently on oral metoprolol #5. Elevated d-dimer, multifactorial, improving #6. Acute on chronic kidney disease and the creatinine is on the rise #7. Non-anion gap metabolic acidosis related to acute kidney injury, improved #8. Chronic kidney disease stage III #9. History of coronary artery disease with history of stenting #10. Hypertension #11. Hyperlipidemia #12. History of bladder cancer with surgical resection Plan: Given Lasix 100 mg IV push Start Lasix drip at 10 mg an hour *Zaroxolyn 5 mg twice a day The patient would likely need dialysis and this will be decided within the next 24 hours Continue IV Zosyn Continue oral metoprolol Continue low-dose Eliquis 2.5 mg twice a day Monitor CVP Vital high protein for enteral nutrition Continue Decadron for now Repeat another set of blood cultures knowing that we have not documented a negative blood culture this patient There is a critically care evaluation, more than 30 minutes. Time with Patient: Greater than 30
[2020-09-08 09:00] LABS: Glucose,Whole Blood 155 mg/dL (75-99)
[2020-09-08] MEDS: CHLORHEXIDINE GLUCONATE 15 ML CUP MUCOUS MEM SCH ×2 (09:07→21:43)
[2020-09-08] MEDS: metOLazone 5 MG TAB PO SCH ×2 (09:07→21:43)
[2020-09-08] MEDS: PANTOPRAZOLE 40 MG/10 ML VIAL IVP SCH (09:07)
[2020-09-08] MEDS: FUROSEMIDE 100 MG in SODIUM CHLORIDE 0.9% 90 ML IV SCH ×2 (09:07→16:44)
[2020-09-08] MEDS: ACETAMINOPHEN TAB 500 MG TAB PO SCH (09:08)
[2020-09-08] MEDS: DEXAMETHASONE SOD PHOSPHATE 10 MG/ML 1 ML VIAL IV SCH (09:08)
[2020-09-08] MEDS: CHOLECALCIFEROL 25 MCG (1000 IU) TABLET PO SCH (09:08)
[2020-09-08] MEDS: METOPROLOL TARTRATE 12.5 MG TAB PO SCH ×2 (09:08→21:43)
[2020-09-08] MEDS: APIXABAN 2.5 MG TABLET PO SCH ×2 (09:08→19:37)
[2020-09-08] MEDS: ASPIRIN 81 MG PO SCH (09:08)
--- NOTE | 2020-09-08 09:14 | PN ---
PROGRESS NOTE Mr. Marc remains in atrial fib. Rate is better controlled with a small dose of beta kinjal that we added. Overall from a cardiac standpoint, he appears to be stable. I will continue the current dose of beta kinjal and will continue to see him as needed. MMODL / IJN: [id number] /
[2020-09-08] MEDS ORDERED: CEFEPIME 2 GM in SODIUM CHLORIDE 0.9% 100 ML IVPB ONE (11:00)
--- NOTE | 2020-09-08 11:13 | P.PN ---
Subjective Progress Note Date: 09/08/20 HISTORY OF PRESENT ILLNESS This is an 85-year-old male patient of Dr. Andrei Vasquez with past medical history of hyperlipidemia, hypothyroidism, bladder cancer, coronary artery di sease status post stent, diagnosed with Covid 19 pneumonia status post Bamlanivimab and subsequently admitted from August 27 through September 01 which time he was treated for acute hypoxic respiratory failure secondary to Covid 19 pneumonia, acute kidney injury, discharged home with home care. Apparently patient was at home but became very dyspneic and pulse ox dropped to 88%, patient not had anything to eat or drink since he left the hospital. EMS was contacted and patient was brought into the emergency center for evaluation. She complains of feeling tired. He was found to be afebrile, heart rate 98, blood pressure 114/65, pulse ox 90% on 2 L nasal cannula. WBC 20.5, hemoglobin 12.1, platelet count 148. Sodium 138, potassium 2.9, chloride 113, CO2 15, BUN 59 creatinine 2.52. Blood sugar 147. ALT 77. LDH 639. Albumin 2.7. Lactic acid 2.0. Magnesium 2.1. CK 74. EKG was a sinus rhythm with no acute ST changes. Patient was given 1 L of IV fluid and potassium was replaced. 09/03: Patient has not eating any meals since admission. He is oriented 3 but noted to have significant short-term memory deficit and having difficulty following instructions. Social work is following for discharge planning. Family is planning for patient to come home with [facility] and does not want to consider rehab. PT and OT clearly recommend subacute rehab. Patient has been afebrile, heart rate 94, blood pressure 120/73, pulse ox 94% on high flow nasal cannula at 4 L. Repeat blood work reveals WBC 30.3, hemoglobin 12.6, platelet count 143. Lactic acid 1.8. Chemistry results are not up at the time of this dictation at 2 10 in the afternoon. Repeat blood work will be ordered f or the morning. Anticipate possible discharge tomorrow 09/04: A-Team was called this morning due to difficulty breathing and hypoxia. Patient was tachycardic and diaphoretic. Heart rate was in the 130s. Patient was placed on BiPAP but he could not tolerate and became very anxious. Patient was given Ativan with no improvement. Pulse ox was low 70s and he was transferred to the intensive care unit and intubated and placed on mechanical ventilation. Patient was found to be in A. fib with RVR and cardiology consult was added as well as pulmonary medicine was added during the night. Patient was started on Cardizem bolus and drip. Lovenox increased to 45 mg twice daily, Decadron 6 mg IV daily. Patient has been started on norepinephrine 09/05: Patient seen in ICU use on mechanical intubation FiO2 55, PEEP 10, tidal volume 100, respiratory rate 24. Patient remains afebrile, heart rate 65 and irregular H or fibrillation noted to the monitor, respiration rate 28, blood pressure 105/68 97% on mechanical ventilation. Patient remains in atrial fibrillation. C 23.8, hemoglobin 10.8, potassium 3.2, BUN 81, creatinine 4.57. 09/06: Patient seen in ICU still on mechanical intubation FiO2 of 45 with a PEEP of 8, levo fed has been decreased to 2 mics. Patient remains afebrile, respirations 20, blood pressure 104/68, 95% on mechanical intubation. Blood cultures and urine cultures show gram-negative bacilli and E. coli. He is currently on Zosyn and Levaquin for coverage. 09/07: Patient remains intubated and on mechanical ventilation with tidal volume 400, FiO2 of 45 and PEEP of 10. Repeat chest x-ray reveals increased bilateral airspace opacities with more focal and somewhat cavitary-appearing opacities over the right upper lung. Increased moderate right pleural effusion. Un changed small left pleural effusion. Patient had minimal urine output running at 30 miles per hour but this morning increased to 100. He is scheduled for Lasix 40 mg IV every 8 hours to start this afternoon. Bicarb drip was discontinued. Patient is currently off pressors since yesterday afternoon. He is on tube feedings. 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 Cardizem drip has been discontinued and he is maintained on Lopressor 12.5 mg twice daily. He is also on Lasix 40 mg IV every 8 hours. Cardiology is following on an as-needed basis. Patient is continued on Zosyn and Levaquin was discontinued by pulmonary medicine. 09/08: Patient remains intubated and on mechanical ventilation with tidal volume 400, FiO2 50% and PEEP of 10. Patient has been afebrile, heart rate 77, respiratory rate 26, blood pressure 110/70, pulse ox 98%. 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 Repeat chest x-ray reveals bibasilar infiltrates with small pleural effusions that are greater on the right. Repeat WBC 11.4, hemoglobin 10.4, platelet count 85. Sodium 137, potassium 3.0 and has been replaced, chloride 102, CO2 21, BUN 119 and creatinine 4.95. Blood sugars are running between 155 and 208. ALT 94. A repeat blood culture has been obtained today. Patient is currently on Lasix 40 mg every 8 hours. He is sche duled to start Lasix drip after a 100 mg bolus. Patient is waking up and responds. He is not on vasopressors. He is on tube feedings. IV antibiotics of been changed to cefepime 2 g IV piggyback every 24 hours. REVIEW OF SYSTEMS Unable to obtain due to intubation. PHYSICAL EXAMINATION Gen: This is an 85-year-old male patient, patient in ICU bed and appears to be comfortable at rest. HEENT: Head is atraumatic, normocephalic. Pupils equal, round. Sclerae is anicteric. Patient is intubated and on mechanical ventilation. NECK: Supple. No JVD. No lymphadenopathy. No thyromegaly. LUNGS: Clear to auscultation. No wheezes or rhonchi. No intercostal retractions. HEART: Irregular rate and rhythm. No murmur. ABDOMEN: Soft. Bowel sounds are present. No masses. No tenderness. Laws catheter in place. EXTREMITIES: No pedal edema. No calf tenderness. NEUROLOGICAL: Patient intubated ASSESSMENT AND PLAN 1. Acute hypoxic respiratory failure secondary to Covid 19 pneumonitis requiring intubation and mechanical ventilation. Continue oxygen therapy. Continue albuterol inhaler 2 puffs 4 times daily, dexamethasone 6 mg iv daily. 2. Acute kidney injury secondary to dehydration and lack of oral intake and diarrhea. Patient to start Lasix 100 mg IV 1 and start Lasix drip at 10 mg per hour, Zaroxolyn 5 mg twice daily. Consult nephrology appreciated. Plan is to monitor and if no improvement, family will need to decide if patient to undergo hemodialysis treatment. 3. Sepsis, septic shock and gram-negative bacteremia, POA. Antibiotics changed to cefepime. 4. Urinary tract infection with E. coli bacteremia. Continue cefepime. 5. Transaminitis secondary to COVID-19, hypotension. 6. New-onset A. fib with RVR, paroxysmal atrial fibrillation. Continue eliquis and Lopressor. Cardiology consult appreciated and cardiology has signed off. 7. Hyperlipidemia. Continue Lipitor 40 mg at bedtime. 8. Hypertension. Patient is off vasopressors. 9. Gastroesophageal reflux disease and GI prophylaxis. Continue Protonix 40 mg IVP daily. 10. Hypothyroidism. Continue levothyroxine 100 g daily. 11. Chronic gout. 12. Chronic kidney disease stage III. 13. History of coronary artery disease with previous stenting. 14. Thrombocytopenia secondary to sepsis. 15. Hyperglycemia without history of diabetes. Levemir 10 units at bedtime added, continue NovoLog scale every 4 hours. 16. DVT prophylaxis. Eliquis. Prognosis is guarded. DISCHARGE PLAN To be determined. Impression and plan of care have been directed as dictated by the signing physi cian. Joseline Corado nurse practitioner acting as scribe for signing physician. Objective - Vital Signs Vital signs: Vital Signs Temp 98.9 F 09/08/20 04:00 Pulse 77 09/08/20 06:00 Resp 26 H 09/08/20 06:00 BP 110/70 09/08/20 06:00 Pulse Ox 98 09/08/20 06:00 Intake & Output 09/07/20 09/08/20 09/08/20 18:59 06:59 18:59 Intake Total 2273.180 3634.795 Output Total 1000 1560 Balance 661.965 9.795 Weight 117.2 kg Intake: IV 565 449 Dextrose 5% in Water 1, 250 000 ml @ 125 mls/hr IV . Q9H12M MIKE with Sodium Bicarb (1 Meq/ml) 150 ml Rx#:[id number] Piperacillin-Tazobactam 3 36 140 .375 gm In Sodium Chloride 0.9% 100 ml @ 25 mls/hr IVPB Q8HR MIKE Rx# :[id number] Pressure Bags 39 69 Sodium Chloride 0.9% 1, 240 240 000 ml @ 20 mls/hr IV . Q24H MIKE Rx#:[id number] Intake, IV Titration 300.965 284.795 Amount propofoL 1,000 mg In 300.965 284.795 Empty Bag 1 bag @ Titrate IV .Q0M MIKE Rx#: [id number] Oral 100 Tube Feeding 696 696 Other 140 Output: Urine 1000 1560 Other: Voiding Method Indwelling Catheter Indwelling Catheter # Bowel Movements 1 ABP, PAP, CO, CI - Last Documented Arterial Blood Pressure 152/49 - Labs CBC & Chem 7: 09/08/20 04:50 09/08/20 04:50 Labs: Abnormal Lab Results - Last 24 Hours (Table) 09/07/20 09/07/20 09/07/20 Range/Units 11:41 12:17 16:19 WBC (3.8-10.6) k/uL RBC (4.30-5.90) m/uL Hgb (13.0-17.5) gm/dL Hct (39.0-53.0) % Plt Count (150-450) k/uL Neutrophils # (1.3-7.7) k/uL Lymphocytes # (1.0-4.8) k/uL ABG pO2 79 L (83-108) mmHg ABG Total CO2 25 H (19-24) mmol/L Potassium (3.5-5.1) mmol/L Carbon Dioxide (22-30) mmol/L BUN (9-20) mg/dL Creatinine (0.66-1.25) mg/dL Glucose (74-99) mg/dL POC Glucose (mg/dL) 209 H 198 H (75-99) mg/dL Calcium (8.4-10.2) mg/dL ALT (4-49) U/L Total Protein (6.3-8.2) g/dL Albumin (3.5-5.0) g/dL 09/07/20 09/08/20 09/08/20 Range/Units 20:52 00:18 04:47 WBC (3.8-10.6) k/uL RBC (4.30-5.90) m/uL Hgb (13.0-17.5) gm/dL Hct (39.0-53.0) % Plt Count (150-450) k/uL Neutrophils # (1.3-7.7) k/uL Lymphocytes # (1.0-4.8) k/uL ABG pO2 (83-108) mmHg ABG Total CO2 (19-24) mmol/L Potassium (3.5-5.1) mmol/L Carbon Dioxide (22-30) mmol/L BUN (9-20) mg/dL Creatinine (0.66-1.25) mg/dL Glucose (74-99) mg/dL POC Glucose (mg/dL) 208 H 199 H 206 H (75-99) mg/dL Calcium (8.4-10.2) mg/dL ALT (4-49) U/L Total Protein (6.3-8.2) g/dL Albumin (3.5-5.0) g/dL 09/08/20 09/08/20 09/08/20 Range/Units 04:50 04:50 05:30 WBC 11.4 H (3.8-10.6) k/uL RBC 3.06 L (4.30-5.90) m/uL Hgb 10.4 L (13.0-17.5) gm/dL Hct 28.9 L (39.0-53.0) % Plt Count 85 L (150-450) k/uL Neutrophils # 10.6 H (1.3-7.7) k/uL Lymphocytes # 0.2 L (1.0-4.8) k/uL ABG pO2 79 L (83-108) mmHg ABG Total CO2 (19-24) mmol/L Potassium 3.0 L (3.5-5.1) mmol/L Carbon Dioxide 21 L (22-30) mmol/L BUN 119 H* (9-20) mg/dL Creatinine 4.95 H (0.66-1.25) mg/dL Glucose 191 H (74-99) mg/dL POC Glucose (mg/dL) (75-99) mg/dL Calcium 6.8 L (8.4-10.2) mg/dL ALT 94 H (4-49) U/L Total Protein 4.0 L (6.3-8.2) g/dL Albumin 2.1 L (3.5-5.0) g/dL 09/08/20 Range/Units 08:59 WBC (3.8-10.6) k/uL RBC (4.30-5.90) m/uL Hgb (13.0-17.5) gm/dL Hct (39.0-53.0) % Plt Count (150-450) k/uL Neutrophils # (1.3-7.7) k/uL Lymphocytes # (1.0-4.8) k/uL ABG pO2 (83-108) mmHg ABG Total CO2 (19-24) mmol/L Potassium (3.5-5.1) mmol/L Carbon Dioxide (22-30) mmol/L BUN (9-20) mg/dL Creatinine (0.66-1.25) mg/dL Glucose (74-99) mg/dL POC Glucose (mg/dL) 155 H (75-99) mg/dL Calcium (8.4-10.2) mg/dL ALT (4-49) U/L Total Protein (6.3-8.2) g/dL Albumin (3.5-5.0) g/dL Microbiology - Last 24 Hours (Table) 09/05/20 08:00 Gram Stain - Final Sputum Sputum Culture - Final Staphylococcus aureus
[2020-09-08 11:43] LABS: Glucose,Whole Blood 177 mg/dL (75-99)
--- NOTE | 2020-09-08 12:40 | PN ---
PROGRESS NOTE DATE OF SERVICE: 09/08/2020 REASON FOR FOLLOWUP: E coli bacteremia secondary to complicated UTI. INTERVAL HISTORY: The patient is currently afebrile. The patient is hemodynamically stable. FiO2 is currently stable at 50%. No significant purulent secretions through the ET reported by nursing staff. The patient did have diarrhea for which the patient did have fecal management system. Plan is for possible dialysis because of worsening of his kidney function. PHYSICAL EXAMINATION: Blood pressure 110/70 with a pulse of 77, temperature 98.9. He is 98% on 50% FiO2. General description is an elderly male lying in bed in no distress. RESPIRATORY SYSTEM: Unlabored breathing, clear to auscultation anteriorly. HEART: S1, S2. Regular rate and rhythm. ABDOMEN: Soft, no tenderness. LABS: Hemoglobin is 10.4, white count 11.4, BUN of 119, creatinine 4.95. Blood culture on 09/04 still positive. DIAGNOSTIC IMPRESSION AND PLAN: 1. Patient with E coli bacteremia, source of complicated urinary tract infection in this patient who did have severe hydronephrosis on the right side and will benefit from urology evaluation. Will discuss further with the admitting team. 2. Positive sputum with MSSA. X-ray has been mostly bibasilar infiltrate. Antibiotic will be adjusted to cefepime to cover for both pathogens. MMODL / IJN: [id number] / MTDD
--- NOTE | 2020-09-08 14:10 | PN ---
PROGRESS NOTE Patient is seen for followup for acute kidney injury. The patient has COVID pneumonia. He is currently on the vent. Renal function has deteriorated with serum creatinine up to 4.9 mg/dL. Urine output currently at about 100 to 125 mL an hour. The patient received 100 mg dose of IV Lasix today. Since he remains volume overloaded and has developed worsening renal function, patient will likely need to be dialyzed. He did receive his Eliquis today. I have asked the nurse to suction his medications out of the feeding tube as he just received the Eliquis. Of note is the USS which shows severe R hydronephrosis. L kidney could not be visualized PHYSICAL EXAMINATION: On examination, the patient remains on the vent. He is awake. He has significant edema. The patient is not directly examined. He is seen from the door and discussed with the nursing staff. LABS: Labs show sodium of 137, potassium 3.0, chloride 102, CO2 is 21, BUN 119, serum creatinine 4.95. ASSESSMENT: 1. Acute kidney injury, acute tubular necrosis, +/_ obstructive uropathy. Severe R hydro, ? chronic versus acute.Pt has h/o bladder cancer s/p reconstructive sx 9 yrs ago. Family not aware of Left nephrectomy. serum creatinine had improved initially yesterday however it is worse today. Urine output is borderline, good response to IV Lasix. However, it dwindled down again and patient remains in positive balance. We will likely need to dialyze him, if he does not diurese well. The patient's chest x-ray is worse with fluid overload. Therefore, he will benefit from ultrafiltration. 2. Sepsis associated with Escherichia coli urinary tract infection. 3. COVID pneumonia, maintained on Decadron, status post currently with vent- dependent respiratory failure. 4. New onset atrial fibrillation, started on Eliquis. I will hold off on the Eliquis for dialysis catheter placement. 5. R hydronephrosis, consult Urology. Acute vs chronic with h/o bladder cancer and reconstructive sx PLAN: Hold Eliquis for now for possible dialysis catheter placement. We will plan for dialysis tomorrow unless his renal function improves. The patient is significantly volume overloaded and he will benefit from ultrafiltration. The case will be discussed with family as well. Consult Urology and check CT abdomen, ? solitary kidney. Discussed with son Paul. MMODL / IJN: [id number] / MTDD
[2020-09-08 16:40] LABS: Glucose,Whole Blood 221 mg/dL (75-99)
[2020-09-08 17:17] LABS: Magnesium 1.9 mg/dL (1.6-2.3); Potassium 3.3 mmol/L (3.5-5.1)
[2020-09-08 20:11] LABS: Glucose,Whole Blood 213 mg/dL (75-99)
[2020-09-08] MEDS ORDERED: INSULIN DETEMIR (LEVEMIR) 100 UNIT/ML SYR SQ SCH (21:00)
--- NOTE | 2020-09-08 21:00 | P.GSCN ---
History of Present Illness Consult date: 09/08/20 Reason for Consult: Hydronephrosis Requesting physician: Viviane Kwan History of present illness: The patient is an 85-year-old white male well known to Dr. Velasquez. He is currently being treated for COVID pneumonia and sepsis. He underwent a cystectomy with neobladder for urothelial carcinoma of the bladder at [facility] in July 2011. He developed a left distal ureteral stricture, and underwent a left ureteral reimplant in March 2012. Ultrasound in early 2012 showed severe right hydronephrosis; in July 2013 the hydronephrosis was described as moderate. The serum creatinine level was 1.3 in 2012, 1.89 in 2015, and 1.7 in April 2017. The creatinine level was 2.52 at the time of admission, but has gradually risen to 4.95 today. Per his nurse, he was oliguric earlier today but his urine output has improved significantly since the administration of Lasix. 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, hypothyroidism,gout History of Any Multi-Drug Resistant Organisms: None Reported Past Surgical History: Bladder Surgery, Heart Catheterization With Stent, Hernia Repair Additional Past Surgical History / Comment(s): bladder reconstruction surgery Past Anesthesia/Blood Transfusion Reactions: No Reported Reaction Date of Last Stent Placement:: patient unable to state Past Psychological History: No Psychological Hx Reported Smoking Status: Never smoker Past Alcohol Use History: None Reported Past Drug Use History: None Reported - Past Family History Father Family Medical History: Unable to Obtain Medications and Allergies Home Medications Medication Instructions Recorded Confirmed Type Acetaminophen Tab [Tylenol] 1,000 mg PO DAILY 08/26/20 09/02/20 History Acetaminophen/Diphenhydramine 2 tab PO HS 08/26/20 09/02/20 History [Tylenol PM 500-25mg] Allopurinol [Zyloprim] 200 mg PO DAILY 08/26/20 09/02/20 History Aspirin EC [Ecotrin Low Dose] 40.5 mg PO DAILY 08/26/20 09/02/20 History Atorvastatin [Lipitor] 40 mg PO HS 08/26/20 09/02/20 History Docusate [Colace] 100 - 200 mg PO DAILY PRN 08/26/20 09/02/20 History Furosemide [Lasix] 40 mg PO DAILY 08/26/20 09/02/20 History Lani's Leg Cramps 1 - 2 tab SUBLINGUAL Q4H PRN 08/26/20 09/02/20 History Levothyroxine Sodium [Synthroid] 100 mcg PO DAILY 08/26/20 09/02/20 History Ubidecarenone [Co Q-10] 200 mg PO DAILY 08/26/20 09/02/20 History Acetaminophen Tab [Tylenol] 650 mg PO Q6HR PRN tab 09/01/20 09/02/20 Rx Albuterol Inhaler [Ventolin Hfa 2 puff INHALATION RT-QID #1 puff 09/01/20 09/02/20 Rx Inhaler] Ascorbic Acid [Vitamin C] 500 mg PO BID tab 09/01/20 09/02/20 Rx Cholecalciferol [Vitamin D3 (25 125 mcg PO DAILY tablet 09/01/20 09/02/20 Rx Mcg = 1000 Iu)] Dexamethasone [Decadron] 4 mg PO AC-BRKFST #7 tablet 09/01/20 09/02/20 Rx Pantoprazole [Protonix] 40 mg PO AC-BRKFST #30 tablet.dr 09/01/20 09/02/20 Rx guaiFENesin [Mucinex] 600 mg PO Q12HR tablet.er 09/01/20 09/02/20 Rx hydrALAZINE HCL [Apresoline] 25 mg PO BID #60 tab 09/01/20 09/02/20 Rx Allergies Allergy/AdvReac Type Severity Reaction Status Date / Time tamsulosin [From Flomax] Allergy Unknown Verified 09/02/20 08:30 zolpidem [From Ambien] Allergy Unknown Verified 09/02/20 08:30 Surgical - Exam Vital Signs Temp Pulse Resp BP Pulse Ox 97.6 F 98 16 114/65 90 L 09/02/20 07:02 09/02/20 07:02 09/02/20 07:02 09/02/20 07:02 09/02/20 07:02 - General well developed, well nourished - Abdomen Abdomen: soft, no guarding, no rigid, no rebound, no distended Results - Labs 09/08/20 04:50 09/08/20 16:49 Abnormal Lab Results - Last 24 Hours (Table) 09/07/20 09/08/20 09/08/20 Range/Units 20:52 00:18 04:47 WBC (3.8-10.6) k/uL RBC (4.30-5.90) m/uL Hgb (13.0-17.5) gm/dL Hct (39.0-53.0) % Plt Count (150-450) k/uL Neutrophils # (1.3-7.7) k/uL Lymphocytes # (1.0-4.8) k/uL ABG pO2 (83-108) mmHg Potassium (3.5-5.1) mmol/L Carbon Dioxide (22-30) mmol/L BUN (9-20) mg/dL Creatinine (0.66-1.25) mg/dL Glucose (74-99) mg/dL POC Glucose (mg/dL) 208 H 199 H 206 H (75-99) mg/dL Calcium (8.4-10.2) mg/dL ALT (4-49) U/L Total Protein (6.3-8.2) g/dL Albumin (3.5-5.0) g/dL 09/08/20 09/08/20 09/08/20 Range/Units 04:50 04:50 05:30 WBC 11.4 H (3.8-10.6) k/uL RBC 3.06 L (4.30-5.90) m/uL Hgb 10.4 L (13.0-17.5) gm/dL Hct 28.9 L (39.0-53.0) % Plt Count 85 L (150-450) k/uL Neutrophils # 10.6 H (1.3-7.7) k/uL Lymphocytes # 0.2 L (1.0-4.8) k/uL ABG pO2 79 L (83-108) mmHg Potassium 3.0 L (3.5-5.1) mmol/L Carbon Dioxide 21 L (22-30) mmol/L BUN 119 H* (9-20) mg/dL Creatinine 4.95 H (0.66-1.25) mg/dL Glucose 191 H (74-99) mg/dL POC Glucose (mg/dL) (75-99) mg/dL Calcium 6.8 L (8.4-10.2) mg/dL ALT 94 H (4-49) U/L Total Protein 4.0 L (6.3-8.2) g/dL Albumin 2.1 L (3.5-5.0) g/dL 09/08/20 09/08/20 09/08/20 Range/Units 08:59 11:42 16:38 WBC (3.8-10.6) k/uL RBC (4.30-5.90) m/uL Hgb (13.0-17.5) gm/dL Hct (39.0-53.0) % Plt Count (150-450) k/uL Neutrophils # (1.3-7.7) k/uL Lymphocytes # (1.0-4.8) k/uL ABG pO2 (83-108) mmHg Potassium (3.5-5.1) mmol/L Carbon Dioxide (22-30) mmol/L BUN (9-20) mg/dL Creatinine (0.66-1.25) mg/dL Glucose (74-99) mg/dL POC Glucose (mg/dL) 155 H 177 H 221 H (75-99) mg/dL Calcium (8.4-10.2) mg/dL ALT (4-49) U/L Total Protein (6.3-8.2) g/dL Albumin (3.5-5.0) g/dL 09/08/20 Range/Units 16:49 WBC (3.8-10.6) k/uL RBC (4.30-5.90) m/uL Hgb (13.0-17.5) gm/dL Hct (39.0-53.0) % Plt Count (150-450) k/uL Neutrophils # (1.3-7.7) k/uL Lymphocytes # (1.0-4.8) k/uL ABG pO2 (83-108) mmHg Potassium 3.3 L (3.5-5.1) mmol/L Carbon Dioxide (22-30) mmol/L BUN (9-20) mg/dL Creatinine (0.66-1.25) mg/dL Glucose (74-99) mg/dL POC Glucose (mg/dL) (75-99) mg/dL Calcium (8.4-10.2) mg/dL ALT (4-49) U/L Total Protein (6.3-8.2) g/dL Albumin (3.5-5.0) g/dL Diabetes panel 09/08/20 09/08/20 Range/Units 04:50 16:49 Sodium 137 (137-145) mmol/L Potassium 3.0 L 3.3 L (3.5-5.1) mmol/L Chloride 102 (98-107) mmol/L Carbon Dioxide 21 L (22-30) mmol/L BUN 119 H* (9-20) mg/dL Creatinine 4.95 H (0.66-1.25) mg/dL Glucose 191 H (74-99) mg/dL Calcium 6.8 L (8.4-10.2) mg/dL AST 50 (17-59) U/L ALT 94 H (4-49) U/L Alkaline Phosphatase 86 (38-126) U/L Total Protein 4.0 L (6.3-8.2) g/dL Albumin 2.1 L (3.5-5.0) g/dL Calcium panel 09/08/20 Range/Units 04:50 Calcium 6.8 L (8.4-10.2) mg/dL Albumin 2.1 L (3.5-5.0) g/dL Pituitary panel 09/08/20 09/08/20 Range/Units 04:50 16:49 Sodium 137 (137-145) mmol/L Potassium 3.0 L 3.3 L (3.5-5.1) mmol/L Chloride 102 (98-107) mmol/L Carbon Dioxide 21 L (22-30) mmol/L BUN 119 H* (9-20) mg/dL Creatinine 4.95 H (0.66-1.25) mg/dL Glucose 191 H (74-99) mg/dL Calcium 6.8 L (8.4-10.2) mg/dL Adrenal panel 09/08/20 09/08/20 Range/Units 04:50 16:49 Sodium 137 (137-145) mmol/L Potassium 3.0 L 3.3 L (3.5-5.1) mmol/L Chloride 102 (98-107) mmol/L Carbon Dioxide 21 L (22-30) mmol/L BUN 119 H* (9-20) mg/dL Creatinine 4.95 H (0.66-1.25) mg/dL Glucose 191 H (74-99) mg/dL Calcium 6.8 L (8.4-10.2) mg/dL Total Bilirubin 0.5 (0.2-1.3) mg/dL AST 50 (17-59) U/L ALT 94 H (4-49) U/L Alkaline Phosphatase 86 (38-126) U/L Total Protein 4.0 L (6.3-8.2) g/dL Albumin 2.1 L (3.5-5.0) g/dL - Imaging CT scan - abdomen: report reviewed, image reviewed US - kidney/bladder: report reviewed Assessment and Plan (1) Unspecified hydronephrosis Current Visit: Yes Status: Acute Code(s): N13.30 - UNSPECIFIED HYDRONEPHROSIS SNOMED Code(s): 45471523 Plan: The patient has an atrophic left kidney. The right kidney is significantly hydronephrotic with thinned parenchyma. These are chronic changes and would not be expected to account for recent changes in urine output/renal function. I am not confident that I could place a ureteral stent as it would likely be difficult to identify the right ureteral orifice in the neobladder, and it may be strictured. Consideration could be given to right nephrostomy tube insertion if there is concern that the hydronephrosis is the cause of the recent increase in the creatinine level, though again I do not believe this to be the case. Time with Patient: Greater than 30
[2020-09-08] MEDS: ATORVASTATIN 40 MG TAB PO SCH (21:43)
--- NOTE | 2020-09-08 22:03 | CT ---
EXAMINATION TYPE: CT abdomen pelvis wo con DATE OF EXAM: 09/08/2020 COMPARISON: Ultrasound 09/06/2020. HISTORY: Right hydronephrosis. CT DLP: 1734.4 mGycm Automated exposure control for dose reduction was used. TECHNIQUE: Helical acquisition of images was performed from the lung bases through the pelvis. FINDINGS: LUNG BASES: Small right and trace left pleural effusion with adjacent mild to moderate opacities with consolidation. LIVER/GB: No significant abnormality is appreciated. PANCREAS: No significant abnormality is seen. SPLEEN: No significant abnormality is seen. ADRENALS: No significant abnormality is seen. KIDNEYS: Severe right hydronephrosis without obstructing calculus. Transition point is seen within th e distal ureter at level of postsurgical changes/anastomosis. No left hydronephrosis or nephrolithias is. Mild left cortical atrophy seen. FREE AIR: No free air is visualized RETROPERITONEAL ADENOPATHY: None visualized REPRODUCTIVE ORGANS: No significant abnormality is seen URINARY BLADDER: Urinary bladder is absent. Postsurgical changes in the right lower quadrant involvi ng the bowel loops seen. Laws catheter terminating in a small pouch is noted. PELVIC ADENOPATHY: None visualized. OSSEOUS STRUCTURES: No significant abnormality is seen. BOWEL: No bowel obstruction or free air. NG tube with tip in the stomach seen. Rectal tube also seen . Anasarca seen. OTHER: Advanced atherosclerotic disease. IMPRESSION: ABSENT GALLBLADDER WITH REMNANT POUCH SEEN. POST SURGICAL CHANGES SUGGESTIVE OF ILEAL CONDUIT. RECOM MEND CORRELATION WITH SURGICAL HISTORY. SEVERE RIGHT HYDRONEPHROSIS WITH DISTAL URETER TRANSITION POINT AT THE LEVEL OF SURGICAL SIZE/ANASTOM OSIS. NO EVIDENCE OF NEPHROLITHIASIS. FINDINGS ARE CONCERNING FOR STRICTURE VERSUS STENOSIS. SMALL PLEURAL EFFUSIONS WITH ADJACENT ATELECTASIS AND SUPERIMPOSED INFILTRATES ARE NOT EXCLUDED.
[2020-09-08 23:59] LABS: Glucose,Whole Blood 198 mg/dL (75-99)
[2020-09-09] MEDS: INSULIN ASPART (NovoLOG) 100 UNIT/ML VIAL SQ SCH ×6 (00:27→21:10)
[2020-09-09] MEDS: FUROSEMIDE 100 MG in SODIUM CHLORIDE 0.9% 90 ML IV SCH ×3 (03:00→21:10)
[2020-09-09 04:33] LABS: Basophils % (A) 0 %; Eosinophils % (A) 0 %; HCT 29.7 % (39.0-53.0); Lymphocytes # (A) 0.3 k/uL (1.0-4.8); Lymphocytes % (A) 3 %; MCH 31.6 pg (25.0-35.0); MCHC 33.7 g/dL (31.0-37.0); MCV 93.9 fL (80.0-100.0); Mean Platelet Volume 12.1; Monocytes # (A) 0.4 k/uL (0-1.0); Monocytes % (A) 4 %; Neutrophils # (A) 9.4 k/uL (1.3-7.7); Neutrophils % (A) 91 %; RBC 3.16 m/uL (4.30-5.90); RDW 14.5 % (11.5-15.5); WBC 10.2 k/uL (3.8-10.6)
[2020-09-09 04:36] LABS: Platelet Count 84 k/uL (150-450)
[2020-09-09 04:49] LABS: ABG Base Excess -2.9 mmol/L; ABG HCO3 22 mmol/L (21-25); ABG Oxygen Saturation 94.8 % (94-97); ABG PCO2 36 mmHg (35-45); ABG PH 7.39 (7.35-7.45); ABG PO2 76 mmHg (83-108); ABG TCO2 23 mmol/L (19-24)
[2020-09-09 04:59] LABS: Albumin 2.2 g/dL (3.5-5.0); Calcium 7.1 mg/dL (8.4-10.2); Total Bilirubin 0.5 mg/dL (0.2-1.3); Total Protein 4.4 g/dL (6.3-8.2)
[2020-09-09 05:02] LABS: Glucose,Whole Blood 195 mg/dL (75-99)
[2020-09-09 06:28] LABS: Allen Test Performed? no
[2020-09-09] MEDS: LEVOTHYROXINE 100 MCG TAB PO SCH (06:57)
[2020-09-09] MEDS: APIXABAN 2.5 MG TABLET PO SCH (08:02)
[2020-09-09] MEDS: CHLORHEXIDINE GLUCONATE 15 ML CUP MUCOUS MEM SCH ×2 (08:21→21:06)
[2020-09-09] MEDS: CEFEPIME 2 GM in SODIUM CHLORIDE 0.9% 100 ML IVPB SCH (08:21)
[2020-09-09] MEDS: CHOLECALCIFEROL 25 MCG (1000 IU) TABLET PO SCH (08:21)
[2020-09-09] MEDS: PANTOPRAZOLE 40 MG/10 ML VIAL IVP SCH (08:21)
[2020-09-09] MEDS: metOLazone 5 MG TAB PO SCH ×2 (08:22→21:06)
[2020-09-09] MEDS: METOPROLOL TARTRATE 12.5 MG TAB PO SCH ×2 (08:22→21:06)
[2020-09-09] MEDS: DEXAMETHASONE SOD PHOSPHATE 10 MG/ML 1 ML VIAL IV SCH (08:22)
[2020-09-09] MEDS: ACETAMINOPHEN TAB 500 MG TAB PO SCH (08:22)
[2020-09-09] MEDS: ALBUTEROL HFA INHALER INHALATION SCH ×4 (08:48→19:41)
[2020-09-09 08:50] LABS: Glucose,Whole Blood 181 mg/dL (75-99)
[2020-09-09] MEDS: SODIUM CHLORIDE 0.9% 1,000 ML IV SCH ×2 (09:06→21:00)
--- NOTE | 2020-09-09 09:37 | P.PN ---
Subjective Progress Note Date: 09/09/20 This is an 85-year-old gentleman who follows with Dr. Preston as his primary care provider. He has a history of liver cancer, coronary artery disease with previous stent placement, hypothyroidism, hyperlipidemia. Lifelong nonsmoker. He was recently admitted to the hospital from [address] [place] [address] for symptoms related to COVID-19 pneumonia. He had been given BAM on 08/25/2020 in the ER and discharged home. Subsequently discharged again in 09/01/2020. He re-presented to the emergency room 09/02/2020 with generalized weakness, rapid breathing and poor appetite and oral intake. O2 saturations 88% on room air. He was admitted again to the regular medical floor. At 4:00 this morning the patient had incre ased work of breathing with hypoxemia and an A team was called. He is subsequently transferred to the intensive care unit requiring intubation and mechanical ventilatory support. He is seen today in consultation in the ICU. He is currently intubated on mechanical ventilator. Assist-control mode with a rate of 24, tidal volume 400, FiO2 100% and a PEEP of 5. Morning blood gases revealed a PaO2 102, pCO2 37, PT H7.13. Those were drawn on a rate of 20. Blood cultures are positive for E. coli. He is currently on Zosyn and Levaquin. He is sedated on propofol 50 mcg/kg/m. Norepinephrine at 9 mcg/m. 0.9 normal saline at 75 ML's per hour. D5W with 2 A of bicarb at 75 mL per hour. White count 21.6. Hemoglobin 11.9. D-dimer 7.19. Sodium 140. Potassium 3.3. Creatinine 3.76. Glucose 151. LDH 766. C-reactive protein 36.4. AST 60. ALT 91. Urinalysis with large leukocyte esterase and greater than 182 WBCs with many bacteria. Culture pending. He is currently on Lovenox 30 mg subcu daily, dexamethasone, bronchodilators. Sensory continues to show persistent bilateral lung opacities with small left pleural effusion. On 09/05/2020 patient seen in follow-up in the intensive care unit. He remains intubated and sedated on assist control mode of ventilation, with a rate of 24, tidal was 400, FiO2 of 55% and PEEP of 10. This morning's blood gas shows pO2 of 124, pCO2 of 30, and pH of 7.23. Patient was adequately fluid resuscitated yesterday, he received 3-1/2 L" boluses, he was started on Zosyn and Levaquin for evidence of E. coli bacteremia likely related to urinary tract infection, he is currently sedated on Diprivan at 50 mics per kilo per minute, he is on 0.9 no rmal saline at a rate of 20 ML per hour, Cardizem drip at 5 mg per hour, D5W with 2 A of sodium bicarb at a rate of 75 ML per hour, and he is on Levophed currently at 18 mics per minute. Yesterday he went into atrial fibrillation, he was tachycardic, and he was started on Cardizem drip, he remains in atrial fibrillation today, but the rate is controlled. Cardiology has been consulted. Today's labs have been reviewed, showing white blood cell count of 20.3, hemoglobin is 10.8, platelet count is 123, d-dimer is improved but still elevated at 3.35, patient is on Lovenox 40 mg twice daily, sodium is 135, potassium 3.2, chloride is 112, CO2 is 12, BUN of 81, creatinine is 4.57, and patient's renal function has significantly worsened since yesterday. He seems to be generally swollen, his abdomen is distended, and there is a positive fluid wave with the possibility of abdominal ascites on today's exam. His urine output has been in the order of 30 ML per hour, will consult nephrology. He is tolerating tube feedings and he is on vital high-protein at a rate of 38 with a goal of 45 ML, and standard water flushes. His chest x-ray today showed no change in the small left pleural effusion or elevation of the right hemidiaphragm. He remains on antibiotics with Zosyn and Levaquin, his follow-up blood cultures continue to be positive with gram-negative bacilli. Echocardiogram has been reviewed and showed EF between 50-55%. On 09/06/2020 patient seen in follow-up in the intensive care unit, he remains sedated and intubated on mechanical ventilator, currently on assist control mode of ventilation with a rate of 24, Tylox 400, FiO2 45%, and PEEP of 10, this morning's blood gas shows pO2 of 92, pCO2 35, and pH is 7.33. Today's chest x- ray has been reviewed showing bilateral infiltrates and pleural effusions that are stable in appearance. Patient is currently on 0.9 normal same at KVO, levo fed is at 2 mics per minute, and D5W with 3 bicarbonate at 125 ml per hour. Patient is on antibiotics in the form of Levaquin and Zosyn, ID service is following, most recent blood cultures from 09/04/2020 continue to show gram negative bacilli, initial blood culture from 09/03/2020 was positive for E. coli, vitamin culture has been sent and pending, and culture was positive for gram-negative bacilli as well. he was afebrile overnight. No significant phlegm production, FiO2 was dropped down to 45%, his PEEP is at 10 which can be dropped to 5 today. Abdomen is soft, patient is tolerating tube feedings, he is on vital high-protein at 58 ML per hour, abdominal ultrasound showed no evidence of ascites, he has got mild generalized edema, his norepinephrine requirements are common down. Remains in atrial fibrillation with a controlled rate, he was started on Eliquis yesterday, Cardizem drip has been discontinued, cardiology is following. Urine output is in the order of 30-80 ML per hour. On 09/07/2020, the patient remains intubated on mechanical ventilator. This patient is on assist control mode of ventilation with a rate of 24 tidal volume of 400 45% with PEEP of 10. The blood gases from today showing a pH of 7.33 with a pCO2 of 44 and pO2 of 56. His chest x-ray is showing bilateral pulmonary infiltrates with development of effusions in the lung bases bilaterally. ET tube is in a good location. There is some underlying residual pulmonary infiltration due to COVID-19 related pneumonia. Nevertheless, there is obvious worsening in the lung bases with possibly development of bilateral effusions. Findings are consistent with CHF on top of COVID-19 related pneumonia. The patient is on D5 water and sodium bicarb infusion at the rate of 125 mL an hour and his serum bicarbonate currently is at 23 has normalized. The patient has been off pressors since yesterday. Antibiotic coverage includes a combination of Zosyn and Levaquin. Blood culture from 09/04/2020 was positive for gram- negative bacillus and the blood cultures from 09/03/2020 was positive for E. coli. Patient is afebrile. Remains in atrial fibrillation with a controlled rate. Started on anticoagulation with Eliquis. Cardizem drip has been discontinued and the patient states under good control. Urine output is adequate. She is receiving enteral feeding for nutritional support. The white cell count continues to drop this down to 12.4 from yesterday and the patient's hemoglobin is at 5.5. Platelets of the Route fusion consumptive thrombocytopenia probably related to his underlying sepsis. The patient also has a component of an acute on top of chronic kidney disease. The creatinine is stable compared to yesterday at 4.46. The patient has a component of an acute on top of chronic kidney failure. He has been more than 10 L positive since his admission to the ICU and the patient has a total of 17 kg in weight gain. On today's evaluation of 09/08/2020, the patient is being seen on a follow-up. The patient remains intubated on a mechanical ventilator due to complications of septic shock. Note that he was also treated for COVID-19 related pneumonia. This morning, the patient is sedated with propofol which is running at 50 mcg/kg per minute. He is on a mechanical ventilator. Ventilator changes were done yesterday and currently he is on assist-control at the rate of 24 with a tidal volume of 400 and FiO2 of 50% with a PEEP of 10. Chest x-ray is showing diffuse bilateral pulmonary infiltrates. Is obviously worsening in the right-sided pleural effusion compared to yesterday. Noted the patient has bilateral pleural effusion worse on the right. ET tube is in a good location. The blood gases from today showing a pH of 7.38 with a pCO2 of 38 and pO2 of 79. We have noted that the patient had become significantly fluid overloaded. Based on that, we started him on Lasix 40 mg every 8 hours. He is not fluid balance since yesterday has been +3.8 L and the patient did not respond to diuretics. Overall urine output was in the order of 1.9 L. Nevertheless the patient is taking more than 5 L of IV fluids and. He was on a bicarb infusion that was discontinued yesterday. Is currently under the 119 with a creatinine of 4.95.. Note that the patient is still on antibiotic coverage with Zosyn. Levaquin was discontinued yesterday. The patient E. coli in the blood and the last positive culture was on 09/04/2020 and the patient had MSSA in his sputum that was cultured on 09/05/2020. In terms of his hemodynamics, the patient is on no pressors. The patient is in atrial fibrillation. Maintaining his own blood pressure. Cardizem drip was discontinued and the patient is on metoprolol 12.5 mg by mouth twice a day for rate control. His blood work from today shows obvious worsening in her renal function and creatinine is up to 4.95 with a BUN of 119. Electrolytes showing a serum bicarb of 21 with a potassium level of 3.0 that needs to be replaced. Sodium is at 137. The white cell count currently is at 11.4 and has improved in the hemoglobin is at 10.4 with a platelet count of 85 which is slightly lower compared to yesterday. His d-dimer from yesterday was 2.53. His blood sugar was 206, liver function tests are normal, protein was 4 with an albumin of 2.1. The patient is receiving enteral feeding for nutritional support and currently is on vital high protein at the rate of 58 mL an hour. His body weight today is on the rise. Ration of 09/09/2020, seeing the patient for a follow-up. The patient remains intubated on a mechanical ventilator. This morning, he is on propofol which is running at 50 mics are aspirin kilogram per minute. He is well sedated. He is on assist control mode at the rate of 24 with a tidal volume of 400 and FiO2 of 40% with a PEEP of 10. The blood gases from this morning showing a pH of 7.39 with a pCO2 of 36 and pO2 of 76. The chest x-ray from today showing bilateral pulmonary infiltrates and worsening in the right-sided pleural effusion. There is also left-sided pleural effusion in place. ET tube is in a good location the patient has a left subclavian triple-lumen catheter in place. We noted significant fluid overload. Restart the patient on a combination of Lasix drip at 10 mg an hour and his patient is also on Zaroxolyn at 5 mg by mouth twice a day. He started producing adequate amount of urine output and urine output is in order of more than 100 mL an hour. His net fluid balance over the past 24 hours has been -1.3 L. As part of further workup, the patient was found to have chronic hydronephrosis of the right kidney. As mentioned earlier, the patient has undergone a previous bladder surgery and he does have a ranjith-bladder. His left kidney is atrophic. According to the urologist evaluation, the right kidney hydronephrosis a chronic finding that involved after the cystectomy with neobladder construction for urothelial carcinoma. Nevertheless, based on his acute kidney injury, there is a consideration for a nephrostomy tube insertion. The patient's renal function is progressively getting worse and the patient would likely require dialysis. On today's evaluation his BUN is at 144 with a creatinine of 5.1. The serum bicarb is 21. The white cell count is down to 10.2. He remains on IV antibiotics with IV Zosyn. The patient has grown E. coli in his blood and staph aureus in his sputum, MSSA. He is afebrile. He is on no pressors. He is receiving vital high protein at the rate of 58 mL an hour same time, the patient is having liquidy stool and a fecal management system was in place and the patient will need a stool for C. diff evaluation. Objective - Vital Signs Vital signs: Vital Signs Temp 98.3 F 09/09/20 04:00 Pulse 90 09/09/20 07:00 Resp 26 H 09/09/20 07:00 BP 128/67 09/09/20 07:00 Pulse Ox 93 L 09/09/20 07:00 Intake & Output 09/08/20 09/09/20 09/09/20 18:59 06:59 18:59 Intake Total 0898.660 5881.244 184 Output Total 1850 1965 40 Balance -847.833 -511.756 144 Weight 117.2 kg 115.4 kg Intake: IV 232 326 26 Piperacillin-Tazobactam 3 100 .375 gm In Sodium Chloride 0.9% 100 ml @ 25 mls/hr IVPB Q8HR [facility] Rx# :[id number] Pressure Bags 12 66 6 Sodium Chloride 0.9% 1, 120 260 20 000 ml @ 20 mls/hr IV . Q24H [facility] Rx#:[id number] Intake, IV Titration 316.167 399.244 100 Amount Cefepime 2 gm In Sodium 100 Chloride 0.9% 100 ml @ 200 mls/hr IVPB ONCE ONE Rx#:[id number] Furosemide 100 mg In 96.167 100 Sodium Chloride 0.9% 90 ml @ 10 MG/HR 10 mls/hr IV .Q10H [facility] Rx#: [id number] Sodium Chloride 0.9% 1, 20 000 ml @ 20 mls/hr IV . Q24H [facility] Rx#:[id number] propofoL 1,000 mg In 100 299.244 100 Empty Bag 1 bag @ Titrate IV .Q0M [facility] Rx#: [id number] Tube Feeding 424 638 58 Other 30 90 Output: Urine 1850 1965 40 Other: Voiding Method Indwelling Catheter Indwelling Catheter ABP, PAP, CO, CI - Last Documented Arterial Blood Pressure 152/49 - Exam GENERAL EXAM: 85-year-old white male, sedated, intubated on assist control mode of ventilation, with FiO2 of 40% and PEEP of 10 comfortable in no apparent distress. HEAD: Normocephalic/atraumatic. EYES: Normal reaction of pupils, equal size. Conjunctiva pink, sclera white. NOSE: Clear with pink turbinates. THROAT: No erythema or exudates. NECK: No masses, no JVD, no thyroid enlargement, no adenopathy. CHEST: No chest wall deformity. Symmetrical expansion. LUNGS: Equal air entry with no crackles, wheeze, rhonchi or dullness. CVS: Irregular rate and rhythm, normal S1 and S2, no gallops, no murmurs, no rubs ABDOMEN: Soft, nontender, abdominal distention, possibility of abdominal ascites is considered, abdominal ultrasound is pending. No hepatosplenomegaly, normal bowel sounds, no guarding or rigidity. EXTREMITIES: No clubbing, mild generalized edema, 1+ lower extremity edema, no cyanosis, 2+ pulses and upper and lower extremities. MUSCULOSKELETAL: Muscle strength and tone normal. SPINE: No scoliosis or deformity SKIN: No rashes CENTRAL NERVOUS SYSTEM: Sedated, intubated No focal deficits, tone is normal in all 4 extremities. - Labs CBC & Chem 7: 09/09/20 04:15 09/09/20 04:15 Labs: Abnormal Lab Results - Last 24 Hours (Table) 09/08/20 09/08/20 09/08/20 Range/Units 11:42 16:38 16:49 RBC (4.30-5.90) m/uL Hgb (13.0-17.5) gm/dL Hct (39.0-53.0) % Plt Count (150-450) k/uL Neutrophils # (1.3-7.7) k/uL Lymphocytes # (1.0-4.8) k/uL ABG pO2 (83-108) mmHg Potassium 3.3 L (3.5-5.1) mmol/L Carbon Dioxide (22-30) mmol/L BUN (9-20) mg/dL Creatinine (0.66-1.25) mg/dL Glucose (74-99) mg/dL POC Glucose (mg/dL) 177 H 221 H (75-99) mg/dL Calcium (8.4-10.2) mg/dL ALT (4-49) U/L Total Protein (6.3-8.2) g/dL Albumin (3.5-5.0) g/dL 09/08/20 09/08/20 09/09/20 Range/Units 20:10 23:57 04:15 RBC 3.16 L (4.30-5.90) m/uL Hgb 10.0 L (13.0-17.5) gm/dL Hct 29.7 L (39.0-53.0) % Plt Count 84 L (150-450) k/uL Neutrophils # 9.4 H (1.3-7.7) k/uL Lymphocytes # 0.3 L (1.0-4.8) k/uL ABG pO2 (83-108) mmHg Potassium (3.5-5.1) mmol/L Carbon Dioxide (22-30) mmol/L BUN (9-20) mg/dL Creatinine (0.66-1.25) mg/dL Glucose (74-99) mg/dL POC Glucose (mg/dL) 213 H 198 H (75-99) mg/dL Calcium (8.4-10.2) mg/dL ALT (4-49) U/L Total Protein (6.3-8.2) g/dL Albumin (3.5-5.0) g/dL 09/09/20 09/09/20 09/09/20 Range/Units 04:15 04:47 05:01 RBC (4.30-5.90) m/uL Hgb (13.0-17.5) gm/dL Hct (39.0-53.0) % Plt Count (150-450) k/uL Neutrophils # (1.3-7.7) k/uL Lymphocytes # (1.0-4.8) k/uL ABG pO2 76 L (83-108) mmHg Potassium 3.0 L (3.5-5.1) mmol/L Carbon Dioxide 21 L (22-30) mmol/L BUN 144 H* (9-20) mg/dL Creatinine 5.19 H (0.66-1.25) mg/dL Glucose 189 H (74-99) mg/dL POC Glucose (mg/dL) 195 H (75-99) mg/dL Calcium 7.1 L (8.4-10.2) mg/dL ALT 84 H (4-49) U/L Total Protein 4.4 L (6.3-8.2) g/dL Albumin 2.2 L (3.5-5.0) g/dL 09/09/20 Range/Units 08:48 RBC (4.30-5.90) m/uL Hgb (13.0-17.5) gm/dL Hct (39.0-53.0) % Plt Count (150-450) k/uL Neutrophils # (1.3-7.7) k/uL Lymphocytes # (1.0-4.8) k/uL ABG pO2 (83-108) mmHg Potassium (3.5-5.1) mmol/L Carbon Dioxide (22-30) mmol/L BUN (9-20) mg/dL Creatinine (0.66-1.25) mg/dL Glucose (74-99) mg/dL POC Glucose (mg/dL) 181 H (75-99) mg/dL Calcium (8.4-10.2) mg/dL ALT (4-49) U/L Total Protein (6.3-8.2) g/dL Albumin (3.5-5.0) g/dL Assessment and Plan Plan: #1. Acute hypoxic respiratory failure multifactorial, related to acute sepsis and septic shock related to E. coli bacteremia, recent history of COVID-19 pneumonia. The patient has developed significant amount of volume overload as the patient was being treated for septic shock and hypotension. He is at least 17 kg weight gain and he has developed significant edema in all 4 extremities. Also, he has developed bilateral pleural effusions on today's chest x-ray and x- ray findings are obviously worsened consistent with fluid overload on top of an underlying COVID-19 related pneumonia. Has developed enlarging right-sided pl eural effusion and the patient is currently on Lasix and 10 mg an hour and Zaroxolyn. He is a negative fluid balance is producing adequate amount of urine output. He remains intubated on a mechanical ventilator. No attempts to wean. SSA was also cultured in his sputum. #2. Sepsis secondary to E. coli, secondary to an underlying UTI. The patient is currently on IV Zosyn. The patient is responding nicely to the antibiotics. White cell count is dropped. #3. COVID-19 pneumonia, status post BAM and the patient is on Decadron #4. New onset A. fib with RVR, patient off Cardizem, started on Eliquis today on 09/05/2020, the patient is currently on oral metoprolol on metoprolol will be continued in the Eliquis will placed on hold for now. #5. Elevated d-dimer, multifactorial, improving #6. Acute on chronic kidney disease and the creatinine is on the rise , the patient has an atrophic left kidney, right kidney is chronically hydronephrotic and the pelvic calyces and the ureters on considerably dilated. As such, there may be a functional or anatomic obstruction. Urology evaluated the patient. Aspiration is being given for nephrostomy tube insertion. The patient will obvi ously need hemodialysis as the patient is getting significant volume overload, elevation the BUN and the creatinine is also been noted. #7. Non-anion gap metabolic acidosis related to acute kidney injury, improved #8. Chronic kidney disease stage III #9. History of coronary artery disease with history of stenting #10. Hypertension #11. Hyperlipidemia #12. History of bladder cancer with surgical resection post cystectomy and neobladder construction #13, diarrhea fecal management system, check stool for C. diff Plan: Continue Lasix drip at 10 mg an hour, Zaroxolyn 5 mg twice a day Hold Eliquis Dialysis catheter insertion today by vascular surgery Consult IR for possibility of a nephrostomy tube insertion. We understand that the kidney failure is chronic however there is an acute decompensation and based on the significant hydronephrotic changes and dilatation of the pelvic calyces, it is reasonable to consider possibility of an FOC tube insertion on the right. The patient would likely need dialysis Continue IV Zosyn Continue oral metoprolol Monitor CVP Vital high protein for enteral nutrition Continue Decadron for now Awaiting blood cultures knowing that we have not documented a negative blood culture this patient Stool for C. diff There is a critically care evaluation, more than 30 minutes. Time with Patient: Greater than 30
--- NOTE | 2020-09-09 09:39 | XR ---
EXAMINATION TYPE: XR chest 1V portable DATE OF EXAM: 09/09/2020 CLINICAL HISTORY: Tube placement. TECHNIQUE: Portable semiupright view of the chest. COMPARISON: 09/08/2020 FINDINGS: Endotracheal tube distal tip 6.8 cm from the rochelle. Left subclavian central venous cathete r and enteric tube redemonstrated. Cardiomediastinal silhouette normal. Moderate right pleural effusi on and small left pleural effusion. Bibasilar airspace opacities. No pneumothorax. IMPRESSION: Moderate right and small left pleural effusions, and bibasilar airspace opacities, not significantly changed versus 09/08/2020.
[2020-09-09] MEDS: INSULIN DETEMIR (LEVEMIR) 100 UNIT/ML SYR SQ SCH ×2 (10:18→21:06)
[2020-09-09] MEDS: POTASSIUM BICARBONATE/CIT AC 20 MEQ TABLET.EFF PO SCH ×3 (10:26→13:00)
[2020-09-09 11:25] LABS: Glucose,Whole Blood 189 mg/dL (75-99)
--- NOTE | 2020-09-09 11:58 | P.PN ---
Subjective Progress Note Date: 09/09/20 HISTORY OF PRESENT ILLNESS This is an 85-year-old male patient of Dr. Andrei Vasquez with past medical history of hyperlipidemia, hypothyroidism, bladder cancer, coronary artery di sease status post stent, diagnosed with Covid 19 pneumonia status post Bamlanivimab and subsequently admitted from August 27 through September 01 which time he was treated for acute hypoxic respiratory failure secondary to Covid 19 pneumonia, acute kidney injury, discharged home with home care. Apparently patient was at home but became very dyspneic and pulse ox dropped to 88%, patient not had anything to eat or drink since he left the hospital. EMS was contacted and patient was brought into the emergency center for evaluation. She complains of feeling tired. He was found to be afebrile, heart rate 98, blood pressure 114/65, pulse ox 90% on 2 L nasal cannula. WBC 20.5, hemoglobin 12.1, platelet count 148. Sodium 138, potassium 2.9, chloride 113, CO2 15, BUN 59 creatinine 2.52. Blood sugar 147. ALT 77. LDH 639. Albumin 2.7. Lactic acid 2.0. Magnesium 2.1. CK 74. EKG was a sinus rhythm with no acute ST changes. Patient was given 1 L of IV fluid and potassium was replaced. 09/03: Patient has not eating any meals since admission. He is oriented 3 but noted to have significant short-term memory deficit and having difficulty following instructions. Social work is following for discharge planning. Family is planning for patient to come home with [facility] and does not want to consider rehab. PT and OT clearly recommend subacute rehab. Patient has been afebrile, heart rate 94, blood pressure 120/73, pulse ox 94% on high flow nasal cannula at 4 L. Repeat blood work reveals WBC 30.3, hemoglobin 12.6, platelet count 143. Lactic acid 1.8. Chemistry results are not up at the time of this dictation at 2 10 in the afternoon. Repeat blood work will be ordered f or the morning. Anticipate possible discharge tomorrow 09/04: A-Team was called this morning due to difficulty breathing and hypoxia. Patient was tachycardic and diaphoretic. Heart rate was in the 130s. Patient was placed on BiPAP but he could not tolerate and became very anxious. Patient was given Ativan with no improvement. Pulse ox was low 70s and he was transferred to the intensive care unit and intubated and placed on mechanical ventilation. Patient was found to be in A. fib with RVR and cardiology consult was added as well as pulmonary medicine was added during the night. Patient was started on Cardizem bolus and drip. Lovenox increased to 45 mg twice daily, Decadron 6 mg IV daily. Patient has been started on norepinephrine 09/05: Patient seen in ICU use on mechanical intubation FiO2 55, PEEP 10, tidal volume 100, respiratory rate 24. Patient remains afebrile, heart rate 65 and irregular H or fibrillation noted to the monitor, respiration rate 28, blood pressure 105/68 97% on mechanical ventilation. Patient remains in atrial fibrillation. C 23.8, hemoglobin 10.8, potassium 3.2, BUN 81, creatinine 4.57. 09/06: Patient seen in ICU still on mechanical intubation FiO2 of 45 with a PEEP of 8, levo fed has been decreased to 2 mics. Patient remains afebrile, respirations 20, blood pressure 104/68, 95% on mechanical intubation. Blood cultures and urine cultures show gram-negative bacilli and E. coli. He is currently on Zosyn and Levaquin for coverage. 09/07: Patient remains intubated and on mechanical ventilation with tidal volume 400, FiO2 of 45 and PEEP of 10. Repeat chest x-ray reveals increased bilateral airspace opacities with more focal and somewhat cavitary-appearing opacities over the right upper lung. Increased moderate right pleural effusion. Un changed small left pleural effusion. Patient had minimal urine output running at 30 miles per hour but this morning increased to 100. He is scheduled for Lasix 40 mg IV every 8 hours to start this afternoon. Bicarb drip was discontinued. Patient is currently off pressors since yesterday afternoon. He is on tube feedings. 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 Cardizem drip has been discontinued and he is maintained on Lopressor 12.5 mg twice daily. He is also on Lasix 40 mg IV every 8 hours. Cardiology is following on an as-needed basis. Patient is continued on Zosyn and Levaquin was discontinued by pulmonary medicine. 09/08: Patient remains intubated and on mechanical ventilation with tidal volume 400, FiO2 50% and PEEP of 10. Patient has been afebrile, heart rate 77, respiratory rate 26, blood pressure 110/70, pulse ox 98%. 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 Repeat chest x-ray reveals bibasilar infiltrates with small pleural effusions that are greater on the right. Repeat WBC 11.4, hemoglobin 10.4, platelet count 85. Sodium 137, potassium 3.0 and has been replaced, chloride 102, CO2 21, BUN 119 and creatinine 4.95. Blood sugars are running between 155 and 208. ALT 94. A repeat blood culture has been obtained today. Patient is currently on Lasix 40 mg every 8 hours. He is sche duled to start Lasix drip after a 100 mg bolus. Patient is waking up and responds. He is not on vasopressors. He is on tube feedings. IV antibiotics of been changed to cefepime 2 g IV piggyback every 24 hours. 09/09: Patient remains intubated and on mechanical ventilation with tidal volume 400, FiO2 40, PEEP of 10. Patient has been afebrile, heart rate 90, respiratory rate 26, blood pressure 128/67. Patient is on Lasix drip 10 mg per hour and continued on Zaroxolyn. He is having good urine output. Patient has watery brown stools and specimens to be sent for C. difficile toxin. Repeat blood work reveals WBC 10.2, hemoglobin 10, platelet count 84. Sodium 138, potassium 3, chloride 103, CO2 21, BUN 144, creatinine 5.19. ALT 84. CT scan of the abdomen and pelvis revealed absent gallbladder. Posterior changes suggestive ileal conduit. Severe right hydronephrosis with distal ureter transition point at the level of surgical size/anastomosis. No evidence of hiatal lithiasis. Findings concerning for stricture versus stenosis. Mild left cortical atrophy. Small plural effusions with adjacent atelectasis superimposed infiltrates are not excluded. Patient was seen yesterday by Dr. Morales evaluated for hydronephrosis on the right, unsure if ureteral stent could be placed and patient may need to be considered for right nephrostomy tube insertion. He does not believe the worsening creatinine level is a result of the hydronephrosis. Repeat chest x- ray reveals moderate right and small left pleural effusions, bibasilar airspace opacities. REVIEW OF SYSTEMS Unable to obtain due to intubation. PHYSICAL EXAMINATION Gen: This is an 85-year-old male patient, patient in ICU bed and appears to be comfortable at rest. HEENT: Head is atraumatic, normocephalic. Pupils equal, round. Sclerae is anicteric. Patient is intubated and on mechanical ventilation. NECK: Supple. No JVD. No lymphadenopathy. No thyromegaly. LUNGS: Clear to auscultation. No wheezes or rhonchi. No intercostal retractions. HEART: Irregular rate and rhythm. No murmur. ABDOMEN: Soft. Bowel sounds are present. No masses. No tenderness. Laws catheter in place. EXTREMITIES: No pedal edema. No calf tenderness. NEUROLOGICAL: Patient intubated ASSESSMENT AND PLAN 1. Acute hypoxic respiratory failure secondary to Covid 19 pneumonitis requiring intubation and mechanical ventilation. Continue oxygen therapy. Continue albuterol inhaler 2 puffs 4 times daily, dexamethasone 6 mg iv daily. 2. Acute kidney injury secondary to dehydration and lack of oral intake and diarrhea. Continue Lasix drip at 10 mg per hour, Zaroxolyn 5 mg twice daily. Consult nephrology appreciated. Family will need to decide if patient to und ergo hemodialysis treatment. 3. Sepsis, septic shock and gram-negative bacteremia, POA. Antibiotics changed to cefepime. 4. Urinary tract infection with E. coli bacteremia. Continue cefepime. 5. Transaminitis secondary to COVID-19, hypotension. 6. New-onset A. fib with RVR, paroxysmal atrial fibrillation. Continue eliquis and Lopressor. Cardiology consult appreciated and cardiology has signed off. 7. Hyperlipidemia. Continue Lipitor 40 mg at bedtime. 8. Hypertension. Patient is off vasopressors. 9. Gastroesophageal reflux disease and GI prophylaxis. Continue Protonix 40 mg IVP daily. 10. Hypothyroidism. Continue levothyroxine 100 g daily. 11. Chronic gout. 12. Chronic kidney disease stage III. 13. History of coronary artery disease with previous stenting. 14. Thrombocytopenia secondary to sepsis. 15. Hyperglycemia without history of diabetes. Levemir 10 units at bedtime added, continue NovoLog scale every 4 hours. 16. Right-sided hydronephrosis. Consult with urology appreciated. 17. DVT prophylaxis. Eliquis. Prognosis is guarded. DISCHARGE PLAN To be determined. Impression and plan of care have been directed as dictated by the signing physician. Joseline Corado nurse practitioner acting as scribe for signing physician. Objective - Vital Signs Vital signs: Vital Signs Temp 98.3 F 09/09/20 04:00 Pulse 90 09/09/20 07:00 Resp 26 H 09/09/20 07:00 BP 128/67 09/09/20 07:00 Pulse Ox 93 L 09/09/20 07:00 Intake & Output 09/08/20 09/09/20 09/09/20 18:59 06:59 18:59 Intake Total 2162.748 7602.244 184 Output Total 1850 1965 40 Balance -847.833 -511.756 144 Weight 117.2 kg 115.4 kg Intake: IV 232 326 26 Piperacillin-Tazobactam 3 100 .375 gm In Sodium Chloride 0.9% 100 ml @ 25 mls/hr IVPB Q8HR [facility] Rx# :[id number] Pressure Bags 12 66 6 Sodium Chloride 0.9% 1, 120 260 20 000 ml @ 20 mls/hr IV . Q24H [facility] Rx#:[id number] Intake, IV Titration 316.167 399.244 100 Amount Cefepime 2 gm In Sodium 100 Chloride 0.9% 100 ml @ 200 mls/hr IVPB ONCE ONE Rx#:[id number] Furosemide 100 mg In 96.167 100 Sodium Chloride 0.9% 90 ml @ 10 MG/HR 10 mls/hr IV .Q10H [facility] Rx#: [id number] Sodium Chloride 0.9% 1, 20 000 ml @ 20 mls/hr IV . Q24H [facility] Rx#:[id number] propofoL 1,000 mg In 100 299.244 100 Empty Bag 1 bag @ Titrate IV .Q0M [facility] Rx#: [id number] Tube Feeding 424 638 58 Other 30 90 Output: Urine 1849 1965 40 Other: Voiding Method Indwelling Catheter Indwelling Catheter ABP, PAP, CO, CI - Last Documented Arterial Blood Pressure 152/49 - Labs CBC & Chem 7: 09/09/20 04:15 09/09/20 04:15 Labs: Abnormal Lab Results - Last 24 Hours (Table) 09/08/20 09/08/20 09/08/20 Range/Units 11:42 16:38 16:49 RBC (4.30-5.90) m/uL Hgb (13.0-17.5) gm/dL Hct (39.0-53.0) % Plt Count (150-450) k/uL Neutrophils # (1.3-7.7) k/uL Lymphocytes # (1.0-4.8) k/uL ABG pO2 (83-108) mmHg Potassium 3.3 L (3.5-5.1) mmol/L Carbon Dioxide (22-30) mmol/L BUN (9-20) mg/dL Creatinine (0.66-1.25) mg/dL Glucose (74-99) mg/dL POC Glucose (mg/dL) 177 H 221 H (75-99) mg/dL Calcium (8.4-10.2) mg/dL ALT (4-49) U/L Total Protein (6.3-8.2) g/dL Albumin (3.5-5.0) g/dL 09/08/20 09/08/20 09/09/20 Range/Units 20:10 23:57 04:15 RBC 3.16 L (4.30-5.90) m/uL Hgb 10.0 L (13.0-17.5) gm/dL Hct 29.7 L (39.0-53.0) % Plt Count 84 L (150-450) k/uL Neutrophils # 9.4 H (1.3-7.7) k/uL Lymphocytes # 0.3 L (1.0-4.8) k/uL ABG pO2 (83-108) mmHg Potassium (3.5-5.1) mmol/L Carbon Dioxide (22-30) mmol/L BUN (9-20) mg/dL Creatinine (0.66-1.25) mg/dL Glucose (74-99) mg/dL POC Glucose (mg/dL) 213 H 198 H (75-99) mg/dL Calcium (8.4-10.2) mg/dL ALT (4-49) U/L Total Protein (6.3-8.2) g/dL Albumin (3.5-5.0) g/dL 09/09/20 09/09/20 09/09/20 Range/Units 04:15 04:47 05:01 RBC (4.30-5.90) m/uL Hgb (13.0-17.5) gm/dL Hct (39.0-53.0) % Plt Count (150-450) k/uL Neutrophils # (1.3-7.7) k/uL Lymphocytes # (1.0-4.8) k/uL ABG pO2 76 L (83-108) mmHg Potassium 3.0 L (3.5-5.1) mmol/L Carbon Dioxide 21 L (22-30) mmol/L BUN 144 H* (9-20) mg/dL Creatinine 5.19 H (0.66-1.25) mg/dL Glucose 189 H (74-99) mg/dL POC Glucose (mg/dL) 195 H (75-99) mg/dL Calcium 7.1 L (8.4-10.2) mg/dL ALT 84 H (4-49) U/L Total Protein 4.4 L (6.3-8.2) g/dL Albumin 2.2 L (3.5-5.0) g/dL 09/09/20 Range/Units 08:48 RBC (4.30-5.90) m/uL Hgb (13.0-17.5) gm/dL Hct (39.0-53.0) % Plt Count (150-450) k/uL Neutrophils # (1.3-7.7) k/uL Lymphocytes # (1.0-4.8) k/uL ABG pO2 (83-108) mmHg Potassium (3.5-5.1) mmol/L Carbon Dioxide (22-30) mmol/L BUN (9-20) mg/dL Creatinine (0.66-1.25) mg/dL Glucose (74-99) mg/dL POC Glucose (mg/dL) 181 H (75-99) mg/dL Calcium (8.4-10.2) mg/dL ALT (4-49) U/L Total Protein (6.3-8.2) g/dL Albumin (3.5-5.0) g/dL
[2020-09-09] MEDS: ASPIRIN 81 MG PO SCH (13:46)
--- NOTE | 2020-09-09 13:54 | PN ---
PROGRESS NOTE Patient is seen for followup for acute kidney injury on top of chronic kidney disease. The patient is currently being treated for COVID pneumonia. He is on the ventilator. His serum creatinine has been significantly elevated and had increased to 4.9 mg/dL yesterday from about 2.5 on initial admission. The patient is also volume overloaded and is currently being diuresed with Lasix drip. CAT scan had shown significant hydronephrosis for which Urology has been consulted and it appears that the patient has had chronic right hydronephrosis from previous history and has an atrophic left kidney. There are no immediate plans for intervention as noted from urology notes due to reconstructive surgery after surgery for bladder cancer with neobladder formation. I have discussed with his son regarding need for renal replacement therapy if no further urological intervention planned. This is mostly because of volume overload along with worsening renal function. PHYSICAL EXAMINATION: On examination today, patient remains on the vent. He is maintained on sedation. Lasix drip is at 10 mg an hour. He is also on Zaroxolyn 5 mg b.i.d. Edema 2+ noted bilaterally. Abdomen is soft, nontender. The patient is sedated. LABS: Labs show sodium 138, potassium 3.0, BUN 144, serum creatinine 5.1, hemoglobin 10.0 g/dL. ASSESSMENT: 1. Acute kidney injury, multifactorial including mostly element of acute tubular necrosis. However, patient has significant right hydronephrosis with an atrophic left kidney and since he is not a candidate for ureteral stent placement, there is consideration of nephrostomy tube placement. In the meantime, given the significant volume overload and significantly elevated BUN and creatinine, I will proceed with dialysis and I will discuss with Urology regarding nephrostomy tube placement and if there is improvement in renal function with nephrostomy he does not need to continue with the dialysis. 2. Hypokalemia currently being replaced mostly secondary to aggressive diuresis. 3. Volume overload, responding well to Lasix drip which I will continue for now. 4. COVID pneumonia with acute hypoxic respiratory failure currently on the vent. 5. Metabolic acidosis currently resolved. 6. Atrial fibrillation maintained on Eliquis, which is currently on hold. PLAN: Proceed with dialysis for now and discuss with Urology regarding right nephrostomy tube placement. Continue with the Lasix drip as well for now. Replace potassium. Repeat labs in a.m. MMODL / IJN: [id number] /
--- NOTE | 2020-09-09 16:21 | P.GSCN ---
History of Present Illness History of present illness: 85-year-old gentleman I was consulted for patient Eleanor catheter. Patient has history of acute chronic renal failure creatinine is 4.50. Patient also has history A. fib on a left saúl. Patient had a computed tomography scan patient has atrophic left kidney right kidney hydronephrosis patient is on ventilator I was consulted for placement of urgent dialysis catheter. 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, hypothyroidism,gout History of Any Multi-Drug Resistant Organisms: None Reported Past Surgical History: Bladder Surgery, Heart Catheterization With Stent, Hernia Repair Additional Past Surgical History / Comment(s): bladder reconstruction surgery Past Anesthesia/Blood Transfusion Reactions: No Reported Reaction Date of Last Stent Placement:: patient unable to state Past Psychological History: No Psychological Hx Reported Smoking Status: Never smoker Past Alcohol Use History: None Reported Past Drug Use History: None Reported - Past Family History Father Family Medical History: Unable to Obtain Medications and Allergies Home Medications Medication Instructions Recorded Confirmed Type Acetaminophen Tab [Tylenol] 1,000 mg PO DAILY 08/26/20 09/02/20 History Acetaminophen/Diphenhydramine 2 tab PO HS 08/26/20 09/02/20 History [Tylenol PM 500-25mg] Allopurinol [Zyloprim] 200 mg PO DAILY 08/26/20 09/02/20 History Aspirin EC [Ecotrin Low Dose] 40.5 mg PO DAILY 08/26/20 09/02/20 History Atorvastatin [Lipitor] 40 mg PO HS 08/26/20 09/02/20 History Docusate [Colace] 100 - 200 mg PO DAILY PRN 08/26/20 09/02/20 History Furosemide [Lasix] 40 mg PO DAILY 08/26/20 09/02/20 History Lani's Leg Cramps 1 - 2 tab SUBLINGUAL Q4H PRN 08/26/20 09/02/20 History Levothyroxine Sodium [Synthroid] 100 mcg PO DAILY 08/26/20 09/02/20 History Ubidecarenone [Co Q-10] 200 mg PO DAILY 08/26/20 09/02/20 History Acetaminophen Tab [Tylenol] 650 mg PO Q6HR PRN tab 09/01/20 09/02/20 Rx Albuterol Inhaler [Ventolin Hfa 2 puff INHALATION RT-QID #1 puff 09/01/20 09/02/20 Rx Inhaler] Ascorbic Acid [Vitamin C] 500 mg PO BID tab 09/01/20 09/02/20 Rx Cholecalciferol [Vitamin D3 (25 125 mcg PO DAILY tablet 09/01/20 09/02/20 Rx Mcg = 1000 Iu)] Dexamethasone [Decadron] 4 mg PO AC-BRKFST #7 tablet 09/01/20 09/02/20 Rx Pantoprazole [Protonix] 40 mg PO AC-BRKFST #30 tablet.dr 09/01/20 09/02/20 Rx guaiFENesin [Mucinex] 600 mg PO Q12HR tablet.er 09/01/20 09/02/20 Rx hydrALAZINE HCL [Apresoline] 25 mg PO BID #60 tab 09/01/20 09/02/20 Rx Allergies Allergy/AdvReac Type Severity Reaction Status Date / Time tamsulosin [From Flomax] Allergy Unknown Verified 09/02/20 08:30 zolpidem [From Ambien] Allergy Unknown Verified 09/02/20 08:30 Surgical - Exam Vital Signs Temp Pulse Resp BP Pulse Ox 97.6 F 98 16 114/65 90 L 09/02/20 07:02 09/02/20 07:02 09/02/20 07:02 09/02/20 07:02 09/02/20 07:02 Results - Labs 09/09/20 04:15 09/09/20 04:15 Abnormal Lab Results - Last 24 Hours (Table) 09/08/20 09/08/20 09/08/20 Range/Units 16:38 16:49 20:10 RBC (4.30-5.90) m/uL Hgb (13.0-17.5) gm/dL Hct (39.0-53.0) % Plt Count (150-450) k/uL Neutrophils # (1.3-7.7) k/uL Lymphocytes # (1.0-4.8) k/uL ABG pO2 (83-108) mmHg Potassium 3.3 L (3.5-5.1) mmol/L Carbon Dioxide (22-30) mmol/L BUN (9-20) mg/dL Creatinine (0.66-1.25) mg/dL Glucose (74-99) mg/dL POC Glucose (mg/dL) 221 H 213 H (75-99) mg/dL Calcium (8.4-10.2) mg/dL ALT (4-49) U/L Total Protein (6.3-8.2) g/dL Albumin (3.5-5.0) g/dL 09/08/20 09/09/20 09/09/20 Range/Units 23:57 04:15 04:15 RBC 3.16 L (4.30-5.90) m/uL Hgb 10.0 L (13.0-17.5) gm/dL Hct 29.7 L (39.0-53.0) % Plt Count 84 L (150-450) k/uL Neutrophils # 9.4 H (1.3-7.7) k/uL Lymphocytes # 0.3 L (1.0-4.8) k/uL ABG pO2 (83-108) mmHg Potassium 3.0 L (3.5-5.1) mmol/L Carbon Dioxide 21 L (22-30) mmol/L BUN 144 H* (9-20) mg/dL Creatinine 5.19 H (0.66-1.25) mg/dL Glucose 189 H (74-99) mg/dL POC Glucose (mg/dL) 198 H (75-99) mg/dL Calcium 7.1 L (8.4-10.2) mg/dL ALT 84 H (4-49) U/L Total Protein 4.4 L (6.3-8.2) g/dL Albumin 2.2 L (3.5-5.0) g/dL 09/09/20 09/09/20 09/09/20 Range/Units 04:47 05:01 08:48 RBC (4.30-5.90) m/uL Hgb (13.0-17.5) gm/dL Hct (39.0-53.0) % Plt Count (150-450) k/uL Neutrophils # (1.3-7.7) k/uL Lymphocytes # (1.0-4.8) k/uL ABG pO2 76 L (83-108) mmHg Potassium (3.5-5.1) mmol/L Carbon Dioxide (22-30) mmol/L BUN (9-20) mg/dL Creatinine (0.66-1.25) mg/dL Glucose (74-99) mg/dL POC Glucose (mg/dL) 195 H 181 H (75-99) mg/dL Calcium (8.4-10.2) mg/dL ALT (4-49) U/L Total Protein (6.3-8.2) g/dL Albumin (3.5-5.0) g/dL 09/09/20 Range/Units 11:24 RBC (4.30-5.90) m/uL Hgb (13.0-17.5) gm/dL Hct (39.0-53.0) % Plt Count (150-450) k/uL Neutrophils # (1.3-7.7) k/uL Lymphocytes # (1.0-4.8) k/uL ABG pO2 (83-108) mmHg Potassium (3.5-5.1) mmol/L Carbon Dioxide (22-30) mmol/L BUN (9-20) mg/dL Creatinine (0.66-1.25) mg/dL Glucose (74-99) mg/dL POC Glucose (mg/dL) 189 H (75-99) mg/dL Calcium (8.4-10.2) mg/dL ALT (4-49) U/L Total Protein (6.3-8.2) g/dL Albumin (3.5-5.0) g/dL Microbiology - Last 24 Hours (Table) 09/08/20 08:45 Blood Culture - Preliminary Blood No Growth after 24 hours 09/08/20 08:45 Blood Culture - Preliminary Blood No Growth after 24 hours Diabetes panel 09/08/20 09/09/20 Range/Units 16:49 04:15 Sodium 138 (137-145) mmol/L Potassium 3.3 L 3.0 L (3.5-5.1) mmol/L Chloride 103 (98-107) mmol/L Carbon Dioxide 21 L (22-30) mmol/L BUN 144 H* (9-20) mg/dL Creatinine 5.19 H (0.66-1.25) mg/dL Glucose 189 H (74-99) mg/dL Calcium 7.1 L (8.4-10.2) mg/dL AST 34 (17-59) U/L ALT 84 H (4-49) U/L Alkaline Phosphatase 80 (38-126) U/L Total Protein 4.4 L (6.3-8.2) g/dL Albumin 2.2 L (3.5-5.0) g/dL Calcium panel 09/09/20 Range/Units 04:15 Calcium 7.1 L (8.4-10.2) mg/dL Albumin 2.2 L (3.5-5.0) g/dL Pituitary panel 09/08/20 09/09/20 Range/Units 16:49 04:15 Sodium 138 (137-145) mmol/L Potassium 3.3 L 3.0 L (3.5-5.1) mmol/L Chloride 103 (98-107) mmol/L Carbon Dioxide 21 L (22-30) mmol/L BUN 144 H* (9-20) mg/dL Creatinine 5.19 H (0.66-1.25) mg/dL Glucose 189 H (74-99) mg/dL Calcium 7.1 L (8.4-10.2) mg/dL Adrenal panel 09/08/20 09/09/20 Range/Units 16:49 04:15 Sodium 138 (137-145) mmol/L Potassium 3.3 L 3.0 L (3.5-5.1) mmol/L Chloride 103 (98-107) mmol/L Carbon Dioxide 21 L (22-30) mmol/L BUN 144 H* (9-20) mg/dL Creatinine 5.19 H (0.66-1.25) mg/dL Glucose 189 H (74-99) mg/dL Calcium 7.1 L (8.4-10.2) mg/dL Total Bilirubin 0.5 (0.2-1.3) mg/dL AST 34 (17-59) U/L ALT 84 H (4-49) U/L Alkaline Phosphatase 80 (38-126) U/L Total Protein 4.4 L (6.3-8.2) g/dL Albumin 2.2 L (3.5-5.0) g/dL
--- NOTE | 2020-09-09 16:23 | P.PCN ---
Description of Procedure: Preop diagnoses is acute chronic renal failure, coronary positive pneumonia on ventilator Posterior same Procedure placement of a dialysis catheter right femoral approach Right groin was prepped and draped applied sterile manner 1% lidocaine were infiltrated needle was introduced to right common femoral vein micropuncture guidewire was passed and 4-Kinyarwanda dilator advanced top the guidewire. After that we passed a regular guidewire without any resistance after that we passed a dilator and then placed triple-lumen dialysis catheter without any resistance and good flow was noted. Flushed with heparin saline and Hep-Lock secured with 3-0 nylon dressing applied patient are to the procedure well
[2020-09-09 16:47] LABS: Glucose,Whole Blood 235 mg/dL (75-99)
[2020-09-09 18:33] LABS: Hepatitis B Surface AB- Quant 3.5 mIU/mL; Hepatitis B Surface Antibody Non-Reactive (Non-Reactive); Hepatitis B Surface Antigen Non-Reactive (Non-Reactive)
[2020-09-09 20:56] LABS: Glucose,Whole Blood 207 mg/dL (75-99)
[2020-09-09] MEDS: ATORVASTATIN 40 MG TAB PO SCH (21:06)
--- NOTE | 2020-09-09 23:32 | P.PN ---
Progress Note - Text Progress Note Date: 09/09/20 REASON FOR FOLLOWUP: E coli bacteremia secondary to complicated UTI. INTERVAL HISTORY: The patient remains to be afebrile. The patient is hemodynamically stable. FiO2 is is down to 40%. No significant purulent secretions through the ET reported by nursing staff. The patient did have diarrhea for which the patient did have fecal management system ,stool for c diff negative. Plan is for possible dialysis because of worsening of his kidney function. PHYSICAL EXAMINATION: Blood pressure 110/70 with a pulse of 77, temperature 98.9. He is 98% on 40% FiO2. General description is an elderly male lying in bed in no distress. RESPIRATORY SYSTEM: Unlabored breathing, clear to auscultation anteriorly. HEART: S1, S2. Regular rate and rhythm. ABDOMEN: Soft, no tenderness. LABS: repeat Blood culture negative , sputum MSSA DIAGNOSTIC IMPRESSION AND PLAN: 1. Patient with E coli bacteremia, source of complicated urinary tract infection in this patient who did have severe hydronephrosis on the right side, urology seen pt possible nephrostomy tube vs observation , continue Cefepime. 2. Positive sputum with MSSA. X-ray has been mostly bibasilar infiltrate.covered with cefepime.
[2020-09-09 23:59] LABS: Glucose,Whole Blood 164 mg/dL (75-99)
[2020-09-10] MEDS: INSULIN ASPART (NovoLOG) 100 UNIT/ML VIAL SQ SCH ×6 (00:05→21:59)
[2020-09-10 04:09] LABS: Glucose,Whole Blood 156 mg/dL (75-99)
[2020-09-10 04:57] LABS: Basophils % (A) 0 %; Eosinophils % (A) 0 %; HCT 28.9 % (39.0-53.0); HGB 10.1 gm/dL (13.0-17.5); Lymphocytes # (A) 0.5 k/uL (1.0-4.8); Lymphocytes % (A) 4 %; MCHC 34.9 g/dL (31.0-37.0); MCV 94.5 fL (80.0-100.0); Mean Platelet Volume 12.3; Monocytes # (A) 0.4 k/uL (0-1.0); Monocytes % (A) 4 %; Neutrophils # (A) 9.9 k/uL (1.3-7.7); Neutrophils % (A) 89 %; RBC 3.06 m/uL (4.30-5.90); WBC 11.1 k/uL (3.8-10.6)
[2020-09-10 04:59] LABS: Platelet Count 91 k/uL (150-450)
[2020-09-10 05:22] LABS: Calcium 7.5 mg/dL (8.4-10.2)
[2020-09-10] MEDS: NOREPINEPHRINE 8 MG in SODIUM CHLORIDE 0.9% 250 ML IV SCH (05:24)
[2020-09-10 05:55] LABS: ABG Base Excess -2.9 mmol/L; ABG HCO3 23 mmol/L (21-25); ABG Oxygen Saturation 97.4 % (94-97); ABG PCO2 40 mmHg (35-45); ABG PH 7.36 (7.35-7.45); ABG PO2 105 mmHg (83-108); ABG TCO2 24 mmol/L (19-24); Allen Test Performed? Yes
[2020-09-10] MEDS: FUROSEMIDE 100 MG in SODIUM CHLORIDE 0.9% 90 ML IV SCH ×2 (06:52→15:58)
[2020-09-10] MEDS: LEVOTHYROXINE 100 MCG TAB PO SCH (06:53)
[2020-09-10] MEDS: ALBUTEROL HFA INHALER INHALATION SCH ×4 (07:30→21:26)
--- NOTE | 2020-09-10 08:42 | XR ---
EXAMINATION TYPE: XR chest 1V portable DATE OF EXAM: 09/10/2020 CLINICAL HISTORY: fluid overload, intubated, covid, PNA. TECHNIQUE: Portable semiupright view of the chest. COMPARISON: 09/09/2020 FINDINGS: Endotracheal tube distal tip 6.0 cm from the rochelle. Enteric tube with nonvisualization of the distal tip, however side-port below the level of the GE junction. Elevation of the right hemidiap hragm. Cardiac silhouette is normal. There are decreased pleural effusions bilaterally, with small re sidual pleural fluid. Airspace opacities of the bilateral lungs are unchanged. No pneumothorax. IMPRESSION: 1. Decreased pleural effusions versus 09/09/2020. 2. Unchanged diffuse bilateral airspace opacities.
[2020-09-10 09:00] LABS: Glucose,Whole Blood 139 mg/dL (75-99)
--- NOTE | 2020-09-10 09:25 | P.PN ---
Subjective Progress Note Date: 09/10/20 This is an 85-year-old gentleman who follows with Dr. Preston as his primary care provider. He has a history of liver cancer, coronary artery disease with previous stent placement, hypothyroidism, hyperlipidemia. Lifelong nonsmoker. He was recently admitted to the hospital from [address] [place] [address] for symptoms related to COVID-19 pneumonia. He had been given BAM on 08/25/2020 in the ER and discharged home. Subsequently discharged again in 09/01/2020. He re-presented to the emergency room 09/02/2020 with generalized weakness, rapid breathing and poor appetite and oral intake. O2 saturations 88% on room air. He was admitted again to the regular medical floor. At 4:00 this morning the patient had incre ased work of breathing with hypoxemia and an A team was called. He is subsequently transferred to the intensive care unit requiring intubation and mechanical ventilatory support. He is seen today in consultation in the ICU. He is currently intubated on mechanical ventilator. Assist-control mode with a rate of 24, tidal volume 400, FiO2 100% and a PEEP of 5. Morning blood gases revealed a PaO2 102, pCO2 37, PT H7.13. Those were drawn on a rate of 20. Blood cultures are positive for E. coli. He is currently on Zosyn and Levaquin. He is sedated on propofol 50 mcg/kg/m. Norepinephrine at 9 mcg/m. 0.9 normal saline at 75 ML's per hour. D5W with 2 A of bicarb at 75 mL per hour. White count 21.6. Hemoglobin 11.9. D-dimer 7.19. Sodium 140. Potassium 3.3. Creatinine 3.76. Glucose 151. LDH 766. C-reactive protein 36.4. AST 60. ALT 91. Urinalysis with large leukocyte esterase and greater than 182 WBCs with many bacteria. Culture pending. He is currently on Lovenox 30 mg subcu daily, dexamethasone, bronchodilators. Sensory continues to show persistent bilateral lung opacities with small left pleural effusion. On 09/05/2020 patient seen in follow-up in the intensive care unit. He remains intubated and sedated on assist control mode of ventilation, with a rate of 24, tidal was 400, FiO2 of 55% and PEEP of 10. This morning's blood gas shows pO2 of 124, pCO2 of 30, and pH of 7.23. Patient was adequately fluid resuscitated yesterday, he received 3-1/2 L" boluses, he was started on Zosyn and Levaquin for evidence of E. coli bacteremia likely related to urinary tract infection, he is currently sedated on Diprivan at 50 mics per kilo per minute, he is on 0.9 no rmal saline at a rate of 20 ML per hour, Cardizem drip at 5 mg per hour, D5W with 2 A of sodium bicarb at a rate of 75 ML per hour, and he is on Levophed currently at 18 mics per minute. Yesterday he went into atrial fibrillation, he was tachycardic, and he was started on Cardizem drip, he remains in atrial fibrillation today, but the rate is controlled. Cardiology has been consulted. Today's labs have been reviewed, showing white blood cell count of 20.3, hemoglobin is 10.8, platelet count is 123, d-dimer is improved but still elevated at 3.35, patient is on Lovenox 40 mg twice daily, sodium is 135, potassium 3.2, chloride is 112, CO2 is 12, BUN of 81, creatinine is 4.57, and patient's renal function has significantly worsened since yesterday. He seems to be generally swollen, his abdomen is distended, and there is a positive fluid wave with the possibility of abdominal ascites on today's exam. His urine output has been in the order of 30 ML per hour, will consult nephrology. He is tolerating tube feedings and he is on vital high-protein at a rate of 38 with a goal of 45 ML, and standard water flushes. His chest x-ray today showed no change in the small left pleural effusion or elevation of the right hemidiaphragm. He remains on antibiotics with Zosyn and Levaquin, his follow-up blood cultures continue to be positive with gram-negative bacilli. Echocardiogram has been reviewed and showed EF between 50-55%. On 09/06/2020 patient seen in follow-up in the intensive care unit, he remains sedated and intubated on mechanical ventilator, currently on assist control mode of ventilation with a rate of 24, Tylox 400, FiO2 45%, and PEEP of 10, this morning's blood gas shows pO2 of 92, pCO2 35, and pH is 7.33. Today's chest x- ray has been reviewed showing bilateral infiltrates and pleural effusions that are stable in appearance. Patient is currently on 0.9 normal same at KVO, levo fed is at 2 mics per minute, and D5W with 3 bicarbonate at 125 ml per hour. Patient is on antibiotics in the form of Levaquin and Zosyn, ID service is following, most recent blood cultures from 09/04/2020 continue to show gram negative bacilli, initial blood culture from 09/03/2020 was positive for E. coli, vitamin culture has been sent and pending, and culture was positive for gram-negative bacilli as well. he was afebrile overnight. No significant phlegm production, FiO2 was dropped down to 45%, his PEEP is at 10 which can be dropped to 5 today. Abdomen is soft, patient is tolerating tube feedings, he is on vital high-protein at 58 ML per hour, abdominal ultrasound showed no evidence of ascites, he has got mild generalized edema, his norepinephrine requirements are common down. Remains in atrial fibrillation with a controlled rate, he was started on Eliquis yesterday, Cardizem drip has been discontinued, cardiology is following. Urine output is in the order of 30-80 ML per hour. On 09/07/2020, the patient remains intubated on mechanical ventilator. This patient is on assist control mode of ventilation with a rate of 24 tidal volume of 400 45% with PEEP of 10. The blood gases from today showing a pH of 7.33 with a pCO2 of 44 and pO2 of 56. His chest x-ray is showing bilateral pulmonary infiltrates with development of effusions in the lung bases bilaterally. ET tube is in a good location. There is some underlying residual pulmonary infiltration due to COVID-19 related pneumonia. Nevertheless, there is obvious worsening in the lung bases with possibly development of bilateral effusions. Findings are consistent with CHF on top of COVID-19 related pneumonia. The patient is on D5 water and sodium bicarb infusion at the rate of 125 mL an hour and his serum bicarbonate currently is at 23 has normalized. The patient has been off pressors since yesterday. Antibiotic coverage includes a combination of Zosyn and Levaquin. Blood culture from 09/04/2020 was positive for gram- negative bacillus and the blood cultures from 09/03/2020 was positive for E. coli. Patient is afebrile. Remains in atrial fibrillation with a controlled rate. Started on anticoagulation with Eliquis. Cardizem drip has been discontinued and the patient states under good control. Urine output is adequate. She is receiving enteral feeding for nutritional support. The white cell count continues to drop this down to 12.4 from yesterday and the patient's hemoglobin is at 5.5. Platelets of the Route fusion consumptive thrombocytopenia probably related to his underlying sepsis. The patient also has a component of an acute on top of chronic kidney disease. The creatinine is stable compared to yesterday at 4.46. The patient has a component of an acute on top of chronic kidney failure. He has been more than 10 L positive since his admission to the ICU and the patient has a total of 17 kg in weight gain. On today's evaluation of 09/08/2020, the patient is being seen on a follow-up. The patient remains intubated on a mechanical ventilator due to complications of septic shock. Note that he was also treated for COVID-19 related pneumonia. This morning, the patient is sedated with propofol which is running at 50 mcg/kg per minute. He is on a mechanical ventilator. Ventilator changes were done yesterday and currently he is on assist-control at the rate of 24 with a tidal volume of 400 and FiO2 of 50% with a PEEP of 10. Chest x-ray is showing diffuse bilateral pulmonary infiltrates. Is obviously worsening in the right-sided pleural effusion compared to yesterday. Noted the patient has bilateral pleural effusion worse on the right. ET tube is in a good location. The blood gases from today showing a pH of 7.38 with a pCO2 of 38 and pO2 of 79. We have noted that the patient had become significantly fluid overloaded. Based on that, we started him on Lasix 40 mg every 8 hours. He is not fluid balance since yesterday has been +3.8 L and the patient did not respond to diuretics. Overall urine output was in the order of 1.9 L. Nevertheless the patient is taking more than 5 L of IV fluids and. He was on a bicarb infusion that was discontinued yesterday. Is currently under the 119 with a creatinine of 4.95.. Note that the patient is still on antibiotic coverage with Zosyn. Levaquin was discontinued yesterday. The patient E. coli in the blood and the last positive culture was on 09/04/2020 and the patient had MSSA in his sputum that was cultured on 09/05/2020. In terms of his hemodynamics, the patient is on no pressors. The patient is in atrial fibrillation. Maintaining his own blood pressure. Cardizem drip was discontinued and the patient is on metoprolol 12.5 mg by mouth twice a day for rate control. His blood work from today shows obvious worsening in her renal function and creatinine is up to 4.95 with a BUN of 119. Electrolytes showing a serum bicarb of 21 with a potassium level of 3.0 that needs to be replaced. Sodium is at 137. The white cell count currently is at 11.4 and has improved in the hemoglobin is at 10.4 with a platelet count of 85 which is slightly lower compared to yesterday. His d-dimer from yesterday was 2.53. His blood sugar was 206, liver function tests are normal, protein was 4 with an albumin of 2.1. The patient is receiving enteral feeding for nutritional support and currently is on vital high protein at the rate of 58 mL an hour. His body weight today is on the rise. Ration of 09/09/2020, seeing the patient for a follow-up. The patient remains intubated on a mechanical ventilator. This morning, he is on propofol which is running at 50 mics are aspirin kilogram per minute. He is well sedated. He is on assist control mode at the rate of 24 with a tidal volume of 400 and FiO2 of 40% with a PEEP of 10. The blood gases from this morning showing a pH of 7.39 with a pCO2 of 36 and pO2 of 76. The chest x-ray from today showing bilateral pulmonary infiltrates and worsening in the right-sided pleural effusion. There is also left-sided pleural effusion in place. ET tube is in a good location the patient has a left subclavian triple-lumen catheter in place. We noted significant fluid overload. Restart the patient on a combination of Lasix drip at 10 mg an hour and his patient is also on Zaroxolyn at 5 mg by mouth twice a day. He started producing adequate amount of urine output and urine output is in order of more than 100 mL an hour. His net fluid balance over the past 24 hours has been -1.3 L. As part of further workup, the patient was found to have chronic hydronephrosis of the right kidney. As mentioned earlier, the patient has undergone a previous bladder surgery and he does have a ranjith-bladder. His left kidney is atrophic. According to the urologist evaluation, the right kidney hydronephrosis a chronic finding that involved after the cystectomy with neobladder construction for urothelial carcinoma. Nevertheless, based on his acute kidney injury, there is a consideration for a nephrostomy tube insertion. The patient's renal function is progressively getting worse and the patient would likely require dialysis. On today's evaluation his BUN is at 144 with a creatinine of 5.1. The serum bicarb is 21. The white cell count is down to 10.2. He remains on IV antibiotics with IV Zosyn. The patient has grown E. coli in his blood and staph aureus in his sputum, MSSA. He is afebrile. He is on no pressors. He is receiving vital high protein at the rate of 58 mL an hour same time, the patient is having liquidy stool and a fecal management system was in place and the patient will need a stool for C. diff evaluation. On 09/10/2020, the patient is being seen for a follow-up. He remains intubated on mechanical ventilator. Essentially same ventilator settings with a tidal volume of 400 and the rate of 24 and FiO2 of 40% and PEEP of 10. Chest x-ray is showing improvement in the volume status and improvement in the right lower lobe consolidation/effusion. The hemidiaphragms can be visualized appropriately on both sides. ET tube remains in a good location. The patient also has a orogastric tube in place in the left subclavian triple-lumen catheter. Meanwhile, the patient's blood gases from today showing a pH of 7.36 with a pCO2 of 40 and pO2 of 105. There has been some improvement in his oxygenation as the patient was being diuresed with Lasix drip as the patient was thought to be significant volume overload. This morning, the patient remains sedated with propofol. Propofol is running at 50 mics are aspirin kilogram per minute. He is on Lasix drip at 10 mg an hour and the patient is also on Zaroxolyn. 5 mg by mouth twice a day. The fluid balance over the past 24 hours has been obviously negative. The patient has been and negative balance of 1.3 L over the past 24 hours and he is admitted to another negative fluid balance for today. His BUN currently is at 128 and the creatinine is down to 4.6. Had a lengthy discussion with nephrology and urology. Right-sided hydronephrosis chronic and there are no plans for nephrostomy tube insertion or a double-J stent insertion. Noted t he patient is post cystectomy and creation of a neobladder post-bladder cancer treatment. Meanwhile, it was decided to proceed with dialysis. The dose cath was inserted and the patient is in the process of undergoing his first session of hemodialysis yesterday and a total of 800 mL of fluid was removed with ultrafiltration. He became slightly hypotensive and ultrafiltration was aborted. Currently the patient is having his second session of hemodialysis.. He is white cell count is at 11.1. Hemoglobin is at 10.1. Creatinine is at 4.6. Potassium level is at 3.0. Chest x-rays improved. He has E. coli septicemia and repeated blood pressures have come back negative. He remains on IV cefepime 2 g to every 24 hours. He is also receiving enteral feeding for nutritional support. The patient was given a sedation holiday 48 hours ago and he was responsive. The sample will be done today post dialysis. Hemodynamically stable at this point in time. Objective - Vital Signs Vital signs: Vital Signs Temp 97.7 F 09/10/20 08:00 Pulse 79 09/10/20 08:00 Resp 34 H 09/10/20 08:00 BP 131/63 09/10/20 08:00 Pulse Ox 98 09/10/20 08:00 Intake & Output 09/09/20 09/10/20 09/10/20 18:59 06:59 18:59 Intake Total 0347.704 5791.667 263.021 Output Total 2544 1960 400 Balance -646.836 -371.333 -136.979 Weight 109.6 kg Intake: IV 312 289 46 Pressure Bags 72 69 6 Sodium Chloride 0.9% 1, 240 220 40 000 ml @ 20 mls/hr IV . Q24H [facility] Rx#:[id number] Intake, IV Titration 563.164 491.667 71.021 Amount Cefepime 2 gm In Sodium 100 Chloride 0.9% 100 ml @ 25 mls/hr IVPB Q24HR [facility] Rx #:[id number] Furosemide 100 mg In 87 191.667 Sodium Chloride 0.9% 90 ml @ 10 MG/HR 10 mls/hr IV .Q10H [facility] Rx#: [id number] propofoL 1,000 mg In 376.164 300.00 71.021 Empty Bag 1 bag @ Titrate IV .Q0M [facility] Rx#: [id number] Tube Feeding 812 718 116 Other 210 90 30 Output: Urine 1695 1960 400 Hemodialysis 849 Other: Voiding Method Indwelling Catheter Indwelling Catheter ABP, PAP, CO, CI - Last Documented Arterial Blood Pressure 152/49 - Exam GENERAL EXAM: 85-year-old white male, sedated, intubated on assist control mode of ventilation, with FiO2 of 40% and PEEP of 10 comfortable in no apparent distress. HEAD: Normocephalic/atraumatic. EYES: Normal reaction of pupils, equal size. Conjunctiva pink, sclera white. NOSE: Clear with pink turbinates. THROAT: No erythema or exudates. NECK: No masses, no JVD, no thyroid enlargement, no adenopathy. CHEST: No chest wall deformity. Symmetrical expansion. LUNGS: Equal air entry with no crackles, wheeze, rhonchi or dullness. CVS: Irregular rate and rhythm, normal S1 and S2, no gallops, no murmurs, no rubs ABDOMEN: Soft, nontender, abdominal distention, possibility of abdominal ascites is considered, abdominal ultrasound is pending. No hepatosplenomegaly, normal bowel sounds, no guarding or rigidity. EXTREMITIES: No clubbing, mild generalized edema, 1+ lower extremity edema, no cyanosis, 2+ pulses and upper and lower extremities. MUSCULOSKELETAL: Muscle strength and tone normal. SPINE: No scoliosis or deformity SKIN: No rashes CENTRAL NERVOUS SYSTEM: Sedated, intubated No focal deficits, tone is normal in all 4 extremities. - Labs CBC & Chem 7: 09/10/20 04:30 09/10/20 04:30 Labs: Abnormal Lab Results - Last 24 Hours (Table) 09/09/20 09/09/20 09/09/20 Range/Units 11:24 16:45 20:54 WBC (3.8-10.6) k/uL RBC (4.30-5.90) m/uL Hgb (13.0-17.5) gm/dL Hct (39.0-53.0) % Plt Count (150-450) k/uL Neutrophils # (1.3-7.7) k/uL Lymphocytes # (1.0-4.8) k/uL ABG O2 Saturation (94-97) % Potassium (3.5-5.1) mmol/L BUN (9-20) mg/dL Creatinine (0.66-1.25) mg/dL Glucose (74-99) mg/dL POC Glucose (mg/dL) 189 H 235 H 207 H (75-99) mg/dL Calcium (8.4-10.2) mg/dL 09/09/20 09/10/20 09/10/20 Range/Units 23:57 04:07 04:30 WBC 11.1 H (3.8-10.6) k/uL RBC 3.06 L (4.30-5.90) m/uL Hgb 10.1 L (13.0-17.5) gm/dL Hct 28.9 L (39.0-53.0) % Plt Count 91 L (150-450) k/uL Neutrophils # 9.9 H (1.3-7.7) k/uL Lymphocytes # 0.5 L (1.0-4.8) k/uL ABG O2 Saturation (94-97) % Potassium (3.5-5.1) mmol/L BUN (9-20) mg/dL Creatinine (0.66-1.25) mg/dL Glucose (74-99) mg/dL POC Glucose (mg/dL) 164 H 156 H (75-99) mg/dL Calcium (8.4-10.2) mg/dL 09/10/20 09/10/20 09/10/20 Range/Units 04:30 05:50 08:59 WBC (3.8-10.6) k/uL RBC (4.30-5.90) m/uL Hgb (13.0-17.5) gm/dL Hct (39.0-53.0) % Plt Count (150-450) k/uL Neutrophils # (1.3-7.7) k/uL Lymphocytes # (1.0-4.8) k/uL ABG O2 Saturation 97.4 H (94-97) % Potassium 3.0 L (3.5-5.1) mmol/L BUN 128 H* (9-20) mg/dL Creatinine 4.68 H (0.66-1.25) mg/dL Glucose 138 H (74-99) mg/dL POC Glucose (mg/dL) 139 H (75-99) mg/dL Calcium 7.5 L (8.4-10.2) mg/dL Microbiology - Last 24 Hours (Table) 09/08/20 08:45 Blood Culture - Preliminary Blood No Growth after 24 hours 09/08/20 08:45 Blood Culture - Preliminary Blood No Growth after 24 hours Assessment and Plan Plan: #1. Acute hypoxic respiratory failure multifactorial, related to acute sepsis and septic shock related to E. coli bacteremia, recent history of COVID-19 pneumonia. The patient has developed significant amount of volume overload as the patient was being treated for septic shock and hypotension. He is at least 17 kg weight gain and he has developed significant edema in all 4 extremities. His volume status is improving and the patient is currently on a Lasix drip and hemodialysis. The chest x-ray from today is showing improvement in the volume status and improvement in the pleural effusions. Oxygenation is also improved. We went to cut down the PEEP. Not completely ready for extubation yet although this is possible with the next 24 hours. #2. Sepsis secondary to E. coli, secondary to an underlying UTI. The patient is currently on cefepime #3. COVID-19 pneumonia, status post BAM and the patient is on Decadron #4. New onset A. fib with RVR, patient off Cardizem, started on Eliquis today on 09/05/2020, the patient is currently on oral metoprolol on metoprolol will be continued in the Eliquis will placed on hold for now. #5. Elevated d-dimer, multifactorial, improving #6. Acute on chronic kidney disease with secondary fluid overload the patient underwent hemodialysis yesterday and the patient is currently on a Lasix drip in combination with Zaroxolyn. She is a negative fluid balance. Volume status is improving. Oxygenation is also improving. #7. Non-anion gap metabolic acidosis related to acute kidney injury, improved #8. Chronic kidney disease stage III #9. History of coronary artery disease with history of stenting #10. Hypertension #11. Hyperlipidemia #12. History of bladder cancer with surgical resection post cystectomy and neobladder construction #13, diarrhea fecal management system, check stool for C. diff was negative Plan: Continue Lasix drip at 10 mg an hour, Zaroxolyn 5 mg twice a day, proceed with a second session of hemodialysis today No plans for nephrostomy and we are going to restart Eliquis Continue IV cefepime regarding an E. coli bacteremia/sepsis Monitor CVP Vital high protein for enteral nutrition The PEEP down to 8 and later on down to 6 and the saturation remains above 90% Continue Decadron for now repeat cultures were negative and the blood Stool for C. diff was negative Patient holiday today and assess the patient's mental status There is a critically care evaluation, more than 30 minutes. Time with Patient: Greater than 30
[2020-09-10] MEDS: ACETAMINOPHEN TAB 500 MG TAB PO SCH (09:40)
[2020-09-10] MEDS: CEFEPIME 2 GM in SODIUM CHLORIDE 0.9% 100 ML IVPB SCH (09:40)
[2020-09-10] MEDS: ASPIRIN 81 MG PO SCH (09:40)
[2020-09-10] MEDS: INSULIN DETEMIR (LEVEMIR) 100 UNIT/ML SYR SQ SCH ×2 (09:41→21:19)
[2020-09-10] MEDS: DEXAMETHASONE SOD PHOSPHATE 10 MG/ML 1 ML VIAL IV SCH (09:41)
[2020-09-10] MEDS: PANTOPRAZOLE 40 MG/10 ML VIAL IVP SCH (09:41)
[2020-09-10] MEDS: CHLORHEXIDINE GLUCONATE 15 ML CUP MUCOUS MEM SCH ×2 (09:41→21:51)
--- NOTE | 2020-09-10 11:17 | P.PN ---
Subjective Progress Note Date: 09/10/20 HISTORY OF PRESENT ILLNESS This is an 85-year-old male patient of Dr. Andrei Vasquez with past medical history of hyperlipidemia, hypothyroidism, bladder cancer, coronary artery di sease status post stent, diagnosed with Covid 19 pneumonia status post Bamlanivimab and subsequently admitted from August 27 through September 01 which time he was treated for acute hypoxic respiratory failure secondary to Covid 19 pneumonia, acute kidney injury, discharged home with home care. Apparently patient was at home but became very dyspneic and pulse ox dropped to 88%, patient not had anything to eat or drink since he left the hospital. EMS was contacted and patient was brought into the emergency center for evaluation. She complains of feeling tired. He was found to be afebrile, heart rate 98, blood pressure 114/65, pulse ox 90% on 2 L nasal cannula. WBC 20.5, hemoglobin 12.1, platelet count 148. Sodium 138, potassium 2.9, chloride 113, CO2 15, BUN 59 creatinine 2.52. Blood sugar 147. ALT 77. LDH 639. Albumin 2.7. Lactic acid 2.0. Magnesium 2.1. CK 74. EKG was a sinus rhythm with no acute ST changes. Patient was given 1 L of IV fluid and potassium was replaced. 09/03: Patient has not eating any meals since admission. He is oriented 3 but noted to have significant short-term memory deficit and having difficulty following instructions. Social work is following for discharge planning. Family is planning for patient to come home with [facility] and does not want to consider rehab. PT and OT clearly recommend subacute rehab. Patient has been afebrile, heart rate 94, blood pressure 120/73, pulse ox 94% on high flow nasal cannula at 4 L. Repeat blood work reveals WBC 30.3, hemoglobin 12.6, platelet count 143. Lactic acid 1.8. Chemistry results are not up at the time of this dictation at 2 10 in the afternoon. Repeat blood work will be ordered f or the morning. Anticipate possible discharge tomorrow 09/04: A-Team was called this morning due to difficulty breathing and hypoxia. Patient was tachycardic and diaphoretic. Heart rate was in the 130s. Patient was placed on BiPAP but he could not tolerate and became very anxious. Patient was given Ativan with no improvement. Pulse ox was low 70s and he was transferred to the intensive care unit and intubated and placed on mechanical ventilation. Patient was found to be in A. fib with RVR and cardiology consult was added as well as pulmonary medicine was added during the night. Patient was started on Cardizem bolus and drip. Lovenox increased to 45 mg twice daily, Decadron 6 mg IV daily. Patient has been started on norepinephrine 09/05: Patient seen in ICU use on mechanical intubation FiO2 55, PEEP 10, tidal volume 100, respiratory rate 24. Patient remains afebrile, heart rate 65 and irregular H or fibrillation noted to the monitor, respiration rate 28, blood pressure 105/68 97% on mechanical ventilation. Patient remains in atrial fibrillation. C 23.8, hemoglobin 10.8, potassium 3.2, BUN 81, creatinine 4.57. 09/06: Patient seen in ICU still on mechanical intubation FiO2 of 45 with a PEEP of 8, levo fed has been decreased to 2 mics. Patient remains afebrile, respirations 20, blood pressure 104/68, 95% on mechanical intubation. Blood cultures and urine cultures show gram-negative bacilli and E. coli. He is currently on Zosyn and Levaquin for coverage. 09/07: Patient remains intubated and on mechanical ventilation with tidal volume 400, FiO2 of 45 and PEEP of 10. Repeat chest x-ray reveals increased bilateral airspace opacities with more focal and somewhat cavitary-appearing opacities over the right upper lung. Increased moderate right pleural effusion. Un changed small left pleural effusion. Patient had minimal urine output running at 30 miles per hour but this morning increased to 100. He is scheduled for Lasix 40 mg IV every 8 hours to start this afternoon. Bicarb drip was discontinued. Patient is currently off pressors since yesterday afternoon. He is on tube feedings. 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 Cardizem drip has been discontinued and he is maintained on Lopressor 12.5 mg twice daily. He is also on Lasix 40 mg IV every 8 hours. Cardiology is following on an as-needed basis. Patient is continued on Zosyn and Levaquin was discontinued by pulmonary medicine. 09/08: Patient remains intubated and on mechanical ventilation with tidal volume 400, FiO2 50% and PEEP of 10. Patient has been afebrile, heart rate 77, respiratory rate 26, blood pressure 110/70, pulse ox 98%. 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 Repeat chest x-ray reveals bibasilar infiltrates with small pleural effusions that are greater on the right. Repeat WBC 11.4, hemoglobin 10.4, platelet count 85. Sodium 137, potassium 3.0 and has been replaced, chloride 102, CO2 21, BUN 119 and creatinine 4.95. Blood sugars are running between 155 and 208. ALT 94. A repeat blood culture has been obtained today. Patient is currently on Lasix 40 mg every 8 hours. He is sche duled to start Lasix drip after a 100 mg bolus. Patient is waking up and responds. He is not on vasopressors. He is on tube feedings. IV antibiotics of been changed to cefepime 2 g IV piggyback every 24 hours. 09/09: Patient remains intubated and on mechanical ventilation with tidal volume 400, FiO2 40, PEEP of 10. Patient has been afebrile, heart rate 90, respiratory rate 26, blood pressure 128/67. Patient is on Lasix drip 10 mg per hour and continued on Zaroxolyn. He is having good urine output. Patient has watery brown stools and specimens to be sent for C. difficile toxin. Repeat blood work reveals WBC 10.2, hemoglobin 10, platelet count 84. Sodium 138, potassium 3, chloride 103, CO2 21, BUN 144, creatinine 5.19. ALT 84. CT scan of the abdomen and pelvis revealed absent gallbladder. Posterior changes suggestive ileal conduit. Severe right hydronephrosis with distal ureter transition point at the level of surgical size/anastomosis. No evidence of hiatal lithiasis. Findings concerning for stricture versus stenosis. Mild left cortical atrophy. Small plural effusions with adjacent atelectasis superimposed infiltrates are not excluded. Patient was seen yesterday by Dr. Morales evaluated for hydronephrosis on the right, unsure if ureteral stent could be placed and patient may need to be considered for right nephrostomy tube insertion. He does not believe the worsening creatinine level is a result of the hydronephrosis. Repeat chest x- ray reveals moderate right and small left pleural effusions, bibasilar airspace opacities. 09/10: Patient remains intubated and on mechanical ventilation with tidal volume 400, FiO2 40%, PEEP 10. Patient has been afebrile, heart rate 82, respiratory rate 28, blood pressure 122/65, pulse ox 98%. hostage negotiator is sinus rhythm. Patient is continued on Lasix drip at 10 mg an hour. Patient is also continued on cefepime for E. coli bacteremia. Repeat chest x-ray reveals decreased pleural effusions, unchanged diffuse bilateral airspace opacities. Dr. Noalsco placed right femoral dialysis catheter and patient was started on dialysis yesterday. Patient is undergoing repeat hemodialysis today. CODE STATUS is no code. Dr. Morales is not planning for any intervention as hydronephrosis is chronic. Eliquis will be resumed. Repeat blood work reveals WBC 11.1, hemoglobin 10.1, platelet count 91. Sodium 139, potassium 3.0, chloride 102, CO2 22, BUN 128 and creatinine 4.68. Blood sugar 138. Blood sugars have been running between 138 and 235. C. difficile toxin was negative. Repeat blood cultures are showing no growth at 48 hours REVIEW OF SYSTEMS Unable to obtain due to intubation. PHYSICAL EXAMINATION Gen: This is an 85-year-old male patient, patient in ICU bed and appears to be comfortable at rest. HEENT: Head is atraumatic, normocephalic. Pupils equal, round. Sclerae is anicteric. Patient is intubated and on mechanical ventilation. NECK: Supple. No JVD. No lymphadenopathy. No thyromegaly. LUNGS: Clear to auscultation. No wheezes or rhonchi. No intercostal retractions. HEART: Irregular rate and rhythm. No murmur. ABDOMEN: Soft. Bowel sounds are present. No masses. No tenderness. Laws catheter in place. EXTREMITIES: No pedal edema. No calf tenderness. NEUROLOGICAL: Patient intubated ASSESSMENT AND PLAN 1. Acute hypoxic respiratory failure secondary to Covid 19 pneumonitis requiring intubation and mechanical ventilation. Continue oxygen therapy. Continue albuterol inhaler 2 puffs 4 times daily, dexamethasone 6 mg iv daily. 2. Acute kidney injury secondary to dehydration and lack of oral intake and di arrhea. Continue Lasix drip at 10 mg per hour, Zaroxolyn 5 mg twice daily. Consult nephrology appreciated. Patient is status post right femoral dialysis catheter placement and started on dialysis 09/09. Repeat dialysis scheduled for today. 3. Sepsis, septic shock and gram-negative bacteremia, POA. Continue cefepime. 4. Urinary tract infection with E. coli bacteremia. Bacteremia is resolving with negative blood cultures. Continue cefepime. 5. Transaminitis secondary to COVID-19, hypotension. 6. New-onset A. fib with RVR, paroxysmal atrial fibrillation. Continue eliquis and Lopressor. Cardiology consult appreciated and cardiology has signed off. 7. Hyperlipidemia. Continue Lipitor 40 mg at bedtime. 8. Hypertension. Patient is off vasopressors. 9. Gastroesophageal reflux disease and GI prophylaxis. Continue Protonix 40 mg IVP daily. 10. Hypothyroidism. Continue levothyroxine 100 g daily. 11. Chronic gout. 12. Chronic kidney disease stage III. 13. History of coronary artery disease with previous stenting. 14. Thrombocytopenia secondary to sepsis. 15. Hyperglycemia without history of diabetes. Levemir 10 units at bedtime added, continue NovoLog scale every 4 hours. 16. Right-sided hydronephrosis, chronic. Consult with urology appreciated. 17. DVT prophylaxis. Eliquis. Prognosis is guarded. DISCHARGE PLAN To be determined. Impression and plan of care have been directed as dictated by the signing phys braxton. Joseline Corado nurse practitioner acting as scribe for signing physician. Objective - Vital Signs Vital signs: Vital Signs Temp 97.7 F 09/10/20 08:00 Pulse 79 09/10/20 08:00 Resp 34 H 09/10/20 08:00 BP 131/63 09/10/20 08:00 Pulse Ox 98 09/10/20 08:00 Intake & Output 09/09/20 09/10/20 09/10/20 18:59 06:59 18:59 Intake Total 6695.268 8887.667 263.021 Output Total 2544 1960 400 Balance -646.836 -371.333 -136.979 Weight 109.6 kg Intake: IV 312 289 46 Pressure Bags 72 69 6 Sodium Chloride 0.9% 1, 240 220 40 000 ml @ 20 mls/hr IV . Q24H [facility] Rx#:[id number] Intake, IV Titration 563.164 491.667 71.021 Amount Cefepime 2 gm In Sodium 100 Chloride 0.9% 100 ml @ 25 mls/hr IVPB Q24HR [facility] Rx #:[id number] Furosemide 100 mg In 87 191.667 Sodium Chloride 0.9% 90 ml @ 10 MG/HR 10 mls/hr IV .Q10H [facility] Rx#: [id number] propofoL 1,000 mg In 376.164 300.00 71.021 Empty Bag 1 bag @ Titrate IV .Q0M [facility] Rx#: [id number] Tube Feeding 812 718 116 Other 210 90 30 Output: Urine 1695 1960 400 Hemodialysis 849 Other: Voiding Method Indwelling Catheter Indwelling Catheter ABP, PAP, CO, CI - Last Documented Arterial Blood Pressure 152/49 - Labs CBC & Chem 7: 09/10/20 04:30 09/10/20 04:30 Labs: Abnormal Lab Results - Last 24 Hours (Table) 09/09/20 09/09/20 09/09/20 Range/Units 11:24 16:45 20:54 WBC (3.8-10.6) k/uL RBC (4.30-5.90) m/uL Hgb (13.0-17.5) gm/dL Hct (39.0-53.0) % Plt Count (150-450) k/uL Neutrophils # (1.3-7.7) k/uL Lymphocytes # (1.0-4.8) k/uL ABG O2 Saturation (94-97) % Potassium (3.5-5.1) mmol/L BUN (9-20) mg/dL Creatinine (0.66-1.25) mg/dL Glucose (74-99) mg/dL POC Glucose (mg/dL) 189 H 235 H 207 H (75-99) mg/dL Calcium (8.4-10.2) mg/dL 09/09/20 09/10/20 09/10/20 Range/Units 23:57 04:07 04:30 WBC 11.1 H (3.8-10.6) k/uL RBC 3.06 L (4.30-5.90) m/uL Hgb 10.1 L (13.0-17.5) gm/dL Hct 28.9 L (39.0-53.0) % Plt Count 91 L (150-450) k/uL Neutrophils # 9.9 H (1.3-7.7) k/uL Lymphocytes # 0.5 L (1.0-4.8) k/uL ABG O2 Saturation (94-97) % Potassium (3.5-5.1) mmol/L BUN (9-20) mg/dL Creatinine (0.66-1.25) mg/dL Glucose (74-99) mg/dL POC Glucose (mg/dL) 164 H 156 H (75-99) mg/dL Calcium (8.4-10.2) mg/dL 09/10/20 09/10/20 09/10/20 Range/Units 04:30 05:50 08:59 WBC (3.8-10.6) k/uL RBC (4.30-5.90) m/uL Hgb (13.0-17.5) gm/dL Hct (39.0-53.0) % Plt Count (150-450) k/uL Neutrophils # (1.3-7.7) k/uL Lymphocytes # (1.0-4.8) k/uL ABG O2 Saturation 97.4 H (94-97) % Potassium 3.0 L (3.5-5.1) mmol/L BUN 128 H* (9-20) mg/dL Creatinine 4.68 H (0.66-1.25) mg/dL Glucose 138 H (74-99) mg/dL POC Glucose (mg/dL) 139 H (75-99) mg/dL Calcium 7.5 L (8.4-10.2) mg/dL Microbiology - Last 24 Hours (Table) 09/08/20 08:45 Blood Culture - Preliminary Blood No Growth after 24 hours 09/08/20 08:45 Blood Culture - Preliminary Blood No Growth after 24 hours
[2020-09-10 11:24] LABS: Glucose,Whole Blood 115 mg/dL (75-99)
--- NOTE | 2020-09-10 11:28 | PN ---
PROGRESS NOTE DATE OF SERVICE: 09/10/2020. REASON FOR FOLLOWUP: E coli bacteremia and pneumonia. INTERVAL HISTORY: The patient is currently afebrile. The patient is hemodynamically stable not on any pressor support. FiO2 is currently stable at 40%. No significant purulent secretions in the ET or any worsening diarrhea per the nursing staff. Patient is currently sedated on the vent. PHYSICAL EXAMINATION: Blood pressure 122/65, pulse of 82, temperature 97.7. He is 98% on 40% FiO2. General description is an elderly male lying in bed in no distress. RESPIRATORY SYSTEM: Unlabored breathing with decreased intensity of breath sounds. No wheeze. HEART: S1, S2. Regular rate and rhythm. ABDOMEN: Soft, no tenderness. EXTREMITIES: No edema of feet. LABS: Hemoglobin is 10.1, white count 11.1, BUN is 128, creatinine 4.68. DIAGNOSTIC IMPRESSION AND PLAN: 1. Patient with an Escherichia coli bacteremia complicated urinary tract infection in this patient who had significant hydronephrosis. Urology following the patient. The patient is covered cefepime. 2. Patient with MSSA pneumonia, covered with cefepime. Dose adjusted to his kidney function, to continue and monitor his clinical course closely. Prognosis remains to guarded. MMODL / IJN: [id number] /
[2020-09-10] MEDS: METOPROLOL TARTRATE 12.5 MG TAB PO SCH ×2 (11:55→21:18)
[2020-09-10] MEDS: metOLazone 5 MG TAB PO SCH ×2 (12:19→21:59)
[2020-09-10] MEDS: APIXABAN 2.5 MG TABLET PO SCH ×2 (12:23→21:18)
[2020-09-10] MEDS: CHOLECALCIFEROL 25 MCG (1000 IU) TABLET PO SCH (12:23)
--- NOTE | 2020-09-10 14:22 | PN ---
PROGRESS NOTE Patient is seen for followup for acute kidney injury on top of chronic kidney disease. The patient also has underlying COVID pneumonia and volume overload. He is maintained on Lasix drip and has had good urine output. However, his renal function has worsened and therefore patient was started on dialysis yesterday. He had his first treatment and had about 800 mL of fluid removed. He is seen on dialysis again today, seems to be tolerating fairly well. Patient also has significant right-sided hydronephrosis which appears to be chronic and he has left renal atrophy. Possible right nephrostomy as patient is not a candidate for ureteral stent placement given his reconstructive surgery. He has been evaluated by Urology. Currently urine output maintained at about 200-150 mL an hour. Blood pressure is 122/65, heart rate 82 per minute. Patient is afebrile. He is not examined today. He is seen from at the door. Case is discussed with nursing staff and dialysis nurse. LABS: Labs show sodium 139, potassium 3.0, chloride 102, BUN 128, serum creatinine 4.68, calcium 7.5, hemoglobin 10.1 g/dL. ASSESSMENT: 1. Acute kidney injury mostly acute tubular necrosis with component of obstructive uropathy given the significant right hydronephrosis with atrophic left kidney. The patient is not a candidate for ureteral stent placement. There is consideration of nephrostomy possibly. At this time given the significant worsening in renal function and volume overload. Patient has been started on dialysis. He had his first treatment today, although we were not able to get much fluid off. He had about 800 mL of ultrafiltration. We are trying for about another L today. His BUN has improved to 128 from 144 yesterday. Creatinine is 4.68 from 5.1 yesterday. Urine output is well maintained at about 150-200 mL an hour on a Lasix drip. 2. Hypokalemia associated with diuresis, being replaced. It was also replaced with the potassium bath on dialysis. 3. COVID pneumonia, currently on the vent. 4. Acute hypoxic respiratory failure, currently on the vent. 5. Metabolic acidosis, now improved. 6. Atrial fibrillation, maintained on Eliquis. PLAN: Continue with Lasix drip. Possible dialysis again tomorrow. MMODL / IJN: [id number] /
[2020-09-10 14:54] LABS: Glucose,Whole Blood 215 mg/dL (75-99)
[2020-09-10] MEDS: ATORVASTATIN 40 MG TAB PO SCH (21:18)
[2020-09-10 21:29] LABS: Glucose,Whole Blood 185 mg/dL (75-99)
[2020-09-10 23:27] LABS: Glucose,Whole Blood 138 mg/dL (75-99)
[2020-09-11] MEDS: INSULIN ASPART (NovoLOG) 100 UNIT/ML VIAL SQ SCH ×7 (00:07→23:31)
[2020-09-11] MEDS: FUROSEMIDE 100 MG in SODIUM CHLORIDE 0.9% 90 ML IV SCH ×3 (03:05→21:00)
[2020-09-11 04:08] LABS: Glucose,Whole Blood 122 mg/dL (75-99)
[2020-09-11 05:49] LABS: Glucose,Whole Blood 150 mg/dL (75-99)
[2020-09-11 05:56] LABS: ABG Base Excess -6.2 mmol/L; ABG HCO3 20 mmol/L (21-25); ABG Oxygen Saturation 97.6 % (94-97); ABG PCO2 37 mmHg (35-45); ABG PH 7.34 (7.35-7.45); ABG PO2 107 mmHg (83-108); ABG TCO2 21 mmol/L (19-24); Allen Test Performed? Yes
[2020-09-11 06:13] LABS: Basophils % (A) 0 %; Eosinophils # (A) 0.1 k/uL (0-0.7); Eosinophils % (A) 1 %; HCT 28.4 % (39.0-53.0); HGB 9.3 gm/dL (13.0-17.5); Lymphocytes # (A) 0.6 k/uL (1.0-4.8); Lymphocytes % (A) 5 %; MCHC 32.6 g/dL (31.0-37.0); MCV 95.2 fL (80.0-100.0); Mean Platelet Volume 12.8; Monocytes # (A) 0.5 k/uL (0-1.0); Monocytes % (A) 4 %; Neutrophils # (A) 10.8 k/uL (1.3-7.7); Neutrophils % (A) 88 %; RBC 2.99 m/uL (4.30-5.90); RDW 14.5 % (11.5-15.5); WBC 12.2 k/uL (3.8-10.6)
[2020-09-11 06:17] LABS: D-Dimer 5.36 mg/L FEU (<0.60); Prothrombin Time 10.3 sec (9.0-12.0)
[2020-09-11 06:18] LABS: Albumin 2.2 g/dL (3.5-5.0); C Reactive Protein 7.4 mg/dL (<1.0); Calcium 7.8 mg/dL (8.4-10.2); Potassium 3.3 mmol/L (3.5-5.1); Total Bilirubin 0.4 mg/dL (0.2-1.3); Total Protein 4.4 g/dL (6.3-8.2)
[2020-09-11 06:35] LABS: Platelet Count 88 k/uL (150-450)
[2020-09-11] MEDS ORDERED: Potassium Replacement Protocol 1 EACH MISC MISCELLANE PRN (07:00)
[2020-09-11] MEDS: LEVOTHYROXINE 100 MCG TAB PO SCH (07:13)
[2020-09-11] MEDS: POTASSIUM CHLORIDE ER 20 MEQ TAB.ER PO SCH ×2 (07:14→08:12)
[2020-09-11] MEDS: ALBUTEROL HFA INHALER INHALATION SCH ×5 (07:32→20:41)
[2020-09-11 08:03] LABS: Glucose,Whole Blood 150 mg/dL (75-99)
[2020-09-11] MEDS: APIXABAN 2.5 MG TABLET PO SCH ×2 (08:11→20:57)
[2020-09-11] MEDS: CHLORHEXIDINE GLUCONATE 15 ML CUP MUCOUS MEM SCH (08:11)
[2020-09-11] MEDS: CEFEPIME 2 GM in SODIUM CHLORIDE 0.9% 100 ML IVPB SCH (08:11)
[2020-09-11] MEDS: DEXAMETHASONE SOD PHOSPHATE 10 MG/ML 1 ML VIAL IV SCH (08:11)
[2020-09-11] MEDS: METOPROLOL TARTRATE 12.5 MG TAB PO SCH ×2 (08:11→20:57)
[2020-09-11] MEDS: ASPIRIN 81 MG PO SCH (08:12)
[2020-09-11] MEDS: ACETAMINOPHEN TAB 500 MG TAB PO SCH (08:12)
[2020-09-11] MEDS: PANTOPRAZOLE 40 MG/10 ML VIAL IVP SCH (08:12)
[2020-09-11] MEDS: CHOLECALCIFEROL 25 MCG (1000 IU) TABLET PO SCH (08:12)
[2020-09-11] MEDS: NOREPINEPHRINE 8 MG in SODIUM CHLORIDE 0.9% 250 ML IV SCH ×2 (08:13→09:26)
[2020-09-11] MEDS: metOLazone 5 MG TAB PO SCH ×2 (08:17→20:57)
[2020-09-11] MEDS: INSULIN DETEMIR (LEVEMIR) 100 UNIT/ML SYR SQ SCH ×2 (08:17→23:31)
--- NOTE | 2020-09-11 10:12 | P.PN ---
Subjective Progress Note Date: 09/11/20 This is an 85-year-old gentleman who follows with Dr. Preston as his primary care provider. He has a history of liver cancer, coronary artery disease with previous stent placement, hypothyroidism, hyperlipidemia. Lifelong nonsmoker. He was recently admitted to the hospital from [address] [place] [address] for symptoms related to COVID-19 pneumonia. He had been given BAM on 08/25/2020 in the ER and discharged home. Subsequently discharged again in 09/01/2020. He re-presented to the emergency room 09/02/2020 with generalized weakness, rapid breathing and poor appetite and oral intake. O2 saturations 88% on room air. He was admitted again to the regular medical floor. At 4:00 this morning the patient had increa sed work of breathing with hypoxemia and an A team was called. He is subsequently transferred to the intensive care unit requiring intubation and mechanical ventilatory support. He is seen today in consultation in the ICU. He is currently intubated on mechanical ventilator. Assist-control mode with a rate of 24, tidal volume 400, FiO2 100% and a PEEP of 5. Morning blood gases revealed a PaO2 102, pCO2 37, PT H7.13. Those were drawn on a rate of 20. Blood cultures are positive for E. coli. He is currently on Zosyn and Levaquin. He is sedated on propofol 50 mcg/kg/m. Norepinephrine at 9 mcg/m. 0.9 normal saline at 75 ML's per hour. D5W with 2 A of bicarb at 75 mL per hour. White c ount 21.6. Hemoglobin 11.9. D-dimer 7.19. Sodium 140. Potassium 3.3. Creatinine 3.76. Glucose 151. LDH 766. C-reactive protein 36.4. AST 60. ALT 91. Urinalysis with large leukocyte esterase and greater than 182 WBCs with many bacteria. Culture pending. He is currently on Lovenox 30 mg subcu daily, dexamethasone, bronchodilators. Sensory continues to show persistent bilateral lung opacities with small left pleural effusion. On 09/05/2020 patient seen in follow-up in the intensive care unit. He remains intubated and sedated on assist control mode of ventilation, with a rate of 24, tidal was 400, FiO2 of 55% and PEEP of 10. This morning's blood gas shows pO2 of 124, pCO2 of 30, and pH of 7.23. Patient was adequately fluid resuscitated yesterday, he received 3-1/2 L" boluses, he was started on Zosyn and Levaquin for evidence of E. coli bacteremia likely related to urinary tract infection, he is currently sedated on Diprivan at 50 mics per kilo per minute, he is on 0.9 normal saline at a rate of 20 ML per hour, Cardizem drip at 5 mg per hour, D5W with 2 A of sodium bicarb at a rate of 75 ML per hour, and he is on Levophed currently at 18 mics per minute. Yesterday he went into atrial fibrillation, he was tachycardic, and he was started on Cardizem drip, he remains in atrial fibrillation today, but the rate is controlled. Cardiology has been consulted. Today's labs have been reviewed, showing white blood cell count of 20.3, hemoglobin is 10.8, platelet count is 123, d-dimer is improved but still elevated at 3.35, patient is on Lovenox 40 mg twice daily, sodium is 135, potassium 3.2, chloride is 112, CO2 is 12, BUN of 81, creatinine is 4.57, and patient's renal function has significantly worsened since yesterday. He seems to be generally swollen, his abdomen is distended, and there is a positive fluid wave with the possibility of abdominal ascites on today's exam. His urine output has been in the order of 30 ML per hour, will consult nephrology. He is tolerating tube feedings and he is on vital high-protein at a rate of 38 with a goal of 45 ML, and standard water flushes. His chest x-ray today showed no change in the small left pleural effusion or elevation of the right hemidiaphragm. He remains on antibiotics with Zosyn and Levaquin, his follow-up blood cultures continue to be positive with gram-negative bacilli. Echocardiogram has been reviewed and showed EF between 50-55%. On 09/06/2020 patient seen in follow-up in the intensive care unit, he remains sedated and intubated on mechanical ventilator, currently on assist control mode of ventilation with a rate of 24, Tylox 400, FiO2 45%, and PEEP of 10, this morning's blood gas shows pO2 of 92, pCO2 35, and pH is 7.33. Today's chest x- ray has been reviewed showing bilateral infiltrates and pleural effusions that are stable in appearance. Patient is currently on 0.9 normal same at KVO, levo fed is at 2 mics per minute, and D5W with 3 bicarbonate at 125 ml per hour. Patient is on antibiotics in the form of Levaquin and Zosyn, ID service is following, most recent blood cultures from 09/04/2020 continue to show gram negative bacilli, initial blood culture from 09/03/2020 was positive for E. coli, vitamin culture has been sent and pending, and culture was positive for gram-negative bacilli as well. he was afebrile overnight. No significant phlegm production, FiO2 was dropped down to 45%, his PEEP is at 10 which can be dropped to 5 today. Abdomen is soft, patient is tolerating tube feedings, he is on vital high-protein at 58 ML per hour, abdominal ultrasound showed no evidence of ascites, he has got mild generalized edema, his norepinephrine requirements are common down. Remains in atrial fibrillation with a controlled rate, he was started on Eliquis yesterday, Cardizem drip has been discontinued, cardiology is following. Urine output is in the order of 30-80 ML per hour. On 09/07/2020, the patient remains intubated on mechanical ventilator. This patient is on assist control mode of ventilation with a rate of 24 tidal volume of 400 45% with PEEP of 10. The blood gases from today showing a pH of 7.33 with a pCO2 of 44 and pO2 of 56. His chest x-ray is showing bilateral pulmonary infiltrates with development of effusions in the lung bases bilaterally. ET tube is in a good location. There is some underlying residual pulmonary infiltration due to COVID-19 related pneumonia. Nevertheless, there is obvious worsening in the lung bases with possibly development of bilateral effusions. Findings are consistent with CHF on top of COVID-19 related pneumonia. The patient is on D5 water and sodium bicarb infusion at the rate of 125 mL an hour and his serum bicarbonate currently is at 23 has normalized. The patient has been off pressors since yesterday. Antibiotic coverage includes a combination of Zosyn and Levaquin. Blood culture from 09/04/2020 was positive for gram- negative bacillus and the blood cultures from 09/03/2020 was positive for E. coli. Patient is afebrile. Remains in atrial fibrillation with a controlled rate. Started on anticoagulation with Eliquis. Cardizem drip has been discontinued and the patient states under good control. Urine output is adequate. She is receiving enteral feeding for nutritional support. The white cell count continues to drop this down to 12.4 from yesterday and the patient's hemoglobin is at 5.5. Platelets of the Route fusion consumptive thrombocytopenia probably related to his underlying sepsis. The patient also has a component of an acute on top of chronic kidney disease. The creatinine is stable compared to yesterday at 4.46. The patient has a component of an acute on top of chronic kidney failure. He has been more than 10 L positive since his admission to the ICU and the patient has a total of 17 kg in weight gain. On today's evaluation of 09/08/2020, the patient is being seen on a follow-up. The patient remains intubated on a mechanical ventilator due to complications of septic shock. Note that he was also treated for COVID-19 related pneumonia. This morning, the patient is sedated with propofol which is running at 50 mcg/kg per minute. He is on a mechanical ventilator. Ventilator changes were done yesterday and currently he is on assist-control at the rate of 24 with a tidal volume of 400 and FiO2 of 50% with a PEEP of 10. Chest x-ray is showing diffuse bilateral pulmonary infiltrates. Is obviously worsening in the right-sided pleural effusion compared to yesterday. Noted the patient has bilateral pleural effusion worse on the right. ET tube is in a good location. The blood gases from today showing a pH of 7.38 with a pCO2 of 38 and pO2 of 79. We have noted that the patient had become significantly fluid overloaded. Based on that, we started him on Lasix 40 mg every 8 hours. He is not fluid balance since yesterday has been +3.8 L and the patient did not respond to diuretics. Overall urine output was in the order of 1.9 L. Nevertheless the patient is taking more than 5 L of IV fluids and. He was on a bicarb infusion that was discontinued yesterday. Is currently under the 119 with a creatinine of 4.95.. Note that the patient is still on antibiotic coverage with Zosyn. Levaquin was discontinued yesterday. The patient E. coli in the blood and the last positive culture was on 09/04/2020 and the patient had MSSA in his sputum that was cultured on 09/05/2020. In terms of his hemodynamics, the patient is on no pressors. The patient is in atrial fibrillation. Maintaining his own blood pressure. Cardizem drip was discontinued and the patient is on metoprolol 12.5 mg by mouth twice a day for rate control. His blood work from today shows obvious worsening in her renal function and creatinine is up to 4.95 with a BUN of 119. Electrolytes showing a serum bicarb of 21 with a potassium level of 3.0 that needs to be replaced. Sodium is at 137. The white cell count currently is at 11.4 and has improved in the hemoglobin is at 10.4 with a platelet count of 85 which is slightly lower compared to yesterday. His d-dimer from yesterday was 2.53. His blood sugar was 206, liver function tests are normal, protein was 4 with an albumin of 2.1. The patient is receiving enteral feeding for nutritional support and currently is on vital high protein at the rate of 58 mL an hour. His body weight today is on the rise. Ration of 09/09/2020, seeing the patient for a follow-up. The patient remains intubated on a mechanical ventilator. This morning, he is on propofol which is running at 50 mics are aspirin kilogram per minute. He is well sedated. He is on assist control mode at the rate of 24 with a tidal volume of 400 and FiO2 of 40% with a PEEP of 10. The blood gases from this morning showing a pH of 7.39 with a pCO2 of 36 and pO2 of 76. The chest x-ray from today showing bilateral pulmonary infiltrates and worsening in the right-sided pleural effusion. There is also left-sided pleural effusion in place. ET tube is in a good location the patient has a left subclavian triple-lumen catheter in place. We noted significant fluid overload. Restart the patient on a combination of Lasix drip at 10 mg an hour and his patient is also on Zaroxolyn at 5 mg by mouth twice a day. He started producing adequate amount of urine output and urine output is in order of more than 100 mL an hour. His net fluid balance over the past 24 hours has been -1.3 L. As part of further workup, the patient was found to have chronic hydronephrosis of the right kidney. As mentioned earlier, the patient has undergone a previous bladder surgery and he does have a ranjith-bladder. His left kidney is atrophic. According to the urologist evaluation, the right kidney hydronephrosis a chronic finding that involved after the cystectomy with neobladder construction for urothelial carcinoma. Nevertheless, based on his acute kidney injury, there is a consideration for a nephrostomy tube insertion. The patient's renal function is progressively getting worse and the patient would likely require dialysis. On today's evaluation his BUN is at 144 with a creatinine of 5.1. The serum bicarb is 21. The white cell count is down to 10.2. He remains on IV antibiotics with IV Zosyn. The patient has grown E. coli in his blood and staph aureus in his sputum, MSSA. He is afebrile. He is on no pressors. He is receiving vital high protein at the rate of 58 mL an hour same time, the patient is having liquidy stool and a fecal management system was in place and the patient will need a stool for C. diff evaluation. On 09/10/2020, the patient is being seen for a follow-up. He remains intubated on mechanical ventilator. Essentially same ventilator settings with a tidal volume of 400 and the rate of 24 and FiO2 of 40% and PEEP of 10. Chest x-ray is showing improvement in the volume status and improvement in the right lower lobe consolidation/effusion. The hemidiaphragms can be visualized appropriately on both sides. ET tube remains in a good location. The patient also has a orogastric tube in place in the left subclavian triple-lumen catheter. Meanwhile, the patient's blood gases from today showing a pH of 7.36 with a pCO2 of 40 and pO2 of 105. There has been some improvement in his oxygenation as the patient was being diuresed with Lasix drip as the patient was thought to be significant volume overload. This morning, the patient remains sedated with propofol. Propofol is running at 50 mics are aspirin kilogram per minute. He is on Lasix drip at 10 mg an hour and the patient is also on Zaroxolyn. 5 mg by mouth twice a day. The fluid balance over the past 24 hours has been obviously negative. The patient has been and negative balance of 1.3 L over the past 24 hours and he is admitted to another negative fluid balance for today. His BUN currently is at 128 and the creatinine is down to 4.6. Had a lengthy discussion with nephrology and urology. Right-sided hydronephrosis chronic and there are no plans for nephrostomy tube insertion or a double-J stent insertion. Noted th e patient is post cystectomy and creation of a neobladder post-bladder cancer treatment. Meanwhile, it was decided to proceed with dialysis. The dose cath was inserted and the patient is in the process of undergoing his first session of hemodialysis yesterday and a total of 800 mL of fluid was removed with ultrafiltration. He became slightly hypotensive and ultrafiltration was aborted. Currently the patient is having his second session of hemodialysis.. He is white cell count is at 11.1. Hemoglobin is at 10.1. Creatinine is at 4.6. Potassium level is at 3.0. Chest x-rays improved. He has E. coli septicemia and repeated blood pressures have come back negative. He remains on IV cefepime 2 g to every 24 hours. He is also receiving enteral feeding for nutritional support. The patient was given a sedation holiday 48 hours ago and he was responsive. The sample will be done today post dialysis. Hemodynamically stable at this point in time. The patient is seen today 09/11/2020 in follow-up in the intensive care unit. He remains intubated on the mechanical ventilator. Current settings assist- control mode rate of 24 tidal volume 400 FiO2 40% and a PEEP of 5. He was intubated on 09/04/2020. Morning blood gases reveal pO2 of 107, pCO2 37, pH 7.34. He is sedated on propofol at 40 mcg/kg/m. Lasix drip at 10 mg per hour. Normal saline at 20 ML's per hour. This morning he is initiated on norepinephrine at 0.05 mcg/kg/m while receiving hemodialysis. The plan is to re move 1 L fluid if tolerated. He is being nourished with Jerry HPI 58 ML's per hour which is goal. Cardiac rhythm is atrial sinus rhythm with PVCs. Alternating with episodes of atrial fibrillation. He is on Lopressor 12.5 twice a day. Echocardiogram revealed ejection fraction of 50-55%. The patient has been receiving daily interruption of sedation. He is does follow commands. After dialysis today. We will attempt to give him another daily interruption of sedation and possible weaning trials. Follow up blood cultures are revealing no growth. Initial blood cultures positive for E. coli. Sputum culture positive for MSSA. White count 12.2. Hemoglobin 9.3. Platelet count 88. Sodium 138. Potassium 3.8. Creatinine 3.91. D-dimer 5.36. He is anticoagulated with Eliquis. He remains on dexamethasone 6 mg daily. Antibiotics in the form of cefepime. Objective - Vital Signs Vital signs: Vital Signs Temp 98 F 09/11/20 08:00 Pulse 60 09/11/20 09:00 Resp 24 09/11/20 09:00 BP 98/51 09/11/20 09:00 Pulse Ox 98 09/11/20 09:00 Intake & Output 09/10/20 09/11/20 09/11/20 18:59 06:59 18:59 Intake Total 6682.888 6593 582.809 Output Total 2675 1180 750 Balance -1272.163 172 -167.191 Weight 110.6 kg Intake: IV 273 276 78 Pressure Bags 33 36 18 Sodium Chloride 0.9% 1, 240 240 60 000 ml @ 20 mls/hr IV . Q24H [facility] Rx#:[id number] Intake, IV Titration 343.837 300 212.809 Amount Cefepime 2 gm In Sodium 100 Chloride 0.9% 100 ml @ 25 mls/hr IVPB Q24HR [facility] Rx #:[id number] Furosemide 100 mg In 91 100 Sodium Chloride 0.9% 90 ml @ 10 MG/HR 10 mls/hr IV .Q10H [facility] Rx#: [id number] propofoL 1,000 mg In 252.837 200 112.809 Empty Bag 1 bag @ Titrate IV .Q0M [facility] Rx#: [id number] Tube Feeding 696 596 222 Other 90 180 70 Output: Urine 1675 480 750 Stool 700 Hemodialysis 1000 Other: Voiding Method Indwelling Catheter Indwelling Catheter ABP, PAP, CO, CI - Last Documented Arterial Blood Pressure 152/49 - Exam GENERAL EXAM: 85-year-old male, sedated, intubated on assist control mode of ventilation, with FiO2 of 40% and PEEP of 5 comfortable in no apparent distress. HEAD: Normocephalic/atraumatic. EYES: Normal reaction of pupils, equal size. Conjunctiva pink, sclera white. NOSE: Clear with pink turbinates. THROAT: No erythema or exudates. NECK: No masses, no JVD, no thyroid enlargement, no adenopathy. CHEST: No chest wall deformity. Symmetrical expansion. LUNGS: Equal air entry with no crackles, wheeze, rhonchi or dullness. CVS: Irregular rate and rhythm, normal S1 and S2, no gallops, no murmurs, no rubs ABDOMEN: Soft, nontender, abdominal distention, possibility of abdominal ascites is considered, abdominal ultrasound is pending. No hepatosplenomegaly, normal bowel sounds, no guarding or rigidity. EXTREMITIES: No clubbing, mild generalized edema, 1+ lower extremity edema, no cyanosis, 2+ pulses and upper and lower extremities. MUSCULOSKELETAL: Muscle strength and tone normal. SPINE: No scoliosis or deformity SKIN: No rashes CENTRAL NERVOUS SYSTEM: Sedated, intubated No focal deficits, tone is normal in all 4 extremities. - Labs CBC & Chem 7: 09/11/20 05:45 09/11/20 05:45 Labs: Abnormal Lab Results - Last 24 Hours (Table) 09/10/20 09/10/20 09/10/20 Range/Units 11:23 14:52 21:27 WBC (3.8-10.6) k/uL RBC (4.30-5.90) m/uL Hgb (13.0-17.5) gm/dL Hct (39.0-53.0) % Plt Count (150-450) k/uL Neutrophils # (1.3-7.7) k/uL Lymphocytes # (1.0-4.8) k/uL D-Dimer (<0.60) mg/L FEU ABG pH (7.35-7.45) ABG HCO3 (21-25) mmol/L ABG O2 Saturation (94-97) % Potassium (3.5-5.1) mmol/L Carbon Dioxide (22-30) mmol/L BUN (9-20) mg/dL Creatinine (0.66-1.25) mg/dL Glucose (74-99) mg/dL POC Glucose (mg/dL) 115 H 215 H 185 H (75-99) mg/dL Calcium (8.4-10.2) mg/dL Creatine Kinase (55-170) U/L C-Reactive Protein (<1.0) mg/dL Total Protein (6.3-8.2) g/dL Albumin (3.5-5.0) g/dL 09/10/20 09/11/20 09/11/20 Range/Units 23:26 04:00 05:45 WBC 12.2 H (3.8-10.6) k/uL RBC 2.99 L (4.30-5.90) m/uL Hgb 9.3 L (13.0-17.5) gm/dL Hct 28.4 L (39.0-53.0) % Plt Count 88 L (150-450) k/uL Neutrophils # 10.8 H (1.3-7.7) k/uL Lymphocytes # 0.6 L (1.0-4.8) k/uL D-Dimer (<0.60) mg/L FEU ABG pH (7.35-7.45) ABG HCO3 (21-25) mmol/L ABG O2 Saturation (94-97) % Potassium (3.5-5.1) mmol/L Carbon Dioxide (22-30) mmol/L BUN (9-20) mg/dL Creatinine (0.66-1.25) mg/dL Glucose (74-99) mg/dL POC Glucose (mg/dL) 138 H 122 H (75-99) mg/dL Calcium (8.4-10.2) mg/dL Creatine Kinase (55-170) U/L C-Reactive Protein (<1.0) mg/dL Total Protein (6.3-8.2) g/dL Albumin (3.5-5.0) g/dL 09/11/20 09/11/20 09/11/20 Range/Units 05:45 05:45 05:47 WBC (3.8-10.6) k/uL RBC (4.30-5.90) m/uL Hgb (13.0-17.5) gm/dL Hct (39.0-53.0) % Plt Count (150-450) k/uL Neutrophils # (1.3-7.7) k/uL Lymphocytes # (1.0-4.8) k/uL D-Dimer 5.36 H (<0.60) mg/L FEU ABG pH (7.35-7.45) ABG HCO3 (21-25) mmol/L ABG O2 Saturation (94-97) % Potassium 3.3 L (3.5-5.1) mmol/L Carbon Dioxide 19 L (22-30) mmol/L BUN 106 H* (9-20) mg/dL Creatinine 3.91 H (0.66-1.25) mg/dL Glucose 143 H (74-99) mg/dL POC Glucose (mg/dL) 150 H (75-99) mg/dL Calcium 7.8 L (8.4-10.2) mg/dL Creatine Kinase 21 L (55-170) U/L C-Reactive Protein 7.4 H (<1.0) mg/dL Total Protein 4.4 L (6.3-8.2) g/dL Albumin 2.2 L (3.5-5.0) g/dL 09/11/20 09/11/20 Range/Units 05:49 08:01 WBC (3.8-10.6) k/uL RBC (4.30-5.90) m/uL Hgb (13.0-17.5) gm/dL Hct (39.0-53.0) % Plt Count (150-450) k/uL Neutrophils # (1.3-7.7) k/uL Lymphocytes # (1.0-4.8) k/uL D-Dimer (<0.60) mg/L FEU ABG pH 7.34 L (7.35-7.45) ABG HCO3 20 L (21-25) mmol/L ABG O2 Saturation 97.6 H (94-97) % Potassium (3.5-5.1) mmol/L Carbon Dioxide (22-30) mmol/L BUN (9-20) mg/dL Creatinine (0.66-1.25) mg/dL Glucose (74-99) mg/dL POC Glucose (mg/dL) 150 H (75-99) mg/dL Calcium (8.4-10.2) mg/dL Creatine Kinase (55-170) U/L C-Reactive Protein (<1.0) mg/dL Total Protein (6.3-8.2) g/dL Albumin (3.5-5.0) g/dL Microbiology - Last 24 Hours (Table) 09/08/20 08:45 Blood Culture - Preliminary Blood No Growth after 48 hours 09/08/20 08:45 Blood Culture - Preliminary Blood No Growth after 48 hours Assessment and Plan Assessment: 1 Acute hypoxemic respiratory failure requiring intubation mechanical ventilation on 09/04/2020 secondary to COVID-19 pneumonia or the patient had also developed septic shock secondary to E. coli bacteremia. He developed acute renal failure receiving hemodialysis. He remains on a Lasix drip. Dialysis today to remove approximately 1 L of tolerated. He did require norepinephrine to be initiated during his treatment today. Currently at 0.05 mg/kg/m. 2 Acute sepsis with shock secondary to E. coli bacteremia, requiring pressor support 3 Urinary tract infection suspect secondary to E. coli 4 Leukocytosis secondary to above 5 Elevated d-dimer secondary to COVID-19 infection, currently on Decadron. He had received BAM 6 Acute renal failure, initiated on hemodialysis 7 Mild transaminitis secondary to above 8 Elevated inflammatory markers secondary to above 9 Recent admission for COVID-19 pneumonia from 08/26-09/01/20 10 History of coronary artery disease with previous stent placement 11 History of bladder cancer 12 Hypothyroidism 13 Hyperlipidemia 14 Hypertension 15 New-onset atrial fibrillation, anticoagulated with Eliquis Plan: The patient was seen and evaluated by Dr. Kaminski Receiving hemodialysis again today Requiring norepinephrine at 0.05 mg/kg/m during treatment ABGs and labs reviewed Continue cefepime Continue bronchodilators Anticoagulated with Eliquis DO NOT RESUSCITATE/DO NOT RE-INTUBATE CODE STATUS We'll obtain a daily interruption of sedation. Weaning trials if tolerated We will continue to follow and make further recommendations based on his clinical status Critical care time 38 minutes
[2020-09-11 11:40] LABS: Glucose,Whole Blood 162 mg/dL (75-99)
--- NOTE | 2020-09-11 13:05 | P.PN ---
<Joseline Corado A - Last Filed: 09/11/20 12:57> Subjective Progress Note Date: 09/11/20 HISTORY OF PRESENT ILLNESS This is an 85-year-old male patient of Dr. Andrei Vasquez with past medical history of hyperlipidemia, hypothyroidism, bladder cancer, coronary artery disease status post stent, diagnosed with Covid 19 pneumonia status post Bamlanivimab and subsequently admitted from August 27 through September 01 which time he was treated for acute hypoxic respiratory failure secondary to Covid 19 p neumonia, acute kidney injury, discharged home with home care. Apparently patient was at home but became very dyspneic and pulse ox dropped to 88%, patient not had anything to eat or drink since he left the hospital. EMS was contacted and patient was brought into the emergency center for evaluation. She complains of feeling tired. He was found to be afebrile, heart rate 98, blood pressure 114/65, pulse ox 90% on 2 L nasal cannula. WBC 20.5, hemoglobin 12.1, platelet count 148. Sodium 138, potassium 2.9, chloride 113, CO2 15, BUN 59 creatinine 2.52. Blood sugar 147. ALT 77. LDH 639. Albumin 2.7. Lactic acid 2.0. Magnesium 2.1. CK 74. EKG was a sinus rhythm with no acute ST changes. Patient was given 1 L of IV fluid and potassium was replaced. 09/03: Patient has not eating any meals since admission. He is oriented 3 but noted to have significant short-term memory deficit and having difficulty following instructions. Social work is following for discharge planning. Famil y is planning for patient to come home with [facility] and does not want to consider rehab. PT and OT clearly recommend subacute rehab. Patient has been afebrile, heart rate 94, blood pressure 120/73, pulse ox 94% on high flow nasal cannula at 4 L. Repeat blood work reveals WBC 30.3, hemoglobin 12.6, platelet count 143. Lactic acid 1.8. Chemistry results are not up at the time of this dictation at 2 10 in the afternoon. Repeat blood work will be ordered for the morning. Anticipate possible discharge tomorrow 09/04: A-Team was called this morning due to difficulty breathing and hypoxia. Patient was tachycardic and diaphoretic. Heart rate was in the 130s. Patient was placed on BiPAP but he could not tolerate and became very anxious. Patient was given Ativan with no improvement. Pulse ox was low 70s and he was transferred to the intensive care unit and intubated and placed on mechanical ventilation. Patient was found to be in A. fib with RVR and cardiology consult was added as well as pulmonary medicine was added during the night. Patient was started on Cardizem bolus and drip. Lovenox increased to 45 mg twice daily, Decadron 6 mg IV daily. Patient has been started on norepinephrine 09/05: Patient seen in ICU use on mechanical intubation FiO2 55, PEEP 10, tidal volume 100, respiratory rate 24. Patient remains afebrile, heart rate 65 and irregular H or fibrillation noted to the monitor, respiration rate 28, blood pressure 105/68 97% on mechanical ventilation. Patient remains in atrial fibrillation. C 23.8, hemoglobin 10.8, potassium 3.2, BUN 81, creatinine 4.57. 09/06: Patient seen in ICU still on mechanical intubation FiO2 of 45 with a PEEP of 8, levo fed has been decreased to 2 mics. Patient remains afebrile, respirations 20, blood pressure 104/68, 95% on mechanical intubation. Blood cultures and urine cultures show gram-negative bacilli and E. coli. He is currently on Zosyn and Levaquin for coverage. 09/07: Patient remains intubated and on mechanical ventilation with tidal volume 400, FiO2 of 45 and PEEP of 10. Repeat chest x-ray reveals increased bilateral airspace opacities with more focal and somewhat cavitary-appearing opacities ov er the right upper lung. Increased moderate right pleural effusion. Unchanged small left pleural effusion. Patient had minimal urine output running at 30 miles per hour but this morning increased to 100. He is scheduled for Lasix 40 mg IV every 8 hours to start this afternoon. Bicarb drip was discontinued. Patient is currently off pressors since yesterday afternoon. He is on tube feedings. environmental monitoring specialist is atrial fibrillation and controlled rate and patient has been started on eliquis. Cardizem drip has been discontinued and he is maintained on Lopressor 12.5 mg twice daily. He is also on Lasix 40 mg IV every 8 hours. Cardiology is following on an as-needed basis. Patient is con tinued on Zosyn and Levaquin was discontinued by pulmonary medicine. 09/08: Patient remains intubated and on mechanical ventilation with tidal volume 400, FiO2 50% and PEEP of 10. Patient has been afebrile, heart rate 77, respiratory rate 26, blood pressure 110/70, pulse ox 98%. environmental monitoring specialist is atrial fibrillation rate is controlled. Repeat chest x-ray reveals bibasilar infiltrates with small pleural effusions that are greater on the right. Repeat WBC 11.4, hemoglobin 10.4, platelet count 85. Sodium 137, potassium 3.0 and has been replaced, chloride 102, CO2 21, BUN 119 and creatinine 4.95. Blood sugars are running between 155 and 208. ALT 94. A repeat blood culture has been obtained today. Patient is currently on Lasix 40 mg every 8 hours. He is scheduled to start Lasix drip after a 100 mg bolus. Patient is waking up and responds. He is not on vasopressors. He is on tube feedings. IV antibiotics of been changed to cefepime 2 g IV piggyback every 24 hours. 09/09: Patient remains intubated and on mechanical ventilation with tidal volume 400, FiO2 40, PEEP of 10. Patient has been afebrile, heart rate 90, respiratory rate 26, blood pressure 128/67. Patient is on Lasix drip 10 mg per hour and continued on Zaroxolyn. He is having good urine output. Patient has watery brown stools and specimens to be sent for C. difficile toxin. Repeat blood work reveals WBC 10.2, hemoglobin 10, platelet count 84. Sodium 138, potassium 3, chloride 103, CO2 21, BUN 144, creatinine 5.19. ALT 84. CT scan of the abdomen and pelvis revealed absent gallbladder. Posterior changes suggestive ileal conduit. Severe right hydronephrosis with distal ureter transition point at the level of surgical size/anastomosis. No evidence of hiatal lithiasis. Findings concerning for stricture versus stenosis. Mild left cortical atrophy. Small plural effusions with adjacent atelectasis superimposed infiltrates are not excluded. Patient was seen yesterday by Dr. Morales evaluated for hydronephrosis on the right, unsure if ureteral stent could be placed and patient may need to be considered for right nephrostomy tube insertion. He does not believe the worsening creatinine level is a result of the hydronephrosis. Repeat chest x- ray reveals moderate right and small left pleural effusions, bibasilar airspace opacities. 09/10: Patient remains intubated and on mechanical ventilation with tidal volume 400, FiO2 40%, PEEP 10. Patient has been afebrile, heart rate 82, respiratory rate 28, blood pressure 122/65, pulse ox 98%. environmental monitoring specialist is sinus rhythm. Patient is continued on Lasix drip at 10 mg an hour. Patient is also continued on cefepime for E. coli bacteremia. Repeat chest x-ray reveals decreased pleural effusions, unchanged diffuse bilateral airspace opacities. Dr. Nolasco placed right femoral dialysis catheter and patient was started on dialysis yesterday. Patient is undergoing repeat hemodialysis today. CODE STATUS is no code. Dr. Morales is not planning for any intervention as hydronephrosis is chronic. Eliquis will be resumed. Repeat blood work reveals WBC 11.1, hemoglobin 10.1, platelet count 91. Sodium 139, potassium 3.0, chloride 102, CO2 22, BUN 128 and creatinine 4.68. Blood sugar 138. Blood sugars have been running between 138 and 235. C. difficile toxin was negative. Repeat blood cultures are showing no growth at 48 hours 09/11: A Chin is undergoing dialysis this morning. Patient remains intubated and on mechanical ventilation with tidal volume 400, FiO2 45 and PEEP of 5. Patient has been afebrile, heart rate 50, blood pressure 100/61, pulse ox 100%. environmental monitoring specialist is sinus rhythm/bradycardia with occasional PVCs. Repeat blood work reveals WBC 12.2, hemoglobin 9.3, platelet count 88. D-dimer 5.36. Sodium 138, potassium 3.3, chloride 106, CO2 19, BUN 106, creatinine 3.91. Blood sugars running between 120-162. CK 21. C-reactive protein 7.4. Patient is currently on propofol, Lasix drip at 10 mg/h, norepinephrine during dialysis. REVIEW OF SYSTEMS Unable to obtain due to intubation. PHYSICAL EXAMINATION Gen: This is an 85-year-old male patient, patient in ICU bed and appears to be comfortable at rest. She is receiving hemodialysis. HEENT: Head is atraumatic, normocephalic. Pupils equal, round. Sclerae is anicteric. Patient is intubated and on mechanical ventilation. NECK: Supple. No JVD. No lymphadenopathy. No thyromegaly. LUNGS: Clear to auscultation. No wheezes or rhonchi. No intercostal retractions. HEART: Irregular rate and rhythm. No murmur. ABDOMEN: Soft. Bowel sounds are present. No masses. No tenderness. Laws catheter in place. EXTREMITIES: No pedal edema. No calf tenderness. NEUROLOGICAL: Patient intubated ASSESSMENT AND PLAN 1. Acute hypoxic respiratory failure secondary to Covid 19 pneumonitis requiring intubation and mechanical ventilation. Continue oxygen therapy. Cont inue albuterol inhaler 2 puffs 4 times daily, dexamethasone 6 mg iv daily. 2. Acute kidney injury, acute tubular necrosis and every secondary to dehydration and lack of oral intake and diarrhea. Continue Lasix drip at 10 mg per hour, Zaroxolyn 5 mg twice daily. Consult nephrology appreciated. Patient is status post right femoral dialysis catheter placement and started on dialysis 09/09. Repeat dialysis scheduled for today. 3. Sepsis, septic shock and gram-negative bacteremia, POA. Continue cefepime. 4. Urinary tract infection with E. coli bacteremia. Bacteremia is resolved with negative blood cultures. Continue cefepime. 5. Transaminitis secondary to COVID-19, hypotension. 6. New-onset A. fib with RVR, paroxysmal atrial fibrillation. Patient is currently in a sinus rhythm. Continue eliquis and Lopressor. Cardiology consult appreciated and cardiology has signed off. 7. Hyperlipidemia. Continue Lipitor 40 mg at bedtime. 8. Hypertension. Patient is off vasopressors. 9. Gastroesophageal reflux disease and GI prophylaxis. Continue Protonix 40 mg IVP daily. 10. Hypothyroidism. Continue levothyroxine 100 g daily. 11. Chronic gout. 12. Chronic kidney disease stage III. 13. History of coronary artery disease with previous stenting. 14. Thrombocytopenia secondary to sepsis. 15. Hyperglycemia without history of diabetes. Levemir 10 units at bedtime added, continue NovoLog scale every 4 hours. 16. Right-sided hydronephrosis, chronic. Consult with urology appreciated. 17. DVT prophylaxis. Eliquis. Prognosis is guarded. DISCHARGE PLAN To be determined. Impression and plan of care have been directed as dictated by the signing physician. Joseline Corado nurse practitioner acting as scribe for signing p froylan. Objective - Vital Signs Vital signs: Vital Signs Temp 98 F 09/11/20 08:00 Pulse 50 L 09/11/20 10:00 Resp 24 09/11/20 10:00 BP 100/61 09/11/20 10:00 Pulse Ox 100 09/11/20 10:00 Intake & Output 09/10/20 09/11/20 09/11/20 18:59 06:59 18:59 Intake Total 9354.425 4380 677.809 Output Total 2675 1180 860 Balance -1272.163 172 -182.191 Weight 110.6 kg Intake: IV 273 276 104 Pressure Bags 33 36 24 Sodium Chloride 0.9% 1, 240 240 80 000 ml @ 20 mls/hr IV . Q24H [facility] Rx#:[id number] Intake, IV Titration 343.837 300 223.809 Amount Cefepime 2 gm In Sodium 100 Chloride 0.9% 100 ml @ 25 mls/hr IVPB Q24HR [facility] Rx #:[id number] Furosemide 100 mg In 91 100 Sodium Chloride 0.9% 90 ml @ 10 MG/HR 10 mls/hr IV .Q10H [facility] Rx#: [id number] Norepinephrine 8 mg In 11 Sodium Chloride 0.9% 250 ml @ 0.05 MCG/KG/MIN 11. 165 mls/hr IV .Q23H7M [facility] Rx#:[id number] propofoL 1,000 mg In 252.837 200 112.809 Empty Bag 1 bag @ Titrate IV .Q0M [facility] Rx#: [id number] Tube Feeding 696 596 280 Other 90 180 70 Output: Urine 1675 480 860 Stool 700 Hemodialysis 1000 Other: Voiding Method Indwelling Catheter Indwelling Catheter ABP, PAP, CO, CI - Last Documented Arterial Blood Pressure 152/49 - Labs CBC & Chem 7: 09/11/20 05:45 09/11/20 05:45 Labs: Abnormal Lab Results - Last 24 Hours (Table) 09/10/20 09/10/20 09/10/20 Range/Units 11:23 14:52 21:27 WBC (3.8-10.6) k/uL RBC (4.30-5.90) m/uL Hgb (13.0-17.5) gm/dL Hct (39.0-53.0) % Plt Count (150-450) k/uL Neutrophils # (1.3-7.7) k/uL Lymphocytes # (1.0-4.8) k/uL D-Dimer (<0.60) mg/L FEU ABG pH (7.35-7.45) ABG HCO3 (21-25) mmol/L ABG O2 Saturation (94-97) % Potassium (3.5-5.1) mmol/L Carbon Dioxide (22-30) mmol/L BUN (9-20) mg/dL Creatinine (0.66-1.25) mg/dL Glucose (74-99) mg/dL POC Glucose (mg/dL) 115 H 215 H 185 H (75-99) mg/dL Calcium (8.4-10.2) mg/dL Creatine Kinase (55-170) U/L C-Reactive Protein (<1.0) mg/dL Total Protein (6.3-8.2) g/dL Albumin (3.5-5.0) g/dL 09/10/20 09/11/20 09/11/20 Range/Units 23:26 04:00 05:45 WBC 12.2 H (3.8-10.6) k/uL RBC 2.99 L (4.30-5.90) m/uL Hgb 9.3 L (13.0-17.5) gm/dL Hct 28.4 L (39.0-53.0) % Plt Count 88 L (150-450) k/uL Neutrophils # 10.8 H (1.3-7.7) k/uL Lymphocytes # 0.6 L (1.0-4.8) k/uL D-Dimer (<0.60) mg/L FEU ABG pH (7.35-7.45) ABG HCO3 (21-25) mmol/L ABG O2 Saturation (94-97) % Potassium (3.5-5.1) mmol/L Carbon Dioxide (22-30) mmol/L BUN (9-20) mg/dL Creatinine (0.66-1.25) mg/dL Glucose (74-99) mg/dL POC Glucose (mg/dL) 138 H 122 H (75-99) mg/dL Calcium (8.4-10.2) mg/dL Creatine Kinase (55-170) U/L C-Reactive Protein (<1.0) mg/dL Total Protein (6.3-8.2) g/dL Albumin (3.5-5.0) g/dL 09/11/20 09/11/20 09/11/20 Range/Units 05:45 05:45 05:47 WBC (3.8-10.6) k/uL RBC (4.30-5.90) m/uL Hgb (13.0-17.5) gm/dL Hct (39.0-53.0) % Plt Count (150-450) k/uL Neutrophils # (1.3-7.7) k/uL Lymphocytes # (1.0-4.8) k/uL D-Dimer 5.36 H (<0.60) mg/L FEU ABG pH (7.35-7.45) ABG HCO3 (21-25) mmol/L ABG O2 Saturation (94-97) % Potassium 3.3 L (3.5-5.1) mmol/L Carbon Dioxide 19 L (22-30) mmol/L BUN 106 H* (9-20) mg/dL Creatinine 3.91 H (0.66-1.25) mg/dL Glucose 143 H (74-99) mg/dL POC Glucose (mg/dL) 150 H (75-99) mg/dL Calcium 7.8 L (8.4-10.2) mg/dL Creatine Kinase 21 L (55-170) U/L C-Reactive Protein 7.4 H (<1.0) mg/dL Total Protein 4.4 L (6.3-8.2) g/dL Albumin 2.2 L (3.5-5.0) g/dL 09/11/20 09/11/20 Range/Units 05:49 08:01 WBC (3.8-10.6) k/uL RBC (4.30-5.90) m/uL Hgb (13.0-17.5) gm/dL Hct (39.0-53.0) % Plt Count (150-450) k/uL Neutrophils # (1.3-7.7) k/uL Lymphocytes # (1.0-4.8) k/uL D-Dimer (<0.60) mg/L FEU ABG pH 7.34 L (7.35-7.45) ABG HCO3 20 L (21-25) mmol/L ABG O2 Saturation 97.6 H (94-97) % Potassium (3.5-5.1) mmol/L Carbon Dioxide (22-30) mmol/L BUN (9-20) mg/dL Creatinine (0.66-1.25) mg/dL Glucose (74-99) mg/dL POC Glucose (mg/dL) 150 H (75-99) mg/dL Calcium (8.4-10.2) mg/dL Creatine Kinase (55-170) U/L C-Reactive Protein (<1.0) mg/dL Total Protein (6.3-8.2) g/dL Albumin (3.5-5.0) g/dL Microbiology - Last 24 Hours (Table) 09/08/20 08:45 Blood Culture - Preliminary Blood No Growth after 48 hours 09/08/20 08:45 Blood Culture - Preliminary Blood No Growth after 48 hours <Kiara Bustos - Last Filed: 09/18/20 16:13> Objective - Vital Signs Vital signs: Vital Signs Temp 98 F 09/15/20 11:39 Pulse 90 09/14/20 19:17 Resp 24 09/15/20 11:39 BP 93/51 09/13/20 07:32 Pulse Ox 88 L 09/15/20 11:39 ABP, PAP, CO, CI - Last Documented Arterial Blood Pressure 152/49 - Labs CBC & Chem 7: 09/12/20 04:02 09/12/20 04:02
--- NOTE | 2020-09-11 13:19 | PN ---
PROGRESS NOTE Patient is seen for followup for acute kidney injury and volume overload. He has been started on dialysis. He will be receiving his third treatment today. This was mostly for volume overload and worsening renal function. The patient does have severe right- sided hydronephrosis with history of bladder cancer and reconstructive surgery. This is mostly chronic and there are no plans for any intervention at this time. Ureteral stent placement is not an option given the reconstructive surgery and at this time there are no plans for nephrostomy as well. The patient has had good response to diuretics with Lasix drip. He had output about 100-150 mL an hour. He remains on Lasix drip and is receiving dialysis as well since his BUN had increased to 144 and creatinine was at 5.1 mg/dL. We had about 1 L of ultrafiltration yesterday and we are planning for about 1.5 today depending on the blood pressure. Patient does have COVID pneumonia. PHYSICAL EXAMINATION: Currently patient is on the vent, sedated. Blood pressure 98/51, heart rate about 60 per minute. He is on FiO2 of 40%. Examination of lower extremities shows edema 1+, currently improved. Abdomen is soft, nontender. Heart and lungs not examined. Patient remains on the vent. LABS: Labs from today show sodium of 138, potassium 3.3, chloride 106, CO2 is 19, BUN 106, serum creatinine 3.9, albumin 2.2, calcium 7.8, hemoglobin 9.3. ASSESSMENT: 1. Acute kidney injury mostly acute tubular necrosis associated with hypotension sepsis with possible component of obstructive uropathy. The patient has atrophic left kidney and severe hydronephrosis on the right side, which is not new. The patient has been started on dialysis for worsening renal function, severe volume overload. Today is his third treatment. He remains on the Lasix drip. 2. Volume overload, slowly improving. 3. Acute hypoxic respiratory failure, currently on the vent. FiO2 is at 40%. 4. COVID pneumonia. 5. Hypokalemia associated with diuresis, status post replacement. 6. Metabolic acidosis, now improved. 7. Chronic atrial fibrillation, maintained on Eliquis. PLAN: Continue with Lasix drip. Hemodialysis today and I will hold off on dialysis tomorrow as patient's blood pressure is currently low and we will continue to diurese him with the Lasix drip for now. Replace potassium. MMODL / IJN: [id number] /
[2020-09-11 15:14] LABS: ABG Base Excess -7.8 mmol/L; ABG HCO3 18 mmol/L (21-25); ABG Oxygen Saturation 97.9 % (94-97); ABG PCO2 32 mmHg (35-45); ABG PH 7.36 (7.35-7.45); ABG PO2 114 mmHg (83-108); ABG TCO2 19 mmol/L (19-24)
[2020-09-11 16:00] LABS: Glucose,Whole Blood 221 mg/dL (75-99)
--- NOTE | 2020-09-11 16:02 | PN ---
PROGRESS NOTE DATE OF SERVICE: 09/11/2020 REASON FOR FOLLOWUP: 1. Complicated UTI with E coli bacteremia. 2. MSSA pneumonia. INTERVAL HISTORY: The patient remains to be afebrile. The patient is hemodynamically stable, did have a low dose pressor earlier. Patient FiO2 is currently stable at 40. is in progress. No significant purulent secretion through ET. Did have diarrhea, but no worsening output in the fecal management system per the nursing staff. PHYSICAL EXAMINATION: Blood pressure 164/86, pulse of 98, temperature 97.8. He is 100% on 40% FiO2. General description is an elderly male lying in bed in no distress. RESPIRATORY SYSTEM: Unlabored breathing, decreased intensity of breath sounds. No wheeze. HEART: S1, S2. Regular rate and rhythm. ABDOMEN: Soft, no tenderness. LABS: Hemoglobin is 9.3, white count 12.2, BUN of 106 creatinine 3.91. DIAGNOSTIC IMPRESSION AND PLAN: 1. Patient with acute respiratory failure which is multifactorial in this patient who did have initial COVID-19 pneumonia currently with a possible component of bacterial pneumonia, sputum with MSSA, covered with cefepime. 2. Patient with Escherichia coli urinary tract infection and bacteremia secondary to complicated urinary tract infection, covered with cefepime. Prognosis remains to be guarded. Continue supportive care. MMODL / IJN: [id number] /
[2020-09-11] MEDS ORDERED: CLEVIDIPINE BUTYRATE 25 MG in EMPTY BAG 1 BAG IV SCH (18:30)
[2020-09-11] MEDS: DEXMEDETOMIDINE/0.9% NACL(PMX) 400 MCG in EMPTY BAG 1 BAG IV SCH (18:37)
[2020-09-11 20:38] LABS: Glucose,Whole Blood 103 mg/dL (75-99)
[2020-09-11] MEDS: SODIUM CHLORIDE 0.9% 1,000 ML IV SCH ×2 (20:54)
[2020-09-11] MEDS: ATORVASTATIN 40 MG TAB PO SCH (20:57)
[2020-09-11 23:31] LABS: Glucose,Whole Blood 84 mg/dL (75-99)
[2020-09-12] MEDS: DEXMEDETOMIDINE/0.9% NACL(PMX) 400 MCG in EMPTY BAG 1 BAG IV SCH ×2 (01:08→09:55)
[2020-09-12 01:56] LABS: Glucose,Whole Blood 92 mg/dL (75-99)
[2020-09-12] MEDS: INSULIN ASPART (NovoLOG) 100 UNIT/ML VIAL SQ SCH ×2 (04:01→09:33)
[2020-09-12 04:02] LABS: Glucose,Whole Blood 105 mg/dL (75-99)
[2020-09-12 04:42] LABS: Basophils % (A) 0 %; Eosinophils # (A) 0.1 k/uL (0-0.7); Eosinophils % (A) 1 %; HCT 28.1 % (39.0-53.0); HGB 9.8 gm/dL (13.0-17.5); Lymphocytes # (A) 0.4 k/uL (1.0-4.8); Lymphocytes % (A) 3 %; MCV 94.2 fL (80.0-100.0); Mean Platelet Volume 11.9; Monocytes # (A) 0.6 k/uL (0-1.0); Monocytes % (A) 4 %; Neutrophils # (A) 14.2 k/uL (1.3-7.7); Neutrophils % (A) 91 %; Platelet Count 94 k/uL (150-450); RBC 2.98 m/uL (4.30-5.90); RDW 13.9 % (11.5-15.5); WBC 15.5 k/uL (3.8-10.6)
[2020-09-12 04:54] LABS: Albumin 2.6 g/dL (3.5-5.0); C Reactive Protein 7.8 mg/dL (<1.0); Calcium 8.6 mg/dL (8.4-10.2); Potassium 3.3 mmol/L (3.5-5.1); Total Bilirubin 0.6 mg/dL (0.2-1.3); Total Protein 5.2 g/dL (6.3-8.2)
[2020-09-12] MEDS: POTASSIUM CHLORIDE 10 MEQ in WATER FOR INJECTION 1 100ML.BAG IVPB SCH ×3 (05:55→10:42)
[2020-09-12] MEDS: LEVOTHYROXINE 100 MCG TAB PO SCH (06:02)
[2020-09-12] MEDS: FUROSEMIDE 100 MG in SODIUM CHLORIDE 0.9% 90 ML IV SCH (06:16)
[2020-09-12] MEDS: ALBUTEROL HFA INHALER INHALATION SCH ×2 (07:20→11:18)
[2020-09-12 08:23] LABS: Glucose,Whole Blood 143 mg/dL (75-99)
--- NOTE | 2020-09-12 08:25 | XR ---
EXAMINATION TYPE: XR chest 1V portable DATE OF EXAM: 09/12/2020 COMPARISON: 09/10/2020 INDICATION: Covid TECHNIQUE: Single frontal view of the chest is obtained. FINDINGS: The heart size is normal. The pulmonary vasculature is normal. There is mild increased linear lung markings to the right lung. Findings are nonspecific and could be related to atypical pneumonia or atelectasis. Left central venous catheter is present with the tip i n the superior vena cava region. IMPRESSION: 1. Stable mild increased lung markings greater on the right. 2. Nasogastric tube and endotracheal tube is been pulled. Left central venous catheter remains in pos ition.
--- NOTE | 2020-09-12 08:55 | P.PN ---
Subjective Patient is seen in follow-up for acute kidney injury. Last hemodialysis September 11. Became more short of breath last night and is currently on nonrebreather. Maintain on Lasix drip. Urine output over 150 mL an hour. present at bedside. Vital signs are stable. HEENT: On nonrebreather. LUNGS: Breath sounds decreased. HEART: Rate and Rhythm are regular. ABDOMEN: Soft, no distention. EXTREMITITES: Trace edema. Objective - Vital Signs Vital signs: Vital Signs Temp 98.2 F 09/12/20 08:00 Pulse 89 09/12/20 08:00 Resp 45 H 09/12/20 08:00 BP 121/71 09/12/20 08:00 Pulse Ox 96 09/12/20 08:00 Intake & Output 09/11/20 09/12/20 09/12/20 18:59 06:59 18:59 Intake Total 1477.142 657.665 140 Output Total 3325 3125 550 Balance -1847.858 -2467.335 -410 Weight 110.6 kg 104 kg Intake: IV 300 370 140 Potassium Chloride 10 meq 100 100 In Water For Injection 1 100ml.bag @ 100 mls/hr IVPB Q1HR [facility] Rx#: [id number] Pressure Bags 60 30 Sodium Chloride 0.9% 1, 240 240 40 000 ml @ 20 mls/hr IV . Q24H [facility] Rx#:[id number] Intake, IV Titration 478.142 287.665 Amount Cefepime 2 gm In Sodium 111 Chloride 0.9% 100 ml @ 25 mls/hr IVPB Q24HR [facility] Rx #:[id number] Dexmedetomidine/0.9% NaCl 103.998 (Pmx) 400 mcg In Empty Bag 1 bag @ Titrate IV . Q0M [facility] Rx#:[id number] Furosemide 100 mg In 88.167 183.667 Sodium Chloride 0.9% 90 ml @ 10 MG/HR 10 mls/hr IV .Q10H [facility] Rx#: [id number] Norepinephrine 8 mg In 60.556 Sodium Chloride 0.9% 250 ml @ 0.05 MCG/KG/MIN 11. 165 mls/hr IV .Q23H7M [facility] Rx#:[id number] propofoL 1,000 mg In 218.419 Empty Bag 1 bag @ Titrate IV .Q0M [facility] Rx#: [id number] Tube Feeding 599 Other 100 Output: Urine 2325 3125 550 Hemodialysis 1000 Other: Voiding Method Indwelling Catheter Indwelling Catheter Indwelling Catheter ABP, PAP, CO, CI - Last Documented Arterial Blood Pressure 152/49 - Labs CBC & Chem 7: 09/12/20 04:02 09/12/20 04:02 Labs: Abnormal Lab Results - Last 24 Hours (Table) 09/11/20 09/11/20 09/11/20 Range/Units 11:39 15:13 15:56 WBC (3.8-10.6) k/uL RBC (4.30-5.90) m/uL Hgb (13.0-17.5) gm/dL Hct (39.0-53.0) % Plt Count (150-450) k/uL Neutrophils # (1.3-7.7) k/uL Lymphocytes # (1.0-4.8) k/uL D-Dimer (<0.60) mg/L FEU ABG pCO2 32 L (35-45) mmHg ABG pO2 114 H (83-108) mmHg ABG HCO3 18 L (21-25) mmol/L ABG O2 Saturation 97.9 H (94-97) % Potassium (3.5-5.1) mmol/L Chloride (98-107) mmol/L Carbon Dioxide (22-30) mmol/L BUN (9-20) mg/dL Creatinine (0.66-1.25) mg/dL Glucose (74-99) mg/dL POC Glucose (mg/dL) 162 H 221 H (75-99) mg/dL ALT (4-49) U/L Lactate Dehydrogenase (313-618) U/L C-Reactive Protein (<1.0) mg/dL Total Protein (6.3-8.2) g/dL Albumin (3.5-5.0) g/dL 09/11/20 09/12/20 09/12/20 Range/Units 20:36 03:59 04:02 WBC 15.5 H (3.8-10.6) k/uL RBC 2.98 L (4.30-5.90) m/uL Hgb 9.8 L (13.0-17.5) gm/dL Hct 28.1 L (39.0-53.0) % Plt Count 94 L (150-450) k/uL Neutrophils # 14.2 H (1.3-7.7) k/uL Lymphocytes # 0.4 L (1.0-4.8) k/uL D-Dimer (<0.60) mg/L FEU ABG pCO2 (35-45) mmHg ABG pO2 (83-108) mmHg ABG HCO3 (21-25) mmol/L ABG O2 Saturation (94-97) % Potassium (3.5-5.1) mmol/L Chloride (98-107) mmol/L Carbon Dioxide (22-30) mmol/L BUN (9-20) mg/dL Creatinine (0.66-1.25) mg/dL Glucose (74-99) mg/dL POC Glucose (mg/dL) 103 H 105 H (75-99) mg/dL ALT (4-49) U/L Lactate Dehydrogenase (313-618) U/L C-Reactive Protein (<1.0) mg/dL Total Protein (6.3-8.2) g/dL Albumin (3.5-5.0) g/dL 09/12/20 09/12/20 09/12/20 Range/Units 04:02 04:02 08:21 WBC (3.8-10.6) k/uL RBC (4.30-5.90) m/uL Hgb (13.0-17.5) gm/dL Hct (39.0-53.0) % Plt Count (150-450) k/uL Neutrophils # (1.3-7.7) k/uL Lymphocytes # (1.0-4.8) k/uL D-Dimer 5.34 H (<0.60) mg/L FEU ABG pCO2 (35-45) mmHg ABG pO2 (83-108) mmHg ABG HCO3 (21-25) mmol/L ABG O2 Saturation (94-97) % Potassium 3.3 L (3.5-5.1) mmol/L Chloride 110 H (98-107) mmol/L Carbon Dioxide 18 L (22-30) mmol/L BUN 95 H (9-20) mg/dL Creatinine 3.58 H (0.66-1.25) mg/dL Glucose 101 H (74-99) mg/dL POC Glucose (mg/dL) 143 H (75-99) mg/dL ALT 50 H (4-49) U/L Lactate Dehydrogenase 842 H (313-618) U/L C-Reactive Protein 7.8 H (<1.0) mg/dL Total Protein 5.2 L (6.3-8.2) g/dL Albumin 2.6 L (3.5-5.0) g/dL Microbiology - Last 24 Hours (Table) 09/08/20 08:45 Blood Culture - Preliminary Blood No Growth after 72 hours 09/08/20 08:45 Blood Culture - Preliminary Blood No Growth after 72 hours Assessment and Plan Plan: Assessment: 1. Acute kidney injury secondary to ATN secondary to sepsis and also component of obstructive uropathy. Last hemodialysis September 11. Nonoliguric. 2. Right-sided hydronephrosis with left atrophic kidney. Urology following. 3. 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 4. Volume overload. Improving with diuresis and ultrafiltration. 5. E. coli UTI and bacteremia maintained on antibiotics. 6. Hypokalemia from diuresis. 7. Metabolic acidosis secondary to acute kidney injury. Plan: Maintain Lasix drip. Potassium is being replaced. Check magnesium and phosphorus level. Hemodialysis today with goal 1-1-1/2 L ultrafiltration as his respiratory status worsened.
[2020-09-12] MEDS: ACETAMINOPHEN TAB 500 MG TAB PO SCH (09:41)
[2020-09-12] MEDS: ASPIRIN 81 MG PO SCH (09:42)
[2020-09-12] MEDS: APIXABAN 2.5 MG TABLET PO SCH (09:42)
--- NOTE | 2020-09-12 09:57 | P.PN ---
Subjective Progress Note Date: 09/12/20 This is an 85-year-old gentleman who follows with Dr. Preston as his primary care provider. He has a history of liver cancer, coronary artery disease with previous stent placement, hypothyroidism, hyperlipidemia. Lifelong nonsmoker. He was recently admitted to the hospital from [address] [place] [address] for symptoms related to COVID-19 pneumonia. He had been given BAM on 08/25/2020 in the ER and discharged home. Subsequently discharged again in 09/01/2020. He re-presented to the emergency room 09/02/2020 with generalized weakness, rapid breathing and poor appetite and oral intake. O2 saturations 88% on room air. He was admitted again to the regular medical floor. At 4:00 this morning the patient had incre ased work of breathing with hypoxemia and an A team was called. He is subsequently transferred to the intensive care unit requiring intubation and mechanical ventilatory support. He is seen today in consultation in the ICU. He is currently intubated on mechanical ventilator. Assist-control mode with a rate of 24, tidal volume 400, FiO2 100% and a PEEP of 5. Morning blood gases revealed a PaO2 102, pCO2 37, PT H7.13. Those were drawn on a rate of 20. Blood cultures are positive for E. coli. He is currently on Zosyn and Levaquin. He is sedated on propofol 50 mcg/kg/m. Norepinephrine at 9 mcg/m. 0.9 normal saline at 75 ML's per hour. D5W with 2 A of bicarb at 75 mL per hour. White count 21.6. Hemoglobin 11.9. D-dimer 7.19. Sodium 140. Potassium 3.3. Creatinine 3.76. Glucose 151. LDH 766. C-reactive protein 36.4. AST 60. ALT 91. Urinalysis with large leukocyte esterase and greater than 182 WBCs with many bacteria. Culture pending. He is currently on Lovenox 30 mg subcu daily, dexamethasone, bronchodilators. Sensory continues to show persistent bilateral lung opacities with small left pleural effusion. On 09/05/2020 patient seen in follow-up in the intensive care unit. He remains intubated and sedated on assist control mode of ventilation, with a rate of 24, tidal was 400, FiO2 of 55% and PEEP of 10. This morning's blood gas shows pO2 of 124, pCO2 of 30, and pH of 7.23. Patient was adequately fluid resuscitated yesterday, he received 3-1/2 L" boluses, he was started on Zosyn and Levaquin for evidence of E. coli bacteremia likely related to urinary tract infection, he is currently sedated on Diprivan at 50 mics per kilo per minute, he is on 0.9 no rmal saline at a rate of 20 ML per hour, Cardizem drip at 5 mg per hour, D5W with 2 A of sodium bicarb at a rate of 75 ML per hour, and he is on Levophed currently at 18 mics per minute. Yesterday he went into atrial fibrillation, he was tachycardic, and he was started on Cardizem drip, he remains in atrial fibrillation today, but the rate is controlled. Cardiology has been consulted. Today's labs have been reviewed, showing white blood cell count of 20.3, hemoglobin is 10.8, platelet count is 123, d-dimer is improved but still elevated at 3.35, patient is on Lovenox 40 mg twice daily, sodium is 135, potassium 3.2, chloride is 112, CO2 is 12, BUN of 81, creatinine is 4.57, and patient's renal function has significantly worsened since yesterday. He seems to be generally swollen, his abdomen is distended, and there is a positive fluid wave with the possibility of abdominal ascites on today's exam. His urine output has been in the order of 30 ML per hour, will consult nephrology. He is tolerating tube feedings and he is on vital high-protein at a rate of 38 with a goal of 45 ML, and standard water flushes. His chest x-ray today showed no change in the small left pleural effusion or elevation of the right hemidiaphragm. He remains on antibiotics with Zosyn and Levaquin, his follow-up blood cultures continue to be positive with gram-negative bacilli. Echocardiogram has been reviewed and showed EF between 50-55%. On 09/06/2020 patient seen in follow-up in the intensive care unit, he remains sedated and intubated on mechanical ventilator, currently on assist control mode of ventilation with a rate of 24, Tylox 400, FiO2 45%, and PEEP of 10, this morning's blood gas shows pO2 of 92, pCO2 35, and pH is 7.33. Today's chest x- ray has been reviewed showing bilateral infiltrates and pleural effusions that are stable in appearance. Patient is currently on 0.9 normal same at KVO, levo fed is at 2 mics per minute, and D5W with 3 bicarbonate at 125 ml per hour. Patient is on antibiotics in the form of Levaquin and Zosyn, ID service is following, most recent blood cultures from 09/04/2020 continue to show gram negative bacilli, initial blood culture from 09/03/2020 was positive for E. coli, vitamin culture has been sent and pending, and culture was positive for gram-negative bacilli as well. he was afebrile overnight. No significant phlegm production, FiO2 was dropped down to 45%, his PEEP is at 10 which can be dropped to 5 today. Abdomen is soft, patient is tolerating tube feedings, he is on vital high-protein at 58 ML per hour, abdominal ultrasound showed no evidence of ascites, he has got mild generalized edema, his norepinephrine requirements are common down. Remains in atrial fibrillation with a controlled rate, he was started on Eliquis yesterday, Cardizem drip has been discontinued, cardiology is following. Urine output is in the order of 30-80 ML per hour. On 09/07/2020, the patient remains intubated on mechanical ventilator. This patient is on assist control mode of ventilation with a rate of 24 tidal volume of 400 45% with PEEP of 10. The blood gases from today showing a pH of 7.33 with a pCO2 of 44 and pO2 of 56. His chest x-ray is showing bilateral pulmonary infiltrates with development of effusions in the lung bases bilaterally. ET tube is in a good location. There is some underlying residual pulmonary infiltration due to COVID-19 related pneumonia. Nevertheless, there is obvious worsening in the lung bases with possibly development of bilateral effusions. Findings are consistent with CHF on top of COVID-19 related pneumonia. The patient is on D5 water and sodium bicarb infusion at the rate of 125 mL an hour and his serum bicarbonate currently is at 23 has normalized. The patient has been off pressors since yesterday. Antibiotic coverage includes a combination of Zosyn and Levaquin. Blood culture from 09/04/2020 was positive for gram- negative bacillus and the blood cultures from 09/03/2020 was positive for E. coli. Patient is afebrile. Remains in atrial fibrillation with a controlled rate. Started on anticoagulation with Eliquis. Cardizem drip has been discontinued and the patient states under good control. Urine output is adequate. She is receiving enteral feeding for nutritional support. The white cell count continues to drop this down to 12.4 from yesterday and the patient's hemoglobin is at 5.5. Platelets of the Route fusion consumptive thrombocytopenia probably related to his underlying sepsis. The patient also has a component of an acute on top of chronic kidney disease. The creatinine is stable compared to yesterday at 4.46. The patient has a component of an acute on top of chronic kidney failure. He has been more than 10 L positive since his admission to the ICU and the patient has a total of 17 kg in weight gain. On today's evaluation of 09/08/2020, the patient is being seen on a follow-up. The patient remains intubated on a mechanical ventilator due to complications of septic shock. Note that he was also treated for COVID-19 related pneumonia. This morning, the patient is sedated with propofol which is running at 50 mcg/kg per minute. He is on a mechanical ventilator. Ventilator changes were done yesterday and currently he is on assist-control at the rate of 24 with a tidal volume of 400 and FiO2 of 50% with a PEEP of 10. Chest x-ray is showing diffuse bilateral pulmonary infiltrates. Is obviously worsening in the right-sided pleural effusion compared to yesterday. Noted the patient has bilateral pleural effusion worse on the right. ET tube is in a good location. The blood gases from today showing a pH of 7.38 with a pCO2 of 38 and pO2 of 79. We have noted that the patient had become significantly fluid overloaded. Based on that, we started him on Lasix 40 mg every 8 hours. He is not fluid balance since yesterday has been +3.8 L and the patient did not respond to diuretics. Overall urine output was in the order of 1.9 L. Nevertheless the patient is taking more than 5 L of IV fluids and. He was on a bicarb infusion that was discontinued yesterday. Is currently under the 119 with a creatinine of 4.95.. Note that the patient is still on antibiotic coverage with Zosyn. Levaquin was discontinued yesterday. The patient E. coli in the blood and the last positive culture was on 09/04/2020 and the patient had MSSA in his sputum that was cultured on 09/05/2020. In terms of his hemodynamics, the patient is on no pressors. The patient is in atrial fibrillation. Maintaining his own blood pressure. Cardizem drip was discontinued and the patient is on metoprolol 12.5 mg by mouth twice a day for rate control. His blood work from today shows obvious worsening in her renal function and creatinine is up to 4.95 with a BUN of 119. Electrolytes showing a serum bicarb of 21 with a potassium level of 3.0 that needs to be replaced. Sodium is at 137. The white cell count currently is at 11.4 and has improved in the hemoglobin is at 10.4 with a platelet count of 85 which is slightly lower compared to yesterday. His d-dimer from yesterday was 2.53. His blood sugar was 206, liver function tests are normal, protein was 4 with an albumin of 2.1. The patient is receiving enteral feeding for nutritional support and currently is on vital high protein at the rate of 58 mL an hour. His body weight today is on the rise. Ration of 09/09/2020, seeing the patient for a follow-up. The patient remains intubated on a mechanical ventilator. This morning, he is on propofol which is running at 50 mics are aspirin kilogram per minute. He is well sedated. He is on assist control mode at the rate of 24 with a tidal volume of 400 and FiO2 of 40% with a PEEP of 10. The blood gases from this morning showing a pH of 7.39 with a pCO2 of 36 and pO2 of 76. The chest x-ray from today showing bilateral pulmonary infiltrates and worsening in the right-sided pleural effusion. There is also left-sided pleural effusion in place. ET tube is in a good location the patient has a left subclavian triple-lumen catheter in place. We noted significant fluid overload. Restart the patient on a combination of Lasix drip at 10 mg an hour and his patient is also on Zaroxolyn at 5 mg by mouth twice a day. He started producing adequate amount of urine output and urine output is in order of more than 100 mL an hour. His net fluid balance over the past 24 hours has been -1.3 L. As part of further workup, the patient was found to have chronic hydronephrosis of the right kidney. As mentioned earlier, the patient has undergone a previous bladder surgery and he does have a ranjith-bladder. His left kidney is atrophic. According to the urologist evaluation, the right kidney hydronephrosis a chronic finding that involved after the cystectomy with neobladder construction for urothelial carcinoma. Nevertheless, based on his acute kidney injury, there is a consideration for a nephrostomy tube insertion. The patient's renal function is progressively getting worse and the patient would likely require dialysis. On today's evaluation his BUN is at 144 with a creatinine of 5.1. The serum bicarb is 21. The white cell count is down to 10.2. He remains on IV antibiotics with IV Zosyn. The patient has grown E. coli in his blood and staph aureus in his sputum, MSSA. He is afebrile. He is on no pressors. He is receiving vital high protein at the rate of 58 mL an hour same time, the patient is having liquidy stool and a fecal management system was in place and the patient will need a stool for C. diff evaluation. On 09/10/2020, the patient is being seen for a follow-up. He remains intubated on mechanical ventilator. Essentially same ventilator settings with a tidal volume of 400 and the rate of 24 and FiO2 of 40% and PEEP of 10. Chest x-ray is showing improvement in the volume status and improvement in the right lower lobe consolidation/effusion. The hemidiaphragms can be visualized appropriately on both sides. ET tube remains in a good location. The patient also has a orogastric tube in place in the left subclavian triple-lumen catheter. Meanwhile, the patient's blood gases from today showing a pH of 7.36 with a pCO2 of 40 and pO2 of 105. There has been some improvement in his oxygenation as the patient was being diuresed with Lasix drip as the patient was thought to be significant volume overload. This morning, the patient remains sedated with propofol. Propofol is running at 50 mics are aspirin kilogram per minute. He is on Lasix drip at 10 mg an hour and the patient is also on Zaroxolyn. 5 mg by mouth twice a day. The fluid balance over the past 24 hours has been obviously negative. The patient has been and negative balance of 1.3 L over the past 24 hours and he is admitted to another negative fluid balance for today. His BUN currently is at 128 and the creatinine is down to 4.6. Had a lengthy discussion with nephrology and urology. Right-sided hydronephrosis chronic and there are no plans for nephrostomy tube insertion or a double-J stent insertion. Noted t he patient is post cystectomy and creation of a neobladder post-bladder cancer treatment. Meanwhile, it was decided to proceed with dialysis. The dose cath was inserted and the patient is in the process of undergoing his first session of hemodialysis yesterday and a total of 800 mL of fluid was removed with ultrafiltration. He became slightly hypotensive and ultrafiltration was aborted. Currently the patient is having his second session of hemodialysis.. He is white cell count is at 11.1. Hemoglobin is at 10.1. Creatinine is at 4.6. Potassium level is at 3.0. Chest x-rays improved. He has E. coli septicemia and repeated blood pressures have come back negative. He remains on IV cefepime 2 g to every 24 hours. He is also receiving enteral feeding for nutritional support. The patient was given a sedation holiday 48 hours ago and he was responsive. The sample will be done today post dialysis. Hemodynamically stable at this point in time. 2020, the patient is extubated. After being adequately diuresed, the patient's was also given a session of dialysis and following that his volume status was optimized and the patient was extubated yesterday after showing adequate resp onse to this point is breathing trial. The patient had adequate weaning parameters and he was able to tolerate a spontaneous breathing trial and following that he was extubated. Overnight however, he became progressively more confused, restless, agitated and he became also more short of breath. B ased on that, we will check the Precedex which is still running at a dose of 0.5 mcg/kg per minute. The patient was also placed on a nonrebreather 100% facemask. His chest x-ray is showing improvement in the volume status and there is better aeration and diminished pulmonary infiltrates compared to his earlier films. While on 100% nonrebreather facemask, the patient is pulse oxing 97%. He remains on Lasix drip at 10 mg an hour and his urine output is order of 200 mL an hour. The patient will undergo dialysis today. His creatinine today is at 3.58 which is slightly improved compared to yesterday and today before. BUN is at 95. Serum bicarb is 18. Sodium is 142 with a potassium level of 3.3. His LDH level is at 842. His CBC is showing a white cell count of 15.5 with a hemoglobin of 9.8. Overall fluid balance over the past 24 hours has been -1.1 L and the patient is headed towards a -4.3 L for today. He remains on IV cefepime. No fever. He is on no pressors for now. She is arousable but arousable, not interacting and not following any commands at this point in time. Aside. He admitted decision for a DO NOT INTUBATE CODE STATUS. He is struggling with his breathing still. He is having a congested cough. Unable to bring up much of sputum. Breathing is nonlabored with his cough is weak and is unable to do adequate pulmonary toileting. At the same time, the patient is having diarrhea. He checks negative for C. diff. Objective - Vital Signs Vital signs: Vital Signs Temp 98.2 F 09/12/20 08:00 Pulse 65 09/12/20 09:00 Resp 15 09/12/20 09:00 BP 101/63 09/12/20 09:00 Pulse Ox 96 09/12/20 09:00 Intake & Output 09/11/20 09/12/20 09/12/20 18:59 06:59 18:59 Intake Total 1477.142 657.665 160 Output Total 3325 3125 850 Balance -1847.858 -2467.335 -690 Weight 110.6 kg 104 kg Intake: IV 300 370 160 Potassium Chloride 10 meq 100 100 In Water For Injection 1 100ml.bag @ 100 mls/hr IVPB Q1HR [facility] Rx#: [id number] Pressure Bags 60 30 Sodium Chloride 0.9% 1, 240 240 60 000 ml @ 20 mls/hr IV . Q24H [facility] Rx#:[id number] Intake, IV Titration 478.142 287.665 Amount Cefepime 2 gm In Sodium 111 Chloride 0.9% 100 ml @ 25 mls/hr IVPB Q24HR [facility] Rx #:[id number] Dexmedetomidine/0.9% NaCl 103.998 (Pmx) 400 mcg In Empty Bag 1 bag @ Titrate IV . Q0M [facility] Rx#:[id number] Furosemide 100 mg In 88.167 183.667 Sodium Chloride 0.9% 90 ml @ 10 MG/HR 10 mls/hr IV .Q10H [facility] Rx#: [id number] Norepinephrine 8 mg In 60.556 Sodium Chloride 0.9% 250 ml @ 0.05 MCG/KG/MIN 11. 165 mls/hr IV .Q23H7M [facility] Rx#:[id number] propofoL 1,000 mg In 218.419 Empty Bag 1 bag @ Titrate IV .Q0M [facility] Rx#: [id number] Tube Feeding 599 Other 100 Output: Urine 2325 3125 850 Hemodialysis 1000 Other: Voiding Method Indwelling Catheter Indwelling Catheter Indwelling Catheter ABP, PAP, CO, CI - Last Documented Arterial Blood Pressure 152/49 - Exam GENERAL EXAM: 85-year-old white male, currently on out of percent nonrebreather facemask. Not interacting. No significant agitation or restlessness that the patient is currently on Precedex running at 0.5 mcg/kg per minute. HEAD: Normocephalic/atraumatic. EYES: Normal reaction of pupils, equal size. Conjunctiva pink, sclera white. NOSE: Clear with pink turbinates. THROAT: No erythema or exudates. NECK: No masses, no JVD, no thyroid enlargement, no adenopathy. CHEST: No chest wall deformity. Symmetrical expansion. LUNGS: Equal air entry with no crackles, wheeze, rhonchi or dullness. CVS: Irregular rate and rhythm, normal S1 and S2, no gallops, no murmurs, no rubs ABDOMEN: Soft, nontender, abdominal distention, possibility of abdominal ascites is considered, abdominal ultrasound is pending. No hepatosplenomegaly, normal bowel sounds, no guarding or rigidity. EXTREMITIES: No clubbing, mild generalized edema, 1+ lower extremity edema, no cyanosis, 2+ pulses and upper and lower extremities. MUSCULOSKELETAL: Muscle strength and tone normal. SPINE: No scoliosis or deformity SKIN: No rashes CENTRAL NERVOUS SYSTEM: Sedated, rest of the neurologic exam is nonfocal. - Labs CBC & Chem 7: 09/12/20 04:02 09/12/20 04:02 Labs: Abnormal Lab Results - Last 24 Hours (Table) 09/11/20 09/11/20 09/11/20 Range/Units 11:39 15:13 15:56 WBC (3.8-10.6) k/uL RBC (4.30-5.90) m/uL Hgb (13.0-17.5) gm/dL Hct (39.0-53.0) % Plt Count (150-450) k/uL Neutrophils # (1.3-7.7) k/uL Lymphocytes # (1.0-4.8) k/uL D-Dimer (<0.60) mg/L FEU ABG pCO2 32 L (35-45) mmHg ABG pO2 114 H (83-108) mmHg ABG HCO3 18 L (21-25) mmol/L ABG O2 Saturation 97.9 H (94-97) % Potassium (3.5-5.1) mmol/L Chloride (98-107) mmol/L Carbon Dioxide (22-30) mmol/L BUN (9-20) mg/dL Creatinine (0.66-1.25) mg/dL Glucose (74-99) mg/dL POC Glucose (mg/dL) 162 H 221 H (75-99) mg/dL ALT (4-49) U/L Lactate Dehydrogenase (313-618) U/L C-Reactive Protein (<1.0) mg/dL Total Protein (6.3-8.2) g/dL Albumin (3.5-5.0) g/dL 09/11/20 09/12/20 09/12/20 Range/Units 20:36 03:59 04:02 WBC 15.5 H (3.8-10.6) k/uL RBC 2.98 L (4.30-5.90) m/uL Hgb 9.8 L (13.0-17.5) gm/dL Hct 28.1 L (39.0-53.0) % Plt Count 94 L (150-450) k/uL Neutrophils # 14.2 H (1.3-7.7) k/uL Lymphocytes # 0.4 L (1.0-4.8) k/uL D-Dimer (<0.60) mg/L FEU ABG pCO2 (35-45) mmHg ABG pO2 (83-108) mmHg ABG HCO3 (21-25) mmol/L ABG O2 Saturation (94-97) % Potassium (3.5-5.1) mmol/L Chloride (98-107) mmol/L Carbon Dioxide (22-30) mmol/L BUN (9-20) mg/dL Creatinine (0.66-1.25) mg/dL Glucose (74-99) mg/dL POC Glucose (mg/dL) 103 H 105 H (75-99) mg/dL ALT (4-49) U/L Lactate Dehydrogenase (313-618) U/L C-Reactive Protein (<1.0) mg/dL Total Protein (6.3-8.2) g/dL Albumin (3.5-5.0) g/dL 09/12/20 09/12/20 09/12/20 Range/Units 04:02 04:02 08:21 WBC (3.8-10.6) k/uL RBC (4.30-5.90) m/uL Hgb (13.0-17.5) gm/dL Hct (39.0-53.0) % Plt Count (150-450) k/uL Neutrophils # (1.3-7.7) k/uL Lymphocytes # (1.0-4.8) k/uL D-Dimer 5.34 H (<0.60) mg/L FEU ABG pCO2 (35-45) mmHg ABG pO2 (83-108) mmHg ABG HCO3 (21-25) mmol/L ABG O2 Saturation (94-97) % Potassium 3.3 L (3.5-5.1) mmol/L Chloride 110 H (98-107) mmol/L Carbon Dioxide 18 L (22-30) mmol/L BUN 95 H (9-20) mg/dL Creatinine 3.58 H (0.66-1.25) mg/dL Glucose 101 H (74-99) mg/dL POC Glucose (mg/dL) 143 H (75-99) mg/dL ALT 50 H (4-49) U/L Lactate Dehydrogenase 842 H (313-618) U/L C-Reactive Protein 7.8 H (<1.0) mg/dL Total Protein 5.2 L (6.3-8.2) g/dL Albumin 2.6 L (3.5-5.0) g/dL Microbiology - Last 24 Hours (Table) 09/08/20 08:45 Blood Culture - Preliminary Blood No Growth after 72 hours 09/08/20 08:45 Blood Culture - Preliminary Blood No Growth after 72 hours Assessment and Plan Plan: #1. Acute hypoxic respiratory failure multifactorial, related to acute sepsis and septic shock related to E. coli bacteremia, recent history of COVID-19 pneumonia. Patient was extubated yesterday and currently the patient on the percent nonrebreather facemask. He is quite weak and debilitated is on 100% nonrebreather patient has struggling to do adequate pulmonary toileting. Unable to suction his lungs and the patient has deep congestion. Chest x-ray however is showing some improvement in aeration and volume status as the patient is being diuresed and bilateral regular basis. In terms of septic shock, as have been adequately treated with antibiotics. Clinically however, the patient's condition decompensated. He has become previous, restless and agitated and the patient was placed on Precedex drip. On today's evaluation, his respiratory status is wide borderline. He is noted to have some episodes of apneas. He may be having Derek-Ponce respiration. I would say probably need to cut down his Precedex dose and monitor the status and elected discussion with the son and we have agreed not to reintubate because of his age and the rest of the other comorbidities. Patient is essentially supportive of this point in time. #2. Sepsis secondary to E. coli, secondary to an underlying UTI. The patient is currently on cefepime, hemodynamically stable #3. COVID-19 pneumonia, status post BAM and the patient is on Decadron 6 mg by mouth daily #4. New onset A. fib with RVR, back to normal sinus rhythm #5. Elevated d-dimer, multifactorial, improving #6. Acute on chronic kidney disease with secondary fluid overload the patient underwent hemodialysis yesterday and the patient is currently on a Lasix drip in combination with Zaroxolyn. She is a negative fluid balance. Volume status is improving. Oxygenation is also improving. #7. Non-anion gap metabolic acidosis #8. Chronic kidney disease stage III #9. History of coronary artery disease with history of stenting #10. Hypertension #11. Hyperlipidemia #12. History of bladder cancer with surgical resection post cystectomy and neobladder construction #13, diarrhea fecal management system, check stool for C. diff was negative #14 DNR/DNI CODE STATUS. Plan: Continue Lasix drip at 10 mg an hour proceed with a third session of hemodialysis today 100% nonrebreather mask unable to take any oral pills for now Continue Decadron IV Hold the rest of the oral medications the patient is unable to take any of his oral pills. DNR/DNI CODE STATUS Poor prognosis and the family is at the bedside. Hernia for now and cover this patient only with a slight scale coverage to avoid any potential hypoglycemia. May consider insertion of an NG tube or a Doppler ventilator state specially if the patient hangs on and does not show any further decompensation. There is a critically care evaluation, more than 30 minutes.
[2020-09-12] MEDS ORDERED: MORPHINE SULFATE 2 MG/ML SYRINGE IV PRN (10:17)
[2020-09-12] MEDS ORDERED: MORPHINE SULFATE 4 MG/ML SYRINGE IV PRN (10:17)
[2020-09-12] MEDS ORDERED: ATROPINE OPHTH SOLN 1% 5ML BTL SUBLINGUAL PRN (10:23)
[2020-09-12] MEDS ORDERED: LORazepam 2 MG/ML INJ IV PRN (10:23)
[2020-09-12] MEDS: MORPHINE SULFATE (100 MG/2 ML) 100 MG in SODIUM CHLORIDE 0.9% 100 ML IV SCH (11:03)
[2020-09-12] MEDS: SCOPOLAMINE 1.5MG/72HR PATCH TRANSDERM SCH (11:21)
[2020-09-12] MEDS: PANTOPRAZOLE 40 MG/10 ML VIAL IVP SCH (11:23)
[2020-09-12 14:26] VITALS: BMI 31.1
--- NOTE | 2020-09-12 14:26 | P.PN ---
Subjective Progress Note Date: 09/12/20 HISTORY OF PRESENT ILLNESS This is an 85-year-old male patient of Dr. Andrei Vasquez with past medical history of hyperlipidemia, hypothyroidism, bladder cancer, coronary artery di sease status post stent, diagnosed with Covid 19 pneumonia status post Bamlanivimab and subsequently admitted from August 27 through September 01 which time he was treated for acute hypoxic respiratory failure secondary to Covid 19 pneumonia, acute kidney injury, discharged home with home care. Apparently patient was at home but became very dyspneic and pulse ox dropped to 88%, patient not had anything to eat or drink since he left the hospital. EMS was contacted and patient was brought into the emergency center for evaluation. She complains of feeling tired. He was found to be afebrile, heart rate 98, blood pressure 114/65, pulse ox 90% on 2 L nasal cannula. WBC 20.5, hemoglobin 12.1, platelet count 148. Sodium 138, potassium 2.9, chloride 113, CO2 15, BUN 59 creatinine 2.52. Blood sugar 147. ALT 77. LDH 639. Albumin 2.7. Lactic acid 2.0. Magnesium 2.1. CK 74. EKG was a sinus rhythm with no acute ST changes. Patient was given 1 L of IV fluid and potassium was replaced. 09/03: Patient has not eating any meals since admission. He is oriented 3 but noted to have significant short-term memory deficit and having difficulty following instructions. Social work is following for discharge planning. Family is planning for patient to come home with [facility] and does not want to consider rehab. PT and OT clearly recommend subacute rehab. Patient has been afebrile, heart rate 94, blood pressure 120/73, pulse ox 94% on high flow nasal cannula at 4 L. Repeat blood work reveals WBC 30.3, hemoglobin 12.6, platelet count 143. Lactic acid 1.8. Chemistry results are not up at the time of this dictation at 2 10 in the afternoon. Repeat blood work will be ordered f or the morning. Anticipate possible discharge tomorrow 09/04: A-Team was called this morning due to difficulty breathing and hypoxia. Patient was tachycardic and diaphoretic. Heart rate was in the 130s. Patient was placed on BiPAP but he could not tolerate and became very anxious. Patient was given Ativan with no improvement. Pulse ox was low 70s and he was transferred to the intensive care unit and intubated and placed on mechanical ventilation. Patient was found to be in A. fib with RVR and cardiology consult was added as well as pulmonary medicine was added during the night. Patient was started on Cardizem bolus and drip. Lovenox increased to 45 mg twice daily, Decadron 6 mg IV daily. Patient has been started on norepinephrine 09/05: Patient seen in ICU use on mechanical intubation FiO2 55, PEEP 10, tidal volume 100, respiratory rate 24. Patient remains afebrile, heart rate 65 and irregular H or fibrillation noted to the monitor, respiration rate 28, blood pressure 105/68 97% on mechanical ventilation. Patient remains in atrial fibrillation. C 23.8, hemoglobin 10.8, potassium 3.2, BUN 81, creatinine 4.57. 09/06: Patient seen in ICU still on mechanical intubation FiO2 of 45 with a PEEP of 8, levo fed has been decreased to 2 mics. Patient remains afebrile, respirations 20, blood pressure 104/68, 95% on mechanical intubation. Blood cultures and urine cultures show gram-negative bacilli and E. coli. He is currently on Zosyn and Levaquin for coverage. 09/07: Patient remains intubated and on mechanical ventilation with tidal volume 400, FiO2 of 45 and PEEP of 10. Repeat chest x-ray reveals increased bilateral airspace opacities with more focal and somewhat cavitary-appearing opacities over the right upper lung. Increased moderate right pleural effusion. Un changed small left pleural effusion. Patient had minimal urine output running at 30 miles per hour but this morning increased to 100. He is scheduled for Lasix 40 mg IV every 8 hours to start this afternoon. Bicarb drip was discontinued. Patient is currently off pressors since yesterday afternoon. He is on tube feedings. residential monitor is atrial fibrillation and controlled rate and patient has been started on eliquis. Cardizem drip has been discontinued and he is maintained on Lopressor 12.5 mg twice daily. He is also on Lasix 40 mg IV every 8 hours. Cardiology is following on an as-needed basis. Patient is continued on Zosyn and Levaquin was discontinued by pulmonary medicine. 09/08: Patient remains intubated and on mechanical ventilation with tidal volume 400, FiO2 50% and PEEP of 10. Patient has been afebrile, heart rate 77, respiratory rate 26, blood pressure 110/70, pulse ox 98%. residential monitor is atrial fibrillation rate is controlled. Repeat chest x-ray reveals bibasilar infiltrates with small pleural effusions that are greater on the right. Repeat WBC 11.4, hemoglobin 10.4, platelet count 85. Sodium 137, potassium 3.0 and has been replaced, chloride 102, CO2 21, BUN 119 and creatinine 4.95. Blood sugars are running between 155 and 208. ALT 94. A repeat blood culture has been obtained today. Patient is currently on Lasix 40 mg every 8 hours. He is sche duled to start Lasix drip after a 100 mg bolus. Patient is waking up and responds. He is not on vasopressors. He is on tube feedings. IV antibiotics of been changed to cefepime 2 g IV piggyback every 24 hours. 09/09: Patient remains intubated and on mechanical ventilation with tidal volume 400, FiO2 40, PEEP of 10. Patient has been afebrile, heart rate 90, respiratory rate 26, blood pressure 128/67. Patient is on Lasix drip 10 mg per hour and continued on Zaroxolyn. He is having good urine output. Patient has watery brown stools and specimens to be sent for C. difficile toxin. Repeat blood work reveals WBC 10.2, hemoglobin 10, platelet count 84. Sodium 138, potassium 3, chloride 103, CO2 21, BUN 144, creatinine 5.19. ALT 84. CT scan of the abdomen and pelvis revealed absent gallbladder. Posterior changes suggestive ileal conduit. Severe right hydronephrosis with distal ureter transition point at the level of surgical size/anastomosis. No evidence of hiatal lithiasis. Findings concerning for stricture versus stenosis. Mild left cortical atrophy. Small plural effusions with adjacent atelectasis superimposed infiltrates are not excluded. Patient was seen yesterday by Dr. Morales evaluated for hydronephrosis on the right, unsure if ureteral stent could be placed and patient may need to be considered for right nephrostomy tube insertion. He does not believe the worsening creatinine level is a result of the hydronephrosis. Repeat chest x- ray reveals moderate right and small left pleural effusions, bibasilar airspace opacities. 09/10: Patient remains intubated and on mechanical ventilation with tidal volume 400, FiO2 40%, PEEP 10. Patient has been afebrile, heart rate 82, respiratory rate 28, blood pressure 122/65, pulse ox 98%. residential monitor is sinus rhythm. Patient is continued on Lasix drip at 10 mg an hour. Patient is also continued on cefepime for E. coli bacteremia. Repeat chest x-ray reveals decreased pleural effusions, unchanged diffuse bilateral airspace opacities. Dr. Nolasco placed right femoral dialysis catheter and patient was started on dialysis yesterday. Patient is undergoing repeat hemodialysis today. CODE STATUS is no code. Dr. Morales is not planning for any intervention as hydronephrosis is chronic. Eliquis will be resumed. Repeat blood work reveals WBC 11.1, hemoglobin 10.1, platelet count 91. Sodium 139, potassium 3.0, chloride 102, CO2 22, BUN 128 and creatinine 4.68. Blood sugar 138. Blood sugars have been running between 138 and 235. C. difficile toxin was negative. Repeat blood cultures are showing no growth at 48 hours 09/11: Robinson Chin is undergoing dialysis this morning. Patient remains intubated and on mechanical ventilation with tidal volume 400, FiO2 45 and PEEP of 5. Patient has been afebrile, heart rate 50, blood pressure 100/61, pulse ox 100%. residential monitor is sinus rhythm/bradycardia with occasional PVCs. Repeat blood work reveals WBC 12.2, hemoglobin 9.3, platelet count 88. D-dimer 5.36. Sodium 138, potassium 3.3, chloride 106, CO2 19, BUN 106, creatinine 3.91. Blood sugars running between 120-162. CK 21. C-reactive protein 7.4. Patient is currently on propofol, Lasix drip at 10 mg/h, norepinephrine during dialysis. 09/12 patient was extubated yesterday after doing well on breathing trial. Overnight patient decompensated and was placed on nonrebreather and required increase doses of Precedex to keep patient come. Chest x-ray did show improve ment in patient's swallowing status and better aeration. Lasix drip was continued over night and patient did maintain adequate urine output of 200. Assessment of patient's lab patient had a creatinine 3.58, BUN 95 bicarbonate 18, sodium 142 potassium 3.3 LDH failed 42 hemoglobin 9.8 WBC 15.5. Patient was evaluated by pulmonary and CODE STATUS was discussed with the family decided to switch to DO NOT INTUBATE. Patient's prognosis were discussed with the family who decided to patient to be switched to comfort care. Patient is having difficulty breathing and was also noted to have some pauses. Patient is currently comfortable on morphine and Ativan as needed for comfort care REVIEW OF SYSTEMS Unable to obtain due to intubation. Objective - Vital Signs Vital signs: Vital Signs Temp 98.2 F 09/12/20 08:00 Pulse 90 09/12/20 14:00 Resp 10 L 09/12/20 14:00 BP 130/69 09/12/20 12:00 Pulse Ox 97 09/12/20 11:00 Intake & Output 09/11/20 09/12/20 09/12/20 18:59 06:59 18:59 Intake Total 1477.142 657.665 209.296 Output Total 3325 3125 1400 Balance -1847.858 -2467.335 -1190.704 Weight 110.6 kg 104 kg Intake: IV 300 370 160 Potassium Chloride 10 meq 100 100 In Water For Injection 1 100ml.bag @ 100 mls/hr IVPB Q1HR [facility] Rx#: [id number] Pressure Bags 60 30 Sodium Chloride 0.9% 1, 240 240 60 000 ml @ 20 mls/hr IV . Q24H [facility] Rx#:[id number] Intake, IV Titration 478.142 287.665 49.296 Amount Cefepime 2 gm In Sodium 111 Chloride 0.9% 100 ml @ 25 mls/hr IVPB Q24HR [facility] Rx #:[id number] Dexmedetomidine/0.9% NaCl 103.998 44.417 (Pmx) 400 mcg In Empty Bag 1 bag @ Titrate IV . Q0M [facility] Rx#:[id number] Furosemide 100 mg In 88.167 183.667 Sodium Chloride 0.9% 90 ml @ 10 MG/HR 10 mls/hr IV .Q10H [facility] Rx#: [id number] Morphine Sulfate (100 mg/ 4.879 2 ml) 100 mg In Sodium Chloride 0.9% 100 ml @ 1 MG/HR 1.02 mls/hr IV . Q24H [facility] Rx#:[id number] Norepinephrine 8 mg In 60.556 Sodium Chloride 0.9% 250 ml @ 0.05 MCG/KG/MIN 11. 165 mls/hr IV .Q23H7M [facility] Rx#:[id number] propofoL 1,000 mg In 218.419 Empty Bag 1 bag @ Titrate IV .Q0M [facility] Rx#: [id number] Tube Feeding 599 Other 100 Output: Urine 2325 3125 1400 Hemodialysis 1000 Other: Voiding Method Indwelling Catheter Indwelling Catheter Indwelling Catheter ABP, PAP, CO, CI - Last Documented Arterial Blood Pressure 152/49 - Exam PHYSICAL EXAMINATION- minimal due to COVID restriction Gen: This is an 85-year-old male patient, patient in ICU bed and appears to be comfortable at rest on nasal cannula. HEENT: Head is atraumatic, normocephalic. Patient is intubated and on mechanical ventilation. NECK: Supple. LUNGS: mild intercostal retractions with shallow breathing . HEART: irregular rhythm on monitor ABDOMEN: Soft. Laws catheter in place. EXTREMITIES: No pedal edema. No calf tenderness. NEUROLOGICAL: obtunded - Labs CBC & Chem 7: 09/12/20 04:02 09/12/20 04:02 Labs: Abnormal Lab Results - Last 24 Hours (Table) 09/11/20 09/11/20 09/11/20 Range/Units 15:13 15:56 20:36 WBC (3.8-10.6) k/uL RBC (4.30-5.90) m/uL Hgb (13.0-17.5) gm/dL Hct (39.0-53.0) % Plt Count (150-450) k/uL Neutrophils # (1.3-7.7) k/uL Lymphocytes # (1.0-4.8) k/uL D-Dimer (<0.60) mg/L FEU ABG pCO2 32 L (35-45) mmHg ABG pO2 114 H (83-108) mmHg ABG HCO3 18 L (21-25) mmol/L ABG O2 Saturation 97.9 H (94-97) % Potassium (3.5-5.1) mmol/L Chloride (98-107) mmol/L Carbon Dioxide (22-30) mmol/L BUN (9-20) mg/dL Creatinine (0.66-1.25) mg/dL Glucose (74-99) mg/dL POC Glucose (mg/dL) 221 H 103 H (75-99) mg/dL ALT (4-49) U/L Lactate Dehydrogenase (313-618) U/L C-Reactive Protein (<1.0) mg/dL Total Protein (6.3-8.2) g/dL Albumin (3.5-5.0) g/dL 09/12/20 09/12/20 09/12/20 Range/Units 03:59 04:02 04:02 WBC 15.5 H (3.8-10.6) k/uL RBC 2.98 L (4.30-5.90) m/uL Hgb 9.8 L (13.0-17.5) gm/dL Hct 28.1 L (39.0-53.0) % Plt Count 94 L (150-450) k/uL Neutrophils # 14.2 H (1.3-7.7) k/uL Lymphocytes # 0.4 L (1.0-4.8) k/uL D-Dimer 5.34 H (<0.60) mg/L FEU ABG pCO2 (35-45) mmHg ABG pO2 (83-108) mmHg ABG HCO3 (21-25) mmol/L ABG O2 Saturation (94-97) % Potassium (3.5-5.1) mmol/L Chloride (98-107) mmol/L Carbon Dioxide (22-30) mmol/L BUN (9-20) mg/dL Creatinine (0.66-1.25) mg/dL Glucose (74-99) mg/dL POC Glucose (mg/dL) 105 H (75-99) mg/dL ALT (4-49) U/L Lactate Dehydrogenase (313-618) U/L C-Reactive Protein (<1.0) mg/dL Total Protein (6.3-8.2) g/dL Albumin (3.5-5.0) g/dL 09/12/20 09/12/20 Range/Units 04:02 08:21 WBC (3.8-10.6) k/uL RBC (4.30-5.90) m/uL Hgb (13.0-17.5) gm/dL Hct (39.0-53.0) % Plt Count (150-450) k/uL Neutrophils # (1.3-7.7) k/uL Lymphocytes # (1.0-4.8) k/uL D-Dimer (<0.60) mg/L FEU ABG pCO2 (35-45) mmHg ABG pO2 (83-108) mmHg ABG HCO3 (21-25) mmol/L ABG O2 Saturation (94-97) % Potassium 3.3 L (3.5-5.1) mmol/L Chloride 110 H (98-107) mmol/L Carbon Dioxide 18 L (22-30) mmol/L BUN 95 H (9-20) mg/dL Creatinine 3.58 H (0.66-1.25) mg/dL Glucose 101 H (74-99) mg/dL POC Glucose (mg/dL) 143 H (75-99) mg/dL ALT 50 H (4-49) U/L Lactate Dehydrogenase 842 H (313-618) U/L C-Reactive Protein 7.8 H (<1.0) mg/dL Total Protein 5.2 L (6.3-8.2) g/dL Albumin 2.6 L (3.5-5.0) g/dL Microbiology - Last 24 Hours (Table) 09/08/20 08:45 Blood Culture - Preliminary Blood No Growth after 96 hours 09/08/20 08:45 Blood Culture - Preliminary Blood No Growth after 96 hours Assessment and Plan Plan: ASSESSMENT AND PLAN 1. Acute hypoxic respiratory failure secondary to Covid 19 pneumonitis requiring intubation and mechanical ventilation. Continue oxygen therapy. Switch to comfort care, on morphine drip 2. Acute kidney injury, acute tubular necrosis and every secondary to dehydrat ion and lack of oral intake and diarrhea. Diuretics held hold dialysis 3. Sepsis, septic shock and gram-negative bacteremia, POA. 4. Urinary tract infection with E. coli bacteremia. Bacteremia is resolved with negative blood cultures. 5. Transaminitis secondary to COVID-19, hypotension. 6. New-onset A. fib with RVR, paroxysmal atrial fibrillation. 7. Hyperlipidemia. 8. Hypertension. Patient is off vasopressors. 9. Gastroesophageal reflux disease and GI prophylaxis. Continue Protonix 40 mg IVP daily. 10. Hypothyroidism. Continue levothyroxine 100 g daily. 11. Chronic gout. 12. Chronic kidney disease stage III. 13. History of coronary artery disease with previous stenting. 14. Thrombocytopenia secondary to sepsis. 15. Hyperglycemia without history of diabetes. 16. Right-sided hydronephrosis, chronic. Prognosis is poor , patient is on comfort measures per family wishes.
[2020-09-12] MEDS: CEFEPIME 2 GM in SODIUM CHLORIDE 0.9% 100 ML IVPB SCH (19:09)
[2020-09-12] MEDS: METOPROLOL TARTRATE 12.5 MG TAB PO SCH (19:09)
[2020-09-12] MEDS: metOLazone 5 MG TAB PO SCH (19:09)
[2020-09-12] MEDS: DEXAMETHASONE SOD PHOSPHATE 10 MG/ML 1 ML VIAL IV SCH (19:10)
[2020-09-12] MEDS: INSULIN DETEMIR (LEVEMIR) 100 UNIT/ML SYR SQ SCH (19:10)
[2020-09-12] MEDS: CHOLECALCIFEROL 25 MCG (1000 IU) TABLET PO SCH (19:11)
[2020-09-12] MEDS: SODIUM CHLORIDE 0.9% 1,000 ML IV SCH (20:03)
[2020-09-13] MEDS: MORPHINE SULFATE (100 MG/2 ML) 100 MG in SODIUM CHLORIDE 0.9% 100 ML IV SCH ×2 (00:21→11:29)
[2020-09-13 07:32] VITALS: BP 93/51
[2020-09-13] MEDS ORDERED: ENOXAPARIN 30 MG/0.3 ML SYRINGE SQ SCH (09:00)
--- NOTE | 2020-09-13 10:40 | P.PN ---
Progress Note - Text Progress Note Date: 09/13/20 Mr. Marc was extubated yesterday and placed on comfort care. He is currently resting comfortably. He has been dialyzed. His serum creatinine level will yesterday was 3.58. Urine output is good. I had a lengthy discussion with the patient's son regarding the fact that imaging studies have for years shown evidence of severe right hydronephrosis, but his renal function has been relatively stable. In view of this, I believe the the patient's renal failure during this hospitalization has been due to his COVID related illness rather than the hydronephrosis. Should he improve, I would expect his renal function to return to baseline. They will follow up with Dr. Velasquez as needed if they desire any further evaluation or intervention.
[2020-09-13] MEDS ORDERED: ARTIFICIAL TEARS-HYPROMELLOSE DROPS 15 ML BTL BOTH EYES PRN (14:25)
--- NOTE | 2020-09-13 14:25 | P.PN ---
Subjective Progress Note Date: 09/13/20 HISTORY OF PRESENT ILLNESS This is an 85-year-old male patient of Dr. Andrei Vasquez with past medical history of hyperlipidemia, hypothyroidism, bladder cancer, coronary artery di sease status post stent, diagnosed with Covid 19 pneumonia status post Bamlanivimab and subsequently admitted from August 27 through September 01 which time he was treated for acute hypoxic respiratory failure secondary to Covid 19 pneumonia, acute kidney injury, discharged home with home care. Apparently patient was at home but became very dyspneic and pulse ox dropped to 88%, patient not had anything to eat or drink since he left the hospital. EMS was contacted and patient was brought into the emergency center for evaluation. She complains of feeling tired. He was found to be afebrile, heart rate 98, blood pressure 114/65, pulse ox 90% on 2 L nasal cannula. WBC 20.5, hemoglobin 12.1, platelet count 148. Sodium 138, potassium 2.9, chloride 113, CO2 15, BUN 59 creatinine 2.52. Blood sugar 147. ALT 77. LDH 639. Albumin 2.7. Lactic acid 2.0. Magnesium 2.1. CK 74. EKG was a sinus rhythm with no acute ST changes. Patient was given 1 L of IV fluid and potassium was replaced. 09/03: Patient has not eating any meals since admission. He is oriented 3 but noted to have significant short-term memory deficit and having difficulty following instructions. Social work is following for discharge planning. Family is planning for patient to come home with [facility] and does not want to consider rehab. PT and OT clearly recommend subacute rehab. Patient has been afebrile, heart rate 94, blood pressure 120/73, pulse ox 94% on high flow nasal cannula at 4 L. Repeat blood work reveals WBC 30.3, hemoglobin 12.6, platelet count 143. Lactic acid 1.8. Chemistry results are not up at the time of this dictation at 2 10 in the afternoon. Repeat blood work will be ordered f or the morning. Anticipate possible discharge tomorrow 09/04: A-Team was called this morning due to difficulty breathing and hypoxia. Patient was tachycardic and diaphoretic. Heart rate was in the 130s. Patient was placed on BiPAP but he could not tolerate and became very anxious. Patient was given Ativan with no improvement. Pulse ox was low 70s and he was transferred to the intensive care unit and intubated and placed on mechanical ventilation. Patient was found to be in A. fib with RVR and cardiology consult was added as well as pulmonary medicine was added during the night. Patient was started on Cardizem bolus and drip. Lovenox increased to 45 mg twice daily, Decadron 6 mg IV daily. Patient has been started on norepinephrine 09/05: Patient seen in ICU use on mechanical intubation FiO2 55, PEEP 10, tidal volume 100, respiratory rate 24. Patient remains afebrile, heart rate 65 and irregular H or fibrillation noted to the monitor, respiration rate 28, blood pressure 105/68 97% on mechanical ventilation. Patient remains in atrial fibrillation. C 23.8, hemoglobin 10.8, potassium 3.2, BUN 81, creatinine 4.57. 09/06: Patient seen in ICU still on mechanical intubation FiO2 of 45 with a PEEP of 8, levo fed has been decreased to 2 mics. Patient remains afebrile, respirations 20, blood pressure 104/68, 95% on mechanical intubation. Blood cultures and urine cultures show gram-negative bacilli and E. coli. He is currently on Zosyn and Levaquin for coverage. 09/07: Patient remains intubated and on mechanical ventilation with tidal volume 400, FiO2 of 45 and PEEP of 10. Repeat chest x-ray reveals increased bilateral airspace opacities with more focal and somewhat cavitary-appearing opacities over the right upper lung. Increased moderate right pleural effusion. Un changed small left pleural effusion. Patient had minimal urine output running at 30 miles per hour but this morning increased to 100. He is scheduled for Lasix 40 mg IV every 8 hours to start this afternoon. Bicarb drip was discontinued. Patient is currently off pressors since yesterday afternoon. He is on tube feedings. [employer] is atrial fibrillation and controlled rate and patient has been started on eliquis. Cardizem drip has been discontinued and he is maintained on Lopressor 12.5 mg twice daily. He is also on Lasix 40 mg IV every 8 hours. Cardiology is following on an as-needed basis. Patient is continued on Zosyn and Levaquin was discontinued by pulmonary medicine. 09/08: Patient remains intubated and on mechanical ventilation with tidal volume 400, FiO2 50% and PEEP of 10. Patient has been afebrile, heart rate 77, respiratory rate 26, blood pressure 110/70, pulse ox 98%. 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 Repeat chest x-ray reveals bibasilar infiltrates with small pleural effusions that are greater on the right. Repeat WBC 11.4, hemoglobin 10.4, platelet count 85. Sodium 137, potassium 3.0 and has been replaced, chloride 102, CO2 21, BUN 119 and creatinine 4.95. Blood sugars are running between 155 and 208. ALT 94. A repeat blood culture has been obtained today. Patient is currently on Lasix 40 mg every 8 hours. He is sche duled to start Lasix drip after a 100 mg bolus. Patient is waking up and responds. He is not on vasopressors. He is on tube feedings. IV antibiotics of been changed to cefepime 2 g IV piggyback every 24 hours. 09/09: Patient remains intubated and on mechanical ventilation with tidal volume 400, FiO2 40, PEEP of 10. Patient has been afebrile, heart rate 90, respiratory rate 26, blood pressure 128/67. Patient is on Lasix drip 10 mg per hour and continued on Zaroxolyn. He is having good urine output. Patient has watery brown stools and specimens to be sent for C. difficile toxin. Repeat blood work reveals WBC 10.2, hemoglobin 10, platelet count 84. Sodium 138, potassium 3, chloride 103, CO2 21, BUN 144, creatinine 5.19. ALT 84. CT scan of the abdomen and pelvis revealed absent gallbladder. Posterior changes suggestive ileal conduit. Severe right hydronephrosis with distal ureter transition point at the level of surgical size/anastomosis. No evidence of hiatal lithiasis. Findings concerning for stricture versus stenosis. Mild left cortical atrophy. Small plural effusions with adjacent atelectasis superimposed infiltrates are not excluded. Patient was seen yesterday by Dr. Morales evaluated for hydronephrosis on the right, unsure if ureteral stent could be placed and patient may need to be considered for right nephrostomy tube insertion. He does not believe the worsening creatinine level is a result of the hydronephrosis. Repeat chest x- ray reveals moderate right and small left pleural effusions, bibasilar airspace opacities. 09/10: Patient remains intubated and on mechanical ventilation with tidal volume 400, FiO2 40%, PEEP 10. Patient has been afebrile, heart rate 82, respiratory rate 28, blood pressure 122/65, pulse ox 98%. 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 Patient is continued on Lasix drip at 10 mg an hour. Patient is also continued on cefepime for E. coli bacteremia. Repeat chest x-ray reveals decreased pleural effusions, unchanged diffuse bilateral airspace opacities. Dr. Nolasco placed right femoral dialysis catheter and patient was started on dialysis yesterday. Patient is undergoing repeat hemodialysis today. CODE STATUS is no code. Dr. Morales is not planning for any intervention as hydronephrosis is chronic. Eliquis will be resumed. Repeat blood work reveals WBC 11.1, hemoglobin 10.1, platelet count 91. Sodium 139, potassium 3.0, chloride 102, CO2 22, BUN 128 and creatinine 4.68. Blood sugar 138. Blood sugars have been running between 138 and 235. C. difficile toxin was negative. Repeat blood cultures are showing no growth at 48 hours 09/11: Robinson Chin is undergoing dialysis this morning. Patient remains intubated and on mechanical ventilation with tidal volume 400, FiO2 45 and PEEP of 5. Patient has been afebrile, heart rate 50, blood pressure 100/61, pulse ox 100%. 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 Repeat blood work reveals WBC 12.2, hemoglobin 9.3, platelet count 88. D-dimer 5.36. Sodium 138, potassium 3.3, chloride 106, CO2 19, BUN 106, creatinine 3.91. Blood sugars running between 120-162. CK 21. C-reactive protein 7.4. Patient is currently on propofol, Lasix drip at 10 mg/h, norepinephrine during dialysis. 09/12 patient was extubated yesterday after doing well on breathing trial. Overnight patient decompensated and was placed on nonrebreather and required increase doses of Precedex to keep patient come. Chest x-ray did show improve ment in patient's swallowing status and better aeration. Lasix drip was continued over night and patient did maintain adequate urine output of 200. Assessment of patient's lab patient had a creatinine 3.58, BUN 95 bicarbonate 18, sodium 142 potassium 3.3 LDH failed 42 hemoglobin 9.8 WBC 15.5. Patient was evaluated by pulmonary and CODE STATUS was discussed with the family decided to switch to DO NOT INTUBATE. Patient's prognosis were discussed with the family who decided to patient to be switched to comfort care. Patient is having difficulty breathing and was also noted to have some pauses. Patient is currently comfortable on morphine and Ativan as needed for comfort care 09/13 patient is resting comfortably currently on morphine and Ativan intermittently. Agonal breathing noted. Patient does have dry eyes. Artificial tears will be ordered REVIEW OF SYSTEMS Unable to obtain due to intubation. Objective - Vital Signs Vital signs: Vital Signs Temp 98.2 F 09/12/20 08:00 Pulse 81 09/13/20 07:32 Resp 10 L 09/13/20 07:32 BP 93/51 09/13/20 07:32 Pulse Ox 97 09/12/20 11:00 Intake & Output 09/12/20 09/13/20 09/13/20 18:59 06:59 18:59 Intake Total 236.836 60.656 90.848 Output Total 1400 250 Balance -1163.164 -189.344 90.848 Weight 104 kg Intake: IV 160 Potassium Chloride 10 meq 100 In Water For Injection 1 100ml.bag @ 100 mls/hr IVPB Q1HR [facility] Rx#: [id number] Sodium Chloride 0.9% 1, 60 000 ml @ 20 mls/hr IV . Q24H [facility] Rx#:[id number] Intake, IV Titration 76.836 60.656 90.848 Amount Dexmedetomidine/0.9% NaCl 44.417 (Pmx) 400 mcg In Empty Bag 1 bag @ Titrate IV . Q0M [facility] Rx#:[id number] Morphine Sulfate (100 mg/ 32.419 60.656 90.848 2 ml) 100 mg In Sodium Chloride 0.9% 100 ml @ 1 MG/HR 1.02 mls/hr IV . Q24H [facility] Rx#:[id number] Output: Urine 1400 250 Other: Voiding Method Indwelling Catheter Indwelling Catheter Indwelling Catheter # Voids 3 ABP, PAP, CO, CI - Last Documented Arterial Blood Pressure 152/49 - Exam PHYSICAL EXAMINATION- minimal due to COVID restriction Gen: This is an 85-year-old male patient, appears to be comfortable at rest on nasal cannula. HEENT: Head is atraumatic, normocephalic. Patient is intubated and on mechanical ventilation. NECK: Supple. LUNGS: mild intercostal retractions with shallow breathing . ABDOMEN: Soft. Laws catheter in place. EXTREMITIES: No pedal edema. No calf tenderness. NEUROLOGICAL: obtunded - Labs CBC & Chem 7: 09/12/20 04:02 09/12/20 04:02 Labs: Microbiology - Last 24 Hours (Table) 09/08/20 08:45 Blood Culture - Preliminary Blood No Growth after 120 hours 09/08/20 08:45 Blood Culture - Preliminary Blood No Growth after 120 hours Assessment and Plan Plan: ASSESSMENT AND PLAN 1. Acute hypoxic respiratory failure secondary to Covid 19 pneumonitis requiring intubation and mechanical ventilation. Extubated now Continue oxygen therapy. Switch to comfort care, on morphine drip 2. Acute kidney injury, acute tubular necrosis and every secondary to dehydration and lack of oral intake and diarrhea. Diuretics held hold dialysis 3. Sepsis, septic shock and gram-negative bacteremia, POA. 4. Urinary tract infection with E. coli bacteremia. Bacteremia is resolved wi th negative blood cultures. 5. Transaminitis secondary to COVID-19, hypotension. 6. New-onset A. fib with RVR, paroxysmal atrial fibrillation. 7. Hyperlipidemia. 8. Hypertension. Patient is off vasopressors. 9. Gastroesophageal reflux disease and GI prophylaxis. Continue Protonix 40 mg IVP daily. 10. Hypothyroidism. Continue levothyroxine 100 g daily. 11. Chronic gout. 12. Chronic kidney disease stage III. 13. History of coronary artery disease with previous stenting. 14. Thrombocytopenia secondary to sepsis. 15. Hyperglycemia without history of diabetes. 16. Right-sided hydronephrosis, chronic. Prognosis is poor , patient is on comfort measures per family wishes.
[2020-09-13] MEDS: SODIUM CHLORIDE 0.9% 1,000 ML IV SCH (19:08)
[2020-09-14] MEDS: MORPHINE SULFATE (100 MG/2 ML) 100 MG in SODIUM CHLORIDE 0.9% 100 ML IV SCH ×3 (02:11→23:57)
[2020-09-14] MEDS: SODIUM CHLORIDE 0.9% 1,000 ML IV SCH (02:12)
[2020-09-14] MEDS: FUROSEMIDE 10 MG/ML 4 ML VIAL IV SCH (07:00)
--- NOTE | 2020-09-14 16:36 | P.PN ---
Subjective Progress Note Date: 09/14/20 HISTORY OF PRESENT ILLNESS This is an 85-year-old male patient of Dr. Andrei Vasquez with past medical history of hyperlipidemia, hypothyroidism, bladder cancer, coronary artery di sease status post stent, diagnosed with Covid 19 pneumonia status post Bamlanivimab and subsequently admitted from August 27 through September 01 which time he was treated for acute hypoxic respiratory failure secondary to Covid 19 pneumonia, acute kidney injury, discharged home with home care. Apparently patient was at home but became very dyspneic and pulse ox dropped to 88%, patient not had anything to eat or drink since he left the hospital. EMS was contacted and patient was brought into the emergency center for evaluation. She complains of feeling tired. He was found to be afebrile, heart rate 98, blood pressure 114/65, pulse ox 90% on 2 L nasal cannula. WBC 20.5, hemoglobin 12.1, platelet count 148. Sodium 138, potassium 2.9, chloride 113, CO2 15, BUN 59 creatinine 2.52. Blood sugar 147. ALT 77. LDH 639. Albumin 2.7. Lactic acid 2.0. Magnesium 2.1. CK 74. EKG was a sinus rhythm with no acute ST changes. Patient was given 1 L of IV fluid and potassium was replaced. 09/03: Patient has not eating any meals since admission. He is oriented 3 but noted to have significant short-term memory deficit and having difficulty following instructions. Social work is following for discharge planning. Family is planning for patient to come home with [facility] and does not want to consider rehab. PT and OT clearly recommend subacute rehab. Patient has been afebrile, heart rate 94, blood pressure 120/73, pulse ox 94% on high flow nasal cannula at 4 L. Repeat blood work reveals WBC 30.3, hemoglobin 12.6, platelet count 143. Lactic acid 1.8. Chemistry results are not up at the time of this dictation at 2 10 in the afternoon. Repeat blood work will be ordered f or the morning. Anticipate possible discharge tomorrow 09/04: A-Team was called this morning due to difficulty breathing and hypoxia. Patient was tachycardic and diaphoretic. Heart rate was in the 130s. Patient was placed on BiPAP but he could not tolerate and became very anxious. Patient was given Ativan with no improvement. Pulse ox was low 70s and he was transferred to the intensive care unit and intubated and placed on mechanical ventilation. Patient was found to be in A. fib with RVR and cardiology consult was added as well as pulmonary medicine was added during the night. Patient was started on Cardizem bolus and drip. Lovenox increased to 45 mg twice daily, Decadron 6 mg IV daily. Patient has been started on norepinephrine 09/05: Patient seen in ICU use on mechanical intubation FiO2 55, PEEP 10, tidal volume 100, respiratory rate 24. Patient remains afebrile, heart rate 65 and irregular H or fibrillation noted to the monitor, respiration rate 28, blood pressure 105/68 97% on mechanical ventilation. Patient remains in atrial fibrillation. C 23.8, hemoglobin 10.8, potassium 3.2, BUN 81, creatinine 4.57. 09/06: Patient seen in ICU still on mechanical intubation FiO2 of 45 with a PEEP of 8, levo fed has been decreased to 2 mics. Patient remains afebrile, respirations 20, blood pressure 104/68, 95% on mechanical intubation. Blood cultures and urine cultures show gram-negative bacilli and E. coli. He is currently on Zosyn and Levaquin for coverage. 09/07: Patient remains intubated and on mechanical ventilation with tidal volume 400, FiO2 of 45 and PEEP of 10. Repeat chest x-ray reveals increased bilateral airspace opacities with more focal and somewhat cavitary-appearing opacities over the right upper lung. Increased moderate right pleural effusion. Un changed small left pleural effusion. Patient had minimal urine output running at 30 miles per hour but this morning increased to 100. He is scheduled for Lasix 40 mg IV every 8 hours to start this afternoon. Bicarb drip was discontinued. Patient is currently off pressors since yesterday afternoon. He is on tube feedings. site monitor is atrial fibrillation and controlled rate and patient has been started on eliquis. Cardizem drip has been discontinued and he is maintained on Lopressor 12.5 mg twice daily. He is also on Lasix 40 mg IV every 8 hours. Cardiology is following on an as-needed basis. Patient is continued on Zosyn and Levaquin was discontinued by pulmonary medicine. 09/08: Patient remains intubated and on mechanical ventilation with tidal volume 400, FiO2 50% and PEEP of 10. Patient has been afebrile, heart rate 77, respiratory rate 26, blood pressure 110/70, pulse ox 98%. site monitor is atrial fibrillation rate is controlled. Repeat chest x-ray reveals bibasilar infiltrates with small pleural effusions that are greater on the right. Repeat WBC 11.4, hemoglobin 10.4, platelet count 85. Sodium 137, potassium 3.0 and has been replaced, chloride 102, CO2 21, BUN 119 and creatinine 4.95. Blood sugars are running between 155 and 208. ALT 94. A repeat blood culture has been obtained today. Patient is currently on Lasix 40 mg every 8 hours. He is sche duled to start Lasix drip after a 100 mg bolus. Patient is waking up and responds. He is not on vasopressors. He is on tube feedings. IV antibiotics of been changed to cefepime 2 g IV piggyback every 24 hours. 09/09: Patient remains intubated and on mechanical ventilation with tidal volume 400, FiO2 40, PEEP of 10. Patient has been afebrile, heart rate 90, respiratory rate 26, blood pressure 128/67. Patient is on Lasix drip 10 mg per hour and continued on Zaroxolyn. He is having good urine output. Patient has watery brown stools and specimens to be sent for C. difficile toxin. Repeat blood work reveals WBC 10.2, hemoglobin 10, platelet count 84. Sodium 138, potassium 3, chloride 103, CO2 21, BUN 144, creatinine 5.19. ALT 84. CT scan of the abdomen and pelvis revealed absent gallbladder. Posterior changes suggestive ileal conduit. Severe right hydronephrosis with distal ureter transition point at the level of surgical size/anastomosis. No evidence of hiatal lithiasis. Findings concerning for stricture versus stenosis. Mild left cortical atrophy. Small plural effusions with adjacent atelectasis superimposed infiltrates are not excluded. Patient was seen yesterday by Dr. Morales evaluated for hydronephrosis on the right, unsure if ureteral stent could be placed and patient may need to be considered for right nephrostomy tube insertion. He does not believe the worsening creatinine level is a result of the hydronephrosis. Repeat chest x- ray reveals moderate right and small left pleural effusions, bibasilar airspace opacities. 09/10: Patient remains intubated and on mechanical ventilation with tidal volume 400, FiO2 40%, PEEP 10. Patient has been afebrile, heart rate 82, respiratory rate 28, blood pressure 122/65, pulse ox 98%. site monitor is sinus rhythm. Patient is continued on Lasix drip at 10 mg an hour. Patient is also continued on cefepime for E. coli bacteremia. Repeat chest x-ray reveals decreased pleural effusions, unchanged diffuse bilateral airspace opacities. Dr. Nolasco placed right femoral dialysis catheter and patient was started on dialysis yesterday. Patient is undergoing repeat hemodialysis today. CODE STATUS is no code. Dr. Morales is not planning for any intervention as hydronephrosis is chronic. Eliquis will be resumed. Repeat blood work reveals WBC 11.1, hemoglobin 10.1, platelet count 91. Sodium 139, potassium 3.0, chloride 102, CO2 22, BUN 128 and creatinine 4.68. Blood sugar 138. Blood sugars have been running between 138 and 235. C. difficile toxin was negative. Repeat blood cultures are showing no growth at 48 hours 09/11: Robinson Chin is undergoing dialysis this morning. Patient remains intubated and on mechanical ventilation with tidal volume 400, FiO2 45 and PEEP of 5. Patient has been afebrile, heart rate 50, blood pressure 100/61, pulse ox 100%. site monitor is sinus rhythm/bradycardia with occasional PVCs. Repeat blood work reveals WBC 12.2, hemoglobin 9.3, platelet count 88. D-dimer 5.36. Sodium 138, potassium 3.3, chloride 106, CO2 19, BUN 106, creatinine 3.91. Blood sugars running between 120-162. CK 21. C-reactive protein 7.4. Patient is currently on propofol, Lasix drip at 10 mg/h, norepinephrine during dialysis. 09/12 patient was extubated yesterday after doing well on breathing trial. Overnight patient decompensated and was placed on nonrebreather and required increase doses of Precedex to keep patient come. Chest x-ray did show improve ment in patient's swallowing status and better aeration. Lasix drip was continued over night and patient did maintain adequate urine output of 200. Assessment of patient's lab patient had a creatinine 3.58, BUN 95 bicarbonate 18, sodium 142 potassium 3.3 LDH failed 42 hemoglobin 9.8 WBC 15.5. Patient was evaluated by pulmonary and CODE STATUS was discussed with the family decided to switch to DO NOT INTUBATE. Patient's prognosis were discussed with the family who decided to patient to be switched to comfort care. Patient is having difficulty breathing and was also noted to have some pauses. Patient is currently comfortable on morphine and Ativan as needed for comfort care 09/13 patient is resting comfortably currently on morphine and Ativan intermittently. Agonal breathing noted. Patient does have dry eyes. Artificial tears will be ordered 09/14 patient is resting comfortably with a goal of breathing. Morphine drip was increased to 10 mics per hour. Continue Ativan as needed. We'll consult hospice care for inpatient hospice versus home with hospice. REVIEW OF SYSTEMS Unable to obtain due to intubation. Objective - Vital Signs Vital signs: Vital Signs Temp 98.2 F 09/12/20 08:00 Pulse 81 09/13/20 19:30 Resp 8 L 09/14/20 09:41 BP 93/51 09/13/20 07:32 Pulse Ox 97 09/12/20 11:00 Intake & Output 09/13/20 09/14/20 09/14/20 18:59 06:59 18:59 Intake Total 90.848 202 99.178 Output Total 950 Balance 90.848 -748 99.178 Intake: Intake, IV Titration 90.848 202 99.178 Amount Furosemide 100 mg In 100 Sodium Chloride 0.9% 90 ml @ 10 MG/HR 10 mls/hr IV .Q10H [facility] Rx#: [id number] Morphine Sulfate (100 mg/ 90.848 102 99.178 2 ml) 100 mg In Sodium Chloride 0.9% 100 ml @ 1 MG/HR 1.02 mls/hr IV . Q24H [facility] Rx#:[id number] Output: Urine 250 Stool 700 Other: Voiding Method Indwelling Catheter Indwelling Catheter Indwelling Catheter # Voids 3 ABP, PAP, CO, CI - Last Documented Arterial Blood Pressure 152/49 - Exam PHYSICAL EXAMINATION- minimal due to COVID restriction Gen: This is an 85-year-old male patient, appears to be comfortable at rest on nasal cannula. HEENT: Head is atraumatic, normocephalic. NECK: Supple. LUNGS: mild intercostal retractions with shallow breathing . ABDOMEN: Soft. Laws catheter in place. EXTREMITIES: No pedal edema. No calf tenderness. NEUROLOGICAL: obtunded - Labs CBC & Chem 7: 09/12/20 04:02 09/12/20 04:02 Labs: Microbiology - Last 24 Hours (Table) 09/08/20 08:45 Blood Culture - Final Blood No Growth after 144 hours 09/08/20 08:45 Blood Culture - Final Blood No Growth after 144 hours Assessment and Plan Plan: ASSESSMENT AND PLAN 1. Acute hypoxic respiratory failure secondary to Covid 19 pneumonitis requiring intubation and mechanical ventilation. Extubated now Continue oxygen therapy. on comfort care, on morphine drip 2. Acute kidney injury, acute tubular necrosis and every secondary to dehydration and lack of oral intake and diarrhea. Diuretics held hold dialysis 3. Sepsis, septic shock and gram-negative bacteremia, POA. 4. Urinary tract infection with E. coli bacteremia. Bacteremia is resolved with negative blood cultures. 5. Transaminitis secondary to COVID-19, hypotension. 6. New-onset A. fib with RVR, paroxysmal atrial fibrillation. 7. Hyperlipidemia. 8. Hypertension. Patient is off vasopressors. 9. Gastroesophageal reflux disease and GI prophylaxis. Continue Protonix 40 mg IVP daily. 10. Hypothyroidism. Continue levothyroxine 100 g daily. 11. Chronic gout. 12. Chronic kidney disease stage III. 13. History of coronary artery disease with previous stenting. 14. Thrombocytopenia secondary to sepsis. 15. Hyperglycemia without history of diabetes. 16. Right-sided hydronephrosis, chronic. Prognosis is poor , patient is on comfort measures per family wishes.
[2020-09-14 19:19] VITALS: PULSE 90
[2020-09-15] MEDS: MORPHINE SULFATE (100 MG/2 ML) 100 MG in SODIUM CHLORIDE 0.9% 100 ML IV SCH ×3 (08:14→22:06)
[2020-09-15] MEDS: SCOPOLAMINE 1.5MG/72HR PATCH TRANSDERM SCH (11:33)
[2020-09-15 11:40] VITALS: RESP 24; TEMP 98
--- NOTE | 2020-09-15 14:27 | P.PN ---
Subjective Progress Note Date: 09/15/20 HISTORY OF PRESENT ILLNESS This is an 85-year-old male patient of Dr. Andrei Vasquez with past medical history of hyperlipidemia, hypothyroidism, bladder cancer, coronary artery di sease status post stent, diagnosed with Covid 19 pneumonia status post Bamlanivimab and subsequently admitted from August 27 through September 01 which time he was treated for acute hypoxic respiratory failure secondary to Covid 19 pneumonia, acute kidney injury, discharged home with home care. Apparently patient was at home but became very dyspneic and pulse ox dropped to 88%, patient not had anything to eat or drink since he left the hospital. EMS was contacted and patient was brought into the emergency center for evaluation. She complains of feeling tired. He was found to be afebrile, heart rate 98, blood pressure 114/65, pulse ox 90% on 2 L nasal cannula. WBC 20.5, hemoglobin 12.1, platelet count 148. Sodium 138, potassium 2.9, chloride 113, CO2 15, BUN 59 creatinine 2.52. Blood sugar 147. ALT 77. LDH 639. Albumin 2.7. Lactic acid 2.0. Magnesium 2.1. CK 74. EKG was a sinus rhythm with no acute ST changes. Patient was given 1 L of IV fluid and potassium was replaced. 09/03: Patient has not eating any meals since admission. He is oriented 3 but noted to have significant short-term memory deficit and having difficulty following instructions. Social work is following for discharge planning. Family is planning for patient to come home with [facility] and does not want to consider rehab. PT and OT clearly recommend subacute rehab. Patient has been afebrile, heart rate 94, blood pressure 120/73, pulse ox 94% on high flow nasal cannula at 4 L. Repeat blood work reveals WBC 30.3, hemoglobin 12.6, platelet count 143. Lactic acid 1.8. Chemistry results are not up at the time of this dictation at 2 10 in the afternoon. Repeat blood work will be ordered f or the morning. Anticipate possible discharge tomorrow 09/04: A-Team was called this morning due to difficulty breathing and hypoxia. Patient was tachycardic and diaphoretic. Heart rate was in the 130s. Patient was placed on BiPAP but he could not tolerate and became very anxious. Patient was given Ativan with no improvement. Pulse ox was low 70s and he was transferred to the intensive care unit and intubated and placed on mechanical ventilation. Patient was found to be in A. fib with RVR and cardiology consult was added as well as pulmonary medicine was added during the night. Patient was started on Cardizem bolus and drip. Lovenox increased to 45 mg twice daily, Decadron 6 mg IV daily. Patient has been started on norepinephrine 09/05: Patient seen in ICU use on mechanical intubation FiO2 55, PEEP 10, tidal volume 100, respiratory rate 24. Patient remains afebrile, heart rate 65 and irregular H or fibrillation noted to the monitor, respiration rate 28, blood pressure 105/68 97% on mechanical ventilation. Patient remains in atrial fibrillation. C 23.8, hemoglobin 10.8, potassium 3.2, BUN 81, creatinine 4.57. 09/06: Patient seen in ICU still on mechanical intubation FiO2 of 45 with a PEEP of 8, levo fed has been decreased to 2 mics. Patient remains afebrile, respirations 20, blood pressure 104/68, 95% on mechanical intubation. Blood cultures and urine cultures show gram-negative bacilli and E. coli. He is currently on Zosyn and Levaquin for coverage. 09/07: Patient remains intubated and on mechanical ventilation with tidal volume 400, FiO2 of 45 and PEEP of 10. Repeat chest x-ray reveals increased bilateral airspace opacities with more focal and somewhat cavitary-appearing opacities over the right upper lung. Increased moderate right pleural effusion. Un changed small left pleural effusion. Patient had minimal urine output running at 30 miles per hour but this morning increased to 100. He is scheduled for Lasix 40 mg IV every 8 hours to start this afternoon. Bicarb drip was discontinued. Patient is currently off pressors since yesterday afternoon. He is on tube feedings. classroom monitor is atrial fibrillation and controlled rate and patient has been started on eliquis. Cardizem drip has been discontinued and he is maintained on Lopressor 12.5 mg twice daily. He is also on Lasix 40 mg IV every 8 hours. Cardiology is following on an as-needed basis. Patient is continued on Zosyn and Levaquin was discontinued by pulmonary medicine. 09/08: Patient remains intubated and on mechanical ventilation with tidal volume 400, FiO2 50% and PEEP of 10. Patient has been afebrile, heart rate 77, respiratory rate 26, blood pressure 110/70, pulse ox 98%. classroom monitor is atrial fibrillation rate is controlled. Repeat chest x-ray reveals bibasilar infiltrates with small pleural effusions that are greater on the right. Repeat WBC 11.4, hemoglobin 10.4, platelet count 85. Sodium 137, potassium 3.0 and has been replaced, chloride 102, CO2 21, BUN 119 and creatinine 4.95. Blood sugars are running between 155 and 208. ALT 94. A repeat blood culture has been obtained today. Patient is currently on Lasix 40 mg every 8 hours. He is sche duled to start Lasix drip after a 100 mg bolus. Patient is waking up and responds. He is not on vasopressors. He is on tube feedings. IV antibiotics of been changed to cefepime 2 g IV piggyback every 24 hours. 09/09: Patient remains intubated and on mechanical ventilation with tidal volume 400, FiO2 40, PEEP of 10. Patient has been afebrile, heart rate 90, respiratory rate 26, blood pressure 128/67. Patient is on Lasix drip 10 mg per hour and continued on Zaroxolyn. He is having good urine output. Patient has watery brown stools and specimens to be sent for C. difficile toxin. Repeat blood work reveals WBC 10.2, hemoglobin 10, platelet count 84. Sodium 138, potassium 3, chloride 103, CO2 21, BUN 144, creatinine 5.19. ALT 84. CT scan of the abdomen and pelvis revealed absent gallbladder. Posterior changes suggestive ileal conduit. Severe right hydronephrosis with distal ureter transition point at the level of surgical size/anastomosis. No evidence of hiatal lithiasis. Findings concerning for stricture versus stenosis. Mild left cortical atrophy. Small plural effusions with adjacent atelectasis superimposed infiltrates are not excluded. Patient was seen yesterday by Dr. Morales evaluated for hydronephrosis on the right, unsure if ureteral stent could be placed and patient may need to be considered for right nephrostomy tube insertion. He does not believe the worsening creatinine level is a result of the hydronephrosis. Repeat chest x- ray reveals moderate right and small left pleural effusions, bibasilar airspace opacities. 09/10: Patient remains intubated and on mechanical ventilation with tidal volume 400, FiO2 40%, PEEP 10. Patient has been afebrile, heart rate 82, respiratory rate 28, blood pressure 122/65, pulse ox 98%. classroom monitor is sinus rhythm. Patient is continued on Lasix drip at 10 mg an hour. Patient is also continued on cefepime for E. coli bacteremia. Repeat chest x-ray reveals decreased pleural effusions, unchanged diffuse bilateral airspace opacities. Dr. Nolasco placed right femoral dialysis catheter and patient was started on dialysis yesterday. Patient is undergoing repeat hemodialysis today. CODE STATUS is no code. Dr. Morales is not planning for any intervention as hydronephrosis is chronic. Eliquis will be resumed. Repeat blood work reveals WBC 11.1, hemoglobin 10.1, platelet count 91. Sodium 139, potassium 3.0, chloride 102, CO2 22, BUN 128 and creatinine 4.68. Blood sugar 138. Blood sugars have been running between 138 and 235. C. difficile toxin was negative. Repeat blood cultures are showing no growth at 48 hours 09/11: Robinson Chin is undergoing dialysis this morning. Patient remains intubated and on mechanical ventilation with tidal volume 400, FiO2 45 and PEEP of 5. Patient has been afebrile, heart rate 50, blood pressure 100/61, pulse ox 100%. classroom monitor is sinus rhythm/bradycardia with occasional PVCs. Repeat blood work reveals WBC 12.2, hemoglobin 9.3, platelet count 88. D-dimer 5.36. Sodium 138, potassium 3.3, chloride 106, CO2 19, BUN 106, creatinine 3.91. Blood sugars running between 120-162. CK 21. C-reactive protein 7.4. Patient is currently on propofol, Lasix drip at 10 mg/h, norepinephrine during dialysis. 09/12 patient was extubated yesterday after doing well on breathing trial. Overnight patient decompensated and was placed on nonrebreather and required increase doses of Precedex to keep patient come. Chest x-ray did show improve ment in patient's swallowing status and better aeration. Lasix drip was continued over night and patient did maintain adequate urine output of 200. Assessment of patient's lab patient had a creatinine 3.58, BUN 95 bicarbonate 18, sodium 142 potassium 3.3 LDH failed 42 hemoglobin 9.8 WBC 15.5. Patient was evaluated by pulmonary and CODE STATUS was discussed with the family decided to switch to DO NOT INTUBATE. Patient's prognosis were discussed with the family who decided to patient to be switched to comfort care. Patient is having difficulty breathing and was also noted to have some pauses. Patient is currently comfortable on morphine and Ativan as needed for comfort care 09/13 patient is resting comfortably currently on morphine and Ativan intermittently. Agonal breathing noted. Patient does have dry eyes. Artificial tears will be ordered 09/14 patient is resting comfortably with a goal of breathing. Morphine drip was increased to 10 mics per hour. Continue Ativan as needed. We'll consult hospice care for inpatient hospice versus home with hospice. patient is resting comfortably in bed. Hospice consult was placed yesterday but apparently patient family would like patient to be on comfort care and refused hospice. Patient is currently on morphine drip and Ativan as needed. Patient is apneic is longer patient appears comfortable REVIEW OF SYSTEMS Unable to obtain due to intubation. Objective - Vital Signs Vital signs: Vital Signs Temp 98 F 09/15/20 11:39 Pulse 90 09/14/20 19:17 Resp 24 09/15/20 11:39 BP 93/51 09/13/20 07:32 Pulse Ox 88 L 09/15/20 11:39 Intake & Output 09/14/20 09/15/20 09/15/20 18:59 06:59 18:59 Intake Total 99.178 102 129.353 Balance 99.178 102 129.353 Intake: Intake, IV Titration 99.178 102 129.353 Amount Morphine Sulfate (100 mg/ 99.178 102 129.353 2 ml) 100 mg In Sodium Chloride 0.9% 100 ml @ 1 MG/HR 1.02 mls/hr IV . Q24H [facility] Rx#:[id number] Other: Voiding Method Indwelling Catheter Indwelling Catheter Indwelling Catheter # Voids 2 ABP, PAP, CO, CI - Last Documented Arterial Blood Pressure 152/49 - Exam PHYSICAL EXAMINATION- minimal due to COVID restriction Gen: This is an 85-year-old male patient, appears to be comfortable at rest on nasal cannula. HEENT: Head is atraumatic, normocephalic. NECK: Supple. LUNGS: mild intercostal retractions with shallow breathing . ABDOMEN: Soft. Laws catheter in place. EXTREMITIES: No pedal edema. No calf tenderness. NEUROLOGICAL: obtunded - Labs CBC & Chem 7: 09/12/20 04:02 09/12/20 04:02 Labs: Microbiology - Last 24 Hours (Table) 09/08/20 08:45 Blood Culture - Final Blood No Growth after 144 hours 09/08/20 08:45 Blood Culture - Final Blood No Growth after 144 hours Assessment and Plan Plan: ASSESSMENT AND PLAN 1. Acute hypoxic respiratory failure secondary to Covid 19 pneumonitis requiring intubation and mechanical ventilation. Extubated now Continue oxygen therapy. on comfort care, on morphine drip 2. Acute kidney injury, acute tubular necrosis and every secondary to dehydration and lack of oral intake and diarrhea. Diuretics held hold dialysis 3. Sepsis, septic shock and gram-negative bacteremia, POA. 4. Urinary tract infection with E. coli bacteremia. Bacteremia is resolved with negative blood cultures. 5. Transaminitis secondary to COVID-19, hypotension. 6. New-onset A. fib with RVR, paroxysmal atrial fibrillation. 7. Hyperlipidemia. 8. Hypertension. Patient is off vasopressors. 9. Gastroesophageal reflux disease and GI prophylaxis. Continue Protonix 40 mg IVP daily. 10. Hypothyroidism. Continue levothyroxine 100 g daily. 11. Chronic gout. 12. Chronic kidney disease stage III. 13. History of coronary artery disease with previous stenting. 14. Thrombocytopenia secondary to sepsis. 15. Hyperglycemia without history of diabetes. 16. Right-sided hydronephrosis, chronic. Prognosis is poor , patient is on comfort measures per family wishes.
--- NOTE | 2020-09-17 14:32 | P.DS ---
Providers Date of admission: 09/02/20 08:56 Attending physician: Deepak Regalado Consults: 09/04/20 09:57 Consult Physician Urgent Consulting Provider: Heidi Justin Consult Reason/Comments: New onset afib Do you want consulting provider notified?: Yes 09/05/20 09:19 Consult Physician Routine Consulting Provider: Manolo Og Consult Reason/Comments: acute on chronic renal failure Do you want consulting provider notified?: Yes 09/05/20 11:43 Consult Physician Routine Consulting Provider: Delio Santillan Consult Reason/Comments: bacteremia Do you want consulting provider notified?: Yes 09/08/20 15:43 Consult Physician Routine Consulting Provider: Lele Morales Consult Reason/Comments: hydronephrosis Do you want consulting provider notified?: Yes 09/09/20 10:01 Consult Physician Urgent Consulting Provider: Gage Nolasco Consult Reason/Comments: dialysis catheter insertion Do you want consulting provider notified?: Yes Primary care physician: Andrei Vasquez [facility] Course: summary This is an 85-year-old male patient of Dr. Andrei Vasquez with past medical history of hyperlipidemia, hypothyroidism, bladder cancer, coronary artery disease status post stent, diagnosed with Covid 19 pneumonia status post Bamlanivimab and subsequently admitted from August 27 through September 01 which time he was treated for acute hypoxic respiratory failure secondary to Covid 19 pneumonia, acute kidney injury, discharged home with home care. Apparently patient was at home but became very dyspneic and pulse ox dropped to 88%, patient not had anything to eat or drink since he left the hospital. EMS was contacted and patient was brought into the emergency center for evaluation. She complains of feeling tired. He was found to be afebrile, heart rate 98, blood pressure 114/65, pulse ox 90% on 2 L nasal cannula. WBC 20.5, hemoglobin 12.1, platelet count 148. Sodium 138, potassium 2.9, chloride 113, CO2 15, BUN 59 creatinine 2.52. Blood sugar 147. ALT 77. LDH 639. Albumin 2.7. Lactic acid 2.0. Magnesium 2.1. CK 74. EKG was a sinus rhythm with no acute ST changes. Patient was given 1 L of IV fluid and potassium was replaced. 09/03: Patient has not eating any meals since admission. He is oriented 3 but noted to have significant short-term memory deficit and having difficulty following instructions. Social work is following for discharge planning. Family is planning for patient to come home with [facility] and does not want to consider rehab. PT and OT clearly recommend subacute rehab. Patient has been afebrile, heart rate 94, blood pressure 120/73, pulse ox 94% on high flow nasal cannula at 4 L. Repeat blood work reveals WBC 30.3, hemoglobin 12.6, platelet count 143. Lactic acid 1.8. Chemistry results are not up at the time of this dictation at 2 10 in the afternoon. Repeat blood work will be ordered for the morning. Anticipate possible discharge tomorrow 09/04: A-Team was called this morning due to difficulty breathing and hypoxia. Patient was tachycardic and diaphoretic. Heart rate was in the 130s. Patient was placed on BiPAP but he could not tolerate and became very anxious. Patient was given Ativan with no improvement. Pulse ox was low 70s and he was transferred to the intensive care unit and intubated and placed on mechanical ventilation. Patient was found to be in A. fib with RVR and cardiology consult was added as well as pulmonary medicine was added during the night. Patient was started on Cardizem bolus and drip. Lovenox increased to 45 mg twice daily, Decadron 6 mg IV daily. Patient has been started on norepinephrine 09/05: Patient seen in ICU use on mechanical intubation FiO2 55, PEEP 10, tidal volume 100, respiratory rate 24. Patient remains afebrile, heart rate 65 and irregular H or fibrillation noted to the monitor, respiration rate 28, blood pressure 105/68 97% on mechanical ventilation. Patient remains in atrial fibrillation. C 23.8, hemoglobin 10.8, potassium 3.2, BUN 81, creatinine 4.57. 09/06: Patient seen in ICU still on mechanical intubation FiO2 of 45 with a PEEP of 8, levo fed has been decreased to 2 mics. Patient remains afebrile, respirations 20, blood pressure 104/68, 95% on mechanical intubation. Blood cultures and urine cultures show gram-negative bacilli and E. coli. He is currently on Zosyn and Levaquin for coverage. 09/07: Patient remains intubated and on mechanical ventilation with tidal volume 400, FiO2 of 45 and PEEP of 10. Repeat chest x-ray reveals increased bilateral airspace opacities with more focal and somewhat cavitary-appearing opacities over the right upper lung. Increased moderate right pleural effusion. Unchanged small left pleural effusion. Patient had minimal urine output running at 30 miles per hour but this morning increased to 100. He is scheduled for Lasix 40 mg IV every 8 hours to start this afternoon. Bicarb drip was discontinued. Patient is currently off pressors since yesterday afternoon. He is on tube feedings. monitoring specialist is atrial fibrillation and controlled rate and patient has been started on eliquis. Cardizem drip has been discontinued and he is maintained on Lopressor 12.5 mg twice daily. He is also on Lasix 40 mg IV every 8 hours. Cardiology is following on an as-needed basis. Patient is continued on Zosyn and Levaquin was discontinued by pulmonary medicine. 09/08: Patient remains intubated and on mechanical ventilation with tidal volume 400, FiO2 50% and PEEP of 10. Patient has been afebrile, heart rate 77, respiratory rate 26, blood pressure 110/70, pulse ox 98%. monitoring specialist is atrial fibrillation rate is controlled. Repeat chest x-ray reveals bibasilar infiltrates with small pleural effusions that are greater on the right. Repeat WBC 11.4, hemoglobin 10.4, platelet count 85. Sodium 137, potassium 3.0 and has been replaced, chloride 102, CO2 21, BUN 119 and creatinine 4.95. Blood sugars are running between 155 and 208. ALT 94. A repeat blood culture has been obtained today. Patient is currently on Lasix 40 mg every 8 hours. He is scheduled to start Lasix drip after a 100 mg bolus. Patient is waking up and responds. He is not on vasopressors. He is on tube feedings. IV antibiotics of been changed to cefepime 2 g IV piggyback every 24 hours. 09/09: Patient remains intubated and on mechanical ventilation with tidal volume 400, FiO2 40, PEEP of 10. Patient has been afebrile, heart rate 90, respiratory rate 26, blood pressure 128/67. Patient is on Lasix drip 10 mg per hour and continued on Zaroxolyn. He is having good urine output. Patient has watery brown stools and specimens to be sent for C. difficile toxin. Repeat blood work reveals WBC 10.2, hemoglobin 10, platelet count 84. Sodium 138, potassium 3, chloride 103, CO2 21, BUN 144, creatinine 5.19. ALT 84. CT scan of the abdomen and pelvis revealed absent gallbladder. Posterior changes suggestive ileal conduit. Severe right hydronephrosis with distal ureter transition point at the level of surgical size/anastomosis. No evidence of hiatal lithiasis. Findings concerning for stricture versus stenosis. Mild left cortical atrophy. Small plural effusions with adjacent atelectasis superimposed infiltrates are not excluded. Patient was seen yesterday by Dr. Morales evaluated for hydronephrosis on the right, unsure if ureteral stent could be placed and patient may need to be considered for right nephrostomy tube insertion. He does not believe the worsening creatinine level is a result of the hydronephrosis. Repeat chest x- ray reveals moderate right and small left pleural effusions, bibasilar airspace opacities. 09/10: Patient remains intubated and on mechanical ventilation with tidal volume 400, FiO2 40%, PEEP 10. Patient has been afebrile, heart rate 82, respiratory rate 28, blood pressure 122/65, pulse ox 98%. monitoring specialist is sinus rhythm. Patient is continued on Lasix drip at 10 mg an hour. Patient is also continued on cefepime for E. coli bacteremia. Repeat chest x-ray reveals decreased pleural effusions, unchanged diffuse bilateral airspace opacities. Dr. Nolasco placed right femoral dialysis catheter and patient was started on dialysis yesterday. Patient is undergoing repeat hemodialysis today. CODE STATUS is no code. Dr. Morales is not planning for any intervention as hydronephrosis is chronic. Eliquis will be resumed. Repeat blood work reveals WBC 11.1, hemoglobin 10.1, platelet count 91. Sodium 139, potassium 3.0, chloride 102, CO2 22, BUN 128 and creatinine 4.68. Blood sugar 138. Blood sugars have been running between 138 and 235. C. difficile toxin was negative. Repeat blood cultures are showing no growth at 48 hours 09/11: Robinson Barlow is undergoing dialysis this morning. Patient remains intubated and on mechanical ventilation with tidal volume 400, FiO2 45 and PEEP of 5. Patient has been afebrile, heart rate 50, blood pressure 100/61, pulse ox 100%. monitoring specialist is sinus rhythm/bradycardia with occasional PVCs. Repeat blood work reveals WBC 12.2, hemoglobin 9.3, platelet count 88. D-dimer 5.36. Sodium 138, potassium 3.3, chloride 106, CO2 19, BUN 106, creatinine 3.91. Blood sugars running between 120-162. CK 21. C-reactive protein 7.4. Patient is currently on propofol, Lasix drip at 10 mg/h, norepinephrine during dialysis. 09/12 patient was extubated yesterday after doing well on breathing trial. Overnight patient decompensated and was placed on nonrebreather and required increase doses of Precedex to keep patient come. Chest x-ray did show improvement in patient's swallowing status and better aeration. Lasix drip was continued over night and patient did maintain adequate urine output of 200. Assessment of patient's lab patient had a creatinine 3.58, BUN 95 bicarbonate 18, sodium 142 potassium 3.3 LDH failed 42 hemoglobin 9.8 WBC 15.5. Patient was evaluated by pulmonary and CODE STATUS was discussed with the family decided to switch to DO NOT INTUBATE. Patient's prognosis were discussed with the family who decided to patient to be switched to comfort care. Patient is having difficulty breathing and was also noted to have some pauses. Patient is currently comfortable on morphine and Ativan as needed for comfort care 09/13 patient is resting comfortably currently on morphine and Ativan intermittently. Agonal breathing noted. Patient does have dry eyes. Artificial tears will be ordered 09/14 patient is resting comfortably with a goal of breathing. Morphine drip was increased to 10 mics per hour. Continue Ativan as needed. We'll consult hospice care for inpatient hospice versus home with hospice. patient is resting comfortably in bed. Hospice consult was placed ye but apparently patient family would like patient to be on comfort care and refused hospice. Patient is currently on morphine drip and Ativan as needed. Patient is apneic is longer patient appears comfortable patient early in the morning on 09/16. Please review patient's nurse's note for time of Discharge diagnosis 1. Acute hypoxic respiratory failure secondary to Covid 19 pneumonitis r 2. Acute kidney injury, acute tubular necrosis 3. Sepsis, septic shock and gram-negative bacteremia, POA. 4. Urinary tract infection with E. coli bacteremia. 5. Transaminitis secondary to COVID-19, hypotension. 6. New-onset A. fib with RVR, paroxysmal atrial fibrillation. 7. Hyperlipidemia. 8. Hypertension. Patient is off vasopressors. 9. Gastroesophageal reflux disease 10. Hypothyroidism. 11. Chronic gout. 12. Chronic kidney disease stage III. 13. History of coronary artery disease with previous stenting. 14. Thrombocytopenia secondary to sepsis. 15. Hyperglycemia without history of diabetes. 16. Right-sided hydronephrosis, chronic. Patient Condition at Discharge: Critical Plan - Discharge Summary Discharge Rx Participant: No New Discharge Prescriptions: No Action Acetaminophen/Diphenhydramine [Tylenol PM 500-25mg] 2 tab PO HS Allopurinol [Zyloprim] 200 mg PO DAILY Acetaminophen Tab [Tylenol] 1,000 mg PO DAILY Furosemide [Lasix] 40 mg PO DAILY Lani's Leg Cramps 1 - 2 tab SUBLINGUAL Q4H PRN PRN Reason: CRAMPS hydrALAZINE HCL [Apresoline] 25 mg PO BID #60 tab Acetaminophen Tab [Tylenol] 650 mg PO Q6HR PRN tab PRN Reason: Mild Pain Or Fever > 100.5 Ascorbic Acid [Vitamin C] 500 mg PO BID tab Cholecalciferol [Vitamin D3 (25 Mcg = 1000 Iu)] 125 mcg PO DAILY tablet Docusate [Colace] 100 - 200 mg PO DAILY PRN PRN Reason: Constipation Levothyroxine Sodium [Synthroid] 100 mcg PO DAILY Atorvastatin [Lipitor] 40 mg PO HS Aspirin EC [Ecotrin Low Dose] 40.5 mg PO DAILY Ubidecarenone [Co Q-10] 200 mg PO DAILY Dexamethasone [Decadron] 4 mg PO AC-BRKFST #7 tablet guaiFENesin [Mucinex] 600 mg PO Q12HR tablet.er Pantoprazole [Protonix] 40 mg PO AC-BRKFST #30 tablet. Albuterol Inhaler [Ventolin Hfa Inhaler] 2 puff INHALATION RT-QID #1 puff Discharge Medication List Acetaminophen Tab [Tylenol] 1,000 mg PO DAILY 08/26/20 [History] Acetaminophen/Diphenhydramine [Tylenol PM 500-25mg] 2 tab PO HS 08/26/20 [History] Allopurinol [Zyloprim] 200 mg PO DAILY 08/26/20 [History] Aspirin EC [Ecotrin Low Dose] 40.5 mg PO DAILY 08/26/20 [History] Atorvastatin [Lipitor] 40 mg PO HS 08/26/20 [History] Docusate [Colace] 100 - 200 mg PO DAILY PRN 08/26/20 [History] Furosemide [Lasix] 40 mg PO DAILY 08/26/20 [History] Lani's Leg Cramps 1 - 2 tab SUBLINGUAL Q4H PRN 08/26/20 [History] Levothyroxine Sodium [Synthroid] 100 mcg PO DAILY 08/26/20 [History] Ubidecarenone [Co Q-10] 200 mg PO DAILY 08/26/20 [History] Acetaminophen Tab [Tylenol] 650 mg PO Q6HR PRN tab 09/01/20 [Rx] Albuterol Inhaler [Ventolin Hfa Inhaler] 2 puff INHALATION RT-QID #1 puff 09/01/20 [Rx] Ascorbic Acid [Vitamin C] 500 mg PO BID tab 09/01/20 [Rx] Cholecalciferol [Vitamin D3 (25 Mcg = 1000 Iu)] 125 mcg PO DAILY tablet 09/01/20 [Rx] Dexamethasone [Decadron] 4 mg PO AC-BRKFST #7 tablet 09/01/20 [Rx] Pantoprazole [Protonix] 40 mg PO AC-BRKFST #30 tablet.dr 09/01/20 [Rx] guaiFENesin [Mucinex] 600 mg PO Q12HR tablet.er 09/01/20 [Rx] hydrALAZINE HCL [Apresoline] 25 mg PO BID #60 tab 09/01/20 [Rx] Follow up Appointment(s)/Referral(s): [facility], [NON-STAFF] - As Needed Andrei Vasquez MD [Primary Care Provider] - 1-2 days Discharge Disposition: - Preliminary Cause of Preliminary Cause of : COVID 19 pneumonia
== END 2020-09-16 03:30 | disposition expired | DRG 870 ==
LOC: EC 07:01 → 4SSUR 08:56 → 2SICU 09-04 02:52 → 4SSUR 09-12 18:03
PROVIDERS: ADMIT Internal Medicine Geriatric Medicine; ATTEND Internal Medicine Geriatric Medicine
PROC: 5A1955Z Respiratory Ventilation, Greater than 96 Consecutive Hours (ICD-10-PCS; principal; 2020-09-04)
PROC: 5A09357 Assistance with Respiratory Ventilation, Less than 24 Consecutive Hours, Continuous Positive Airway Pressure (ICD-10-PCS; principal; 2020-09-04)
PROC: 0BH17EZ Insertion of Endotracheal Airway into Trachea, Via Natural or Artificial Opening (ICD-10-PCS; principal; 2020-09-04)
PROC: 0D9670Z Drainage of Stomach with Drainage Device, Via Natural or Artificial Opening (ICD-10-PCS; principal; 2020-09-04)
PROC: 3E033XZ Introduction of Vasopressor into Peripheral Vein, Percutaneous Approach (ICD-10-PCS; 2020-09-04)
PROC: 02HV33Z Insertion of Infusion Device into Superior Vena Cava, Percutaneous Approach (ICD-10-PCS; 2020-09-04)
PROC: 3E0G76Z Introduction of Nutritional Substance into Upper GI, Via Natural or Artificial Opening (ICD-10-PCS; 2020-09-04)
PROC: 06HY33Z Insertion of Infusion Device into Lower Vein, Percutaneous Approach (ICD-10-PCS; 2020-09-09)
PROC: 5A1D70Z Performance of Urinary Filtration, Intermittent, Less than 6 Hours Per Day (ICD-10-PCS; 2020-09-09)
DX: A41.51 Sepsis due to Escherichia coli [E. coli] (principal); N17.0 Acute kidney failure with tubular necrosis; J96.01 Acute respiratory failure with hypoxia; J12.82 Pneumonia due to coronavirus disease 2019; U07.1 COVID-19; I50.31 Acute diastolic (congestive) heart failure; R65.21 Severe sepsis with septic shock; J15.211 Pneumonia due to Methicillin susceptible Staphylococcus aureus; A08.39 Other viral enteritis; I13.0 Hypertensive heart and chronic kidney disease with heart failure and stage 1 through stage 4 chronic kidney disease, or unspecified chronic kidney disease; N13.6 Pyonephrosis; E87.2 Acidosis; D69.59 Other secondary thrombocytopenia; N18.30 Chronic kidney disease, stage 3 unspecified; I48.0 Paroxysmal atrial fibrillation; Z99.2 Dependence on renal dialysis; Z66 Do not resuscitate; Z51.5 Encounter for palliative care; I25.10 Atherosclerotic heart disease of native coronary artery without angina pectoris; E86.0 Dehydration; E87.6 Hypokalemia; N26.1 Atrophy of kidney (terminal); R73.9 Hyperglycemia, unspecified; I49.3 Ventricular premature depolarization; E78.5 Hyperlipidemia, unspecified; E03.9 Hypothyroidism, unspecified; K21.9 Gastro-esophageal reflux disease without esophagitis; R74.01 Elevation of levels of liver transaminase levels; M1A.9XX0 Chronic gout, unspecified, without tophus (tophi); Z79.82 Long term (current) use of aspirin; Z79.890 Hormone replacement therapy; Z79.899 Other long term (current) drug therapy; Z93.6 Other artificial openings of urinary tract status; Z85.51 Personal history of malignant neoplasm of bladder; Z90.6 Acquired absence of other parts of urinary tract; Z85.05 Personal history of malignant neoplasm of liver; Z95.5 Presence of coronary angioplasty implant and graft; Z98.890 Other specified postprocedural states; Z88.8 Allergy status to other drugs, medicaments and biological substances; Z82.49 Family history of ischemic heart disease and other diseases of the circulatory system; Z80.6 Family history of leukemia
CPT/HCPCS: 36415; 71045; 74176; 76705; 76770; 80048; 80053; 81001; 82550; 82728; 82805; 83605; 83615; 83735; 84132; 85025; 85027; 85379; 85384; 85610; 85730; 86140; 86706; 87040; 87070; 87077; 87086; 87186; 87205; 87324; 87340; 90935; 93005; 93306; 94002; 94003; 94640; 94660; 94760; 96361; 96374; 99285